=== PATIENT | male | born 1945 | race Caucasian/White ===

== ENCOUNTER → 2016-09-02 | Outpatient (CLI) | payer OTHER ==
[~2016-09-02] MED LIST: ASPEC81 PO; BIOT1TAB7 PO; CHOL100040 PO; CLC100 PO; DVN80 PO; METO25TA3 PO; METO25TA56 PO; MOME100A INH; MULTTAB PO; OXYC-57 PO; PRAV20TA PO; SENN-65 PO; SIMV10TA5 PO; VALS40TA2 PO; ZNTT/150 PO; gummy fiber PO
[2016-09-02 17:20] LABS: BASO % 0.6 %; BASO ABS # 0.04 K/uL (0-0.2); COMPLETE YES; EOS % 3.4 %; HEMATOCRIT 44.1 % (42-52); IG% 0.1 %; LYMPH % 24.9 %; LYMPH ABS # 1.66 K/uL (1.2-3.4); MEAN CELL VOLUME 94.4 fL (80-100); MEAN CORPUSCULAR HEMOGLOBIN 32.8 pg (25-34); MEAN CORPUSCULAR HGB CONC 34.7 g/dl (32-36); MEAN PLATELET VOLUME 10.8 fL (7.4-10.4); MONO % 9.4 %; NEUT % 61.6 %; PLATELET COUNT 198 K/uL (130-400); RED BLOOD COUNT 4.67 M/uL (4.7-6.1); WHITE BLOOD COUNT 6.67 K/uL (4.8-10.8)
[2016-09-02 17:38] LABS: PARTIAL THROMBOPLASTIN RATIO 1.1; PROTHROMBIN TIME (PATIENT) 10.7 SECONDS (9.0-12.0)
[2016-09-02 17:48] LABS: BLOOD UREA NITROGEN 11 mg/dl (7-18); BUN/CREATININE RATIO 11.7 (10-20); CALCIUM 9.3 mg/dl (8.5-10.1); CARBON DIOXIDE 28 mmol/L (21-32); CHLORIDE 105 mmol/L (98-107); CREATININE 0.96 mg/dl (0.60-1.40); GLUCOSE 104 mg/dl (70-99); POTASSIUM 3.8 mmol/L (3.5-5.1); SODIUM 141 mmol/L (136-145)
== END | disposition home or self-care (01) ==
LOC: C.LABPBG 12:41
PROVIDERS: ATTEND Internal Medicine
DX: R04.0 Epistaxis (principal); I10 Essential (primary) hypertension

== ENCOUNTER → 2017-01-28 | Outpatient (CLI) | payer OTHER ==
--- NOTE | 2017-01-28 09:05 | DIAGNOSTIC IMAGING REPORT ---
CHEST CT WITHOUT CONTRAST CT DOSE: 719.17 mGy.cm HISTORY: R91.8 Multiple pulmonary nodules TECHNIQUE: Multiaxial CT images of the chest were performed without contrast. COMPARISON: Chest CT 08/20/2015. FINDINGS: The central airways are patent. No pleural effusions. No pneumothorax. Moderate emphysema is again noted. No change in 1.7 cm irregular solid and groundglass nodule within the right lower lobe on image 234. Slight increase in size in the 2.0 x 1.5 cm groundglass nodule within the right lower lobe on image 195. This previous measured 1.7 x 1.3 cm. Additional subcentimeter nodules within the right lower lobe remain unchanged with the largest measuring 6 mm on image 173. No new pulmonary nodules identified. No mediastinal or hilar lymphadenopathy. Mild hepatic steatosis. The visualized spleen is unremarkable. Stable 1.4 cm nodule within the right adrenal gland. Normal left adrenal gland. There is evidence for prior Zaida fundoplication. Normal caliber thoracic aorta. The heart is normal in size. Mild thickening of the distal esophagus, unchanged. No suspicious lytic or blastic osseous lesions. IMPRESSION: 1. Slight increase in size in the 2.0 x 1.5 cm groundglass nodule in the right lower lobe. This is consistent with a primary bronchogenic neoplasm until proven otherwise. 2. No giving an change in the additional 1.7 cm solid and groundglass nodule within the right lower lobe. This is also consistent with a primary bronchogenic neoplasm until proven otherwise. 3. Additional subcentimeter nodules within the right lower lobe remain stable. 4. Emphysema. Electronically signed by: Migue Bill M.D. 01/28/2017 9:03 AM Dictated Date/Time: 01/28/2017 8:55 AM
== END | disposition home or self-care (01) ==
LOC: C.CTS 08:39
PROVIDERS: ATTEND Internal Medicine Pulmonary Disease
DX: R91.8 Other nonspecific abnormal finding of lung field (principal); J43.9 Emphysema, unspecified

== ENCOUNTER 2017-04-05 07:06 | Inpatient (IN) | payer OTHER ==
[2017-03-15 09:38] VITALS: BMI 31.0
[2017-03-15 09:54] VITALS: BMI 31.0
--- NOTE | 2017-03-15 10:08 | PAT Medication Instructions ---
Service Date Mar 15, 2017. Current Home Medication List Aspirin Enteric Coated (Ecotrin Or Generic *), 81 MG PO QAM Biotin (Biotin Maximum Strength), 100,000 MCG PO QAM Cholecalciferol (Vitamin D-1000), 1 TAB PO QAM Metoprolol Succ (Toprol Xl) (Toprol-Xl), 37.5 MG PO BID Mometasone Furoate-Formoterol (Dulera 100/5 Mcg), 2 PUFFS INH BID Multivitamins/Minerals (Mvi With Minerals), 1 TAB PO QAM Pravastatin (Pravachol ), 20 MG PO QPM Senna/Docusate Sod (Senokot S), 2 TABLETS PO QPM PRN for PRN Valsartan (Diovan), 40 MG PO QAM Medication Instructions For Your Scheduled Surgery - Hold the following medications 2 weeks prior to surgery: Biotin (Biotin Maximum Strength), 100,000 MCG PO QAM - Instructions to be given by surgeon: Aspirin Enteric Coated (Ecotrin Or Generic *), 81 MG PO QAM - Hold the following medications the morning of surgery: Valsartan (Diovan), 40 MG PO QAM Multivitamins/Minerals (Mvi With Minerals), 1 TAB PO QAM Cholecalciferol (Vitamin D-1000), 1 TAB PO QAM Senna/Docusate Sod (Senokot S), 2 TABLETS PO QPM PRN for PRN - Take the following medications the morning of surgery with a sip of water OTHERWISE NOTHING TO EAT OR DRINK AFTER MIDNIGHT: Metoprolol Succ (Toprol Xl) (Toprol-Xl), 37.5 MG PO BID Multivitamins/Minerals (Mvi With Minerals), 1 TAB PO QAM Cholecalciferol (Vitamin D-1000), 1 TAB PO QAM Mometasone Furoate-Formoterol (Dulera 100/5 Mcg), 2 PUFFS INH BID - Take the following medications as scheduled the night before surgery: Metoprolol Succ (Toprol Xl) (Toprol-Xl), 37.5 MG PO BID Pravastatin (Pravachol ), 20 MG PO QPM Mometasone Furoate-Formoterol (Dulera 100/5 Mcg), 2 PUFFS INH BID If you have any questions please call us at [phone] or [phone] or [phone]
[2017-03-15 10:39] LABS: BASO % 0.3 %; BASO ABS # 0.02 K/uL (0-0.2); COMPLETE YES; EOS % 2.8 %; HEMATOCRIT 45.6 % (42-52); IG% 0.1 %; LYMPH % 16.5 %; LYMPH ABS # 1.31 K/uL (1.2-3.4); MEAN CELL VOLUME 94.6 fL (80-100); MEAN CORPUSCULAR HEMOGLOBIN 31.7 pg (25-34); MEAN CORPUSCULAR HGB CONC 33.6 g/dl (32-36); MEAN PLATELET VOLUME 10.3 fL (7.4-10.4); MONO % 7.5 %; NEUT % 72.8 %; PLATELET COUNT 177 K/uL (130-400); RED BLOOD COUNT 4.82 M/uL (4.7-6.1); WHITE BLOOD COUNT 7.95 K/uL (4.8-10.8)
[2017-03-15 12:13] LABS: BUN/CREATININE RATIO 14.1 (10-20); CALCIUM 9.4 mg/dl (8.5-10.1); CREATININE 0.97 mg/dl (0.60-1.40)
[~2017-04-05] VITALS: Ht 182.9 cm; Wt 105.8 kg
[2017-04-05] VITALS (7 sets, daily range): BP systolic 103–135; BP diastolic 60–74; PULSE 58–81; TEMP 36.3–36.7; O2SAT 93–97; Ht 182.9 cm; Wt 105.8 kg
[~2017-04-05 07:06] MED LIST changes: -CLC100 PO; -DVN80 PO; -METO25TA56 PO; -OXYC-57 PO; -SIMV10TA5 PO; -ZNTT/150 PO; -gummy fiber PO
--- NOTE | 2017-04-05 08:28 | History & Physical Bridge Note ---
H&P Re-Evaluation Bridge Note: I have examined the patient, reviewed the History & Physical and in the interval since the performance of the History & Physical I have noted the following changes of clinical significance: No changes noted
[2017-04-05] MEDS ORDERED: FENTANYL CITRATE INJ 50 MCG/1 ML 2 ML VIAL ONE ×2 (08:35→08:58)
[2017-04-05] MEDS ORDERED: MIDAZOLAM HCL 1 MG/ML 2ML VIAL ONE (08:35)
[2017-04-05] MEDS ORDERED: MoRPHine SULFATE 10 MG/ML CARP/VIAL IV PRN (08:45)
[2017-04-05] MEDS ORDERED: ATROPINE SULFATE 0.1 MG/ML 5ML SYR IV PRN (08:45)
[2017-04-05] MEDS ORDERED: PHENYLEPHRINE 100MCG/ML 5ML SYR IV PRN (08:45)
[2017-04-05] MEDS ORDERED: FLUMAZENIL 0.1 MG/1 ML 10 ML VIAL IV PRN (08:45)
[2017-04-05] MEDS ORDERED: ONDANSETRON INJ 2 MG/ML 2 ML VIAL IV PRN ×2 (08:45→14:00)
[2017-04-05] MEDS ORDERED: HYDROmorphone INJ 1 MG/ML SYR IV PRN (08:45)
[2017-04-05] MEDS ORDERED: MEPERIDINE HCL 25 MG/ML CARP IV PRN (08:45)
[2017-04-05] MEDS ORDERED: EpHEDrine SULFATE INJ 50 MG/ML AMP IV PRN (08:45)
[2017-04-05] MEDS ORDERED: LABETALOL HCL IV 5 MG/ML 20ML IV PRN (08:45)
[2017-04-05] MEDS ORDERED: NALOXONE HCL 0.4 MG/1 ML VIAL/CARP IV PRN (08:45)
[2017-04-05] MEDS ORDERED: SODIUM CHLORIDE 0.9% PF 50 ML VIAL ONE ×2 (08:55→13:02)
[2017-04-05] MEDS ORDERED: BUPIVACAINE LIPOSOME 1/3% 266 MG/20 ML VIAL INFIL ONE ×2 (08:55→13:02)
[2017-04-05] MEDS ORDERED: CEFAZOLIN SOD 1 GM VIAL ONE (10:02)
[2017-04-05] MEDS ORDERED: ROCURONIUM BROMIDE 10 MG/ML 5 ML VIAL IV ONE ×3 (10:58→12:00)
[2017-04-05] MEDS ORDERED: DEXAMETHASONE SOD INJ 4 MG/ML VIAL ONE (10:58)
[2017-04-05] MEDS ORDERED: PROPOFOL IV EMULSION 10 MG/ML 20 ML VIAL IV ONE (10:58)
[2017-04-05] MEDS ORDERED: ONDANSETRON INJ 2 MG/ML 2 ML VIAL ONE (10:58)
[2017-04-05] MEDS ORDERED: LIDOCAINE HCL 2% 2 ML VIAL (20MG/ML) ONE (10:58)
[2017-04-05] MEDS ORDERED: PHENYLEPHRINE 100MCG/ML 5ML SYR ONE (11:02)
[2017-04-05] MEDS ORDERED: PHENYLEPHRINE HCL INJ 10 MG/ML VIAL ONE (11:02)
[2017-04-05] MEDS ORDERED: DOCUSATE SODIUM/SENNA 50/8.6MG TAB PO PRN (14:00)
[2017-04-05] MEDS ORDERED: MoRPHine SULFATE 2 MG/ML CARP IV PRN ×2 (14:00→15:15)
[2017-04-05] MEDS ORDERED: OXYCODONE HCL IR 5 MG TAB (IMMEDIATE RELEASE) PO PRN (14:00)
--- NOTE | 2017-04-05 14:39 | DIAGNOSTIC IMAGING REPORT ---
CHEST ONE VIEW PORTABLE HISTORY: 71 years-old Male nodule of the right lower lobe. Follow-up study. COMPARISON: Chest CT 01/28/2017 TECHNIQUE: Portable upright AP view of the chest FINDINGS: Subcutaneous emphysema seen along the right lateral chest wall. Right-sided chest tube is noted with distal tip projected superiorly near the right lung apex. No definite right-sided pneumothorax is identified. There are hazy bibasilar opacities and a subsegmental distribution bilaterally with blunting of the costophrenic angles. No lobar space consolidations. Cardiac silhouette is upper limits of normal. The bones are grossly intact. IMPRESSION: 1. Right-sided chest tube in place without definite pneumothorax identified. Subcutaneous emphysema is seen along the right lateral chest wall. 2. Subsegmental hazy bibasilar opacities suggest atelectasis. 3. Blunting of the bilateral costophrenic angles may reflect trace pleural effusions. The above report was generated using voice recognition software. It may contain grammatical, syntax or spelling errors. Electronically signed by: Luis Fernando Hathaway M.D. 04/05/2017 2:38 PM Dictated Date/Time: 04/05/2017 2:35 PM
--- NOTE | 2017-04-05 14:50 | OPERATIVE REPORT ---
DATE OF OPERATION: 04/05/2017 PREOPERATIVE DIAGNOSIS: Right lower lobe masses x2. POSTOPERATIVE DIAGNOSES: 1. Apparent adenocarcinoma right lower lobe. 2. Questionable lymphoma. PROCEDURES: 1. Robot-assisted thoracoscopic right lower lobectomy. 2. Mediastinal lymphadenectomy. SURGEON: Dr. Brown. THERMITE BOMB LOADER: LILY Edmond. ANESTHESIA: General anesthesia endotracheal intubation using double lumen tube. SPECIFICS OF PROCEDURE: Mr. Grant is a very nice 71-year-old male who was noted to have a mass in his right lower lobe. He actually had 2 masses. A PET scan done back in November showed that these pulmonary lesion really were not very avid; however, it was quite concerning. Repeat CT scan was done on January 28 which showed that the larger mass grown to 2 cm. Given this, we elected to proceed with a resection. It really was not in a good area to do a wedge resection. I had a long talk with the patient and his . We elected to proceed with a robot-assisted thoracoscopic right lower lobectomy. On 04/05/2017, the patient underwent an uncomplicated robot-assisted thoracoscopic right lower lobectomy and mediastinal lymphadenectomy. He did not have much in the way of lymph nodes. Frozen section showed this to be a probable adenocarcinoma in one nodule and the other nodule had lymphocytic infiltrate which may be consistent lymphoma. He tolerated it quite well with negligible blood loss, was extubated in the room. DESCRIPTION OF PROCEDURE: The patient brought to the operating room, laid in supine position. General anesthesia induced and endotracheal intubation was performed with a double lumen tube. After appropriate monitoring lines and catheter had been placed. The patient was placed in a left lateral decubitus position, and the right chest prepped, draped in usual sterile fashion. Following administration of prophylactic antibiotics and appropriate timeout, an incision was made in about the ninth interspace in the mid axillary line and 12 mm port was placed and the camera was placed and held by hand. This was the robotic camera. With this, we then placed a 5 mm port more posteriorly in the same interspace, 8 mm port, between these 2 ports another 8 mm port anteriorly in the same interspace and then assistance port two interspaces below this between the third and the fourth port. There were no adhesions noted. I went and looked and really did not see an obvious mass. I did not think it would make a difference because I felt this needed to be removed. Attention was first turned towards the inferior pulmonary ligament which was taken down without difficulty with cautery. There was a level 9 node which was biopsied and there were multiple level 8 nodes which were biopsied going up to the inferior pulmonary vein. I cleaned out the inferior pulmonary vein inferiorly, posteriorly and anteriorly. I then continued the pleural dissection all the way up to the subcarinal area where the level 7 nodes and level 10 nodes were biopsied. Attention was then turned towards the interlobar fissure which was fairly complete. This brought me down to the intralobar artery. I then dissected this out and fired Endo-AMANDA stapler across this. Upon further dissection it could be seen that there was another branch more posteriorly and I then divided this. We then completed the fissure anteriorly with an Endo-AMANDA stapler. The bronchus was noted. After taking the posterior arterial branch, I then retracted the lung again anteriorly and then dissected off the remainder of the pulmonary vein. I then dissected out the bronchus. After dissecting all this away quite nicely, I then placed an Endo-AMANDA stapler across the bronchus and fired a stapler. We did inflate the lung to make sure that we did not compromise the middle lobe bronchus. Attention was then turned towards the vein and again an Endo-AMANDA stapler was fired. We then placed the mass in an Endobag and removed it, although we had to open the assistance port to about 3 cm to do this. The frozen section showed this to be an adenocarcinoma in 1 nodule and a lymphoma in the other. This is still pending final histologic analysis. Exparel was then used to perform an intrathoracic intercostal block from the 2nd to the 11th rib. A 24-Micronesian chest tube was placed through the anterior thoracoscopy port and directed towards the apex. I then placed a heavy silk suture. The 2 larger ports were closed with 0 Vicryl in a running continuous fashion to close the muscle layers. A 4-0 Monocryl was used in running subcuticular fashion to approximate the wound edges. The patient tolerated very well. I attest to the content of the Intraoperative Record and any orders documented therein. Any exception s are noted below.
--- NOTE | 2017-04-05 15:04 | Anesthesiology Progress Note ---
Anesthesia Post Op Note Date & Time Apr 05, 2017 at 15:03 Vital Signs Pain Intensity: 0 Vital Signs Past 12 Hours Date Time Temp Pulse Resp B/P (MAP) Pulse Ox O2 Delivery O2 Flow Rate FiO2 04/05/17 14:07 36.1 80 18 139/69 98 Mask 15 04/05/17 08:50 58 16 96 Mask 4.0 04/05/17 07:49 36.5 59 20 135/74 97 Room Air Notes Mental Status: alert / awake / arousable, participated in evaluation Pt Amnestic to Procedure: Yes Nausea / Vomiting: adequately controlled Pain: adequately controlled Airway Patency, RR, SpO2: stable & adequate BP & HR: stable & adequate Hydration State: stable & adequate Anesthetic Complications: no major complications apparent The patient did well. He is awake and his vital signs are stable.
[2017-04-05] MEDS ORDERED: KETOROLAC TROMETHAMINE 15 MG/ML VIAL IV. SCH (16:00)
[2017-04-05] MEDS ORDERED: ACETAMINOPHEN IV 1,000 MG in EMPTY BAG 0 ML IV SCH (16:00)
[2017-04-05] MEDS: D5W AND 1/2NSS 1,000 ML IV SCH (17:53)
[2017-04-05] MEDS: CEFAZOLIN IV 2,000 MG in DEXTROSE 5% 50ML 50 ML IV SCH (18:29)
[2017-04-05] MEDS ORDERED: METO25TA56 PO (19:10)
[2017-04-05] MEDS: DOCUSATE SODIUM 100 MG CAP PO SCH (21:21)
[2017-04-05] MEDS: PRAVASTATIN SOD 20 MG TAB PO SCH (21:21)
[2017-04-05] MEDS: METOPROLOL TARTRATE 25 MG TAB PO SCH (21:21)
[2017-04-05] MEDS: METOCLOPRAMIDE HCL INJ 5 MG/ML 2 ML VIAL IV. SCH (22:21)
[2017-04-06] VITALS (7 sets, daily range): BP systolic 90–110; BP diastolic 53–72; PULSE 60–72; TEMP 36.6–37.2; O2SAT 85–94
[2017-04-06] MEDS ORDERED: ACETAMINOPHEN IV 1,000 MG in EMPTY BAG 0 ML IV SCH (02:00)
[2017-04-06] MEDS: D5W AND 1/2NSS 1,000 ML IV SCH (02:06)
[2017-04-06] MEDS: CEFAZOLIN IV 2,000 MG in DEXTROSE 5% 50ML 50 ML IV SCH (02:07)
[2017-04-06] MEDS: KETOROLAC TROMETHAMINE 15 MG/ML VIAL IV. SCH ×3 (02:09→17:52)
[2017-04-06 06:16] LABS: BASO % 0.1 %; BASO ABS # 0.01 K/uL (0-0.2); COMPLETE YES; HEMATOCRIT 38.5 % (42-52); IG% 0.2 %; LYMPH % 7.5 %; LYMPH ABS # 0.94 K/uL (1.2-3.4); MEAN CELL VOLUME 95.3 fL (80-100); MEAN CORPUSCULAR HEMOGLOBIN 31.7 pg (25-34); MEAN CORPUSCULAR HGB CONC 33.2 g/dl (32-36); MEAN PLATELET VOLUME 9.6 fL (7.4-10.4); NEUT % 83.2 %; PLATELET COUNT 156 K/uL (130-400); RED BLOOD COUNT 4.04 M/uL (4.7-6.1)
[2017-04-06] MEDS: METOCLOPRAMIDE HCL INJ 5 MG/ML 2 ML VIAL IV. SCH ×2 (06:27→13:54)
[2017-04-06 06:34] LABS: INR 1.1 (0.9-1.1); PROTHROMBIN TIME (PATIENT) 11.4 SECONDS (9.0-12.0)
[2017-04-06 06:55] LABS: BUN/CREATININE RATIO 16.4 (10-20); CREATININE 0.97 mg/dl (0.60-1.40); POTASSIUM 3.9 mmol/L (3.5-5.1)
--- NOTE | 2017-04-06 07:45 | DIAGNOSTIC IMAGING REPORT ---
CHEST ONE VIEW PORTABLE CLINICAL HISTORY: 71 years-old Male presenting with RLL. TECHNIQUE: Portable upright AP view of the chest was obtained. COMPARISON: 04/05/2017. FINDINGS: Interval removal of the large bore right pleural drain. Persistent soft tissue emphysema overlying the right chest wall extending to the right base of the neck. Cardiomediastinal silhouette normal. Minimal bandlike opacities at the lung bases likely atelectasis. Interval recurrence of a small right pneumothorax. Left pleural space clear. Osseous structures normal. Upper abdomen normal. IMPRESSION: 1. Interval recurrence of a small right apical pneumothorax status post left pleural drain removal. 2. Minimal bibasilar atelectasis. Electronically signed by: Fernnado Kowalski M.D. 04/06/2017 7:43 AM Dictated Date/Time: 04/06/2017 7:41 AM
[2017-04-06] MEDS: ASPIRIN 81 MG ECTAB PO SCH (08:32)
[2017-04-06] MEDS: DOCUSATE SODIUM 100 MG CAP PO SCH ×2 (08:32→20:10)
[2017-04-06] MEDS: CHOLECALCIFEROL 1000 INTER.UNIT TAB PO SCH (08:33)
[2017-04-06] MEDS: CEROVITE ADV FORMULA TAB PO SCH (08:33)
[2017-04-06] MEDS: METOPROLOL TARTRATE 25 MG TAB PO SCH ×2 (08:33→20:11)
[2017-04-06] MEDS: VALSARTAN 80 MG TAB PO SCH (08:34)
[2017-04-06] MEDS: DULERA - ORDER AWAITING ACTION SCH ×3 (08:35→16:33)
[2017-04-06] MEDS: ENOXAPARIN 40 MG/0.4 ML SYR SQ SCH (08:55)
[2017-04-06] MEDS ORDERED: BIOTIN PO SCH (09:00)
[2017-04-06] MEDS ORDERED: ACETAMINOPHEN 325 MG TAB PO SCH (09:15)
--- NOTE | 2017-04-06 14:46 | SURGERY PROGRESS NOTE ---
DATE: 04/06/2017 Mr. Grant was seen today. He is on room air, sitting up, eating breakfast. His robotic right lower lobectomy and mediastinal lymph node dissection was done yesterday and denies any pain today. He is on room air. He has no air leak. His chest x-ray looks very good except for a very small right apical pneumothorax. He has no pleural effusion. All in all, I am quite happy with him. I would see him in the morning and probably remove his chest tube and let him go home. His labs all look quite good today. We are going to push him to ambulate today and discharge him in the morning.
[2017-04-06] MEDS: ACETAMINOPHEN 325 MG TAB PO SCH ×2 (16:34→21:51)
[2017-04-06] MEDS: PRAVASTATIN SOD 20 MG TAB PO SCH (21:50)
[2017-04-07] MEDS: KETOROLAC TROMETHAMINE 15 MG/ML VIAL IV. SCH ×2 (02:44→09:36)
[2017-04-07] MEDS: ACETAMINOPHEN 325 MG TAB PO SCH ×2 (04:36→09:38)
[2017-04-07] MEDS ORDERED: LACTATED RINGER'S 1000ML 1,000 ML IV SCH (06:00)
[2017-04-07 07:08] VITALS: BP 115/63; PULSE 65; TEMP 36.9; O2SAT 90
[2017-04-07] MEDS ORDERED: CLC100 PO (07:09)
--- NOTE | 2017-04-07 07:13 | Discharge Instructions ---
Discharge Instructions Date of Service Apr 07, 2017. Admission Reason for Admission: Right Lung Nodule Discharge Discharge Diagnosis / Problem: Right Lung Nodule Discharge Goals Goal(s): Learn about illness Activity Recommendations Activity Limitations: as noted below Lifting Limitations: none 1. Do not fly or SCUBA dive until cleared to do so by Dr. Brown. . Instructions / Follow-Up Instructions / Follow-Up 1. You may remove dressing in 3 days and shower thereafter. No tub baths. 2. Office appointment with Dr. Brown in 1 week. Office will call you with date and time of appointment. You need to go to hospital 1 hour before anointment to have a chest x-ray taken. Current Hospital Diet Patient's current hospital diet: Regular Diet Discharge Diet Recommended Diet: Regular Diet Procedures Procedures Performed: Right Video-Assisted Thoracoscopy with Right Lower Lobectomy and Lymphadenectomy DaVinci Pending Studies Studies pending at discharge: no Medical Emergencies . Who to Call and When: Medical Emergencies: If at any time you feel your situation is an emergency, please call 911 immediately. . Non-Emergent Contact Non-Emergency issues call your: Surgeon Call Non-Emergent contact if: you have a fever, your pain is not controlled, wound has increased drainage . "Provider Documentation" section prepared by Nelson Valdez. . VTE Core Measure Inpt VTE Proph given/why not?: Enoxaparin (Lovenox)SQ
[2017-04-07] MEDS ORDERED: OXYC-57 PO (07:24)
[2017-04-07] MEDS: DULERA - ORDER AWAITING ACTION SCH ×2 (07:45)
--- NOTE | 2017-04-07 07:46 | DIAGNOSTIC IMAGING REPORT ---
CHEST ONE VIEW PORTABLE HISTORY: chest tube removal COMPARISON: Chest 04/06/2017. FINDINGS: Small right apical pneumothorax persists and is not significantly changed. This demonstrates a maximal pleural gap of 1.8 cm. Right chest wall subcutaneous emphysema persists. The cardiac silhouette remains mildly enlarged. There are low lung volumes. Bibasilar linear densities favor subsegmental atelectasis. No evidence for pulmonary edema. IMPRESSION: No significant change compared to the prior study. Small right pneumothorax persists. Electronically signed by: Migue Bill M.D. 04/07/2017 7:45 AM Dictated Date/Time: 04/07/2017 7:38 AM
[2017-04-07] MEDS: DOCUSATE SODIUM 100 MG CAP PO SCH (09:00)
[2017-04-07] MEDS: CHOLECALCIFEROL 1000 INTER.UNIT TAB PO SCH (09:25)
[2017-04-07 09:27] VITALS: BP 107/63; PULSE 84
[2017-04-07] MEDS: ASPIRIN 81 MG ECTAB PO SCH (09:28)
[2017-04-07] MEDS: VALSARTAN 80 MG TAB PO SCH (09:28)
[2017-04-07] MEDS: CEROVITE ADV FORMULA TAB PO SCH (09:29)
[2017-04-07] MEDS: METOPROLOL TARTRATE 25 MG TAB PO SCH (09:30)
[2017-04-07] MEDS: ENOXAPARIN 40 MG/0.4 ML SYR SQ SCH (09:31)
[2017-04-07 09:49] VITALS: BP 107/63; PULSE 84; TEMP 36.9; O2SAT 90
--- NOTE | 2017-04-07 18:30 | DISCHARGE SUMMARY ---
DISCHARGE DIAGNOSES: Non-small cell lung carcinoma, right lower lobe. HOSPITAL COURSE: This is a very nice 71-year-old male who was found to have a mass that was slowly growing in his right lower lobe. In fact, he had 2 masses. They were deeper than the lobe medially. I did not think a segmentectomy or wedge resection would be feasible. For this reason, I offered him a robot-assisted lobectomy. On 04/05/2017, the patient underwent uncomplicated robot-assisted thoracoscopic right lower lobectomy and mediastinal lymphadenectomy. Frozen section showed that 1 nodule that had been growing was indeed an early stage carcinoma. This nonsmall cell lung carcinoma had good margins. All of the lymph nodes were negative. He had no air leak. He tolerated the procedure quite well. He was discharged home on postoperative day 2. His x-ray after chest tube was removed looked quite good. I will see him back in the office next week to go over his final pathology results. I am quite happy with his response to this surgery.
--- NOTE | 2017-04-08 08:08 | EDITING REQUIRED CODING QUERY ---
CODING QUERY To promote full compliance with coding requirements relating to patient care, provider participation is requested in all cases of mirror polisher uncertainty. Please assist us with the question(s) below: Coding Question(s): The Op Report and the Discharge Summary are not consistent in documenting of the possible Lymphoma. Please clarify below, in your clinical opinion. ( ) Possible Lympoma ( ) No Lymphoma Unknown at this point. Physician's Response(s): Primary bronchogenic carcinoma is the "_condition..to be chiefly responsible for occasioning the patient to the hospital for care". Thank you Sylvie Tejada Principal Diagnosis: "_that condition established after study, to be chiefly responsible for occasioning the admission of the patient to the hospital for care." Co-Existing Principal Diagnosis: "_when two or more diagnoses equally meet the criteria for principal diagnosis as determined by the circumstances of admission, diagnostic work up, and/or therapy provided, and the Alphabetic Index, Tabular List, or another coding guideline does not provide sequencing direction, any one of the diagnoses may be sequenced first." "When the physician has documented what appears to be a current diagnosis in the body of the record, but has not included the diagnosis in the final diagnostic statement, the physician should be asked whether the diagnosis should be added." (Source Coding [facility] 2 QTR90. p3-4)
== END 2017-04-07 10:15 | disposition home or self-care (01) | DRG 165 ==
LOC: C.ACU 07:06 → C.MSW 07:40 → EDBEDREQ 14:35 → ENRESERV 15:12
PROVIDERS: ADMIT Surgery; ATTEND Surgery
PROC: 0W9930Z Drainage of Right Pleural Cavity with Drainage Device, Percutaneous Approach (ICD-10-PCS; principal; 2017-04-05 09:00)
PROC: 0BTF4ZZ Resection of Right Lower Lung Lobe, Percutaneous Endoscopic Approach (ICD-10-PCS; principal; 2017-04-05 09:00)
PROC: 07B74ZX Excision of Thorax Lymphatic, Percutaneous Endoscopic Approach, Diagnostic (ICD-10-PCS; principal; 2017-04-05 09:00)
PROC: 8E0W4CZ Robotic Assisted Procedure of Trunk Region, Percutaneous Endoscopic Approach (ICD-10-PCS; principal; 2017-04-05 09:00)
DX: C34.31 Malignant neoplasm of lower lobe, right bronchus or lung (principal); J44.9 Chronic obstructive pulmonary disease, unspecified; I10 Essential (primary) hypertension; Z79.899 Other long term (current) drug therapy; Z79.82 Long term (current) use of aspirin; Z83.3 Family history of diabetes mellitus; Z83.6 Family history of other diseases of the respiratory system

== ENCOUNTER → 2017-04-15 | Outpatient (CLI) | payer OTHER ==
[~2017-04-15] MED LIST changes: +CLC100 PO; -METO25TA3 PO; +METO25TA56 PO; +OXYC-57 PO
--- NOTE | 2017-04-15 09:23 | DIAGNOSTIC IMAGING REPORT ---
CHEST 2 VIEWS ROUTINE HISTORY: Postop. R91.1 Nodule of right [id number] COMPARISON: Chest 04/07/2017. FINDINGS: Small right pneumothorax is decreased in size and now demonstrates a pleural gap of 9 mm. Right chest wall subcutaneous emphysema persists. The heart is normal in size. The left lung remains clear. No pleural effusions. Progressive right lower lobe airspace opacity. IMPRESSION: Decrease in size in the small right pneumothorax. Progressive right lower lobe opacity. This may represent postoperative change, atelectasis, or developing pneumonia. Electronically signed by: Migue Bill M.D. 04/15/2017 9:21 AM Dictated Date/Time: 04/15/2017 9:19 AM
== END | disposition home or self-care (01) ==
LOC: C.RAD 08:50
PROVIDERS: ATTEND Surgery
DX: J93.9 Pneumothorax, unspecified (principal)

== ENCOUNTER → 2017-04-29 | Outpatient (CLI) | payer OTHER ==
[2017-04-29 12:31] LABS: ALT/SGPT 32 U/L (12-78); BLOOD UREA NITROGEN 16 mg/dl (7-18); BUN/CREATININE RATIO 20.6 (10-20); CALCIUM 9.3 mg/dl (8.5-10.1); CARBON DIOXIDE 25 mmol/L (21-32); CHLORIDE 108 mmol/L (98-107); CHOLESTEROL 125 mg/dl (0-200); CREATININE 0.77 mg/dl (0.60-1.40); GLUCOSE,FASTING 102 mg/dl (70-99); POTASSIUM 4.2 mmol/L (3.5-5.1); SODIUM 139 mmol/L (136-145); TRIGLYCERIDES 102 mg/dl (0-150); VERY LOW DENSITY LIPOPROT CALC 20 mg/dl
[2017-04-29 12:34] LABS: ALB/GLOB RATIO 1.2 (0.9-2); ALKALINE PHOSPHATASE 57 U/L (45-117); AST/SGOT 23 U/L (15-37); CHOLESTEROL/HDL RATIO 2.9; HDL CHOLESTEROL 43 mg/dl; LDL CHOLESTEROL CALCULATED 62 mg/dl
== END | disposition home or self-care (01) ==
LOC: C.LABPBG 07:28
PROVIDERS: ATTEND Internal Medicine
DX: E78.00 Pure hypercholesterolemia, unspecified (principal); I10 Essential (primary) hypertension; E55.9 Vitamin D deficiency, unspecified

== ENCOUNTER → 2017-05-13 | Outpatient (CLI) | payer OTHER ==
[2017-05-13 17:17] LABS: URINE APPEARANCE CLEAR (CLEAR); URINE BILIRUBIN NEG (NEG); URINE COLOR YELLOW; URINE NITRITE NEG (NEG); URINE SPECIFIC GRAVITY 1.022 (1.000-1.030); UROBILINOGEN NEG (NEG)
[2017-05-13 17:20] LABS: MANUAL MICROSCOPIC REQUIRED? NO; REVIEW REQ? NO
[2017-05-13 17:23] LABS: BASO % 0.5 %; BASO ABS # 0.05 K/uL (0-0.2); COMPLETE YES; EOS % 7.1 %; HEMATOCRIT 46.5 % (42-52); IG% 0.3 %; LYMPH % 20.9 %; MEAN CELL VOLUME 94.7 fL (80-100); MEAN CORPUSCULAR HEMOGLOBIN 32.2 pg (25-34); MEAN PLATELET VOLUME 10.6 fL (7.4-10.4); MONO % 6.4 %; NEUT % 64.8 %; PLATELET COUNT 183 K/uL (130-400); RED BLOOD COUNT 4.91 M/uL (4.7-6.1)
[2017-05-13 18:06] LABS: ALT/SGPT 39 U/L (12-78); AST/SGOT 23 U/L (15-37); BLOOD UREA NITROGEN 13 mg/dl (7-18); BUN/CREATININE RATIO 13.4 (10-20); CALCIUM 9.4 mg/dl (8.5-10.1); CARBON DIOXIDE 27 mmol/L (21-32); CHLORIDE 106 mmol/L (98-107); CREATININE 0.95 mg/dl (0.60-1.40); GLUCOSE 92 mg/dl (70-99); POTASSIUM 4.2 mmol/L (3.5-5.1); SODIUM 140 mmol/L (136-145)
[2017-05-13 18:08] LABS: ALB/GLOB RATIO 1.3 (0.9-2); ALKALINE PHOSPHATASE 67 U/L (45-117)
== END | disposition home or self-care (01) ==
LOC: C.LABPBG 11:46
PROVIDERS: ATTEND Internal Medicine
DX: R10.12 Left upper quadrant pain (principal); R10.32 Left lower quadrant pain

== ENCOUNTER → 2017-10-15 | Outpatient (CLI) | payer OTHER ==
[~2017-10-15] MED LIST changes: -OXYC-57 PO
--- NOTE | 2017-10-15 12:02 | DIAGNOSTIC IMAGING REPORT ---
(CHEST) THORAX WITHOUT CT DOSE: 608.85 mGycm HISTORY: Lung carcinoma CANCER OF RIGHT LUNG TECHNIQUE: Multiaxial CT images of the chest were performed without contrast. A dose lowering technique was utilized adhering to the principles of ALARA. COMPARISON: 01/28/2017 FINDINGS: Interval right lower lobectomy. The nodular densities previous described have been removed. Lungs currently are clear. There is no significant nodular pathology. Chronic atelectatic change and or scarring of the lingula is unaltered. No significant mediastinal or hilar adenopathy. Several very small axillary nodes bilaterally unchanged from the prior study. Fixed hiatal hernia somewhat increased from the prior exam. Stable hyperplastic change of the adrenal glands. IMPRESSION: 1. Interval right lower lobectomy and removal of the 2 nodular densities previous described. 2. No evidence for parenchymal nodularity currently. 3. Chronic basilar atelectatic and/or fibrotic change. 4. Small hiatal hernia. 5. No evidence for residual or recurrent disease The above report was generated using voice recognition software. It may contain grammatical, syntax or spelling errors. Electronically signed by: Armaan Syed M.D. 10/15/2017 12:01 PM Dictated Date/Time: 10/15/2017 11:53 AM
== END | disposition home or self-care (01) ==
LOC: C.CTS 11:39
PROVIDERS: ATTEND Surgery
DX: C34.91 Malignant neoplasm of unspecified part of right bronchus or lung (principal); K44.9 Diaphragmatic hernia without obstruction or gangrene

== ENCOUNTER → 2017-10-25 | Outpatient (CLI) | payer OTHER ==
--- NOTE | 2017-10-25 12:30 | DIAGNOSTIC IMAGING REPORT ---
VIDEO SWALLOW STUDY CLINICAL HISTORY: Dysphagia. COMPARISON STUDY: No priors. Fluoroscopy time: 2.5 minutes. FINDINGS: Fluoroscopic guidance was provided to the department of speech pathology in performing a video swallow study. The patient consumed barium-impregnated cracker with paste, pudding, nectar thick liquid, and thin barium while the swallowing mechanism was observed in real-time. No penetration or aspiration was seen with any of the sampled textures. Mild esophageal dysmotility was observed. IMPRESSION: 1. No penetration or aspiration was identified. 2. Esophageal dysmotility. 3. See dedicated speech pathology report for detailed findings and recommendations. Dictated: 10/25/2017 11:58 AM Transcribed: 10/25/2017 12:30 PM [facility] Electronically signed by: Dayne Loaiza M.D. 10/25/2017 1:29 PM Dictated Date/Time: 10/25/2017 11:58 AM
--- NOTE | 2017-10-25 13:38 | SWALLOWING EVALUATION ---
HISTORY: This 72 year old man was referred for a video swallow study at [facility] in order to rule out aspiration and identify the safest consistencies for optimal oral intake. Patient reports food becoming stuck in his throat and also pointed to his mid sternum as an area where he feels pressure while eating. PMH is significant for: right lung nodule, right lower lobectomy, small hiatal hernia, dehydration, HTN, and A-fib. Current diet is regular. PROCEDURE: The patient was seen in the Radiology Department of [facility] for the VFSS. Cursory examination of the oral cavity revealed the patient to have upper and lower dentition in good condition, many were capped. Movement of the articulators was wnl. The patient was seated upright on a stool and was viewed in both the Anterior-Posterior (A-P) and Lateral planes. Volitional phonation exercises completed in the A-P plane revealed bilateral vocal fold movement. Vocal intensity was wnl. In the lateral plane, the patient was given the following boluses: 1 tsp. thin liquid barium x 2, single swallow thin liquid barium self-presented from a cup, sequential swallows of thin liquid barium self-presented from a straw, 1 tsp. nectar-thick liquid barium, single swallow nectar-thick liquid barium self-presented from a cup, 1 tsp. barium pudding, and 1 club cracker coated in barium pudding. The patient was then repositioned into the A-P plane and given the following boluses: 1 tsp. nectar thick barium and 1 tsp. barium pudding. RESULTS: Oral Stage: Lip closure was adequate. The patient was able to maintain a cohesive liquid bolus in the oral cavity during the liquid bolus hold task. Mastication was mildly slow. Lingual motion for bolus transport was also noted to be slow. There was retention lining the tongue and palate after the initial swallow. The initiation of the pharyngeal swallow occurred when the bolus head reached the valleculae. Pharyngeal Stage: Soft palate elevation was complete. Laryngeal elevation revealed complete superior movement of the thyroid cartilage with complete approximation of the arytenoids to the epiglottic base. Anterior hyoid excursion and epiglottic deflection was complete. Laryngeal vestibular closure was complete. The pharyngeal stripping wave was present and complete. Pharyngeal contraction was complete. There was complete distention and duration of the opening to the pharyngoesophageal segment (PES). Tongue base retraction was partially reduced with a trace column of contrast located between the tongue base and pharyngeal wall during the swallow. There was trace retention located in the valleculae and pyriforms after the swallow. The pharyngeal stage of the swallow was wnl. There was no evidence of laryngeal penetration or aspiration for this study. Esophageal stage: There was distal esophageal retention with mild retrograde flow below the PES. A liquid wash assisted to clear the majority of the retention. This is suggestive of esophageal dysmotility and reflux. SUMMARY/RECOMMENDATIONS: This patient presents with normal marquita-pharyngeal swallowing mechanics. He presents with s/s of esophageal dysfunction. The following is recommended: 1. Regular diet, "Slippery", thin liquids. 2. GERD precautions. Straws OK. Fully upright for meals and for 30 minutes after meals. Do not lay flat, elevate head of the bed to at least 30 degrees at all time, to include while sleeping. 3. Safe swallow strategies: Alternate solids and liquids. Rest breaks as needed. 4. Follow up with a enrolled agent due to esophageal dysfunction as indicated for medication and or further testing as needed. A summary of the results and recommendations was discussed with the patient, to include information regarding a slippery diet, with verbal understanding. Thank you for referral of this patient. Please contact me at if any additional information is needed.
== END | disposition home or self-care (01) ==
LOC: C.RAD 10:25
PROVIDERS: ATTEND Internal Medicine
DX: K22.4 Dyskinesia of esophagus (principal); R13.10 Dysphagia, unspecified

== ENCOUNTER 2024-01-27 17:32 | Inpatient (IN) ==
--- NOTE | 2024-01-27 17:40 | ED Triage Note ---
Date of Service January 27, 2024 Provider in Triage Author: Anisha Gilmore History of Present Illness This patient was briefly evaluated while in triage. An abbreviated physical exam was performed. This patient is a 78-year-old Male who presents to the ED for evaluation of shortness of breath. Has throat and lung cancer, already finished radiation, but had to stop chemo treatments recently because of side effects. No chest pain. Has been having fevers off and on, and also having a cough. Physical Exam CONSTITUTIONAL: No acute distress. Well appearing. HEENT: Airway patent. RESPIRATORY: Diminished lung sounds, fine crackles in bases. Nonlabored. Equal expansion bilaterally. CARDIOVASCULAR: Regular rate and rhythm. GASTROINTESTINAL: Soft NEUROLOGIC: Alert and oriented X 4 with normal affect. Patient found to be profoundly hypoxic in triage, 74% on room air. Placed on oxygen with improvement to 89%. Initial orders for labs and / or imaging were placed and patient was taken directly to room B3. Please see further documentation for the full ED course. MDM / Impression Impression Impression: Sepsis, Acute hypoxemic respiratory failure, Pneumonia, Leukocytosis, Non-ST elevation MA (NSTEMI), Elevated brain natriuretic peptide (BNP) level
--- NOTE | 2024-01-27 17:58 | Emergency Department Note ---
Impression & Plan Sepsis, Acute hypoxemic respiratory failure, Pneumonia, Leukocytosis, Non-ST elevation ME (NSTEMI), Elevated brain natriuretic peptide (BNP) level ED Provider Note HISTORY OF PRESENT ILLNESS: Patient is a 78-year-old male presenting with hypoxia and confusion. provides most of history. Reports that the patient is currently undergoing chemotherapy for what is presumed to be neck cancer that is gone to his lung. He had radiation therapy to his lung weeks ago. He has not had chemotherapy in 3 weeks secondary to getting palpitations during the chemo treatments. He has been having daily fevers up to 101. He was told that this is "just a side effect of the chemo." He states he has been progressively weaker in the last few weeks. He has had progressively worsening shortness of breath in the last 2 weeks. Denies any significant changes in weight. Denies any chest pain. Today, his noticed that he was very ashen and blue in color and was very confused. She decided to bring him to the emergency department. He does not wear any supplemental oxygen at baseline. He does not have any history of cardiac stents. Denies any DVT or PE history. ROS: as above PHYSICAL EXAM: Constitutional: Patient appears in no acute distress. HENT: Head: Normocephalic and atraumatic. Eyes: EOMI, PERRL Mouth/Throat: Mucous membranes moist. Neck: Trachea midline. Neck supple. Cardiovascular: Tachycardic with regular rhythm. No murmurs, rubs or gallops. Intact distal pulses. Pulmonary/Chest: Patient is tachypneic. He is on 10 L oxime mask with saturation is 95%. Slight expiratory wheezes bilaterally. Crackles in right lung base. Abdominal: Abdomen soft, no tenderness, rebound or guarding. Musculoskeletal: No tenderness or deformity noted. +1 edema of bilateral lower extremities extending to the lower fischer. Skin: Warm and dry. No rash, erythema, pallor or cyanosis Psychiatric: Appropriate mood and affect for situation. Neurological: Alert and keenly responsive. CN II-XII grossly intact, moving all extremities equally and fully. MDM: - Vitals signs showed hypertension, fever, tachypnea, tachycardia and hypoxia. Patient was immediately brought back to the resuscitation bay and placed on 10 L oxime mask. Saturations improved to 95%. Patient's mental status also improved. - History obtained via patient and patient's , given patient's tachypnea and confusion. History as above. - Chronic conditions affecting care: hypothyroidism; HTN; COPD; CAROLYN; squamous cell carcinoma of lung; atrial flutter; supraglottis cancer - Differential diagnoses include, but are not limited to: Congestive heart failure; acute coronary syndrome; COPD/asthma exacerbation; pulmonary edema; pulmonary embolism; pneumonia; pneumothorax; viral syndrome - Order placed for continuous cardiac monitoring. At this time, monitor showed rate of 105 bpm with normal sinus rhythm, per my interpretation. - External medical records reviewed. Oncology/hematology report dated 01/16/2024 was reviewed. 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 His cancer staging is T3 N2c - EKG interpreted by myself showed normal sinus rhythm. Rate tachycardic at 112 bpm. QT 366. No acute ischemic changes. Noted to have frequent PVCs. - Laboratory workup interpreted by myself showed leukocytosis (WBC 19.33) with left shift; stable electrolytes; normal lactate; normal creatinine; slight transaminitis (AST 49; ALT 102); normal total bilirubin; elevated troponin (24.9); elevated BNP (574); normal procalcitonin - Blood cultures obtained - VBG grossly unremarkable - Viral respiratory panel negative - CXR shows pulmonary vascular congestion and right pleural effusion, per my interpretation. - CT PE negative for PE. Noted to have consolidated/collapse right lower lobe with a right hilar soft tissue density. Findings suggestive of bronchogenic malignancy arising from the right hilum with postobstructive right lower lobe atelectasis/pneumonia. Noted to have a small partially loculated right pleural effusion. - Patient empirically started on IV rocephin. Given 1g IV tylenol for fever. Given 1L NS in ER. Patient sepsis fluid resuscitation based on ideal body weight is 1854.3 mL. However, no further fluids were given after the initial 1L, given patient's elevated BNP and notable pleural effusion and oxygen need. No echocardiogram noted in the patient's chart for previous EF. However, on clinical evaluation he is fluid overloaded and no further fluids were given. - Patient transitioned to [facility] for respiratory support - Discussion was had with rn field case manager about patient's case and need for admission - Hospitalist consulted for admission - Patient admitted to [facility] Hospitalist service for further evaluation and management. I have personally spent 48 minutes of critical care time in the direct management of this patient. This includes bedside care, interpretation of diagnostic studies, and testing, discussion with consultants, patient, and family members, and other required patient management activities. This 48 minutes is in excess of all separately billable procedures. ASSESSMENT AND PLAN: Diagnosis: sepsis; fever; leukocytosis; NSTEMI; elevated BNP; pneumonia; acute hypoxic respiratory failure Plan: admit Past Med/Surg History Problem List (Updated 01/27/24 @ 19:53 by Amisha Rodriguez MD) Elevated brain natriuretic peptide (BNP) level (Acute) Non-ST elevation ME (NSTEMI) (Acute) Leukocytosis (Acute) Pneumonia (Acute) Acute hypoxemic respiratory failure (Acute) Sepsis (Acute) Squamous cell carcinoma of left lung (Acute) Hypothyroidism History of lung cancer Primary cancer of supraglottis (Chronic) Bilateral carotid artery disease History of atrial flutter s/p RFA in 2012 GERD (gastroesophageal reflux disease) Hiatal hernia Vitamin D deficiency Hyperlipidemia Gout Hypertension Obstructive sleep apnea Chronic obstructive pulmonary disease Adenocarcinoma of right lung, stage 1 (2016) Medical History Tracheostomy in place COVID-19 (06/2020) Surgical History History of lung biopsy L lung - October 2023 -Wilber Gonzalez. Status post tracheostomy (10/09/22) 10/09/[address] Chowdary [facility] History of radiofrequency ablation (RFA) procedure for cardiac arrhythmia (2012) caval tricuspid isthmus radiofrequency catheter ablation Status post laparoscopic Zaida fundoplication (11/13/09) w/ paraesophageal hernia repair S/P eye surgery S/P colectomy secondary to diveritculitis S/P lobectomy of lung (03/2017) RLL, secondary to non small cell lung carcinoma History of cataract surgery Family History Father Diabetes Mother , age 85 Bacterial pneumonia Smoker COPD (chronic obstructive pulmonary disease) Sister No problems noted. Sister Breast cancer, Onset Age: 66 Denies family history of Ovarian cancer Prostate cancer Myocardial infarction Colorectal cancer Social History Smoking Status: Former smoker Tobacco Type: Cigarettes Age Started Using Tobacco: 17; Age Quit Using Tobacco: 47; packs per day: 2; Second Hand Exposure: No; Do You Dip or Chew Tobacco: No; Hx Alcohol Use: No (no drinking since 1985) Hx Substance Use: No Preferred Language: Tongan Communication Ability: Effective Visual Impairment: No Limitations Hearing Ability: Normal Senior Technical Business Analyst Required: No Beliefs That Will Affect Care: None marital status: Current Living Situation: Spouse current occupational status: retired 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 [employer] How many Children do You have: 2 Feels Safe at Home: Yes Childhood Exposure to Second-Hand Smoke: Yes Diet: regular Diet Comment: regular caffeine: Yes (coffee) during the past year weight has: remained stable Dental Care, Regularly: Yes Physical Activity Frequency: Daily Physical Activity Frequency Comment: goes to [facility] Wed-Wednesday Seatbelt Use: always Sunscreen Use: Yes Allergies Allergies Allergy/AdvReac Type Severity Reaction Status Date / Time lisinopril AdvReac Intermediate COUGH Verified 12/21/23 08:20 simvastatin AdvReac Unknown MUSCLE Verified 12/21/23 08:20 ACHES Home Meds Home Medications Medication Instructions Recorded Confirmed multivit with min-folic 1 tab PO QAM 04/20/19 11/23/23 acid-lutein 400 mcg-250 mcg chewable tablet (Centrum Silver) aspirin 81 mg tablet,delayed 81 mg PO QAM 07/13/20 11/23/23 release cholecalciferol (vitamin D3) 25 1,000 unit PO QAM 07/13/20 11/23/23 mcg (1,000 unit) capsule metronidazole 0.75 % topical cream 1 applic topical BID PRN 03/02/23 11/23/23 Previous Rx's Medication Instructions Recorded omeprazole 20 mg capsule,delayed 20 mg PO BID #180 caps 06/15/23 release fluticasone fur. 100 mcg-umeclid 1 inh inhalation DAILY 90 days #90 08/31/23 62.5 mcg-vilant 25 mcg puffs inhalat.powder (Trelegy Ellipta) ipratropium 0.5 mg-albuterol 3 mg 3 ml inhalation Q6H PRN shortness 08/31/23 (2.5 mg base)/3 mL nebulization of breath or wheezing #180 mL soln allopurinol 100 mg tablet 100 mg PO QAM #90 tabs 09/10/23 metoprolol succinate 50 mg 50 mg PO BID #180 tabs 09/10/23 tablet,extended release 24 hr pravastatin 20 mg tablet 20 mg PO HS #90 tabs 01/12/24 levothyroxine 75 mcg tablet 75 mcg PO DAILY #90 tabs 01/26/24 Results & Data (ED) Vital Signs Vital Signs - 24 hr 01/27/24 17:37 01/27/24 17:40 01/27/24 17:53 Temperature 36.8 C Temperature Source Temporal Artery Scan Pulse Rate 94 H 108 H Pulse Rate [Apical] Pulse Rhythm Regular Pulse Rhythm [Apical] Pulse Strength [Apical] Respiratory Rate 22 Respiratory Effort / Characteristics Non-Labored Spontaneous Respiratory Depth Normal Respiratory Pattern Blood Pressure 155/65 H Blood Pressure [Right Arm] Blood Pressure Mean 95 Blood Pressure Mean [Right Arm] Pulse Oximetry 77 L Oxygen Delivery Method Room Air Oxymask Oxygen Flow Rate Sepsis Recent Fever Within 48 Hours No Sepsis New/Unexplained Change in Mental Status No Sepsis Action Taken by Nursing No Action Required Oxygen Flow Rate - Titration 10 Pulse Oximetry Post Tiitration 89 L 01/27/24 18:02 01/27/24 18:35 01/27/24 18:36 Temperature 38.2 C H Temperature Source Oral Pulse Rate 106 H Pulse Rate [Apical] 102 H Pulse Rhythm Pulse Rhythm [Apical] Pulse Strength [Apical] Respiratory Rate 32 H 31 H Respiratory Effort / Characteristics Spontaneous Short of Breath Respiratory Depth Respiratory Pattern Blood Pressure Blood Pressure [Right Arm] 122/63 Blood Pressure Mean Blood Pressure Mean [Right Arm] 82 Pulse Oximetry 94 94 Oxygen Delivery Method Oxymask Oxymask Oxygen Flow Rate 8 8 Sepsis Recent Fever Within 48 Hours Sepsis New/Unexplained Change in Mental Status Sepsis Action Taken by Nursing Oxygen Flow Rate - Titration Pulse Oximetry Post Tiitration 01/27/24 19:27 Temperature Temperature Source Pulse Rate Pulse Rate [Apical] 96 H Pulse Rhythm Pulse Rhythm [Apical] Irregular Pulse Strength [Apical] Normal Respiratory Rate 20 Respiratory Effort / Characteristics Non-Labored Spontaneous Respiratory Depth Normal Respiratory Pattern Regular Blood Pressure Blood Pressure [Right Arm] 122/63 Blood Pressure Mean Blood Pressure Mean [Right Arm] 82 Pulse Oximetry 94 Oxygen Delivery Method Oxymask Oxygen Flow Rate 5 Sepsis Recent Fever Within 48 Hours Sepsis New/Unexplained Change in Mental Status Sepsis Action Taken by Nursing Oxygen Flow Rate - Titration Pulse Oximetry Post Tiitration Laboratory Data 01/27/24 17:40 01/27/24 17:40 Lab Results 01/27/24 01/27/24 01/27/24 Range/Units 17:40 17:52 18:03 WBC 19.33 H (4.8-10.8) K/ul RBC 3.47 L (4.70-6.10) M/uL Hgb 11.5 L (14.0-18.0) g/dl POC Hgb (14.0-18.0) g/dl Hct 34.5 L (42.0-52.0) % POC Hct (42-52) % MCV 99.4 (80.0-100.0) fL MCH 33.1 (25.0-34.0) pg MCHC 33.3 (32.0-36.0) g/dL RDW Std Deviation 56.1 H (36.4-46.3) fL RDW Coeff of Stephanie 15.6 H (11.5-14.5) % Plt Count 384 (130-400) K/uL MPV 9.8 (9.4-12.4) fL Immature Gran % (Auto) 1.4 % Neut % (Auto) 91.1 % Lymph % (Auto) 2.4 % [place] % (Auto) 4.7 % Eos % (Auto) 0.1 % Baso % (Auto) 0.3 % Neut # (Auto) 17.64 H (1.40-6.50) K/uL Lymph # (Auto) 0.46 L (1.20-3.40) K/uL [place] # (Auto) 0.90 H (0.11-0.59) K/uL Eos # (Auto) 0.01 (0.00-0.50) K/uL Baso # (Auto) 0.05 (0.00-0.20) K/uL Immature Gran # (Auto) 0.27 H (0.01-0.20) K/uL Absolute Nucleated RBC 0.03 (0.00-0.12) K/uL Nucleated RBC % (auto) 0.2 % PT 12.4 H (9.0-12.0) Seconds INR 1.2 H (0.9-1.1) APTT 27 (21-31) Seconds PTT Ratio 1.0 VBG pH (7.36-7.41) VBG pCO2 (38-50) mmHg VBG pO2 mmHg VBG HCO3 mmol/L VBG O2 Saturation % VBG Base Excess mEq/L POC Sodium (135-144) mmol/L Sodium 133 L (136-145) mmol/L POC Potassium (3.3-5.0) mmol/L Potassium 3.7 (3.5-5.1) mmol/L POC Chloride (101-112) mmol/L Chloride 95 L (98-107) mmol/L Carbon Dioxide 29 (21-32) mmol/L POC Total CO2 (24-31) mmol/L Anion Gap 9 (3-11) POC Anion Gap (16-25) mmol/L POC BUN (7-18) mg/dl BUN 21 (6-23) mg/dl Creatinine 0.73 (0.6-1.4) mg/dl POC Creatinine (0.6-1.3) mg/dl Est Cr Clr Drug Dosing 85.3 ml/min Est GFR ( Amer) 103.7 ml/min Est GFR (Non-Af Amer) 89.5 ml/min BUN/Creatinine Ratio 28.8 H (10-20) Glucose 128 H (70-99(Fasting)) mg/dl POC Glucose (other) (70-99) mg/dl Lactate 1.5 (0.4-2.0) mmol/L Calcium 9.0 (8.6-10.3) mg/dl POC Ioniz Calcium Payal (1.12-1.32) mmol/l Magnesium 1.7 (1.7-2.4) mg/dl Total Bilirubin 1.0 (0.2-1.0) mg/dl AST 49 H (13-39) U/L ALT 102 H (7-52) U/L Alkaline Phosphatase 165 H (34-104) U/L Troponin I High Sens 24.9 H (0-20) pg/ml B-Natriuretic Peptide 574 H (0-100) pg/ml Total Protein 6.5 (6.0-8.3) gm/dl Albumin 3.0 L (3.4-5.0) gm/dl Globulin 3.5 (2.5-4.0) gm/dl Albumin/Globulin Ratio 0.9 (0.9-2) Procalcitonin 0.45 (0-0.5) ng/ml Adenovirus (PCR) Not Detected (NotDetected) B. pertussis DNA (PCR) Not Detected (NotDetected) B.parapertussis DNA PCR Not Detected (NotDetected) C. pneumoniae DNA (PCR) Not Detected (NotDetected) Coronavirus OC43 (PCR) Not Detected (NotDetected) Coronavirus HKU1 (PCR) Not Detected (NotDetected) Coronavirus 229E (PCR) Not Detected (NotDetected) SARS-CoV-2 (PCR) Not Detected (NotDetected) Coronavirus NL63 (PCR) Not Detected (NotDetected) Human Metapneumovir PCR Not Detected (NotDetected) Influenza Type A (PCR) Not Detected (NotDetected) Influenza Type B (PCR) Not Detected (NotDetected) M. pneumoniae (PCR) Not Detected (NotDetected) Parainfluenza 1 (PCR) Not Detected (NotDetected) Parainfluenza 2 (PCR) Not Detected (NotDetected) Parainfluenza 3 (PCR) Not Detected (NotDetected) Parainfluenza 4 (PCR) Not Detected (NotDetected) RSV (PCR) Not Detected (NotDetected) Entero/Rhino (PCR) Not Detected (NotDetected) 01/27/24 01/27/24 Range/Units 18:21 Unknown WBC (4.8-10.8) K/ul RBC (4.70-6.10) M/uL Hgb (14.0-18.0) g/dl POC Hgb 9.9 L (14.0-18.0) g/dl Hct (42.0-52.0) % POC Hct 29 L (42-52) % MCV (80.0-100.0) fL MCH (25.0-34.0) pg MCHC (32.0-36.0) g/dL RDW Std Deviation (36.4-46.3) fL RDW Coeff of Stephanie (11.5-14.5) % Plt Count (130-400) K/uL MPV (9.4-12.4) fL Immature Gran % (Auto) % Neut % (Auto) % Lymph % (Auto) % [place] % (Auto) % Eos % (Auto) % Baso % (Auto) % Neut # (Auto) (1.40-6.50) K/uL Lymph # (Auto) (1.20-3.40) K/uL [place] # (Auto) (0.11-0.59) K/uL Eos # (Auto) (0.00-0.50) K/uL Baso # (Auto) (0.00-0.20) K/uL Immature Gran # (Auto) (0.01-0.20) K/uL Absolute Nucleated RBC (0.00-0.12) K/uL Nucleated RBC % (auto) % PT (9.0-12.0) Seconds INR (0.9-1.1) APTT (21-31) Seconds PTT Ratio VBG pH 7.48 H (7.36-7.41) VBG pCO2 40 (38-50) mmHg VBG pO2 49 mmHg VBG HCO3 30 mmol/L VBG O2 Saturation 81.3 % VBG Base Excess 5.8 mEq/L POC Sodium 132 L (135-144) mmol/L Sodium (136-145) mmol/L POC Potassium 3.6 (3.3-5.0) mmol/L Potassium (3.5-5.1) mmol/L POC Chloride 95 L (101-112) mmol/L Chloride (98-107) mmol/L Carbon Dioxide (21-32) mmol/L POC Total CO2 29 (24-31) mmol/L Anion Gap (3-11) POC Anion Gap 12.0 L (16-25) mmol/L POC BUN 17 (7-18) mg/dl BUN (6-23) mg/dl Creatinine (0.6-1.4) mg/dl POC Creatinine 0.6 (0.6-1.3) mg/dl Est Cr Clr Drug Dosing ml/min Est GFR ( Amer) ml/min Est GFR (Non-Af Amer) ml/min BUN/Creatinine Ratio (10-20) Glucose (70-99(Fasting)) mg/dl POC Glucose (other) 125 H (70-99) mg/dl Lactate (0.4-2.0) mmol/L Calcium (8.6-10.3) mg/dl POC Ioniz Calcium Apyal 1.11 L (1.12-1.32) mmol/l Magnesium (1.7-2.4) mg/dl Total Bilirubin (0.2-1.0) mg/dl AST (13-39) U/L ALT (7-52) U/L Alkaline Phosphatase (34-104) U/L Troponin I High Sens (0-20) pg/ml B-Natriuretic Peptide (0-100) pg/ml Total Protein (6.0-8.3) gm/dl Albumin (3.4-5.0) gm/dl Globulin (2.5-4.0) gm/dl Albumin/Globulin Ratio (0.9-2) Procalcitonin (0-0.5) ng/ml Adenovirus (PCR) (NotDetected) B. pertussis DNA (PCR) (NotDetected) B.parapertussis DNA PCR (NotDetected) C. pneumoniae DNA (PCR) (NotDetected) Coronavirus OC43 (PCR) (NotDetected) Coronavirus HKU1 (PCR) (NotDetected) Coronavirus 229E (PCR) (NotDetected) SARS-CoV-2 (PCR) (NotDetected) Coronavirus NL63 (PCR) (NotDetected) Human Metapneumovir PCR (NotDetected) Influenza Type A (PCR) (NotDetected) Influenza Type B (PCR) (NotDetected) M. pneumoniae (PCR) (NotDetected) Parainfluenza 1 (PCR) (NotDetected) Parainfluenza 2 (PCR) (NotDetected) Parainfluenza 3 (PCR) (NotDetected) Parainfluenza 4 (PCR) (NotDetected) RSV (PCR) (NotDetected) Entero/Rhino (PCR) (NotDetected) Administered Medications Sodium Chloride (Nss) 1,000 mls @ 999 mls/hr IV .Q1H1M JUANI Stop: 01/27/24 20:00 Last Admin: 01/27/24 19:22 Dose: 999 mls/hr Documented By: Infusion: 01/27/24 19:21 Dose: Infused Documented By: Admin: 01/27/24 18:07 Dose: 999 mls/hr Documented By: BRANDON Discontinued Medications Albuterol (Albut/Ipratrop 3mg/0.5mg Neb 3 Ml Vial) 3 ml NEB NOW STA; Protocol Stop: 01/27/24 17:54 Last Admin: 01/27/24 18:07 Dose: 3 ml Documented By: BRANDON Acetaminophen (Ofirmev) 1,000 mg in 100 mls @ 400 mls/hr IV NOW STA Stop: 01/27/24 18:25 Last Infusion: 01/27/24 19:06 Dose: Infused Documented By: Admin: 01/27/24 18:31 Dose: 400 mls/hr Documented By: LANNY Ceftriaxone Sodium (Rocephin) 2,000 mg in 50 mls @ 100 mls/hr IV NOW STA Stop: 01/27/24 19:05 Last Infusion: 01/27/24 19:36 Dose: Infused Documented By: Admin: 01/27/24 19:05 Dose: 100 mls/hr Documented By: LANNY Ioversol (Optiray 320 125ml) 115 ml IV ONCE ONE Stop: 01/27/24 18:54 Last Admin: 01/27/24 18:54 Dose: 115 ml Documented By: JANNET Imaging Data Radiologist's Impression: Chest CTA 01/27/24 17:53 Exam(s): CTA CHEST IV Amt: 115 ml optiray 320 EXAM: CT Angiography Chest With Intravenous Contrast CLINICAL HISTORY: Reason for exam: PE; SOB; hypoxia; hx of CA. TECHNIQUE: Axial computed tomographic angiography images of the chest with intravenous contrast. CTDI is 26.94 mGy and DLP is 869.86 mGy-cm. Automated exposure control was utilized for the study. A dose lowering technique was utilized adhering to the principles of ALARA. MIP reconstructed images were created and reviewed. COMPARISON: No relevant prior studies available. FINDINGS: There is a left chest wall port catheter extends to the SVC. There is a moderate hiatal hernia. Enlarged mediastinal lymph nodes may reflect floyd metastatic disease. A right paratracheal lymph node measures 16 mm short axis. There is right hilar/infrahilar soft tissue density contiguous with a consolidated/collapsed right lower lobe. Right lower lobe bronchus is occluded. There is a small right pleural effusion which appears partially loculated laterally. There is no pneumothorax. A spiculated left upper lobe mass measures 2.1 cm (series 2, image 74). Left lung appears otherwise clear aside from subsegmental atelectasis at the base. There is a background of emphysema. Aorta is calcified but normal in caliber. There is no dissection. There is adequate pulmonary artery opacification without evidence of pulmonary embolism. Heart size is normal. Coronary arteries are calcified. Elevated RV/LV ratio may represent right ventricular dysfunction. There is no significant pleural effusion. There is no acute fracture or dislocation. IMPRESSION: 1. No evidence of pulmonary embolism. 2. Right hilar soft tissue density contiguous with a consolidated/collapsed right lower lobe. Occlusion of the right lower lobe bronchus. Findings suggest bronchogenic malignancy arising from the right hilum with postobstructive right lower lobe atelectasis/pneumonia. 3. Spiculated left upper lobe nodule measuring 2.1 cm concerning for metastasis. 4. Mild mediastinal adenopathy may represent floyd metastatic disease. 5. Small partially loculated right pleural effusion. 6. Moderate hiatal hernia. Electronically signed by: Aleena Gale M.D. 01/27/24 19:46 PM Discharge Plan Visit Data Chief Complaint: Shortness of Breath/Dyspnea Stated Complaint: SOB, OX LOW ED Provider: Amisha Rodriguez Discharge Problem: Sepsis, Acute hypoxemic respiratory failure, Pneumonia, Leukocytosis, Non-ST elevation ME (NSTEMI), Elevated brain natriuretic peptide (BNP) level Forms Stand Alone Forms: [facility] [employer] Prescriptions Prescriptions: No Action omeprazole 20 mg capsule,delayed release(DR/EC) 20 mg PO BID Qty: 180 3RF allopurinol 100 mg tablet 100 mg PO QAM Qty: 90 1RF metoprolol succinate 50 mg tablet extended release 24 hr 50 mg PO BID Qty: 180 3RF pravastatin 20 mg tablet 20 mg PO HS Qty: 90 1RF levothyroxine 75 mcg tablet 75 mcg PO DAILY Qty: 90 2RF metronidazole 0.75 % cream 1 applic topical BID PRN Trelegy Ellipta 100-62.5-25 mcg blister with device 1 inh inhalation DAILY 90 Days Qty: 90 3RF ipratropium-albuterol 0.5 mg-3 mg(2.5 mg base)/3 mL solution for nebulization 3 ml inhalation Q6H PRN (Reason: shortness of breath or wheezing) Qty: 180 3RF Centrum Silver 400-250 mcg tablet,chewable 1 tab PO QAM aspirin [Aspir-81] 81 mg Tablet,Delayed Release (Dr/Ec) 81 mg PO QAM cholecalciferol (vitamin D3) 25 mcg (1,000 unit) capsule 1,000 unit PO QAM Referrals Referrals: Genoveva Alcocer DO [Primary Care Provider] -
[2024-01-27] MEDS: ALBUT/IPRATROP 3MG/0.5MG NEB 3 ML VIAL NEB STA (18:07)
[2024-01-27] MEDS: SODIUM CHLORIDE 0.9% 1,000 ML IV SCH (18:07)
[2024-01-27 18:15] LABS: Base Excess VBG 5.8 mEq/L; HCO3 VBG 30 mmol/L; Oxygen Saturation VBG 81.3 %; PCO2 VBG 40 mmHg (38-50); PO2 VBG 49 mmHg; pH VBG 7.48 (7.36-7.41)
[2024-01-27 18:31] LABS: Hematocrit (blood only) 34.5 % (42.0-52.0); Hemoglobin 11.5 g/dl (14.0-18.0); Mean Corpuscular Hemoglobin 33.1 pg (25.0-34.0); Mean Corpuscular Hgb Conc 33.3 g/dL (32.0-36.0); Mean Corpuscular Volume 99.4 fL (80.0-100.0); Mean Platelet Volume 9.8 fL (9.4-12.4); Nucleated RBC # (auto) 0.03 K/uL (0.00-0.12); Nucleated RBC % (auto) 0.2 %; Platelet Count 384 K/uL (130-400); RDW Coefficient of Variation 15.6 % (11.5-14.5); RDW Standard Deviation 56.1 fL (36.4-46.3); Red Blood Count 3.47 M/uL (4.70-6.10); White Blood Count 19.33 K/ul (4.8-10.8)
[2024-01-27] MEDS: ACETAMINOPHEN 1,000 MG/100 ML VIAL IV STA (18:31)
[2024-01-27 18:34] LABS: iSTAT Creatinine 0.6 mg/dl (0.6-1.3); iSTAT Hemoglobin 9.9 g/dl (14.0-18.0); iSTAT Ionized Calcium 1.11 mmol/l (1.12-1.32); iSTAT Potassium 3.6 mmol/L (3.3-5.0)
[2024-01-27 18:46] LABS: Albumin Globulin Ratio 0.9 (0.9-2); BUN Creatinine Ratio 28.8 (10-20); Creatinine Clr Calc Pharmacy 85.3 ml/min; Est GFR (African American) 103.7 ml/min; Est GFR (Non-African American) 89.5 ml/min; Globulin 3.5 gm/dl (2.5-4.0); Magnesium 1.7 mg/dl (1.7-2.4); Potassium 3.7 mmol/L (3.5-5.1); Total Protein 6.5 gm/dl (6.0-8.3)
[2024-01-27 18:48] LABS: Basophils # (auto) 0.05 K/uL (0.00-0.20); Basophils % (auto) 0.3 %; Eosinophils # (auto) 0.01 K/uL (0.00-0.50); Eosinophils % (auto) 0.1 %; Immature Granulocytes # (auto) 0.27 K/uL (0.01-0.20); Immature Granulocytes % (auto) 1.4 %; Lymphocytes # (auto) 0.46 K/uL (1.20-3.40); Lymphocytes % (auto) 2.4 %; Monocytes % (auto) 4.7 %; Neutrophils # (auto) 17.64 K/uL (1.40-6.50); Neutrophils % (auto) 91.1 %
[2024-01-27 18:52] LABS: Troponin I High Sensitivity 24.9 pg/ml (0-20)
[2024-01-27] MEDS: OPTIRAY 320 125ml IV ONE (18:54)
[2024-01-27 19:00] LABS: INR 1.2 (0.9-1.1); Partial Thromboplastin Time 27 Seconds (21-31); Prothrombin Time 12.4 Seconds (9.0-12.0)
[2024-01-27 19:00] LABS: Adenovirus PCR Not Detected (NotDetected); Bordetella parapertussis PCR Not Detected (NotDetected); Bordetella pertussis PCR Not Detected (NotDetected); Chlamydia pneumoniae PCR Not Detected (NotDetected); Coronavirus 229E PCR Not Detected (NotDetected); Coronavirus CoV-2 (COVID19)PCR Not Detected (NotDetected); Coronavirus HKU1 PCR Not Detected (NotDetected); Coronavirus NL63 PCR Not Detected (NotDetected); Coronavirus OC43PCR Not Detected (NotDetected); Human Metapneumovirus PCR Not Detected (NotDetected); Influenza A PCR Not Detected (NotDetected); Influenza B PCR Not Detected (NotDetected); Mycoplasma pneumoniae PCR Not Detected (NotDetected); Parainfluenza Virus 1 PCR Not Detected (NotDetected); Parainfluenza Virus 2 PCR Not Detected (NotDetected); Parainfluenza Virus 3 PCR Not Detected (NotDetected); Parainfluenza Virus 4 PCR Not Detected (NotDetected); Respiratory Syncytial VirusPCR Not Detected (NotDetected); Rhinovirus/Enterovirus PCR Not Detected (NotDetected)
[2024-01-27] MEDS: cefTRIAXone SODIUM 2,000 MG/50 ML BAG IV STA (19:05)
--- NOTE | 2024-01-27 19:47 | CT Scan Report ---
Exam(s): CTA CHEST IV Amt: 115 ml optiray 320 EXAM: CT Angiography Chest With Intravenous Contrast CLINICAL HISTORY: Reason for exam: PE; SOB; hypoxia; hx of CA. TECHNIQUE: Axial computed tomographic angiography images of the chest with intravenous contrast. CTDI is 26.94 mGy and DLP is 869.86 mGy-cm. Automated exposure control was utilized for the study. A dose lowering technique was utilized adhering to the principles of ALARA. MIP reconstructed images were created and reviewed. COMPARISON: No relevant prior studies available. FINDINGS: There is a left chest wall port catheter extends to the SVC. There is a moderate hiatal hernia. Enlarged mediastinal lymph nodes may reflect floyd metastatic disease. A right paratracheal lymph node measures 16 mm short axis. There is right hilar/infrahilar soft tissue density contiguous with a consolidated/collapsed right lower lobe. Right lower lobe bronchus is occluded. There is a small right pleural effusion which appears partially loculated laterally. There is no pneumothorax. A spiculated left upper lobe mass measures 2.1 cm (series 2, image 74). Left lung appears otherwise clear aside from subsegmental atelectasis at the base. There is a background of emphysema. Aorta is calcified but normal in caliber. There is no dissection. There is adequate pulmonary artery opacification without evidence of pulmonary embolism. Heart size is normal. Coronary arteries are calcified. Elevated RV/LV ratio may represent right ventricular dysfunction. There is no significant pleural effusion. There is no acute fracture or dislocation. IMPRESSION: 1. No evidence of pulmonary embolism. 2. Right hilar soft tissue density contiguous with a consolidated/collapsed right lower lobe. Occlusion of the right lower lobe bronchus. Findings suggest bronchogenic malignancy arising from the right hilum with postobstructive right lower lobe atelectasis/pneumonia. 3. Spiculated left upper lobe nodule measuring 2.1 cm concerning for metastasis. 4. Mild mediastinal adenopathy may represent floyd metastatic disease. 5. Small partially loculated right pleural effusion. 6. Moderate hiatal hernia. Electronically signed by: Aleena Gale M.D. 01/27/24 19:46 PM
--- NOTE | 2024-01-27 20:40 | CT Scan Report ---
Exam(s): CT HEAD Without Contrast EXAM: CT Head Without Intravenous Contrast CLINICAL HISTORY: Reason for exam: confusion. TECHNIQUE: Axial computed tomography images of the head/brain without intravenous contrast. CTDI is 36.79 mGy and DLP is 625.8 mGy-cm. Automated exposure control was utilized for the study. A dose lowering technique was utilized adhering to the principles of ALARA. COMPARISON: No relevant prior studies available. FINDINGS: Brain: Generalized parenchymal volume loss. Periventricular and deep cerebral white matter hypoattenuation suggesting chronic small vessel ischemic change. Caldwell-white matter differentiation maintained. No hemorrhage, mass effect, parenchymal edema, or midline shift. Ventricles: Unremarkable. No hydrocephalus. Bones/joints: Unremarkable. No acute fracture. Soft tissues: Unremarkable. Vasculature: Intracranial atherosclerosis. Sinuses: Unremarkable as visualized. Mastoid air cells: Unremarkable as visualized. No mastoid effusion. Orbits: Bilateral lens replacements. IMPRESSION: No acute intracranial process. Electronically signed by: Aleena Gale M.D. 01/27/24 20:40 PM
--- NOTE | 2024-01-27 20:56 | History & Physical Report ---
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 There is a spiculated left upper lobe nodule presumed to be metastatic Chemotherapy is with [facility] hematology/oncology Radiation therapy is with Dr. Eduardo Ovalle, who will be consulted Patient has been seen by [facility] pulmonology [facility] pulmonology Dr. Marshall Continue Zosyn 4.5 g IV every 8 hours, begun in the ED MRSA swab is negative Respiratory BioFire test negative Duonebs every 4 hours while awake and every 2 hours when necessary. Status post 1 L normal saline bolus from the ED NSS + KCl 20 mill equivalents at 80 mL/h Sputum Gram stain and culture N.p.o. after midnight for possible procedure Elevated troponin/CAD/hypertension- Holding oral medications metoprolol succinate Lopressor 5 mg IV every 4 hours as needed for systolic blood pressure greater than 160 History of Present Illness Chief Complaint: The patient is brought to the emergency department, with his and daughter accompanying, due to worsening confusion, cough, dyspnea on exertion and hypoxia while undergoing chemotherapy and radiation therapy for head and neck cancer m etastatic to lungs Primary Care Provider: Genoveva Alcocer DO The patient is a 78-year-old male with a past medical history including supraglottic laryngeal SCC, 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 He has undergone tracheostomy 10/09/2022, which later fell out 11/23/2022, weekly cisplatin with radiation treatment times -12/23/2022, right radical neck dissection 11/09/2023, and completed radiation therapy to the left lung nodule on 12/22/2023. He currently undergoing chemotherapy with GIN Heaton at [facility], and Eduardo Ovalle MD from [facility] radiation oncology. He presents to the emergency department with symptoms as noted above. Most of history is obtained from family present, and chart review Allergies Allergy/AdvReac Type Severity Reaction Status Date / Time lisinopril AdvReac Intermediate COUGH Verified 12/21/23 08:20 simvastatin AdvReac Unknown MUSCLE Verified 12/21/23 08:20 ACHES Home Medications Medication Instructions Recorded Confirmed Type multivit with min-folic 1 tab PO QAM 04/20/19 11/23/23 History acid-lutein 400 mcg-250 mcg chewable tablet (Centrum Silver) aspirin 81 mg tablet,delayed 81 mg PO QAM 07/13/20 11/23/23 History release cholecalciferol (vitamin D3) 25 1,000 unit PO QAM 07/13/20 11/23/23 History mcg (1,000 unit) capsule metronidazole 0.75 % topical cream 1 applic topical BID PRN 03/02/23 11/23/23 History omeprazole 20 mg capsule,delayed 20 mg PO BID #180 caps 06/15/23 11/23/23 Rx release fluticasone fur. 100 mcg-umeclid 1 inh inhalation DAILY 90 days #90 08/31/23 11/23/23 Rx 62.5 mcg-vilant 25 mcg puffs inhalat.powder (Trelegy Ellipta) ipratropium 0.5 mg-albuterol 3 mg 3 ml inhalation Q6H PRN shortness 08/31/23 11/23/23 Rx (2.5 mg base)/3 mL nebulization of breath or wheezing #180 mL soln allopurinol 100 mg tablet 100 mg PO QAM #90 tabs 09/10/23 12/21/23 Rx metoprolol succinate 50 mg 50 mg PO BID #180 tabs 09/10/23 11/23/23 Rx tablet,extended release 24 hr pravastatin 20 mg tablet 20 mg PO HS #90 tabs 01/12/24 Rx levothyroxine 75 mcg tablet 75 mcg PO DAILY #90 tabs 01/26/24 Rx Past Med/Surg History Problem List (Updated 01/28/24 @ 03:38 by Omari Montoya MD) History of lung biopsy L lung - October 2023 -[facility]. Postobstructive pneumonia Elevated brain natriuretic peptide (BNP) level (Acute) Non-ST elevation MN (NSTEMI) (Acute) Leukocytosis (Acute) Pneumonia (Acute) Acute hypoxemic respiratory failure (Acute) Sepsis (Acute) Squamous cell carcinoma of left lung (Acute) Hypothyroidism History of lung cancer Primary cancer of supraglottis (Chronic) Bilateral carotid artery disease History of atrial flutter s/p RFA in 2012 GERD (gastroesophageal reflux disease) Hiatal hernia Vitamin D deficiency Hyperlipidemia Gout Hypertension Obstructive sleep apnea Chronic obstructive pulmonary disease Adenocarcinoma of right lung, stage 1 (2016) Medical History Tracheostomy in place COVID-19 (06/2020) Surgical History History of lung biopsy L lung - October 2023 -[facility]. Status post tracheostomy (10/09/22) 10/09/[address] 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 Sister Breast cancer, Onset Age: 66 Denies family history of Ovarian cancer Prostate cancer Myocardial infarction Colorectal cancer Social History Smoking Status: Former smoker Tobacco Type: Cigarettes Age Started Using Tobacco: 17; Age Quit Using Tobacco: 47; packs per day: 2; Second Hand Exposure: No; Do You Dip or Chew Tobacco: No; Tobacco Cessation Education Requested by Patient: No Hx Alcohol Use: Yes Alcohol type: other Hx Substance Use: No Preferred Language: Singaporean Communication Ability: Effective Visual Impairment: No Limitations Hearing Ability: Normal Case Assembler Required: No Beliefs That Will Affect Care: None marital status: Current Living Situation: Spouse Current Living Situation Comment: lives at home with current occupational status: 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 [employer] How many Children do You have: 2 Other Information That Helps Us Care for You: No Feels Safe at Home: Yes Safety Concerns: Feels Safe At This Time Childhood Exposure to Second-Hand Smoke: Yes Diet: regular Diet Comment: regular caffeine: Yes (coffee) during the past year weight has: remained stable Dental Care, Regularly: Yes Physical Activity Frequency: Daily Physical Activity Frequency Comment: goes to [facility] Wed-Wednesday Seatbelt Use: always Sunscreen Use: Yes Assistive Devices: Glasses Assistive Devices Comment: does not use home O2 Review of Systems Review of Systems: The patient denies chest pain, palpitations, fevers, chills, sweats, nausea, vomiting, diarrhea , constipation, abdominal pain, pelvic pain, blood in urine or stool, dysuria, urinary frequency or urgency, loss of consciousness, rash, abnormal bruising or bleeding, imbalance, focal weakness, numbness or tingling in arms or legs, generalized arthralgias or myalgias, back or neck pain, or night sweats. The review of systems is otherwise negative other than for that already noted above, and at least 10 systems have been reviewed. Physical Exam Physical Exam: The patient is awake, confused, lying in bed and in no acute distress. HEENT--PERRL, EOMI, mucous membranes and oropharynx dry. Neck--supple. No JVD. No bruits. Thyroid normal, trachea midline, no adenopathy. Heart--normal S1 and S2. No murmurs, rubs or gallops. Lungs--coarse breath sounds at right base. No respiratory distress, no accessory muscle use. Abdomen--normal bowel sounds and soft. Nontender. Nondistended, no hernias or masses, no organomegaly. Extremities--no edema Dermatologic--skin is mildly dry Neurologic--cranial nerves II through XII grossly intact. Rheumatologic--normal range of motion. Psychiatric--confused Results & Data Results & Data Vital Signs (Past 12 Hours) Vital Signs Temp Pulse Pulse Resp BP BP Pulse Ox 01/27/24 20:00 83 20 122/63 93 01/27/24 19:27 96 H 20 122/63 94 01/27/24 18:36 102 H 31 H 122/63 94 01/27/24 18:35 106 H 32 H 94 01/27/24 18:02 38.2 C H 01/27/24 17:53 108 H 01/27/24 17:40 01/27/24 17:37 36.8 C 94 H 22 155/65 H 77 L O2 Del Method O2 Flow Rate 01/27/24 20:00 Oxymask 5 01/27/24 19:27 Oxymask 5 01/27/24 18:36 Oxymask 8 01/27/24 18:35 Oxymask 8 01/27/24 18:02 01/27/24 17:53 01/27/24 17:40 Oxymask 01/27/24 17:37 Room Air Laboratory Results Laboratory Results WBC 19.33 K/ul (4.8-10.8) H 01/27/24 17:40 RBC 3.47 M/uL (4.70-6.10) L 01/27/24 17:40 Hgb 11.5 g/dl (14.0-18.0) L 01/27/24 17:40 POC Hgb 9.9 g/dl (14.0-18.0) L 01/27/24 18:21 Hct 34.5 % (42.0-52.0) L 01/27/24 17:40 POC Hct 29 % (42-52) L 01/27/24 18:21 MCV 99.4 fL (80.0-100.0) 01/27/24 17:40 MCH 33.1 pg (25.0-34.0) 01/27/24 17:40 MCHC 33.3 g/dL (32.0-36.0) 01/27/24 17:40 RDW Std Deviation 56.1 fL (36.4-46.3) H 01/27/24 17:40 RDW Coeff of Stephanie 15.6 % (11.5-14.5) H 01/27/24 17:40 Plt Count 384 K/uL (130-400) 01/27/24 17:40 MPV 9.8 fL (9.4-12.4) 01/27/24 17:40 Immature Gran % (Auto) 1.4 % 01/27/24 17:40 Neut % (Auto) 91.1 % 01/27/24 17:40 Lymph % (Auto) 2.4 % 01/27/24 17:40 Bartholomew % (Auto) 4.7 % 01/27/24 17:40 Eos % (Auto) 0.1 % 01/27/24 17:40 Baso % (Auto) 0.3 % 01/27/24 17:40 Neut # (Auto) 17.64 K/uL (1.40-6.50) H 01/27/24 17:40 Lymph # (Auto) 0.46 K/uL (1.20-3.40) L 01/27/24 17:40 Bartholomew # (Auto) 0.90 K/uL (0.11-0.59) H 01/27/24 17:40 Eos # (Auto) 0.01 K/uL (0.00-0.50) 01/27/24 17:40 Baso # (Auto) 0.05 K/uL (0.00-0.20) 01/27/24 17:40 Immature Gran # (Auto) 0.27 K/uL (0.01-0.20) H 01/27/24 17:40 Absolute Nucleated RBC 0.03 K/uL (0.00-0.12) 01/27/24 17:40 Nucleated RBC % (auto) 0.2 % 01/27/24 17:40 PT 12.4 Seconds (9.0-12.0) H 01/27/24 17:40 INR 1.2 (0.9-1.1) H 01/27/24 17:40 APTT 27 Seconds (21-31) 01/27/24 17:40 PTT Ratio 1.0 01/27/24 17:40 VBG pH 7.48 (7.36-7.41) H 01/27/24 Unknown VBG pCO2 40 mmHg (38-50) 01/27/24 Unknown VBG pO2 49 mmHg 01/27/24 Unknown VBG HCO3 30 mmol/L 01/27/24 Unknown VBG O2 Saturation 81.3 % 01/27/24 Unknown VBG Base Excess 5.8 mEq/L 01/27/24 Unknown POC Sodium 132 mmol/L (135-144) L 01/27/24 18:21 Sodium 133 mmol/L (136-145) L 01/27/24 17:40 POC Potassium 3.6 mmol/L (3.3-5.0) 01/27/24 18:21 Potassium 3.7 mmol/L (3.5-5.1) 01/27/24 17:40 POC Chloride 95 mmol/L (101-112) L 01/27/24 18:21 Chloride 95 mmol/L (98-107) L 01/27/24 17:40 Carbon Dioxide 29 mmol/L (21-32) 01/27/24 17:40 POC Total CO2 29 mmol/L (24-31) 01/27/24 18:21 Anion Gap 9 (3-11) 01/27/24 17:40 POC Anion Gap 12.0 mmol/L (16-25) L 01/27/24 18:21 POC BUN 17 mg/dl (7-18) 01/27/24 18:21 BUN 21 mg/dl (6-23) 01/27/24 17:40 Creatinine 0.73 mg/dl (0.6-1.4) 01/27/24 17:40 POC Creatinine 0.6 mg/dl (0.6-1.3) 01/27/24 18:21 Est Cr Clr Drug Dosing 85.3 ml/min 01/27/24 17:40 Est GFR ( Amer) 103.7 ml/min 01/27/24 17:40 Est GFR (Non-Af Amer) 89.5 ml/min 01/27/24 17:40 BUN/Creatinine Ratio 28.8 (10-20) H 01/27/24 17:40 Glucose 128 mg/dl (70-99(Fasting)) H 01/27/24 17:40 POC Glucose (other) 125 mg/dl (70-99) H 01/27/24 18:21 Lactate 1.5 mmol/L (0.4-2.0) 01/27/24 17:52 Calcium 9.0 mg/dl (8.6-10.3) 01/27/24 17:40 POC Ioniz Calcium Payal 1.11 mmol/l (1.12-1.32) L 01/27/24 18:21 Magnesium 1.7 mg/dl (1.7-2.4) 01/27/24 17:40 Total Bilirubin 1.0 mg/dl (0.2-1.0) 01/27/24 17:40 AST 49 U/L (13-39) H 01/27/24 17:40 ALT 102 U/L (7-52) H 01/27/24 17:40 Alkaline Phosphatase 165 U/L (34-104) H 01/27/24 17:40 Troponin I High Sens 18.8 pg/ml (0-20) D 01/27/24 19:49 B-Natriuretic Peptide 574 pg/ml (0-100) H 01/27/24 17:40 Total Protein 6.5 gm/dl (6.0-8.3) 01/27/24 17:40 Albumin 3.0 gm/dl (3.4-5.0) L 01/27/24 17:40 Globulin 3.5 gm/dl (2.5-4.0) 01/27/24 17:40 Albumin/Globulin Ratio 0.9 (0.9-2) 01/27/24 17:40 Procalcitonin 0.45 ng/ml (0-0.5) 01/27/24 17:40 Urine Color Yellow 01/27/24 21:17 Urine Appearance Clear (Clear) 01/27/24 21:17 Urine pH 6.0 (4.5-7.5) 01/27/24 21:17 Ur Specific [place] 1.039 (1.000-1.030) H 01/27/24 21:17 Urine Protein Negative (Negative) 01/27/24 21:17 Urine Glucose (UA) Negative (Negative) 01/27/24 21:17 Urine Ketones Negative (Negative) 01/27/24 21:17 Urine Blood Negative (Negative) 01/27/24 21:17 Urine Nitrite Negative (Negative) 01/27/24 21:17 Urine Bilirubin Negative (Negative) 01/27/24 21:17 Urine Urobilinogen Positive (Negative) H 01/27/24 21:17 Ur Leukocyte Esterase Negative (Negative) 01/27/24 21:17 Nasal Screen MRSA (PCR) Negative (Negative) 01/27/24 18:38 Adenovirus (PCR) Not Detected (NotDetected) 01/27/24 18:03 Anaplasma Smear See Comment 01/27/24 17:40 B. pertussis DNA (PCR) Not Detected (NotDetected) 01/27/24 18:03 B.parapertussis DNA PCR Not Detected (NotDetected) 01/27/24 18:03 Lyme Disease Screen Negative (Negative) 01/27/24 17:40 C. pneumoniae DNA (PCR) Not Detected (NotDetected) 01/27/24 18:03 Coronavirus OC43 (PCR) Not Detected (NotDetected) 01/27/24 18:03 Coronavirus HKU1 (PCR) Not Detected (NotDetected) 01/27/24 18:03 Coronavirus 229E (PCR) Not Detected (NotDetected) 01/27/24 18:03 SARS-CoV-2 (PCR) Not Detected (NotDetected) 01/27/24 18:03 Coronavirus NL63 (PCR) Not Detected (NotDetected) 01/27/24 18:03 Human Metapneumovir PCR Not Detected (NotDetected) 01/27/24 18:03 Influenza Type A (PCR) Not Detected (NotDetected) 01/27/24 18:03 Influenza Type B (PCR) Not Detected (NotDetected) 01/27/24 18:03 M. pneumoniae (PCR) Not Detected (NotDetected) 01/27/24 18:03 Parainfluenza 1 (PCR) Not Detected (NotDetected) 01/27/24 18:03 Parainfluenza 2 (PCR) Not Detected (NotDetected) 01/27/24 18:03 Parainfluenza 3 (PCR) Not Detected (NotDetected) 01/27/24 18:03 Parainfluenza 4 (PCR) Not Detected (NotDetected) 01/27/24 18:03 RSV (PCR) Not Detected (NotDetected) 01/27/24 18:03 Entero/Rhino (PCR) Not Detected (NotDetected) 01/27/24 18:03 Impressions Chest CTA 01/27/24 17:53 Exam(s): CTA CHEST IV Amt: 115 ml optiray 320 EXAM: CT Angiography Chest With Intravenous Contrast CLINICAL HISTORY: Reason for exam: PE; SOB; hypoxia; hx of CA. TECHNIQUE: Axial computed tomographic angiography images of the chest with intravenous contrast. CTDI is 26.94 mGy and DLP is 869.86 mGy-cm. Automated exposure control was utilized for the study. A dose lowering technique was utilized adhering to the principles of ALARA. MIP reconstructed images were created and reviewed. COMPARISON: No relevant prior studies available. FINDINGS: There is a left chest wall port catheter extends to the SVC. There is a moderate hiatal hernia. Enlarged mediastinal lymph nodes may reflect floyd metastatic disease. A right paratracheal lymph node measures 16 mm short axis. There is right hilar/infrahilar soft tissue density contiguous with a consolidated/collapsed right lower lobe. Right lower lobe bronchus is occluded. There is a small right pleural effusion which appears partially loculated laterally. There is no pneumothorax. A spiculated left upper lobe mass measures 2.1 cm (series 2, image 74). Left lung appears otherwise clear aside from subsegmental atelectasis at the base. There is a background of emphysema. Aorta is calcified but normal in caliber. There is no dissection. There is adequate pulmonary artery opacification without evidence of pulmonary embolism. Heart size is normal. Coronary arteries are calcified. Elevated RV/LV ratio may represent right ventricular dysfunction. There is no significant pleural effusion. There is no acute fracture or dislocation. IMPRESSION: 1. No evidence of pulmonary embolism. 2. Right hilar soft tissue density contiguous with a consolidated/collapsed right lower lobe. Occlusion of the right lower lobe bronchus. Findings suggest bronchogenic malignancy arising from the right hilum with postobstructive right lower lobe atelectasis/pneumonia. 3. Spiculated left upper lobe nodule measuring 2.1 cm concerning for metastasis. 4. Mild mediastinal adenopathy may represent floyd metastatic disease. 5. Small partially loculated right pleural effusion. 6. Moderate hiatal hernia. Electronically signed by: Aleena Gale M.D. 01/27/24 19:[address] 01/27/24 17:53 Exam(s): CT HEAD Without Contrast EXAM: CT Head Without Intravenous Contrast CLINICAL HISTORY: Reason for exam: confusion. TECHNIQUE: Axial computed tomography images of the head/brain without intravenous contrast. CTDI is 36.79 mGy and DLP is 625.8 mGy-cm. Automated exposure control was utilized for the study. A dose lowering technique was utilized adhering to the principles of ALARA. COMPARISON: No relevant prior studies available. FINDINGS: Brain: Generalized parenchymal volume loss. Periventricular and deep cerebral white matter hypoattenuation suggesting chronic small vessel ischemic change. Caldwell-white matter differentiation maintained. No hemorrhage, mass effect, parenchymal edema, or midline shift. Ventricles: Unremarkable. No hydrocephalus. Bones/joints: Unremarkable. No acute fracture. Soft tissues: Unremarkable. Vasculature: Intracranial atherosclerosis. Sinuses: Unremarkable as visualized. Mastoid air cells: Unremarkable as visualized. No mastoid effusion. Orbits: Bilateral lens replacements. IMPRESSION: No acute intracranial process. Electronically signed by: Aleena Gale M.D. 01/27/24 20:40 PM Venous Doppler Study 01/27/24 20:42 Exam(s): US VENOUS BILATERAL LOWER EXTREMITIES EXAM: US Duplex Bilateral Lower Extremities Veins CLINICAL HISTORY: Reason for exam: LE edema, L > R. TECHNIQUE: Real-time duplex ultrasound scan of the bilateral lower extremity veins integrating B-mode two-dimensional vascular structure, Doppler spectral analysis, color flow Doppler imaging and compression. COMPARISON: No relevant prior studies available. FINDINGS: Right deep veins: Unremarkable. No DVT in the right common femoral, femoral, proximal deep femoral or popliteal veins. The veins demonstrate normal color flow, are normally compressible, with normal phasic flow and/or augmentation response. Right superficial veins: Unremarkable. No thrombus in the visualized right great saphenous vein. Left deep veins: Unremarkable. No DVT in the left common femoral, femoral, proximal deep femoral or popliteal veins. The veins demonstrate normal color flow, are normally compressible, with normal phasic flow and/or augmentation response. Left superficial veins: Unremarkable. No thrombus in the visualized left great saphenous vein. Soft tissues: Edema. IMPRESSION: No evidence of acute DVT. Electronically signed by: Aleena Gale M.D. 01/27/24 23:25 PM Code Status & VTE Plan Code Status Full code VTE Prophylaxis Plan VTE Prophylaxis will be ordered: Yes PG Care Time/CCT Total # of Minutes Spent Total Time Spent with Patient: Total time spent is greater than 50% in coordination of care (as documented) at patient's floor/unit and/or counseling patient: Coding Level of Care Code 74871 INT INP/OBS CARE 3/75MIN Diagnoses Primary cancer of supraglottis C32.1 Acute hypoxemic respiratory failure J96.01 Squamous cell carcinoma of left lung C34.92 History of atrial flutter Z86.79 Postobstructive pneumonia J18.9 History of lung biopsy Z98.890
[2024-01-27] MEDS: PIPERACILLIN/TAZOBACTAM 4.5 GM/100 ML BAG IV ONE (21:17)
[2024-01-27 21:39] LABS: Appearance Urine Clear (Clear); Bilirubin Urine Negative (Negative); Blood Urine Negative (Negative); Color Urine Yellow; Glucose Urine UA Negative (Negative); Ketones Urine Negative (Negative); Leukocyte Esterase Urine Negative (Negative); Nitrite Urine Negative (Negative); Protein Urine Negative (Negative); Specific Gravity Urine 1.039 (1.000-1.030); Urobilinogen Urine Positive (Negative)
[2024-01-27] MEDS ORDERED: ACETAMINOPHEN 1000 MG/100 ML IV IV PRN (23:12)
[2024-01-27] MEDS ORDERED: ONDANSETRON INJ 2 MG/ML 2 ML VIAL IV PRN (23:12)
--- NOTE | 2024-01-27 23:27 | Ultrasound Report ---
Exam(s): US VENOUS BILATERAL LOWER EXTREMITIES EXAM: US Duplex Bilateral Lower Extremities Veins CLINICAL HISTORY: Reason for exam: LE edema, L > R. TECHNIQUE: Real-time duplex ultrasound scan of the bilateral lower extremity veins integrating B-mode two-dimensional vascular structure, Doppler spectral analysis, color flow Doppler imaging and compression. COMPARISON: No relevant prior studies available. FINDINGS: Right deep veins: Unremarkable. No DVT in the right common femoral, femoral, proximal deep femoral or popliteal veins. The veins demonstrate normal color flow, are normally compressible, with normal phasic flow and/or augmentation response. Right superficial veins: Unremarkable. No thrombus in the visualized right great saphenous vein. Left deep veins: Unremarkable. No DVT in the left common femoral, femoral, proximal deep femoral or popliteal veins. The veins demonstrate normal color flow, are normally compressible, with normal phasic flow and/or augmentation response. Left superficial veins: Unremarkable. No thrombus in the visualized left great saphenous vein. Soft tissues: Edema. IMPRESSION: No evidence of acute DVT. Electronically signed by: Aleena Gale M.D. 01/27/24 23:25 PM
[2024-01-27] MEDS ORDERED: ALBUT/IPRATROP 3MG/0.5MG NEB 3 ML VIAL NEB PRN (23:28)
[2024-01-27] MEDS: NSS + 20MEQ KCL 20 MEQ/1,000 ML BAG IV SCH (23:46)
[2024-01-28] MEDS: POTASSIUM CHLORIDE / WTR 10 MEQ/100 ML PLCT IV ONE (00:56)
[2024-01-28] MEDS: MAGNESIUM SULFATE / D5W 1 GM/100 ML BAG IV SCH (00:57)
[2024-01-28] MEDS ORDERED: METOPROLOL TARTRATE 1 MG/ML VIAL IV PRN (03:49)
[2024-01-28] MEDS: PIPERACILLIN/TAZOBACTAM 4.5 GM in DEXTROSE 5% MINI-B 100 ML IV SCH (05:24)
[2024-01-28] MEDS: ACETAMINOPHEN 1,000 MG/100 ML VIAL IV PRN (06:13)
[2024-01-28 06:47] LABS: Hematocrit (blood only) 29.8 % (42.0-52.0); Hemoglobin 9.9 g/dl (14.0-18.0); Mean Corpuscular Hemoglobin 32.9 pg (25.0-34.0); Mean Corpuscular Hgb Conc 33.2 g/dL (32.0-36.0); Mean Platelet Volume 9.6 fL (9.4-12.4); Platelet Count 336 K/uL (130-400); RDW Coefficient of Variation 15.1 % (11.5-14.5); Red Blood Count 3.01 M/uL (4.70-6.10); White Blood Count 17.33 K/ul (4.8-10.8)
[2024-01-28 06:51] LABS: Albumin Globulin Ratio 0.8 (0.9-2); Albumin Level 2.4 gm/dl (3.4-5.0); BUN Creatinine Ratio 24.1 (10-20); Bilirubin,Total 0.7 mg/dl (0.2-1.0); Calcium 8.2 mg/dl (8.6-10.3); Creatinine Clr Calc Pharmacy 130.9 ml/min; Est GFR (African American) 117.4 ml/min; Est GFR (Non-African American) 101.3 ml/min; Globulin 2.9 gm/dl (2.5-4.0); Magnesium 2.1 mg/dl (1.7-2.4); Potassium 3.6 mmol/L (3.5-5.1); Total Protein 5.3 gm/dl (6.0-8.3)
[2024-01-28 07:14] LABS: INR 1.1 (0.9-1.1); Partial Thromboplastin Ratio 1.2; Partial Thromboplastin Time 32 Seconds (21-31); Prothrombin Time 12.3 Seconds (9.0-12.0)
[2024-01-28] MEDS: ALBUT/IPRATROP 3MG/0.5MG NEB 3 ML VIAL NEB SCH (07:16)
[2024-01-28 07:28] LABS: Basophils # (auto) 0.03 K/uL (0.00-0.20); Basophils % (auto) 0.2 %; Eosinophils # (auto) 0.02 K/uL (0.00-0.50); Eosinophils % (auto) 0.1 %; Immature Granulocytes % (auto) 1.2 %; Lymphocytes # (auto) 0.34 K/uL (1.20-3.40); Monocytes # (auto) 0.98 K/uL (0.11-0.59); Monocytes % (auto) 5.7 %; Neutrophils # (auto) 15.76 K/uL (1.40-6.50); Neutrophils % (auto) 90.8 %; Polychromasia 1+
--- NOTE | 2024-01-28 07:37 | XRay Report ---
XR chest 1V portable HISTORY: 78 years-old Male Dyspnea acute shortness of breath COMPARISON: CTA chest 01/27/2024 TECHNIQUE: AP view of the chest FINDINGS: Cardiac silhouette is enlarged. Left IJ [id number] catheter distal tip noted within the expected l ocation of the mid SVC. Surgical clips project over the right lung apex. Severe emphysema with inters titial coarsening. Spiculated irregular 2 cm nodule left upper lobe is again seen. Moderate pleural e ffusion with right basilar consolidation/right infrahilar mass again noted. IMPRESSION: 1. Right hilar mass better seen on the comparison CTA of the chest. 2. Moderate right pleural effusion with persistent right basilar consolidation. 3. Left upper lobe 2 cm pulmonary nodule is again seen. 4. Severe emphysema. ACT 112: Negative or not required by law. The above report was generated using voice recognition software. It may contain grammatical, syntax o r spelling errors. Electronically signed by: Con Hathaway M.D. 01/28/2024 7:35 AM
--- NOTE | 2024-01-28 08:16 | Pulmonary Consultation ---
Date of Consultation January 28, 2024 Assessment & Plan (1) Pneumonia: (2) Acute hypoxemic respiratory failure: (3) Squamous cell carcinoma of left lung: (4) Chronic obstructive pulmonary disease: (5) Adenocarcinoma of right lung, stage 1: (6) Loculated pleural effusion: (7) Pleuritic chest pain: Plan CTA chest 01/27/2024 personally reviewed: Loculated moderate right-sided pleural effusion Left upper lobe 2.2 cm pulmonary nodule Hiatal hernia Minimal mediastinal lymphadenopathy -- Loculated right-sided pleural effusion with dense consolidative process in the right lower lobe Procalcitonin 0.45, respiratory bio fire negative for everything Neutrophilic leukocytosis Nasal MRSA negative S/p thoracentesis 01/28/2024, 550 mL of cloudy serous fluid removed. pH 7.48, exudative as per lights criteria Pleural: LDH 760, protein 3, glucose 95, neutrophilic Serum: LDH 212, protein 5.4 -- Acute hypoxic respiratory failure Secondary to above Continue with O2 supplementation to keep oxygen saturation between 90-92% -- COPD with emphysema On Trelegy inhaler at home Follows up with Dr. 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 On the previous CAT scan which are only 2 months old, there was no significant abnormality of the right hilar region except for large hiatal hernia. For patient to develop a 7-8 cm hilar mass during the short duration of time is unlikely. Case was discussed with Dr. Hathaway as well as Dr. Ovalle I would like to treat the patient as if he has pneumonia with broad-spectrum antibiotics. Pleural fluid will be sent for cytology as well to make sure it is not malignant, if it is malignant then we already have the diagnosis and no need for invasive procedure like bronchoscopy. If the fluid is negative and patient still has persistent right lower lobe opacity then pursuing biopsy through bronchoscopy or CT-guided could be thought of in a month's time. Continue with Zosyn, I will add atypical coverage with doxycycline for 7 days Follow-up sputum culture Case was discussed with family at bedside Please note the above document was generated using voice recognition software. It may contain grammatical, syntax or spelling errors.Any formal questions or concerns about the content, text or information contained within the body of this dictation should be directly addressed to the provider for clarification. History of Present Illness Attending Physician: Jie Vidales MD History of Present Illness 78-year-old male presented to the hospital for cough and pleuritic chest pain Past medical history: COPD, CAROLYN on CPAP, supraglottic squamous cell carcinoma with recent relapse, stage Ia adenocarcinoma of the right lung s/p resection 2016 Pulmonary consulted for right-sided pleural effusion and right lower lobe pneumonia Follows up with Dr. Clay as an outpatient Patient's grandchildren were in the room at the time of examination. Patient says that he has been having issues with his breathing since approximately 4-5 days progressively getting worse He started with cough, he is drinking copious amount of brownish phlegm. Denies any hemoptysis He has been complaining of chest pain when he takes deep breath on the right side. Subjective fever and chills Denies any dysuria, no diarrhea No nausea vomiting, appetite is poor Social history: Greater than [id number] smoking history. Quit approximately 30 years ago Allergies Allergy/AdvReac Type Severity Reaction Status Date / Time lisinopril AdvReac Intermediate COUGH Verified 01/28/24 09:23 simvastatin AdvReac Unknown MUSCLE Verified 01/28/24 09:23 ACHES Home Medications Medication Instructions Recorded Confirmed Type multivit with min-folic 1 tab PO QAM 04/20/19 01/28/24 History acid-lutein 400 mcg-250 mcg chewable tablet (Centrum Silver) aspirin 81 mg tablet,delayed 81 mg PO QAM 07/13/20 01/28/24 History release cholecalciferol (vitamin D3) 25 1,000 unit PO QAM 07/13/20 01/28/24 History mcg (1,000 unit) capsule metronidazole 0.75 % topical cream 1 applic topical BID PRN Skin 03/02/23 01/28/24 History Irritation omeprazole 20 mg capsule,delayed 20 mg PO BID #180 caps 06/15/23 01/28/24 Rx release fluticasone fur. 100 mcg-umeclid 1 inh inhalation DAILY 90 days #90 08/31/23 01/28/24 Rx 62.5 mcg-vilant 25 mcg puffs inhalat.powder (Trelegy Ellipta) ipratropium 0.5 mg-albuterol 3 mg 3 ml inhalation Q6H PRN shortness 08/31/23 01/28/24 Rx (2.5 mg base)/3 mL nebulization of breath or wheezing #180 mL soln allopurinol 100 mg tablet 100 mg PO QAM #90 tabs 09/10/23 01/28/24 Rx pravastatin 20 mg tablet 20 mg PO HS #90 tabs 01/12/24 01/28/24 Rx levothyroxine 75 mcg tablet 75 mcg PO DAILY #90 tabs 01/26/24 01/28/24 Rx metoprolol succinate 50 mg See Rx Instructions .Route .COMPLEX 01/28/24 01/28/24 History tablet,extended release 24 hr Patient History Medical History Tracheostomy in place COVID-19 (06/2020) Surgical History [facility] [place] Status post tracheostomy (10/09/22) 10/09/[address] 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 Sister Breast cancer, Onset Age: 66 Denies family history of Ovarian cancer Prostate cancer Myocardial infarction Colorectal cancer Social History Smoking Status: Former smoker Tobacco Type: Cigarettes Age Started Using Tobacco: 17; Age Quit Using Tobacco: 47; packs per day: 2; Second Hand Exposure: No; Do You Dip or Chew Tobacco: No; Tobacco Cessation Education Requested by Patient: No Hx Alcohol Use: Yes Alcohol type: other Hx Substance Use: No Preferred Language: Slovak Communication Ability: Effective Visual Impairment: No Limitations Hearing Ability: Normal Nuisance Animal Damage Control Agent Required: No Beliefs That Will Affect Care: None marital status: Current Living Situation: Spouse Current Living Situation Comment: lives at home with current occupational status: retired 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 [employer] How many Children do You have: 2 Other Information That Helps Us Care for You: No Feels Safe at Home: Yes Safety Concerns: Feels Safe At This Time Childhood Exposure to Second-Hand Smoke: Yes Diet: regular Diet Comment: regular caffeine: Yes (coffee) during the past year weight has: remained stable Dental Care, Regularly: Yes Physical Activity Frequency: Daily Physical Activity Frequency Comment: [facility]-Wednesday Seatbelt Use: always Sunscreen Use: Yes Assistive Devices: CPAP and Walker Assistive Devices Comment: does not use home O2 Review of Systems 2 Review of Systems: All systems reviewed & are unremarkable except as noted in HPI & below Physical Exam 2 Physical Exam: Constitutional: No acute distress HEENT: EOMI, PERRLA Respiratory system: Decreased air entry bilaterally, more decreased on the right side, positive crackles bilateral lower lobes, no wheeze, no rhonchi CVS: S1-S2 positive, no murmurs or gallops Abdomen: Soft, nontender, nondistended, positive bowel sounds x4 Extremities: +2 pulses bilaterally radialis/ dorsalis pedis, no cyanosis, minimal pitting edema bilateral lower extremity Neuro: Awake alert oriented x3 Psych: Normal mood and affect G/U: No Hdz Skin: no rashes, warm and dry Lymphatic: no cervical or axillary lymphadenopathy Results & Data Results & Data Vital Signs (Past 12 Hours) Vital Signs Temp Pulse Pulse Resp BP Pulse Ox O2 Del Method 01/28/24 07:17 97 H 01/28/24 07:16 95 H 18 94 Oxymask 01/28/24 02:53 36.7 C 90 22 133/74 93 Nasal Cannula 01/28/24 00:21 91 Oxymask 01/28/24 00:00 86 01/27/24 23:00 Nasal Cannula 01/27/24 22:45 36.5 C 91 H 24 129/77 97 High Flow Nasal Cannula 01/27/24 22:13 87 18 90 Nasal Cannula 01/27/24 21:00 82 18 110/64 93 Nasal Cannula O2 Flow Rate 01/28/24 07:17 01/28/24 07:16 6 01/28/24 02:53 01/28/24 00:21 6 01/28/24 00:00 01/27/24 23:00 6 01/27/24 22:45 10 01/27/24 22:13 5 01/27/24 21:00 5 Laboratory Results 01/28/24 05:36 01/28/24 05:36 PG Care Time/CCT Total # of Minutes Spent Total Time Spent with Patient: Total time spent is greater than 50% in coordination of care (as documented) at patient's floor/unit and/or counseling patient: Coding Level of Care Code 07430 INT INP/OBS CARE 3/75MIN Diagnoses Pneumonia J18.9 Acute hypoxemic respiratory failure J96.01 Squamous cell carcinoma of left lung C34.92 Chronic obstructive pulmonary disease J44.9 Adenocarcinoma of right lung, stage 1 C34.91 Loculated pleural effusion J90 Pleuritic chest pain R07.81
--- NOTE | 2024-01-28 10:19 | Radiation OncologyConsultation ---
Date of Consultation January 28, 2024 Assessment & Plan (1) Postobstructive pneumonia: 78-year-old gentleman with a prior history of right lower lobe lung adenocarcinoma. Underwent right lower lobe resection in 2017. He is well-known to our office from prior treatment. Completed 12/24/2022. He received combined treatment with radiation and weekly cisplatin. He did have a recurrence and underwent a right radical neck dissection on 11/09/2023. He has been followed by medical oncology and currently is undergoing treatment with carboplatin/5-FU and pembrolizumab. Received cycle 1 day 1 on 12/27/2023. He presented for his infusion on 01/17/2024. This was not given. He was having an irregular heartbeat and the plans were for him to have a cardiology evaluation. He has been feeling poorly over the past few weeks. He has a cough with increased sputum production. This had been clear and then turned dark brown in color. He developed increasing shortness of breath and chest discomfort on the right. He presented to the emergency room. His workup has revealed a postobstructive pneumonia. Pulmonary has been consulted to see the patient. Will likely be undergoing bronchoscopy and biopsies. Plan ATTENDING ADDENDUM Assessment: Mr. Grant is a 78-year-old gentleman who is well-known to our service. The patient initially had a diagnosis of right lung cancer 2016 that was treated with surgical resection by Dr. Brown. 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 Unfortunately, the patient did have recurrent disease in 2023 that was treated with surgery and adjuvant chemotherapy. The patient did also have a left upper lobe squamous cell carcinoma that was either felt to be oligometastatic disease or a separate lung primary that was treated with SBRT which completed in December 2023. The patient is now admitted to the hospital due to respiratory symptoms and CT imaging does reveal right lung atelectasis with mediastinal adenopathy and pleural effusion.. We have been asked to evaluate the patient regarding radiation therapy. Recommendations: 1. Current pulmonary findings are unrelated to his previous radiation therapy. 2. Pulmonary consultation. Case was discussed with Dr. Marshall and he plans to determine etiology. 3. Medical oncology follow-up in the outpatient setting. Plan: 1. No role for radiation therapy at this point. We will continue to monitor the patient's findings and document as needed. 2. Continue medical management as per other following providers. History of Present Illness Reason for Consultation: Post obstructive pneumonia Requesting Physician: Dr. Vidales Attending Physician: Jie Vidales MD History of Present Illness 03/2017. Status post right lower lobectomy due to non-small lung cancer (Dr. Brown). Development of dysphagia 09/21/2022. CT of the soft tissues of the neck. 3.1 x 2.9 x 2.9 cm soft tissue mass centered at the left side of the vallecula/cricoid cartilage. Results in 75% effacement of the airway. A few enlarged left cervical lymph nodes consistent with metastatic involvement. 09/21/2022. Barium swallow. Examination terminated due to aspiration of additional swallows of barium. 09/23/2022. Left cervical lymph node aspiration. Malignant. Metastatic squamous cell carcinoma. 10/06/2022. PET/CT. Hypermetabolic mass in the left Larynx, consistent with primary site of disease. Hypermetabolic left level 2 and bilateral level 3 lymphadenopathy, consistent with biopsy-proven mickey metastasis. 10/07/2022. Multidisciplinary head and neck tumor board. [id number] (stage IV). 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 10/09/2022. Emergency room evaluation for hemoptysis. 10/09/2022. Await tracheostomy, direct laryngoscopy with biopsy (Dr. Chowdary). Path report of biopsies from the left supraglottic mass showed invasive squamous cell carcinoma, moderately differentiated. 10/12/2022. Video swallow study. Aspiration of all fluid consistencies. 10/20/2022. Discharged from [facility]. 10/30/2022. Medical oncology consultation (Dr. Jamie Ovalle). 11/10/2022. Cycle 1 day 1 of weekly cisplatin. 11/30/2022. ENT follow-up appointment with Dr. Chowdary. 12/23/2022. Completion of weekly cisplatin. 12/24/2022. Status post completion of concurrent radiation therapy with chemotherapy. 33 fractions. 180/212 cGy per fraction. 5940/6996 cGy. Chemotherapy comprised of weekly cisplatin. 03/04/2023. ENT follow-up. NPL examination no evidence of disease. 03/31/2023. Head and neck tumor board. Continue with clinical observation. 03/30/2023. PET/CT. Favorable response to therapy as evidenced by resolution of the hypermetabolic disease in the [place] and neck. No evidence of metastatic disease. 04/29/2023. ENT follow-up. NPL examination with no evidence of disease. 07/05/2023. ENT follow-up. No evidence of disease. 09/06/2023. ENT follow-up. No evidence of disease on NPL examination. There is palpable months firmness the level 2/3 cervical lymph nodes. Recommendation for ultrasound of the neck. 09/14/2023. Ultrasound of head and neck. Multiple prominent right-sided level II/III cervical lymph nodes, including an enlarged level IIA node measuring 1.3 cm in short axis. 09/21/2023. CT of the neck. Multiple right-sided pathologic appearing enlarged, necrotic cervical lymph nodes which are new/increased in size compared to PET/CT from 03/30/2023 and highly concerning for recurrent/progressive disease. New mildly spiculated left upper lung nodule, favored to represent a pulmonary metastasis. Post treatment changes with nonspecific soft tissue fullness along the anterior supraglottic and glottic mucosa. No discrete mass or focal enhancement to suggest localized primary site recurrence. 09/30/2023. CT of the chest 1. New irregularly marginated 2 cm left upper lobe pulmonary nodule, which is highly suspicious for a neoplastic process. This may represent a primary or secondary neoplasm. Consider tissue sampling or PET-CT for further evaluation. Fleischner Society follow-up recommendations for incidental nodules are not indicated in the setting of a history of neoplasia. Follow up per the patient's medical condition. 2. Moderate hiatal hernia. 3. Severe centrilobular emphysema. 10/04/2023. FNA of right cervical lymph node. A. Lymph Node, Right Cervical, US guided Fine Needle Aspiration: Adequacy:Satisfactory for evaluation. Category:Malignant. Interpretation:Squamous cell carcinoma. Other:Cellblock: The histological sections of the cellblock preparation are hypocellular. 10/06/2023. Results of CT scan and FNA reviewed with the patient. Plan for a PET/CT as well as biopsy of the lung nodule. 07/05/2023. ENT follow-up. No evidence of disease. 09/06/2023. ENT follow-up. No evidence of disease on NPL examination. There is palpable months firmness the level 2/3 cervical lymph nodes. 09/14/2023. Ultrasound of head and neck. Multiple prominent right-sided level II/III cervical lymph nodes, including an enlarged level IIA node measuring 1.3 cm in short axis. 09/21/2023. CT of the neck. Multiple right-sided pathologic appearing enlarged, necrotic cervical lymph nodes which are new/increased in size compared to PET/CT from 03/30/2023 and highly concerning for recurrent/progressive disease. New mildly spiculated left upper lung nodule, favored to represent a pulmonary metastasis. Post treatment changes with nonspecific soft tissue fullness along the anterior supraglottic and glottic mucosa. No discrete mass or focal enhancement to suggest localized primary site recurrence. 09/30/2023. CT of the chest 1. New irregularly marginated 2 cm left upper lobe pulmonary nodule, which is highly suspicious for a neoplastic process. This may represent a primary or secondary neoplasm. Consider tissue sampling or PET-CT for further evaluation. Fleischner Society follow-up recommendations for incidental nodules are not indicated in the setting of a history of neoplasia. Follow up per the patient's medical condition. 2. Moderate hiatal hernia. 3. Severe centrilobular emphysema. 10/04/2023. FNA of right cervical lymph node. A. Lymph Node, Right Cervical, US guided Fine Needle Aspiration: Adequacy:Satisfactory for evaluation. Category:Malignant. Interpretation:Squamous cell carcinoma. Other:Cellblock: The histological sections of the cellblock preparation are hypocellular. 10/06/2023. Results of CT scan and FNA reviewed with the patient. Plan for a PET/CT as well as biopsy of the lung nodule. 10/12/2023. PET/CT. 1. No suspicious focal activity along the airway. 2. Hypermetabolic right level 2 mickey metastasis. 3. Hypermetabolic 2.6 cm left upper lobe nodule, concerning for pulmonary metastasis. 10/25/2023. Percutaneous biopsy of left upper lobe mass. Path report reveals: A. Lung, Left upper lobe, US guided core needle biopsy: Adequacy: Satisfactory for evaluation. Category: Malignant. Interpretation: Squamous cell carcinoma. See comment. Comment: The H&E sections of core biopsy demonstrate invasive nests of cohesive tumor cells with densely eosinophilic cytoplasm and enlarged nuclei with irregular nuclear contours. The tumor cells are positive for p40 and CK5/6. The tumor cells are negative for TTF1 and p16. The TTF1 stain highlights background respiratory epithelium. The morphologic and immunohistochemical findings support the above diagnosis. Other: Biopsy: The histological sections of the biopsy specimen contain fragments of tissue. Immunohistochemical stains are performed on block A1 and controls stain appropriately. 11/02/2023. Follow-up with medical oncology. Patient will be undergoing right neck dissection by Dr. Chowdary. Recommendation for radiation therapy for evaluation of the left upper lobe mass. 11/03/2023. Radiation oncology telehealth visit. Patient was called and reviewed his findings of the percutaneous biopsy of the left upper lobe mass. This is revealed squamous cell carcinoma. He did require 2-day hospitalization for pneumothorax. He stated that he did markedly reapproved after the chest tube was placed. He had no issues following the hospitalization. PET/CT images have been reviewed by Dr. Ovalle. It is felt that he will be a candidate for stereotactic treatment. This was briefly reviewed with him. We discussed that we will have him return to our office in 1 month for an update. Will then plan to move forward with treatment to the left upper lobe mass. 11/09/2023. Right modified radical neck dissection (Dr. Chowdary). Path report reveals: Final Diagnosis A. Lymph nodes, right neck levels II-IV, modified radical dissection: Eight out of sixteen total lymph nodes, positive for metastatic basaloid squamouscell carcinoma Level II: Four out of five lymph nodes, positive for metastatic squamous cellcarcinoma, largest measuring 3.5 cm in greatest dimension, extranodalextension present (4/5) Level III: Four out of five lymph nodes, positive for metastatic squamouscell carcinoma, largest measuring 2.2 cm in greatest dimension, extranodalextension present (4/5) Level IV: Six lymph nodes, no carcinoma seen (0/6) Jugular vein and proximal and distal margins are uninvolved Pathologic stage (AJCC 8th edition): pN3b (see synoptic data) Synoptic report: LARYNX (SUPRAGLOTTIS, GLOTTIS, SUBGLOTTIS) 8th Edition - Protocol posted: 02/03/2023 LARYNX (SUPRAGLOTTIS, GLOTTIS, SUBGLOTTIS) -all specimens. SPECIMEN Procedure Neck (lymph node) dissection: Modified radicalright neck dissection level II-IV TUMOR Tumor Focality Cannot be determined Tumor Site Not specified Transglottic Extension Not identified Tumor Laterality Not specified Tumor Size Cannot be determined: See lymph node section Histologic Type Basaloid squamous cell carcinoma Lymphatic and / or Vascular Invasion Not identified Perineural Invasion Not identified Margin Status for Invasive Tumor Not applicable REGIONAL LYMPH NODES Regional Lymph Node Status Tumor present in regional lymph node(s) Number of Lymph Nodes with Tumor 8 Laterality of Lymph Node(s) with Tumor Ipsilateral (including midline) Mickey Site(s) with Tumor Level II Level III Size of Largest Mickey Metastatic Deposit 3.5 cm Extranodal Extension (ANTWAN) Present Distance of ANTWAN from Lymph Node Capsule Greater than 2 mm (macroscopic ANTWAN) Number of Lymph Nodes Examined 16 pT Category Primary tumor cannot be assessed pN Category pN3b 11/15/2023. ENT follow-up (Dr. Chowdary). Wound drain was removed. Review of pathology. Patient will be discussed at the upcoming tumor board. 11/17/2023. Head and neck tumor board at [facility]. Patient is diagnosed with recurrent [id number] supraglottic laryngeal cell carcinoma. After multidi sciplinary discussion, the official tumor board recommendation was for stereotactic body radiation therapy to the lung lesion, CPS score on pathology, and likely adjuvant chemotherapy. 12/03/2023. Radiation oncology follow-up. Patient is referred back to our office to discuss stereotactic radiation therapy to the left upper lobe lung lesion. He is steadily recuperating from the head and neck surgery. He is doing well. He did develop submental edema postoperatively. He is using a Flexitouch machine daily. Initially he had discomfort with swallowing. This has resolved. He uses a nutrition supplement daily. 12/22/2023. Status post completion of radiation therapy to the left upper lung nodule. He received 5000 cGy utilizing SBRT. Treatment given in 5 fractions. 12/27/2023. Initiation of pembrolizumab/carboplatin and 5-FU. Plan for 6 cycles. Treatment will be given every 21 days. 01/16/2023. Open cycle 2-day 1 of carboplatin/5-FU/Keytruda. Treatment held due to irregular heartbeat. Patient will need cardiac evaluation. 01/27/2024. Patient presented to emergency room with a 1 week history of cough and dark-colored sputum. He typically has a cough with white-colored sputum. He had increasing shortness of breath. There was pain in the right anterior and posterior chest. He denied fever. He did have chills at home. He has had generalized weakness. Upon arrival to the emergency room his pulse oximetry was 77 on room air. He was noted to have elevated white count at 19,330. 01/27/2024. Chest x-ray. 1. Right hilar mass better seen on the comparison CTA of the chest. 2. Moderate right pleural effusion with persistent right basilar consolidation. 3. Left upper lobe 2 cm pulmonary nodule is again seen. 4. Severe emphysema. 01/27/2024. Chest CTA. IMPRESSION: 1. No evidence of pulmonary embolism. 2. Right hilar soft tissue density contiguous with a consolidated/collapsed right lower lobe. Occlusion of the right lower lobe bronchus. Findings suggest bronchogenic malignancy arising from the right hilum with postobstructive right lower lobe atelectasis/pneumonia. 3. Spiculated left upper lobe nodule measuring 2.1 cm concerning for metastasis. 4. Mild mediastinal adenopathy may represent mickey metastatic disease. 5. Small partially loculated right pleural effusion. 6. Moderate hiatal hernia. 01/27/2024. CT of the head. No acute intracranial process. 01/27/2024. Venous Doppler. No evidence of acute DVT. 01/28/2024. Radiation oncology consultation. Patient has been hospitalized for obstructive pneumonia changes noted in the right lower lobe. He has had a cough with dark sputum. Possible hemoptysis. He has had increasing shortness of breath. He has had pain in the right anterior and posterior chest wall region. He stated he feels weak in general. He has had chills and denies fever. After his admission he did develop a fever at 38.2. He has been kept n.p.o. There are plans for pulmonary consultation. Probable bronchoscopy with biopsies. Allergies Allergy/AdvReac Type Severity Reaction Status Date / Time lisinopril AdvReac Intermediate COUGH Verified 01/28/24 09:23 simvastatin AdvReac Unknown MUSCLE Verified 01/28/24 09:23 ACHES Home Medications Medication Instructions Recorded Confirmed Type multivit with min-folic 1 tab PO QAM 04/20/19 01/28/24 History acid-lutein 400 mcg-250 mcg chewable tablet (Centrum Silver) aspirin 81 mg tablet,delayed 81 mg PO QAM 07/13/20 01/28/24 History release cholecalciferol (vitamin D3) 25 1,000 unit PO QAM 07/13/20 01/28/24 History mcg (1,000 unit) capsule metronidazole 0.75 % topical cream 1 applic topical BID PRN Skin 03/02/23 01/28/24 History Irritation omeprazole 20 mg capsule,delayed 20 mg PO BID #180 caps 06/15/23 01/28/24 Rx release fluticasone fur. 100 mcg-umeclid 1 inh inhalation DAILY 90 days #90 08/31/23 01/28/24 Rx 62.5 mcg-vilant 25 mcg puffs inhalat.powder (Trelegy Ellipta) ipratropium 0.5 mg-albuterol 3 mg 3 ml inhalation Q6H PRN shortness 08/31/23 01/28/24 Rx (2.5 mg base)/3 mL nebulization of breath or wheezing #180 mL soln allopurinol 100 mg tablet 100 mg PO QAM #90 tabs 09/10/23 01/28/24 Rx pravastatin 20 mg tablet 20 mg PO HS #90 tabs 01/12/24 01/28/24 Rx levothyroxine 75 mcg tablet 75 mcg PO DAILY #90 tabs 01/26/24 01/28/24 Rx metoprolol succinate 50 mg See Rx Instructions .Route .COMPLEX 01/28/24 01/28/24 History tablet,extended release 24 hr Patient History Medical History Tracheostomy in place COVID-19 (06/2020) Surgical History History of lung biopsy L lung - October 2023 -Wilber Gonzalez. Status post tracheostomy (10/09/22) 10/09/[address] Chowdary 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 Sister Breast cancer, Onset Age: 66 Denies family history of Ovarian cancer Prostate cancer Myocardial infarction Colorectal cancer Social History Smoking Status: Former smoker Tobacco Type: Cigarettes Age Started Using Tobacco: 17; Age Quit Using Tobacco: 47; packs per day: 2; Second Hand Exposure: No; Do You Dip or Chew Tobacco: No; Tobacco Cessation Education Requested by Patient: No Hx Alcohol Use: Yes Alcohol type: other Hx Substance Use: No Preferred Language: Irish Communication Ability: Effective Visual Impairment: No Limitations Hearing Ability: Normal Acid Supervisor Required: No Beliefs That Will Affect Care: None marital status: Current Living Situation: Spouse Current Living Situation Comment: lives at home with current occupational status: 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 [employer] How many Children do You have: 2 Other Information That Helps Us Care for You: No Feels Safe at Home: Yes Safety Concerns: Feels Safe At This Time Childhood Exposure to Second-Hand Smoke: Yes Diet: regular Diet Comment: regular caffeine: Yes (coffee) during the past year weight has: remained stable Dental Care, Regularly: Yes Physical Activity Frequency: Daily Physical Activity Frequency Comment: goes to [facility] Wed-Wednesday Seatbelt Use: always Sunscreen Use: Yes Assistive Devices: CPAP and Walker Assistive Devices Comment: does not use home O2 Radiation History Diagnosis: 2017. Right Lung cancer. 09/2022. Supraglottic larynx, SCC, [id number], stage WHITNEY. 11/09/2023. 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 Stage [id number] 10/25/2023. Squamous cell carcinoma of the left upper lobe of the lung. Stage [id number]. Stage IA3 Treatment: 2017. Right lung cancer resection. Dr. Brown 12/24/2022. Status post completion of concurrent radiation therapy with chemotherapy. 33 fractions. 180/212 cGy per fraction. 5940/6996 cGy. Chemotherapy comprised of weekly cisplatin. 11/09/2023. Right radical neck dissection. 12/22/2023. Status post completion of radiation therapy to the left lung nodule. He received 5000 cGy utilizing SBRT. Treatment given in 5 fractions. Review of Systems Review of Systems: 13 point review of systems completed. P ertinent findings are found in the history of present illness. Physical Exam Constitutional: WD/WN, vitals as above + ill appearing Oxygen in place with nonrebreather. Coughing and bringing up frothy dark brown to pink-colored sputum. Eyes: PERRL, conjunctivae normal, anicteric sclerae ENMT: Ears: no hearing impairment Neck: trachea midline, no thyromegaly Postoperative changes. Respiratory: + cough; no respiratory distress and no retractions Auscultation: + diminished lung sounds (Markedly decreased breath sounds right lower lobe region.) Transtracheal congestion with coughing. Cardiovascular: RRR, no murmur, no edema Gastrointestinal (Abdomen): normal bowel sounds, soft, nontender, no hepatosplenomegaly Skin: no rashes, warm and dry Psychiatric: A+Ox3, euthymic affect Results (Rad Onc) Imaging Studies: were reviewed and pertinent findings noted in HPI Time Spent Midlevel I spent [15] minutes in preparation for this follow up evaluation including reviewing all the clinical records, reviewing laboratory studies, pathology reports and imaging results. I spent [25] minutes with direct face to face interaction with the patient and/or family including performing a physical exam and answering all questions. I spent [20] minutes documenting this patient's visit. Attending I spent 10 minutes in preparation for this consultation including reviewing all the clinical records, reviewing laboratory studies, pathology reports and imaging results. I spent 10 minutes with direct face to face interaction with the patient and/or family including performing a physical exam and answering all questions. I spent 10 minutes documenting this patient's visit. PG Care Time/CCT Total # of Minutes Spent Total Time Spent with Patient: Total time spent is greater than 50% in coordination of care (as documented) at patient's floor/unit and/or counseling patient: Coding [place] [id number] IN/OBS CONSULT LVL 5,80M Patient Type Established Medical Decision Making Low Complexity Diagnoses Postobstructive pneumonia J18.9
[2024-01-28] MEDS: PANTOprazole 40 MG in SYRINGE 0 ML IV SCH (12:32)
--- NOTE | 2024-01-28 13:10 | Electrocardiogram Report ---
Test Reason : Blood Pressure : / mmHG Vent. Rate : 112 BPM Atrial Rate : 112 BPM P-R Int : 140 ms QRS Dur : 104 ms QT Int : 366 ms P-R-T Axes : 010 -41 014 degrees QTc Int : 499 ms Sinus tachycardia with frequent Premature ventricular complexes Left axis deviation Low voltage QRS Incomplete right bundle branch block Abnormal ECG When compared with ECG of 13-JUL-2020 12:18, Premature ventricular complexes are now Present Incomplete right bundle branch block is now Present Confirmed by Mani Garza ([id number]) on 01/28/2024 1:10:26 PM Referred By: REFERRED SELF Confirmed By:Home Garza
--- NOTE | 2024-01-28 13:45 | Hospitalist Progress Note ---
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 There is a spiculated left upper lobe nodule presumed to be metastatic [facility] Radiation therapy is with Dr. Eduardo Ovalle, who will be consulted Patient has been seen by [facility] pulmonology Consulting [facility] pulmonology Dr. Marshall Continue Zosyn 4.5 g IV every 8 hours, begun in the ED MRSA swab is negative Respiratory BioFire test negative Duonebs every 4 hours while awake and every 2 hours when necessary. Status post 1 L normal saline bolus from the ED NSS + KCl 20 mill equivalents at 80 mL/h Sputum Gram stain and culture N.p.o. after midnight for possible procedure Elevated troponin/CAD/hypertension- Holding oral medications metoprolol succinate Lopressor 5 mg IV every 4 hours as needed for systolic blood pressure greater than 160 Admission and Anticipated Discharge Date Admission Date: January 27, 2024 Subjective reports productive cough , no fever Review of Systems Review of Systems: The patient denies chest pain, palpitations, fevers, chills, sweats, nausea, vomiting, diarrhea , constipation, abdominal pain, pelvic pain, blood in urine or stool, dysuria, urinary frequency or urgency, loss of consciousness, rash, abnormal bruising or bleeding, imbalance, focal weakness, numbness or tingling in arms or legs, generalized arthralgias or myalgias, back or neck pain, or night sweats. The review of systems is otherwise negative other than for that already noted above, and at least 10 systems have been reviewed. Results & Data Results & Data Vital Signs (Past 12 Hours) Vital Signs Temp Pulse Pulse Pulse Resp BP Pulse Ox 01/28/24 12:24 36.6 C 87 22 119/75 95 01/28/24 10:46 92 H 20 92 01/28/24 08:00 36.8 C 89 16 108/64 92 01/28/24 07:17 97 H 01/28/24 07:16 95 H 18 94 01/28/24 02:53 36.7 C 90 22 133/74 93 O2 Del Method O2 Flow Rate 01/28/24 12:24 Oxymask 5 01/28/24 10:46 Oxymask 5 01/28/24 08:00 Oxymask 5 01/28/24 07:17 01/28/24 07:16 Oxymask 6 01/28/24 02:53 Nasal Cannula Laboratory Results Abnormal lab results 01/27/24 01/27/24 01/27/24 Range/Units 17:40 18:21 21:17 WBC 19.33 H (4.8-10.8) K/ul RBC 3.47 L (4.70-6.10) M/uL Hgb 11.5 L (14.0-18.0) g/dl POC Hgb 9.9 L (14.0-18.0) g/dl Hct 34.5 L (42.0-52.0) % POC Hct 29 L (42-52) % RDW Std Deviation 56.1 H (36.4-46.3) fL RDW Coeff of Stephanie 15.6 H (11.5-14.5) % Neut # (Auto) 17.64 H (1.40-6.50) K/uL Lymph # (Auto) 0.46 L (1.20-3.40) K/uL Morris # (Auto) 0.90 H (0.11-0.59) K/uL Immature Gran # (Auto) 0.27 H (0.01-0.20) K/uL PT 12.4 H (9.0-12.0) Seconds INR 1.2 H (0.9-1.1) APTT (21-31) Seconds VBG pH (7.36-7.41) POC Sodium 132 L (135-144) mmol/L Sodium 133 L (136-145) mmol/L POC Chloride 95 L (101-112) mmol/L Chloride 95 L (98-107) mmol/L POC Anion Gap 12.0 L (16-25) mmol/L Creatinine (0.6-1.4) mg/dl BUN/Creatinine Ratio 28.8 H (10-20) Glucose 128 H (70-99(Fasting)) mg/dl POC Glucose (other) 125 H (70-99) mg/dl Calcium (8.6-10.3) mg/dl POC Ioniz Calcium Payal 1.11 L (1.12-1.32) mmol/l AST 49 H (13-39) U/L ALT 102 H (7-52) U/L Alkaline Phosphatase 165 H (34-104) U/L Troponin I High Sens 24.9 H (0-20) pg/ml B-Natriuretic Peptide 574 H (0-100) pg/ml Total Protein (6.0-8.3) gm/dl Albumin 3.0 L (3.4-5.0) gm/dl Albumin/Globulin Ratio (0.9-2) Ur Specific [place] 1.039 H (1.000-1.030) Urine Urobilinogen Positive H (Negative) 01/27/24 01/28/24 Range/Units Unknown 05:36 WBC 17.33 H (4.8-10.8) K/ul RBC 3.01 L (4.70-6.10) M/uL Hgb 9.9 L (14.0-18.0) g/dl POC Hgb (14.0-18.0) g/dl Hct 29.8 L (42.0-52.0) % POC Hct (42-52) % RDW Std Deviation 55.0 H (36.4-46.3) fL RDW Coeff of Stephanie 15.1 H (11.5-14.5) % Neut # (Auto) 15.76 H (1.40-6.50) K/uL Lymph # (Auto) 0.34 L (1.20-3.40) K/uL Morris # (Auto) 0.98 H (0.11-0.59) K/uL Immature Gran # (Auto) (0.01-0.20) K/uL PT 12.3 H (9.0-12.0) Seconds INR (0.9-1.1) APTT 32 H (21-31) Seconds VBG pH 7.48 H (7.36-7.41) POC Sodium (135-144) mmol/L Sodium (136-145) mmol/L POC Chloride (101-112) mmol/L Chloride (98-107) mmol/L POC Anion Gap (16-25) mmol/L Creatinine 0.54 L (0.6-1.4) mg/dl BUN/Creatinine Ratio 24.1 H (10-20) Glucose 123 H (70-99(Fasting)) mg/dl POC Glucose (other) (70-99) mg/dl Calcium 8.2 L (8.6-10.3) mg/dl POC Ioniz Calcium Payal (1.12-1.32) mmol/l AST (13-39) U/L ALT 70 H (7-52) U/L Alkaline Phosphatase 126 H (34-104) U/L Troponin I High Sens (0-20) pg/ml B-Natriuretic Peptide (0-100) pg/ml Total Protein 5.3 L (6.0-8.3) gm/dl Albumin 2.4 L (3.4-5.0) gm/dl Albumin/Globulin Ratio 0.8 L (0.9-2) Ur Specific [place] (1.000-1.030) Urine Urobilinogen (Negative) PG Care Time/CCT Total # of Minutes Spent Total Time Spent with Patient: Total time spent is greater than 50% in coordination of care (as documented) at patient's floor/unit and/or counseling patient: Coding Level of Care Code 12762 SUB INP/OBS CARE 2/35MIN Diagnoses Primary cancer of supraglottis C32.1 Acute hypoxemic respiratory failure J96.01 Squamous cell carcinoma of left lung C34.92 History of atrial flutter Z86.79 Postobstructive pneumonia J18.9 History of lung biopsy Z98.890
--- NOTE | 2024-01-28 14:18 | Procedure Note ---
Procedure Note Date of Service January 28, 2024 Note Procedure: Diagnostic therapeutic ultrasound-guided catheter thoracentesis Professor Of Anthropology: Dr. Nestor Marshall Indication: Right pleural effusion Consent: Signed by patient and verified with timeout prior to procedure Anesthesia: 1% lidocaine without epinephrine local. Procedure: Consent was verified and timeout performed. Appropriate imaging studies were reviewed prior to the procedure. Patient was placed in a seated position and limited thoracic ultrasound was performed of the right chest. See separate imaging. Appropriate site above the diaphragm for thoracentesis was selected. The skin was prepped and draped in normal sterile fashion. Lidocaine was used for local analgesia. Fluid was aspirated via the finder needle. A small skin waylon was made with the scalpel and the catheter over the needle apparatus was advanced over the rib into the pleural space. Using the syringe one-way valve system, a total of 550 mL's of cloudy serous fluid was removed. The catheter was removed and observed to be intact. A sterile dressing was applied. Post procedure chest x-ray was ordered. Fluid was sent for labs, culture and cytology. Complications: None Blood loss: None Recommendations: There were minimal loculation appreciated at the base of the right lung and the pleura. Follow-up chest x-ray. Please note the above document was generated using voice recognition software. It may contain grammatical, syntax or spelling errors.Any formal questions or concerns about the content, text or information contained within the body of this dictation should be directly addressed to the provider for clarification. Coding CPT Codes Pulmonary/Thoracic - Pulmonary and Thoracic: 43390 Thoracentesis w imaging ([id number]) [facility] [place] Procedure Codes (Charges) Pulmonary/Thoracic Procedure 1: Pulmonary and Thoracic: 24205 Thoracentesis w imaging
--- NOTE | 2024-01-28 14:40 | XRay Report ---
XR chest 1V portable HISTORY: 78 years-old Male s/p right thoracentesis right pleural effusion. COMPARISON: 01/27/2024 chest, CTA chest 01/27/2024 TECHNIQUE: AP view of the chest FINDINGS: Cardiac silhouette is enlarged. Left IJ Asjgjh-p-Vfno catheter distal tip noted within the expected l ocation of the mid SVC. Surgical clips project over the right lung apex. Severe emphysema with inters titial coarsening. Spiculated irregular 2 cm nodule left upper lobe is again seen. Mildly decreased s ize of right pleural effusion with persistent right basilar consolidation. IMPRESSION: 1. Mildly decreased size of the right pleural effusion status post thoracentesis. 2. No pneumothorax identified. ACT 112: Negative or not required by law. The above report was generated using voice recognition software. It may contain grammatical, syntax o r spelling errors. Electronically signed by: Con Hathaway M.D. 01/28/2024 2:39 PM
[2024-01-28 14:44] LABS: Amylase Pleural Fluid < 10 U/L
[2024-01-28 14:50] LABS: Glucose Pleural Fluid 95 mg/dl; LDH Pleural Fluid 760 U/L
[2024-01-28 15:06] LABS: Appearance Pleural Fluid Hazy; Color Pleural Fluid Yellow; RBC Pleural Fluid Auto < 2000 /uL; Source Pleural Fluid Right Lung; WBC Pleural Fluid Auto 2066 /uL
[2024-01-28 15:29] LABS: Mono,Macrophage,Mesothelial 14 %; Neutrophils, Fluid 86 %
[2024-01-28 15:34] LABS: Albumin Level 2.5 gm/dl (3.4-5.0); Bilirubin,Total 0.6 mg/dl (0.2-1.0)
[2024-01-28 15:40] LABS: Total Protein 5.4 gm/dl (6.0-8.3)
--- NOTE | 2024-01-28 17:13 | Electrocardiogram Report ---
Test Reason : Blood Pressure : / mmHG Vent. Rate : 099 BPM Atrial Rate : 099 BPM P-R Int : 100 ms QRS Dur : 114 ms QT Int : 386 ms P-R-T Axes : -03 -44 040 degrees QTc Int : 495 ms Poor data quality, interpretation may be adversely affected Sinus rhythm with Premature atrial complexes in a pattern of bigeminy Left axis deviation Low voltage QRS Incomplete right bundle branch block Abnormal ECG When compared with ECG of 28-JAN-2024 05:25, (unconfirmed) Fusion complexes are no longer Present Premature ventricular complexes are no longer Present Confirmed by Mani Garza ([id number]) on 01/28/2024 5:13:00 PM Referred By: REFERRED SELF Confirmed By:Home Garza
[2024-01-28] MEDS: DOXYCYCLINE HYCLATE 100 MG CAP PO SCH (17:22)
--- NOTE | 2024-01-28 19:09 | XCELERA ---
[id number]
--- OUTSIDE RECORDS SUMMARY | 2024-01-28 22:43 | External Medical Summary | Summary of Care ---
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) Procedures VA CARBOPLATIN INJECTION VA FLUOROURACIL INJECTION VA FOSAPREPITANT INJECTION VA INJ PEMBROLIZUMAB Eduardo Ovalle MD [address] [place] [address] Anc Hem/Onc [address] [address] Referral ID Status Reason Start Date Expiration Date V isits Requested Visits Authorized [id number] Authorized 12/06/2023 12/05/[phone] Encounter Details Date Type Department Care Team (Latest Contact Info) Description 12/31/2023 11:15 AM EDT Immunization/ Injection Hematology/Oncology Treatment, [address] [phone] Nurse, Med [address] [facility] [place] [address] Encounter for antineoplastic chemotherapy*; Laryngeal cancer (HCC); 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 Active CENTRUM SILVER PO TABS Take 1 Tablet by mouth daily. Active allopurinol (ZYLOPRIM) 100 MG Tablet Take 1 Tablet by mouth in the morning. Active Vitamin D3 25 MCG (1000 UT) Oral Tablet Take 1 Tablet by mouth in the morning. Active Omeprazole 20 MG Oral Capsule Delayed Release Take 1 Capsule by mouth 2 times a day. Active Ipratropium-Albu terol 0.5-2.5 (3) MG/3ML Inhalation Solution (Duoneb) Inhale 3 mL via nebulizer 4 times a day. 360 mL 10/20/2022 Active Additional Information Patient taking differently:3 mL NebulizerPRN, Reported on 04/29/2023 Trelegy Ellipta 100-62.5-25 MCG/ACT Aerosol Powder Breath Activated INHALE 1 PUFF DAILY 01/26/2023 Active metroNIDAZOLE 0.75 % External Cream (Metrocream) as needed. 03/02/2023 Active Levothyroxine Sodium 100 MCG Oral Tablet (Levoxyl) Take 0.75 Tablets by mouth daily first thing in the morning. (at least 30 min prior to breakfast or other meds) Pt taking 75 mcg Active Ondansetron HCl 8 MG Oral Tablet (Zofran)Indicati ons:Laryngeal cancer (HCC) Take 1 Tablet by mouth every 8 hours as needed for Nausea. 30 Tablet 2 12/04/2023 Active Additional Information Patient not taking.Reported on 12/24/2023 Prochlorperazine Maleate 10 MG Oral Tablet (Compazine)Indic ations:Laryngeal cancer (HCC) Take 1 Tablet by mouth every 6 hours as needed for Nausea. 30 Tablet 3 12/04/2023 Active Additional Information Patient not taking.Reported on 12/24/2023 Metoprolol Succinate ER 50 MG Oral Tablet Extended Release 24 Hour (toPROL XL) Take 1 Tablet by mouth in the morning and 1 Tablet before bedtime. 60 Tablet 1 10/20/2022 4 Discontinued Hospital, Clinic, or Other Facility Administered Medication Ordered Dose Route Frequency Start Date End Date Status NSS 200 mL with Fluorouracil 8,450 mg INFUSION CENTRAL IV CONTINUOUS 12/27/2023 4 Discontinued documented as of this encounter (statuses as of 01/25/2024) Active Problems Problem Noted Date Diagnosed Date Pneumothorax, post biopsy, left 10/25/2023 Encounter for antineoplastic chemotherapy 2022 Laryngeal cancer 10/30/2022 Metastasis to head and neck lymph node 3 Atrial fibrillation with RVR 10/14/2022 Supraglottic mass 10/12/2022 Primary squamous cell carcinoma of throat 2022 TIA (transient ischemic attack) 03/25/2018 HTN, goal below 140/90 03/25/2018 Paroxysmal atrial flutter 09/06/2017 S/P ablation of atrial flutter 09/06/2017 Diaphragmatic hernia 11/21/2009 Dyslipidemia 08/01/2009 Overview: Per Lipid Taxonomy. ADVANCE DIRECTIVE INFORMATION 01/13/2007 Overview: No, Advance Directive brochure offered , patient declined. Diverticulitis of colon 01/13/2007 Rosacea 07/19/2002 Other seborrheic keratosis 07/19/2002 UNSPECIFIED GASTRITIS AND GA STRODUODENITIS WITHOUT MENTION OF HEMORRHAGE 07/19/2002 documented as of this encounter (statuses as of 01/25/2024) Resolved Problems Problem Noted Date Diagnosed Date Resolved Date Hemoptysis 10/12/2022 10/20/2022 PAF (paroxysmal atrial fibrillation) 09/06/2017 09/06/2017 Mixed dyslipidemia 07/19/2002 9 Overview: Per Lipid Taxonomy. documented as of this encounter (statuses as of 01/25/2024) Immunizations Name Administration Dates Next Due Seasonal Influenza, Quadriva lent Hd (Fluzone Hd) 07/05/2023,10/20/2022(Deferred: Contraindication - Patient already received in April. Dr. Zohaib Durán aware) documented as of this encounter Social History Tobacco Use Types Packs/Day Years Used Date Smoking Tobacco: Former Cigarettes Q uit: 1994 Smokeless Tobacco: Never Alcohol Use Standard Drinks/Week Comments Yes 1 (1 standard drink = 0.6 oz pur e alcohol) occasionally Sex and Gender Information Value Date Recorded Sex Assigned at Not on file Gender Identity Not on file Sexual Orientation Not on file Job Start Date Occupation Industry Not on file Not on file Not on file documented as of this encounter Functional Status Functional Status Response Date of Assess ment Are you deaf or do you have serious difficulty h earing? No 11/09/2023 Are you blind or do you have serious difficulty seeing, even when wearing glasses? No 11/09/2023 Do you have serious difficul ty walking or climbing stairs? (5 years old or older) No 11/09/2023 Do you have difficulty dress ing or bathing? (5 years old or older) No 11/09/2023 Because of a physical, menta l, or emotional condition, do you have difficulty doing errands alone such as visiting a doctor s office or shopping? (15 years old or older) No 11/09/19 Cognitive Status Response Date of Assessm ent Because of a physical, menta l, or emotional condition, do you have serious difficulty concentrating, remembering, or making decisions? (5 years old or older) No 11/09/2023 documented as of this encounter Nursing Notes * Xenia Krueger, RN - 12/31/2023 2:53 PM EDT Chair 6, pump disconnect. Pt reports fatigue today, but otherwise has no acute symptoms since treatment on Wednesday. CADD pump indicates 3 hours remaining in infusion time (volume 6ml). Confirmed in[place]acon that 96 hours of infusion should have completed by 1145. Contacted Karen [facility] who confirmed dose, volume and rate of pump was correct. Pt did report an occlusion at approximately 0245 on09/29/23; pt contacted [facility] and was instructed on how to restart the pump. It is possible the pump occluded long before the pt heard the alarm, which may explain the 3 hours remaining of infusion time. A minimal amount (less than approximately 5ml) of medication 5FU remains in IV pump bag; advised by Karen [facility] to discontinue infusion. CADD pump tagged for data review as requested by pharmacy. CADD clamped/disconnected from pt. VAD flushed with 10 ml NSS and Heparin 5 ml (100 units/ml). Carl needle removed intact. Pt discharged in stable condition. documented in this encounter Plan of Treatment Upcoming Encounters Date Type Department Care Team (Late st Contact Info) Description 01/27/2024 3:00 PM EDT Cardiac Studies Cardiac Studies, [facility] [address] [facility] [place] [address] 01/31/2024 1:00 PM EDT Office Visit Otolaryngology/Head & Neck/Facial Plastic Surgery [address] [place] [address] Guy Chowdary DO [address] [place] [address] 02/09/2024 10:45 AM EDT Office Visit Hematology/Oncology [facility] [address] [place] [phone] Eduardo Ovalle MD [address] [facility] [place] [address] 02/22/2024 10:30 AM EDT Office Visit Cardiology, [facility] [address] [facility] [place] [address] Kaela Castrejon [facility]C [address] [facility] [address] 03/20/2024 7:40 AM EDT Laboratory Laboratory [address] [place] [phone] [address] [place] [address] Scheduled Procedures Name Priority Associated Diagnoses Date/Ti me COLONOSCOPY FLEXIBLE PROXIMAL DIAGNOSTIC Recall History of colon polyps Health Maintenance Due Date Last Done Comments Depression Screening 1957 Albumin/Creatinine Ratio 1964 Hepatitis C Screening 1963 DTaP,Tdap,and Td Vaccines (1 - Tdap) 1965 Zoster Vaccines (1 of 2) 1965 COVID-19 Vaccine (4 - season) 2023 07/02/2021, 11/04/2020, 10/14/2020 TSH 01/13/2025 01/14/2024, 12/14, 08/13/2023, Additional history exists GFR 01/24/2025 01/25/2024, 12/16, 01/01/2024, Additional history exists Colonoscopy 03/03/2025 03/03/2022, 02/13, 01/05/2019, Additional history exists Pneumococcal Vaccine: 65+ Years Completed 05/04/2022, 06/03/2018 Influenza Vaccine (FLU shot) Completed , 05/02/2020, 05/02/2019 GARDASIL-HPV IMMUNIZATION SERIES Aged Out No longer eligible based on patient's age to complete this topic Hepatitis B Aged Out No longer eligi ble based on patient's age to complete this topic MENINGOCOCCAL (MENACTRA/MENVEO) Aged Out No longer eligible based on patient's age to complete this topic documented as of this encounter Medical Devices Implanted Type Area Manager Entry Device Identifier Shelf Expiration Date Model / Serial / Lot Port Implant [id number] Poly Cath - [id number] Implanted:Qty: 1 on 12/24/2023 by Prieto Chavez MD at OR [facility] BARD : PERIPHERAL VASCULAR [id number] 01/13/2025 [id number] / / [id number] documented as of this encounter Visit Diagnoses Diagnosis Encounter for antineoplastic chemotherapy- Primary Laryngeal cancer (HCC) Malignant neoplasm of larynx, unspecified site 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) Secondary and unspecified malignant neoplasm of lymph nodes of head, face, and neck Primary squamous cell carcinoma of throat (HCC) Malignant neoplasm of pharynx, unspecified documented in this encounter Administered Medications Inactive Administered Medications - up to 3 most recent administrations Medication Order MAR Action Action Date Dose Rate Site hEParin 100 UNIT/ML Lock Flush inj 500 Units 500 Units (5 mL), IV Lock, PRN Other, IV Flush, Starting on Wed12/31/23 at 1117, Until Wed12/31/23 at 1905, For 24 hours, Do not flush if lock, PICC, or central line not in place; IV infusing or unable to flush. Given 12/31/2023 11:48 AM EDT 500 Units sodium chloride 0.9 % flush central line 10 mL 10 mL, IV Push, PRN Other, IV Flush, Starting on Wed12/31/23 at 1117, Until Wed12/31/23 at 1905, For 24 hours, Do not flush if lock, PICC, or central line not in place; IV infusing or unable to flush. Given 12/31/2023 11:47 AM EDT 20 mL documented in this encounter Advance Directives * Full Code (Latest Code Status on File) Date Activated Date Inactivated Comments 11/09/2023 6:02 PM 11/11/2023 3:46 PM This order r eflects the patients wishes and were consensually agreed upon. Question Answer Comments Discussion of Advance Direct navid occurred with: Not Discussed due to patient's condition * Full Code Date Activated Date Inactivated Comments 10/25/2023 5:04 PM 10/26/2023 7:52 PM This order r eflects the patients wishes and were consensually agreed upon. Question Answer Comments Discussion of Advance Directives occurred with: Patient * Full Code Date Activated Date Inactivated Comments 10/09/2022 6:58 PM 10/20/2022 10:47 PM This order r eflects the patients wishes and were consensually agreed upon. Question Answer Comments Discussion of Advance Directives occurred with: Patient Care Teams [employer] Relationship Specialty Start Date End Date Genoveva Alcocer DO [address] [facility] [address] [place] [address] PCP - General Family Medicine 12/29/19 documented as of this encounter
--- OUTSIDE RECORDS SUMMARY | 2024-01-28 22:43 | External Medical Summary | Summary of Care ---
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) Procedures SC CARBOPLATIN INJECTION SC FLUOROURACIL INJECTION SC FOSAPREPITANT INJECTION SC INJ PEMBROLIZUMAB Eduardo Ovalle MD [address] [facility] [place] [address] Anc Hem/Onc [address] [address] Referral ID Status Reason Start Date Expiration Date V isits Requested Visits Authorized [id number] Authorized 12/06/2023 12/05/[phone] Encounter Details Date Type Department Care Team (Latest Contact Info) Description 12/27/2023 8:30 AM EDT Hem/Onc Treatment Hematology/Oncolog y Treatment, [address] [address] Tash, Chair 11 Hem Onc [address] [place] [address] Encounter for antineoplastic chemotherapy*; Laryngeal cancer (HCC); 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 Active Ipratropium-Albuter ol 0.5-2.5 (3) MG/3ML Inhalation Solution (Duoneb) Inhale 3 mL via nebulizer 4 times a day. 360 mL 10/20/2022 Active Additional Information Patient taking differently:3 mL NebulizerPRN, Reported on 04/29/2023 Metoprolol Succinate ER 50 MG Oral Tablet Extended Release 24 Hour (toPROL XL) Take 1 Tablet by mouth in the morning and 1 Tablet before bedtime. 60 Tablet 1 10/20/2022 Active Trelegy Ellipta 100-62.5-25 MCG/ACT Aerosol Powder Breath Activated INHALE 1 PUFF DAILY 01/26/2023 Active metroNIDAZOLE 0.75 % External Cream (Metrocream) as needed. 03/02/2023 Active Levothyroxine Sodium 100 MCG Oral Tablet (Levoxyl) Take 0.75 Tablets by mouth daily first thing in the morning. (at least 30 min prior to breakfast or other meds) Pt taking 75 mcg Active Ondansetron HCl 8 MG Oral Tablet (Zofran)Indications :Laryngeal cancer (HCC) Take 1 Tablet by mouth every 8 hours as needed for Nausea. 30 Tablet 2 12/04/2023 Active Additional Information Patient not taking.Reported on 12/24/2023 Prochlorperazine Maleate 10 MG Oral Tablet (Compazine)Indicati ons:Laryngeal cancer (HCC) Take 1 Tablet by mouth every 6 hours as needed for Nausea. 30 Tablet 3 12/04/2023 Active Additional Information Patient not taking.Reported on 12/24/2023 documented as of this encounter (statuses as of 01/22/2024) Active Problems Problem Noted Date Diagnosed Date Pneumothorax, post biopsy, left 10/25/2023 Encounter for antineoplastic chemotherapy 2022 Laryngeal cancer 10/30/2022 Metastasis to head and neck lymph node Atrial fibrillation with RVR 10/14/2022 Supraglottic mass [...] as of this encounter (statuses as of 01/22/2024) Resolved Problems Problem Noted Date Diagnosed Date Resolved Date Hemoptysis 10/12/2022 10/20/2022 PAF (paroxysmal atrial fibrillation) 09/06/2017 09/06/2017 Mixed dyslipidemia 07/19/2002 9 Overview: Per Lipid Taxonomy. documented as of this encounter (statuses as of 01/22/2024) Immunizations Name Administration Dates Next Due Seasonal [...] on file documented as of this encounter Last Filed Vital Signs Vital Sign Reading Time Taken Comments Blood Pressure 145/80 12/27/2023 8:35 AM EDT Pulse 77 12/27/2023 8:35 AM EDT Temperature 36.8 C (98.2 F) 12/27/2023 8:35 AM ED T Respiratory Rate 16 12/27/2023 8:35 AM EDT Oxygen Saturation 96% 12/27/2023 8:35 AM EDT Inhaled Oxygen Concentration - - Weight 88.5 kg (195 lb) 12/27/2023 8:35 AM EDT Height - - Body Mass Index 27.2 12/24/2023 9:11 AM EDT documented in this encounter Functional Status Functional Status Response [...] as of this encounter Nursing Notes * Migue Jerome, MICAELA - 12/27/2023 11:34 AM EDT Pt denies any issues regarding his infusion. Pt home infusion pump reviewed with him as well as reportable signs and symptoms. Reviewed spill kit with him as well as forms that need to be returned to[facility]. Reviewed # for clinic and [facility]. Pt verbalized understanding of instructions with daughter at chair side. Pt denied any further questions at this time. Pump connected to port access and started,all clamps removed from being locked. Pt ambulated from treatment room in stable condition. Goals: Pt will remain free from injury. Possible barriers to meeting goals: IV line, home infusion pump, 1st cycle of treatment. Stability of the patient: Moderately stable - low risk of patient condition declining or worsening Summary regarding today's goals: Met: Pt remained free from injury. * Migue Jerome RN - 12/27/2023 8:35 AM EDT Chair 8. Pt states he is feeling well today. Labs reviewed and denies any issues. PT states he normally has high blood pressure, takes his medicines in the morning. Denies fevers. Discussed treatment today, all questions answered. Safety and Risk for Injury Patient will remain free from injury. Ensure appropriate safety devices are available. Provide and maintain safe environment. Chemotherapy/Immunotherapy agents: CARBOPLATIN, 5FU, and KEYTRUDA Consent for chemotherapy drug treatment complete, dated, and signed? yes, date - 12/03/23 Treatment lab parameters met? Yes Has treatment weight changed > than 10%? No Treatment preauthorized? Yes VITALS Filed Vitals: 12/27/23 0835 BP: 145/80 Pulse: 77 Resp: 16 Temp: 36.8 C (98.2 F) SpO2: 96% Weight: 88.5 kg (195 lb) Urine protein: N/A Patient education completed for treatment? Yes Blood transfusion consent signed and complete? NA Return appointment scheduled? Yes Patient had provider visit today? No - If no provider visit must complete Pretreatment Assessment Functional Status: Functional status at today's visit: Fully active, able to carry on all pre-disease performance without restriction The drug name, dose, infusion volume, rate and route of administration, expiration date and time, appearance and physical integrity of the drug and rate set on the pump and sequencing of drug administration (as applicable) were verified by me and second sign-in RN. Patient was assessed for symptoms or adverse side effects during treatment. PRE-TREATMENT ASSESSMENT: NEURO: denies symptoms CV/RESP: denies symptoms GI/: denies symptoms OTHER: denies any additional symptoms PAIN: 0 documented in this encounter Plan of Treatment Upcoming Encounters Date Type Department Care Team (Late st Contact Info) Description 01/25/2024 10:30 AM EDT Office Visit Cardiology, [facility] [address] [facility] [place] [address] Kaela Castrejon PA-C [address] [place] [address] 01/31/2024 1:00 PM EDT Office Visit Otolaryngology/Head & Neck/Facial Plastic Surgery [address], [place] [id number] Guy Chowdary DO [address] [place], [place] [id number] 02/09/2024 10:45 AM EDT Office Visit Hematology/Oncology [facility] [address] [facility] [place] [phone] Eduardo Ovalle MD [address] [facility] [place] [address] 03/20/2024 7:40 AM EDT Laboratory Laboratory [address] [place] [phone] [place] [address] Scheduled Procedures Name Priority Associated Diagnoses Date/Ti me COLONOSCOPY FLEXIBLE PROXIMAL DIAGNOSTIC Recall History of colon polyps Health Maintenance Due Date Last Done Comments Depression Screening 1957 Albumin/Creatinine Ratio 1963 Hepatitis C Screening 1963 DTaP,Tdap,and Td Vaccines (1 - Tdap) 1965 Zoster Vaccines (1 of 2) 1965 COVID-19 Vaccine (4 - 2022- season) 2023 07/02/2021, 11/04/2020, 10/14/2020 GFR 01/13/2025 01/14/2024, 12/14, 12/24/2023, Additional history exists TSH 01/13/2025 01/14/2024, 12/14, 08/13/2023, Additional history exists Colonoscopy 03/03/2025 03/03/2022, 02/13, [...] this encounter Medical Devices Implanted Type Area Humanities Professor Device Identifier Shelf Expiration Date Model / Serial / Lot Port Implant W8f Poly Cath - [id number] Implanted:Qty: 1 on 12/24/2023 by Prieto Chavez MD at OR [facility] : PERIPHERAL VASCULAR [id number] 01/13/2025 [id number] / / [id number] documented as of this encounter Visit Diagnoses [...] MAR Action Action Date Dose Rate Site CARBOplatin (Paraplatin) 517 mg in D5W 250 mL infusion 517 mg (Target AUC = 5), IV Piggyback, at 550 mL/hr Administer over 30 Minutes, PROTECT FROM LIGHT (Max Creatinine Clearance at 125 ml/min for calculating AUC dose), ONCE, 1 dose, On 12/27/23 at 0930 Start Infusion 12/27/2023 10:33 AM EDT 517 mg 550 mL/hr Fluorouracil (5-Fu) 8,450 mg for Home Infusion 8,450 mg (rounded from 8,440 mg = 4,000 mg/m2 2.11 m2 Treatment Plan BSA from Recorded weight), Intravenous, Administer over 96 Hours, Home Infusion Pharmacy to specify base solution and volume. 1000 mg/m2/day for 4 days Total Awvg=1657 mg/m2, ONCE, 1 dose, On Wed12/27/23 at 0900 Start Infusion 12/27/2023 11:42 AM EDT 8,450 mg Fosaprepitant Dimeglumine (Emend) 150 mg, ondansetron (Zofran) 16 mg, dexamethasone sodium phosphate 12 mg in NSS 250 mL Infusion 150 mg, IV Piggyback, ONCE, 1 dose, On Wed12/27/23 at 0915, Administer over 30 Minutes, Give 30 minutes prior to chemotherapy. Infuse over 30 minutes. Start Infusion 12/27/2023 9:26 AM EDT 150 mg 578.4 mL/hr NSS 200 mL with Fluorouracil 8,450 mg INFUSION Central IV, at 2 mL/hr, CONTINUOUS, Starting on Wed12/27/23 at 0915, Until Wed12/31/23 at 0914 Start Infusion 12/27/2023 11:24 AM EDT 2 mL/hr NSS infusion Intravenous, at 50 mL/hr, PRN, Starting on Wed12/27/23 at 0830, Until Wed12/27/23 at 1542, Maintenance line Start Infusion 12/27/2023 9:27 AM EDT 50 mL/hr Pembrolizumab (Keytruda) 200 mg in NSS 100 mL infusion 200 mg, IV Piggyback, ONCE, 1 dose, On Wed12/27/23 at 0915, Administer over 30 Minutes, Infuse through 0.2 micron filter. Start Infusion 12/27/2023 10:00 AM EDT 200 mg 236 mL/hr documented in this encounter Advance Directives * [...] Advance Directives occurred with: Patient Care Teams Pickling Solution Maker Relationship Specialty Start Date End Date Genoveva Alcocer DO [address] [address] PCP - General Family Medicine 12/29/19 documented as of this encounter
--- OUTSIDE RECORDS SUMMARY | 2024-01-28 22:43 | External Medical Summary ---
Author Name Unknown Address Unknown Organization [id number] [address] [place] [address] Laboratory Report Ordering Provider Test Date Status HANDY LEE 01/25/2024 11:10:35 Final Observation Date Value Abnormality Reference (Units ) Status BUN 01/25/2024 11:10:35 16 6-20 (mg/dL) Final Creatinine 01/25/2024 11:10:35 0.8 0.6-1.2 (mg/dL) Final Glomerular filtration rate/1.73 sq M.predicted [Volume Rate/Area] in Serum, Plasma or Blood by Creatinine-based formula (CKD-EPI) 01/25/2024 11:10:35 >90 >=60 (mL/min) Final eGFR is calculated based on the CKD-EPI 2020 equation Sodium 01/25/2024 11:10:35 134 Below low normal 135 -146 (mmol/L) Final Potassium 01/25/2024 11:10:35 3.5 3.5-5.1 (m mol/L) Final Cl 01/25/2024 11:10:35 93 Below low normal 98- 107 (mmol/L) Final CO2 01/25/2024 11:10:35 27 22-32 (mmo l/L) Final Anion gap 01/25/2024 11:10:35 14 7-15 (mmol /L) Final Glucose 01/25/2024 11:10:35 134 Above high normal 70 -120 (mg/dL) Final Albumin 01/25/2024 11:10:35 3.0 Below low normal 3.8 -5.0 (g/dL) Final AST (Aspartate aminotransferase) 01/25/2024 11:10:35 162 Above high normal 10-50 (U/L) Final Alk Phos 01/25/2024 11:10:35 156 Above high normal 35 -130 (U/L) Final Bilirubin, Total 01/25/2024 11:10:35 0.7 <=1 .2 (mg/dL) Final Calcium 01/25/2024 11:10:35 8.7 8.4-10.2 ( mg/dL) Final Protein 01/25/2024 11:10:35 5.6 Below low normal 6.0 -8.3 (g/dL) Final ALT (Alanine aminotransferase) 01/25/2024 11:10:35 184 Above high normal 10-50 (U/L) Final Performing Location [facility] [address] [place], [place] [address]
--- OUTSIDE RECORDS SUMMARY | 2024-01-28 22:43 | External Medical Summary | Summary of Care ---
Author Name Unknown Organization [facility] Address [address] [facility] [place] [address] Phone [phone] Care Team Providers Care Boiler Coverer Helper Name Role Phone Leodan Genovevamckinley Brizuela Primary Care Provider [phone]- [phone] Reason for Referral * Precert (Within 10 days (routine)) - Authorized Specialty Diagnoses / Procedures Referred By Contac t Referred To Contact Cardiac Studies Diagnoses Palpitations Procedures ECHO, COMPLETE (2D), TRANS-THORACIC Kaela Castrejon PA-C [address] [place] [address] Referral ID Status Reason Start Date Expiration Date V isits Requested Visits Authorized [id number] Authorized Precert 01/26/2024 999 999 Reason for Visit * Reason Comments Follow Up Encounter Details Date Type Department Care Team (Late st Contact Info) Description 01/25/2024 10:30 AM EDT Office Visit Cardiology, [facility] [address] [facility] [place] [address] Kaela Castrejon PA-C [address] [place] [address] Palpitations*; Sinus tachycardia; Abnormal EKG Allergies Active Allergy Reactions Criticality Noted Date [...] for Nausea. 30 Tablet 2 12/04/2023 Active Prochlorperazine Maleate 10 MG Oral Tablet (Compazine)Indic ations:Laryngeal cancer (HCC) Take 1 Tablet by mouth every 6 hours as needed for Nausea. 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 300 mL 1 01/03/2024 Active Pravastatin Sodium 20 MG Oral Tablet (Pravachol) TAKE 1 TABLET BY MOUTH EVERYDAY AT BEDTIME 01/12/2024 Active Metoprolol Succinate ER 50 MG Oral Tablet Extended Release 24 Hour (toPROL XL) Take 50 mg in morning and 100 mg in evening. 270 Tablet 3 01/25/2024 Active Metoprolol Succinate ER 50 MG Oral Tablet Extended Release 24 Hour (toPROL XL) Take 1 Tablet by mouth in the morning and 1 Tablet before bedtime. 60 Tablet 1 10/20/2022 4 Discontinued documented as of this encounter [...] Sign Reading Time Taken Comments Blood Pressure 114/64 01/25/2024 10:20 AM EDT Pulse 108 01/25/2024 10:20 AM EDT Temperature - - Respiratory Rate 20 01/25/2024 10:20 AM EDT Oxygen Saturation - - Inhaled Oxygen Concentration - - Weight 87.7 kg (193 lb 4 oz) 01/25/2024 10:20 AM EDT Height - - Body Mass Index 26.95 12/24/2023 9:11 AM EDT documented in this [...] No 11/09/2023 documented as of this encounter Patient Instructions * Patient Instructions* Kaela Castrejon PA-C - 01/25/2024 10:56 AM EDT Increase metoprolol to 50 mg in AM and 100 mg in PM documented in this encounter Progress Notes * Kaela Castrejon PA-C - 01/25/2024 10:34 AM EDT 01/25/2024 Cardiology Follow Up Primary Diesel Mechanic Helper: Dr. Salcedo Past Medical History: History of atrial flutter status post caval tricuspid isthmus radiofrequency catheter ablation performed at [facility] in 2012 History of non-small cell lung carcinoma for which he underwent thorascopic in right lower lung lobectomy March, ([place] [facility] metastatic disease Possible TIA in February 2018, transient left arm numbness/weakness Mild bilateral internal carotid artery disease, February 2018 Hypertension Dyslipidemia History of past alcohol and tobacco abuse, reformed. Episode of atrial fibrillation with RVR, in setting of acute non cardiac illness 09/2022 HPI: Sanya Grant is a 78 year old male who presents for acute visit. Presents today accompanied by . He started chemotherapy last month. States he has had many sideeffects from chemo. On 01/16 was noted to have irregular heart beat at heme/onc appt. Chemotherapy onhold. EKG with sinus rhythm with PACs. Since then he has felt like his heart is skipping a beat. Has shortness of breath at times, mainly when coughing a lot. Has constant hiccups for about 5 days. Denies chest pain, lightheadedness, syncope. Has had a fever for a few days, had CXR, blood cultures,UA, which were unremarkable. Compliant with all medications. REVIEW OF SYSTEMS: See HPI for pertinent positives. All others negative other than those noted in the HPI. CONSTITUTIONAL: No change in weight, No weakness, No fatigue and + fevers, No sweats or chills. PULMONARY: No cough, sputum, or hemoptysis, No wheezing, No shortness of breath and No recent change in breathing. CARDIOVASCULAR: No chest pain, No dyspnea on exertion, No edema, + palpitations and No syncope. GASTROINTESTINAL: No abdominal pain, No change in bowel habits, No significant heartburn, No nausea, No vomiting, No diarrhea, No constipation, No blood in stools or black tarry stools. No dysphagia. HEMATOLOGIC: No abnormal bleeding and No bruising. NEUROLOGICAL: Normal balance, No headaches and No weakness. Review of patient's allergies indicates: Allergen Reactions Lisinopril Cough Simvastatin Muscle pain Current Outpatient Medications Medication Sig Dispense Refill ASPIRIN 81 MG PO CHEW Take 1 Tablet by mouth daily. CENTRUM SILVER PO TABS Take 1 Tablet by mouth daily. allopurinol (ZYLOPRIM) 100 MG Tablet Take 1 Tablet by mouth in the morning. Vitamin D3 25 MCG (1000 UT) Oral Tablet Take 1 Tablet by mouth in the morning. Omeprazole 20 MG Oral Capsule Delayed Release Take 1 Capsule by mouth 2 times a day. Ipratropium-Albuterol 0.5-2.5 (3) MG/3ML Inhalation Solution (Duoneb) Inhale 3 mL via nebulizer 4 times a day. (Patient taking differently: Inhale 3 mL via nebulizer as needed.) 360 mL 0 Trelegy Ellipta 100-62.5-25 MCG/ACT Aerosol Powder Breath Activated INHALE 1 PUFF DAILY metroNIDAZOLE 0.75 % External Cream (Metrocream) as needed. Levothyroxine Sodium 100 MCG Oral Tablet (Levoxyl) Take 0.75 Tablets by mouth daily first thing in the morning. (at least 30 min prior to breakfast or other meds) Pt taking 75 mcg Ondansetron HCl 8 MG Oral Tablet (Zofran) Take 1 Tablet by mouth every 8 hours as needed for Nausea. 30 Tablet 2 Prochlorperazine Maleate 10 MG Oral Tablet (Compazine) Take 1 Tablet by mouth every 6 hours as needed for Nausea. 30 Tablet 3 Magic Swizzle (Ojnvahnnh-Gsorbrto-Phoriy) oral solution Swish and swallow 15 mL 4 times a day before meals and at bedtime. 300 mL 1 Pravastatin Sodium 20 MG Oral Tablet (Pravachol) TAKE 1 TABLET BY MOUTH EVERYDAY AT BEDTIME Metoprolol Succinate ER 50 MG Oral Tablet Extended Release 24 Hour (toPROL XL) Take 50 mg in morning and 100 mg in evening. 270 Tablet 3 No current facility-administered medications for this visit. Past Medical History: Diagnosis Date Benign neoplasm of colon 06/12/09 adenomatous polyps--repeat 1 year Benign neoplasm of colon 06/13/2010 3 polyps path shows adenomatous tissue, fair prep, repeat in 2 ye Benign neoplasm of colon 11/25/2011 polyps, path shows tubulovillous adenoma repeat in 1 year Benign neoplasm of colon 12/07/2012 path shows adenomatous polyps repeat in 3 years Gastritis and gastroduodenitis HTN, goal to be determined Mixed dyslipidemia Other seborrheic keratosis Rosacea Family History Problem Relation Name Age of Onset Diabetes Father Social History Socioeconomic History Marital status: Tobacco Use Smoking status: Former Current packs/day: 0.00 Types: Cigarettes Quit date: 1994 Years since quittin.3 Smokeless tobacco: Never Substance and Sexual Activity Alcohol use: Yes Alcohol/week: 1.0 standard drink of alcohol Types: 1 12 oz of beer per week Comment: occasionally Drug use: No OBJECTIVE/PHYSICAL EXAMINATION: BP 114/64 (BP Site: Left Arm, BP Position: Sitting) | Pulse 108 | Resp 20 | Wt 87.7 kg (193 lb 4 oz) | BMI 26.95 kg/m | BSA 2.1 m General: No acute distress. A+Ox3. HEENT: Normocephalic. Atraumatic. PERRL. EOMI. Conjunctiva and sclera clear. NECK: No carotid bruits. No JVD. Carotid upstrokes are brisk. Heart: RRR. S1 and S2 noted. No murmur. No rubs or gallops. PMI non displaced. Lungs: Clear to auscultation. No wheezes. No rhonchi. No rales. Abdomen: Normal bowel sounds. Soft. Nontender. No masses or organomegaly. No abdominal bruits. Extremities: LLE 1+ edema. No clubbing or cyanosis. Pulses: radial=2/4, posterior tibial=2/4, dorsalis pedis = 2/4. NEURO: No focal deficits. PSYCH: Appropriate affect and insight. DATA Labs & Imaging Reviewed Below: EKG 01/25/24 Sinus tachycardia with PVCs or fusion complexes, 119 bpm, incomplete RBBB, nonspecific ST abnormality, prolonged Qtc 526 ms EKG 01/17/24 Sinus rhythm with PACs with aberrant conduction, left anterior fascicular block, 78 bpm ASSESSMENT/PLAN: 78 year old male 1. Palpitations 2. Sinus tachycardia 3. Abnormal EKG - presents overall not feeling well, notes palpitations that come and go, EKG today with sinus tachycardia and ectopy - discussed chemotherapy may be contributing to symptoms - repeat labs today - echo to evaluate for structural abnormality - increase metoprolol to 50 mg in morning and 100 mg in evening - continue aspirin 81 mg daily - stay well hydrated, eat small meals throughout day DISPOSITION: Follow up after echo or sooner if symptoms worsen/fail to improve. All questions were answered to the patients satisfaction. Patient advised to report to ED with any and all emergencies. The patient agrees to the above plan and will call with additional questions or concerns. Kaela Castrejon PA-C Cardiology, [address] [place] [address] I spent a total of 40 minutes on the date of service in preparation, delivery, and documentation ofthe care provided to Sanya Grant excluding any time spent in the performance of separately billed services. This chart was completed in part utilizing [employer] Speech Voice Recognition Software. Grammatical errors, random word insertions, pronoun errors, and incomplete sentences are an occasional consequence of this system due to software limitations, ambient noise, and hardware issues. Any formal questions or concerns about the content, text, or information contained within the body of this dictation should be directly addressed to the provider for clarification. documented in this encounter Procedure Notes * Elias Sanchez MD - 01/25/2024 10:28 AM EDTAssociated Order(s): EKG REASON FOR STUDY: SOB; h/o abnormal EKG;SOB; h/o abnormal EKG CONCLUSIONS: Sinus tachycardia with Premature ventricular complexes or Fusion complexes Left axis deviation Incomplete right bundle branch block Nonspecific ST abnormality Prolonged QT interval or tu fusion, consider myocardial disease, electrolyte imbalance, or drug effects Abnormal ECG When compared with ECG of 25-Jan-2024 10:27, Fusion complexes are now Present Premature ventricular complexes are now Present Aberrant conduction is no longer Present Ventricular Rate: 119 Atrial Rate: 119 [place] Interval: 184 QRS Duration: 112 QT/QTc: 374/526 ms P-R-T [place]: 18 : -57 : 50 degrees documented in this encounter Nursing Notes * Soledad Piedra CMA - 01/25/2024 10:18 AM EDT Examination Room: 7 Name: Sanya Grant Date of : (1945). Reason for Visit: follow up / abnormal EKG Interim Hospitalization(s): [facility] ER 2 weeks ago -- "Mouthful of blisters" related to chemotherapy Problems/Concerns: feels like heartbeat is irregular; constant hiccups x 1 week Chest Pain/SOB: SOB [facility] Discussed: Not applicable [facility] is a way you can talk to your provider online through e-mail. Would you like to sign up? I can activate it for you? ALREADY ACTIVE Patient was instructed to not get up on the exam table until directed and assisted by their provider; patient is to remain seated in the chair/ wheelchair/ exam table for fall prevention and safety reasons. Patient is aware to have assistance to step down off exam table with personnel. Patient voiced full comprehension of instructions. documented in this encounter Plan of Treatment Upcoming Encounters Date Type Department Care Team (Late st Contact Info) Description 01/27/2024 3:00 PM EDT Cardiac Studies Cardiac Studies, [facility] [place] [address] [place] [address] 01/31/2024 1:00 PM EDT Office Visit Otolaryngology/Head & Neck/Facial Plastic Surgery [address] [place] [address] Guy Chowdary DO [address] [place] [address] 02/09/2024 10:45 AM EDT Office Visit Hematology/Oncology [facility] [place] [address] [place] [id number] Eduardo Ovalle MD [address] [place] [address] 02/22/2024 10:30 AM EDT Office Visit Cardiology, [facility] [place] [address] [place] [address] Kaela Castrejon PA-C [address] [place] [address] 03/20/2024 7:40 AM EDT Laboratory Laboratory [address] [place] [phone] [place], Lab [address] [place] [address] Pending Results Name Type Priority Associated Diagnoses Date /Time MAGNESIUM Lab Routine Palpitations 01/25/2024 11:10 AM EDT TSH WITH FREE T4 IF INDICATED Lab Routine Palpitations 01/25/2024 11:10 AM EDT Scheduled Orders Name Type Priority Associated Diagnoses Orde r Schedule ECHO, COMPLETE (2D), TRANS-THORACIC Echocardiology Routine Palpitations Expected: 01/26/2024, Expires: 02/22/2026 MAGNESIUM Lab Routine Palpitations Expected: 01/25/2024, Expires: 01/24/2025 TSH WITH FREE T4 IF INDICATED Lab Routine Palpitations Expected: 01/25/2024, Expires: 01/24/2025 Scheduled Procedures Name Priority Associated Diagnoses Date/Ti me COLONOSCOPY FLEXIBLE PROXIMAL DIAGNOSTIC Recall History of colon polyps Health Maintenance Due Date Last Done Comments Depression Screening 1957 Albumin/Creatinine Ratio 1964 Hepatitis C Screening 1964 DTaP,Tdap,and Td Vaccines (1 - Tdap) 1965 Zoster Vaccines (1 of 2) 1965 COVID-19 Vaccine (4 - 2022- season) 2023 07/02/2021, 11/04/2020, 10/14/2020 TSH 01/13/2025 [...] encounter Medical Devices Implanted Type Area Manager Of Administration Device Identifier Shelf Expiration Date Model / Serial / Lot Port Implant W8f Poly Cath - [id number] Implanted:Qty: 1 on 12/24/2023 by Prieto Chavez MD at OR [facility] : PERIPHERAL VASCULAR [id number] 01/13/2025 [id number] / / [id number] documented as of this encounter Procedures Procedure Name Priority Date/Time Associated Diagnosis Comments NJ ECG ROUTINE ECG W/LEAST 12 LDS W/I&R Routine 01/25/2024 10:28 AM EDT Abnormal EKG documented in this encounter Results * (ABNORMAL) COMPREHENSIVE METABOLIC PANEL (01/25/2024 11:10 AM EDT) BUN 16 6 - 20 mg/dL 01/25/2024 1:01 PM EDT LAB[facility]ATORY [facility] 57-10 Creatinine 0.8 0.6 - 1.2 mg/dL 01/25/2024 1:01 PM EDT [facility] 57-10 Estimated Glomerular Filtration Rate >90 >=60 mL/min 01/25/2024 1:01 PM EDT [facility] [place] 57-10 Comment:eGFR is calculated b ased on the CKD-EPI 2020 equation Sodium 134(L) 135 - 146 mmol/L 01/25/2024 1:01 PM EDT [facility] [place] [facility]10 Potassium 3.5 3.5 - 5.1 mmol/L 01/25/2024 1:01 PM EDT [facility] [place] [facility]10 Chloride 93(L) 98 - 107 mmol/L 01/25/2024 1:01 PM EDT [facility] [place] 57-10 CO2 27 22 - 32 mmol/L 01/25/2024 1:01 PM EDT [facility] [place] 57-10 Anion Gap 14 7 - 15 mmol/L 01/25/2024 1:01 PM EDT [facility] [place] 57-10 Glucose 134(H) 70 - 120 mg/dL 01/25/2024 1:01 PM EDT [facility] [place] 57-10 Albumin 3.0(L) 3.8 - 5.0 g/dL 01/25/2024 1:01 PM EDT [facility] [place] 57-10 AST 162(H) 10 - 50 U/L 01/25/2024 1:01 PM EDT [facility] [place] 57-10 Alkaline Phosphatase 156(H) 35 - 130 U/L 01/25/2024 1:01 PM EDT [facility] [place] 57-10 Bilirubin, Total 0.7 <=1.2 mg/dL 01/25/2024 1:01 PM EDT [facility] [place] 57-10 Calcium 8.7 8.4 - 10.2 mg/dL 01/25/2024 1:01 PM EDT [facility] [place] 57-10 Protein 5.6(L) 6.0 - 8.3 g/dL 01/25/2024 1:01 PM EDT [facility] [place] 57-10 ALT 184(H) 10 - 50 U/L 01/25/2024 1:01 PM EDT [facility] 57-10 Blood Venous blood specimen / Unknown Venipuncture / Unknown 01/25/2024 11:10 AM EDT 01/25/2024 11:10 AM EDT Kaela Castrejon PA-C LAB BLOOD ORDER [facility] [place] 57-10 [address] [place] [address] * (ABNORMAL) CBC (01/25/2024 11:10 AM EDT) WBC 15.85(H) 4.00 - 10.80 K/uL 01/25/2024 11:38 AM EDT LAB[facility] 57-10 RBC 3.33 4.50 - 5.25 M/uL 01/25/2024 11:38 AM EDT [facility] [place] 57[facility]10 HGB 11.2(L) 14.0 - 16.8 g/dL 01/25/2024 11:38 AM EDT [facility] [place] 57[facility]10 HCT 33.5(L) 40.0 - 48.4 % 01/25/2024 11:38 AM EDT LAB[facility]ORY [facility] [place] 57-10 MCV 100.6 82.0 - 99.5 fL 01/25/2024 11:38 AM EDT [facility] [place] 57-10 MCH 33.6 27.0 - 34.0 pg 01/25/2024 11:38 AM EDT [facility] [place] 57-10 MCHC 33.4 32.0 - 36.0 g/dL 01/25/2024 11:38 AM EDT LAB[facility] [place] 57-10 RDW 15.0 11.5 - 15.5 % 01/25/2024 11:38 AM EDT LAB[facility]ORY [facility] [place] 57-10 PLT 376 140 - 400 K/uL 01/25/2024 11:38 AM EDT LAB[facility]ORY [facility] [place] 57-10 MPV 9.6 6.6 - 11.1 fL 01/25/2024 11:38 AM EDT LAB[facility]ORY [facility] [place] 57-10 Blood Venous blood specimen / Unknown Venipuncture / Unknown 01/25/2024 11:10 AM EDT 01/25/2024 11:10 AM EDT Kaela Castrejon PA-C LAB BLOOD ORDER [facility] [place] 57-10 [address] [place] [address] * EKG (01/25/2024 10:28 AM EDT) 01/25/2024 10:2 8 AM EDT Narrative Procedure Note Elias Sanchez MD - 01/25/2024 10:28 AM EDT REASON FOR STUDY: SOB; h/o abnormal EKG;SOB; h/o abnormal EKG CONCLUSIONS: Sinus tachycardia with Premature ventricular complexes or Fusioncomplexes Left axis deviation Incomplete right bundle branch block Nonspecific ST abnormality Prolonged QT interval or tu fusion, consider myocardial disease,electrolyte imbalance, or drug effects Abnormal ECG When compared with ECG of 25-Jan-2024 10:27, Fusion complexes are now Present Premature ventricular complexes are now Present Aberrant conduction is no longer Present Ventricular Rate: 119 Atrial Rate: 119 NJ Interval: 184 QRS Duration: 112 QT/QTc: 374/526 ms P-R-T [place]: 18 : -57 : 50 degrees Kaela Castrejon PA-C EKG [employer] CARDIOLOGY documented in this encounter Visit Diagnoses Diagnosis Palpitations- Primary Sinus tachycardia Other specified cardiac dysrhythmias Abnormal EKG Nonspecific abnormal electrocardiogram (ECG) (EKG) documented in this encounter Advance Directives * [...] Advance Directives occurred with: Patient Care Teams Boiler Coverer Helper Relationship Specialty Start Date End Date Genoveva Alcocer DO [address] [facility] [address] [place] [address] PCP - General Family Medicine 12/29/19 documented as of this encounter
--- OUTSIDE RECORDS SUMMARY | 2024-01-28 22:43 | External Medical Summary ---
Author Name Unknown Address Unknown Organization K01:[facility] - [address] [place] [id number] Laboratory Report Ordering Provider Test Date Status HANDY LEE 01/25/2024 11:10:35 Final Observation Date Value Abnormality Reference (Units ) Status Magnesium 01/25/2024 11:10:35 2.0 1.5-2.6 (m g/dL) Final Performing Location [facility] - [address] [place] [address]
--- OUTSIDE RECORDS SUMMARY | 2024-01-28 22:43 | External Medical Summary | Summary of Care ---
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) Procedures AR CARBOPLATIN INJECTION AR FLUOROURACIL INJECTION AR FOSAPREPITANT INJECTION AR INJ PEMBROLIZUMAB Eduardo Ovalle MD [address] [facility] [place] [address] Anc Hem/Onc [address] [address] Referral ID Status Reason Start Date Expiration Date V isits Requested Visits Authorized [id number] Authorized 12/06/2023 12/05/2024 999 999 Encounter Details Date Type Department Care Team (Latest Contact Info) Description 12/27/2023 8:30 AM EDT Hem/Onc Treatment Hematology/Oncolog y Treatment, [address] [phone] Tash, Chair [address] Hem Onc [address] [place] [address] Encounter for antineoplastic chemotherapy*; Laryngeal cancer (HCC); [...] 01/25/2024 10:30 AM EDT Office Visit Cardiology, [facility] [address] [facility] [place] [address] Kaela Castrejon PA-C [address] [place] [address] 01/31/2024 1:00 PM EDT Office Visit Otolaryngology/Head & Neck/Facial Plastic Surgery [address] [place], [place] [phone] Guy Chowdary DO [address] [place], [place] [phone] 02/09/2024 10:45 AM EDT Office Visit Hematology/Oncology [facility] [address] [facility] [place] [phone] Eduardo Ovalle MD 200 [facility] [place] [address] 03/20/2024 7:40 AM EDT Laboratory Laboratory [address] [place] [phone] [address] [place] [address] Scheduled Procedures Name Priority Associated Diagnoses Date/Ti [...] this encounter Medical Devices Implanted Type Area Health Informatics Specialist Device Identifier Shelf Expiration Date Model / Serial / Lot Port Implant W8f Poly Cath - [id number] Implanted:Qty: 1 on 12/24/2023 by Prieto Chavez MD at OR [facility] : PERIPHERAL VASCULAR [id number] 01/13/2025 [id number] / / [id number] documented as of this encounter Visit Diagnoses [...] volume. 1000 mg/m2/day for 4 days Total Nawz=0838 mg/m2, ONCE, 1 dose, On Wed12/27/23 at [...] Advance Directives occurred with: Patient Care Teams Plant Tour Guide Relationship Specialty Start Date End Date Genoveva Alcocer DO [address] [address] PCP - General Family Medicine 12/29/19 documented as of this encounter
--- OUTSIDE RECORDS SUMMARY | 2024-01-28 22:43 | External Medical Summary | Summary of Care ---
Author Name Unknown Organization [facility] Address [address] [place] [address] Phone [phone] Care Team Providers Care Wheat Inspector Name Role Phone Leodan Genovevamckinley Brizuela Primary Care Provider +1- [phone] Reason for Visit * Reason Onset Date Comments Test Results 01/26/2024 Encounter Details Date Type Department Care Team (Late st Contact Info) Description 01/26/2024 Telephone Cardiology, [facility] 132 [facility] [place] [address] Kaela Castrejon PA-C [address] [place] [address] [place] [address] Test Results Allergies Active Allergy Reactions Criticality Noted Date Comments Lisinopril Cough 11/30/2012 Simvastatin Muscle pain 07/05/2023 documented as of this encounter (statuses as of 01/26/2024) Medications Medication Sig Dispensed Refills Start Date [...] by mouth 2 times a day. Active Ipratropium-Albute rol 0.5-2.5 (3) MG/3ML Inhalation Solution (Duoneb) Inhale 3 mL via nebulizer 4 times a day. 360 mL 10/20/2022 Active Additional Information Patient taking differently:3 mL NebulizerPRN, Reported on 04/29/2023 Trelegy Ellipta 100-62.5-25 MCG/ACT Aerosol Powder Breath Activated INHALE 1 PUFF DAILY 01/26/2023 Activ e metroNIDAZOLE 0.75 % External Cream (Metrocream) as needed. 03/02/2023 Active Levothyroxine Sodium 100 MCG Oral Tablet (Levoxyl) Take 0.75 Tablets by mouth daily first thing in the morning. (at least 30 min prior to breakfast or other meds) Pt taking 75 mcg Active Ondansetron HCl 8 MG Oral Tablet (Zofran)Indication s:Laryngeal cancer (HCC) Take 1 Tablet by mouth every 8 hours as needed for Nausea. 30 Tablet 2 12/04/2023 Active Prochlorperazine Maleate 10 MG Oral Tablet (Compazine)Indicat ions:Laryngeal cancer (HCC) Take 1 Tablet by mouth every 6 hours as needed for Nausea. 30 Tablet 3 12/04/2023 Active Magic Swizzle (Lidocaine-Benadry l-Maalox) oral solutionIndication s:Laryngeal cancer (HCC),Metastasis to head and neck lymph [...] in evening. 270 Tablet 3 01/25/2024 Active documented as of this encounter (statuses as of 01/26/2024) Active Problems Problem Noted Date Diagnosed Date [...] as of this encounter (statuses as of 01/26/2024) Resolved Problems Problem Noted Date Diagnosed Date Resolved Date Hemoptysis 10/12/2022 10/20/2022 PAF (paroxysmal atrial fibrillation) 09/06/2017 09/06/2017 Mixed dyslipidemia 07/19/2002 9 Overview: Per Lipid Taxonomy. documented as of this encounter (statuses as of 01/26/2024) Immunizations Name Administration Dates Next Due Seasonal [...] (15 years old or older) No 11/09/19 24 Cognitive Status Response Date of Assessm ent Because of a physical, menta l, or emotional condition, do you have serious difficulty concentrating, remembering, or making decisions? (5 years old or older) No 11/09/2023 documented as of this encounter Miscellaneous Notes * Telephone Encounter - Erin Gibson OSA - 01/26/2024 1:36 PM EDT Pt called back about the missed call * Telephone Encounter - Karina Keane LPN - 01/26/2024 10:02 AM EDT Mychart sent ----- Message from Kaela Castrejon sent at 01/26/2024 7:31 AM EDT ----- Normal magnesium and thyroid labs. documented in this encounter Plan of Treatment Upcoming Encounters Date Type Department Care Team (Late st Contact Info) Description 01/27/2024 3:00 PM EDT Cardiac Studies [facility] [address] 01/31/2024 1:00 PM EDT Office Visit Otolaryngology/Head & Neck/Facial Plastic Surgery [address] [place] [address] Guy Chowdary DO [address] [place] [address] 02/09/2024 10:45 AM EDT Office Visit Hematology/Oncology [facility] [place] [address] [place] [address] Eduardo Ovalle MD [address] [place] [address] 02/22/2024 10:30 AM EDT Office Visit Cardiology, [facility] [address] [place] [address] Kaela Castrejon PA-C 400 [facility] [place] [address] 03/20/2024 7:40 AM EDT Laboratory Laboratory [address] [place] [phone] [place] [address] Scheduled Procedures Name Priority Associated Diagnoses Date/Ti me COLONOSCOPY FLEXIBLE PROXIMAL DIAGNOSTIC Recall History of colon polyps Health Maintenance Due Date Last Done Comments Depression Screening 1957 Albumin/Creatinine Ratio 1963 Hepatitis C Screening 1963 DTaP,Tdap,and Td Vaccines (1 - Tdap) 1965 Zoster Vaccines (1 of 2) 1965 COVID-19 Vaccine (4 - season) 2023 07/02/2021, 11/04/2020, 10/14/2020 GFR 01/24/2025 01/25/2024, 12/16, 01/01/2024, Additional history exists TSH 01/24/2025 01/25/2024, 12/16, 12/24/2023, Additional history exists Colonoscopy 03/03/2025 03/03/2022, 02/13, [...] this encounter Medical Devices Implanted Type Area Taper/Finisher Device Identifier Shelf Expiration Date Model / Serial / Lot Port Implant W8f Poly Cath - [id number] Implanted:Qty: 1 on 12/24/2023 by Prieto Chavez MD at OR [facility] : PERIPHERAL VASCULAR [id number] 01/13/2025 [id number] / / [id number] documented as of this encounter Advance Directives * Full Code [...] Advance Directives occurred with: Patient Care Teams Wheat Inspector Relationship Specialty Start Date End Date Genoveva Alcocer DO [address] [facility] 2 [place] [address] PCP - General Family Medicine 12/29/19 documented as of this encounter
--- OUTSIDE RECORDS SUMMARY | 2024-01-28 22:43 | External Medical Summary ---
Author Name Unknown Address Unknown Organization [id number]:[facility] [address] - [address] [place] [address] Laboratory Report Ordering Provider Test Date Status HANDY LEE 01/25/2024 11:10:35 Final Observation Date Value Abnormality Reference (Units ) Status WBC, Total 01/25/2024 11:10:35 15.85 Above high normal 4 .00-10.80 (K/uL) Final RBC 01/25/2024 11:10:35 3.33 4.50-5.25 (M/uL) Final Hemoglobin 01/25/2024 11:10:35 11.2 Below low normal 14 .0-16.8 (g/dL) Final HCT 01/25/2024 11:10:35 33.5 Below low normal 40. 0-48.4 (%) Final MCV 01/25/2024 11:10:35 100.6 82.0-99.5 (fL) Final MCH 01/25/2024 11:10:35 33.6 27.0-34.0 (pg) Final MCHC 01/25/2024 11:10:35 33.4 32.0-36.0 (g/dL) Final RDW 01/25/2024 11:10:35 15.0 11.5-15.5 (%) Final Platelets 01/25/2024 11:10:35 376 140-400 (K /uL) Final MPV 01/25/2024 11:10:35 9.6 6.6-11.1 ( fL) Final Performing Location [facility] [address] [place] [address]
--- OUTSIDE RECORDS SUMMARY | 2024-01-28 22:43 | External Medical Summary ---
Author Name Unknown Address Unknown Organization [id number]:[facility] [place] [address] [place] [address] Laboratory Report Ordering Provider Test Date Status HANDY LEE 01/25/2024 11:10:35 Final Observation Date Value Abnormality Reference (Units ) Status TSH 01/25/2024 11:10:35 1.17 0.27-4.20 (uIU/mL) Final Performing Location [facility] [place] [address] [place] [address]
--- OUTSIDE RECORDS SUMMARY | 2024-01-28 22:43 | External Medical Summary | Summary of Care ---
Author Name Unknown Organization [facility] Address [address] [place] [address] Phone [phone] Care Team Providers Care Cosmetic Dentist Name Role Phone Genoveva Alcocer DO Primary Care Provider +1- [phone] Reason for Visit * Reason Comments Outpatient Testing Encounter Details Date Type Department Care Team (Late st Contact Info) Description 01/25/2024 11:20 AM EDT Laboratory Laboratory, [facility] 132 [place] [phone] [facility] 132 [place] [address] Palpitations Allergies Active Allergy Reactions Criticality Noted Date [...] taking differently:3 mL NebulizerPRN, Reported on 04/29/2023 Tredigna Ellipta 100-62.5-25 MCG/ACT Aerosol Powder Breath Activated [...] No 11/09/2023 documented as of this encounter Plan of Treatment Upcoming Encounters Date Type Department Care Team (Late st Contact Info) Description 01/27/2024 3:00 PM EDT Cardiac Studies Cardiac Studies, [facility] [address] [place] [address] 01/31/2024 1:00 PM EDT Office Visit Otolaryngology/Head & Neck/Facial Plastic Surgery [address] [place] [address] Guy Chowdary, [address] [place] [address] 02/09/2024 10:45 AM EDT Office Visit Hematology/Oncology [facility] [place] [phone] Eduardo Ovalle MD [facility] [place] [address] 02/22/2024 10:30 AM EDT Office Visit Cardiology, [facility] 132 [place] [address] Kaela Castrejon PA-C [address] [place] [address] 03/20/2024 7:40 AM EDT Laboratory Laboratory [address] [place] [phone] [address] [place] [address] Pending Results Name Type Priority Associated Diagnoses Date /Time CBC Lab Routine Palpitations 01/25/2024 11:10 AM EDT COMPREHENSIVE METABOLIC PANEL Lab Routine Palpitations 01/25/2024 11:10 AM EDT MAGNESIUM Lab Routine Palpitations 01/25/2024 11:10 AM EDT TSH WITH FREE T4 IF INDICATED Lab Routine Palpitations 01/25/2024 11:10 AM EDT Scheduled Procedures Name Priority Associated Diagnoses Date/Ti ky COLONOSCOPY FLEXIBLE PROXIMAL DIAGNOSTIC Recall History of colon polyps Health Maintenance Due Date Last Done Comments Depression Screening 1957 Albumin/Creatinine Ratio 1964 Hepatitis C Screening 1964 DTaP,Tdap,and Td Vaccines (1 - Tdap) 1965 Zoster Vaccines (1 of 2) 1965 COVID-19 Vaccine (4 - season) 2023 07/02/2021, 11/04/2020, 10/14/2020 GFR 01/13/2025 [...] this encounter Medical Devices Implanted Type Area Automation And Controls Instructor Device Identifier Shelf Expiration Date Model / Serial / Lot Port Implant W8f Poly Cath - [id number] Implanted:Qty: 1 on 12/24/2023 by Prieto Chavez MD at OR [facility] : PERIPHERAL VASCULAR [id number] 01/13/2025 [id number] / / [id number] documented as of this encounter Visit Diagnoses Diagnosis Palpitations documented in this encounter Advance Directives * [...] Advance Directives occurred with: Patient Care Teams Cosmetic Dentist Relationship Specialty Start Date End Date Genoveva Alcocer DO [address] [facility] 2 [place] [address] PCP - General Family Medicine 12/29/19 documented as of this encounter
--- OUTSIDE RECORDS SUMMARY | 2024-01-28 22:43 | External Medical Summary | Summary of Care ---
Author Name Unknown Organization [facility] Address [address] [place] [address] Phone [phone] Care Team Providers Care Health Policy Analyst Name Role Phone Leodan Genovevamckinley Brizuela Primary Care Provider +1- [phone] Reason for Visit * Reason Onset Date Comments Test Results 01/26/2024 Encounter Details Date Type Department Care Team (Late st Contact Info) Description 01/26/2024 Telephone Cardiology, [facility] 132 [facility] [place] [address] Kaela Castrejon PA-C [address] [place] [address] [place] [address] Test Results Allergies Active [...] encounter Miscellaneous Notes * Telephone Encounter - Karina Keane LPN - 01/26/2024 10:02 AM EDT [employer] sent ----- Message from Kaela Castrejon sent at 01/26/2024 7:31 AM EDT ----- Normal magnesium and thyroid labs. documented in this encounter Plan of Treatment Upcoming Encounters Date Type Department Care Team (Late st Contact Info) Description 01/27/2024 3:00 PM EDT Cardiac Studies Cardiac Studies, [facility] 132 [facility] [place] [address] 01/31/2024 1:00 PM EDT Office Visit Otolaryngology/Head & Neck/Facial Plastic Surgery [address] [place] [address] Guy Chowdary, [address] [place] [address] 02/09/2024 10:45 AM EDT Office Visit Hematology/Oncology [facility] [place] [address] [place] [phone] Eduardo Ovalle MD [address] [place] [address] 02/22/2024 10:30 AM EDT Office Visit Cardiology, [facility] [address] [place] [address] Kaela Castrejon PA-C [address] [place] [address] 03/20/2024 7:40 AM EDT Laboratory Laboratory [address] [place] [phone] [place], [address] [place] [address] Scheduled Procedures Name Priority Associated Diagnoses Date/Ti [...] this encounter Medical Devices Implanted Type Area Site Specialist Device Identifier Shelf Expiration Date Model / Serial / Lot Port Implant W8f Poly Cath - [id number] Implanted:Qty: 1 on 12/24/2023 by Prieto Chavez MD at OR [facility]ARD : PERIPHERAL VASCULAR [id number] 01/13/2025 [id number] / / [id number] documented as of this encounter Advance Directives [...] Advance Directives occurred with: Patient Care Teams Health Policy Analyst Relationship Specialty Start Date End Date Genoveva Alcocer DO [address] [facility] 2 [place] [address] PCP - General Family Medicine 12/29/19 documented as of this encounter
--- OUTSIDE RECORDS SUMMARY | 2024-01-28 22:43 | External Medical Summary | Summary of Care ---
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) Procedures [place] CARBOPLATIN INJECTION [place] FLUOROURACIL INJECTION [place] FOSAPREPITANT INJECTION [place] INJ PEMBROLIZUMAB Eduardo Ovalle MD 200 [facility] [place] [address] Anc Hem/Onc [address] [address] Referral ID Status Reason Start Date Expiration Date V isits Requested Visits Authorized [id number] Authorized 12/06/2023 12/05/2024 [id number] Encounter Details Date Type Department Care Team (Latest Contact Info) Description 12/27/2023 8:30 AM EDT Hem/Onc Treatment Hematology/Oncolog y Treatment, [address] [phone] Tash, Chair 11 Hem Onc [address] [place] [address] Encounter for antineoplastic chemotherapy*; Laryngeal cancer (HCC); [...] as of this encounter Nursing Notes * Migeu Jerome, MICAELA - 12/27/2023 11:34 AM EDT [...] 01/25/2024 10:30 AM EDT Office Visit Cardiology, [facility] [address] [facility] [place] [address] Kaela Castrejon PA-C 400 [facility] [place] [address] 01/31/2024 1:00 PM EDT Office Visit Otolaryngology/Head & Neck/Facial Plastic Surgery [address] [place], [place] [phone] Guy Chowdary DO [address] [place], [place] [address] 02/09/2024 10:45 AM EDT Office Visit Hematology/Oncology [facility] 200 [facility] [place] [phone] Eduardo Ovalle MD 200 [facility] [place] [address] 03/20/2024 7:40 AM EDT Laboratory Laboratory [address] [place] [phone] [address] [place] [address] Scheduled Procedures Name Priority Associated Diagnoses Date/Ti [...] this encounter Medical Devices Implanted Type Area Manufacturing Baker Device Identifier Shelf Expiration Date Model / Serial / Lot Port Implant W8f Poly Cath - [id number] Implanted:Qty: 1 on 12/24/2023 by Prieto Chavez MD at OR [facility] BARD : PERIPHERAL VASCULAR [id number] 01/13/2025 [id number] / / [id number] documented as of this encounter Visit Diagnoses [...] volume. 1000 mg/m2/day for 4 days Total Bucm=7356 mg/m2, ONCE, 1 dose, On Wed12/27/23 at [...] Advance Directives occurred with: Patient Care Teams Sand Conditioner Relationship Specialty Start Date End Date Genoveva Alcocer DO [address] [address] PCP - General Family Medicine 12/29/19 documented as of this encounter
--- OUTSIDE RECORDS SUMMARY | 2024-01-28 22:43 | External Medical Summary | Summary of Care ---
Author Name Unknown Organization [facility] Address [address] [place] [address] Phone [phone] Care Team Providers Care Assistant Film Editor Name Role Phone Leodan Genoveva Chata Primary Care Provider +1- [phone] Reason for Visit * Reason Onset Date Comments Information 01/19/2024 Encounter Details Date Type Department Care Team (Late st Contact Info) Description 01/19/2024 Telephone Hematology/Oncology Treatment, [place] [address] [place] [address] Eduardo Ovalle MD [address] [place] [address] Information Allergies Active Allergy Reactions Criticality Noted Date [...] taking differently:3 mL NebulizerPRN, Reported on 04/29/2023 Lamont Hallta 100-62.5-25 MCG/ACT Aerosol Powder Breath Activated INHALE [...] at bedtime. 300 mL 1 01/03/2024 Active Metoprolol Succinate ER 50 MG Oral Tablet Extended Release 24 Hour (toPROL XL) Take 1 Tablet by mouth in the morning and 1 Tablet before bedtime. 60 Tablet 1 10/20/2022 4 Discontinued Hospital, Clinic, or Other Facility Administered Medication Ordered Dose Route Frequency Start Date End Date Status NSS 200 mL with Fluorouracil 6,750 mg INFUSION CENTRAL IV CONTINUOUS 01/15/2024 01/19/2024 Ended documented as of this encounter (statuses as [...] encounter Miscellaneous Notes * Telephone Encounter - Pretty Bishop RN - 01/26/2024 7:39 AM EDT Patient saw cardiology yesterday, plan for echo 01/26. * Telephone Encounter - Pretty Bishop RN - 01/20/2024 11:07 AM EDT Reviewed with Dr Ovalle, will hold treatment until after cardiac clearance. * Telephone Encounter - Pretty Bishop RN - 01/19/2024 3:12 PM EDT Called patients . She reviewed that cardiology was not able to get him in until 01/24, he is on a cancellation list. Advised her to let us know if appt is moved, we will need to wait to reschedulechemo until after he is seen by cardiology. She verbalized understanding. * Telephone Encounter - Edyta Deras OSA - 01/19/2024 3:02 PM EDT Pat is calling back asking to speak with Pretty again. Please call her back on his cell phone [phone] She said he is to see cardiology and they can't see him until WednesdayJanuary 24 and needs to Pretty about it all. * Telephone Encounter - Gwen Joy OSA - 01/19/2024 2:36 PM EDT Apts added * Addendum Note - Pretty Bishop RN - 01/19/2024 2:21 PM EDTAddended by: PRETTY BISHOP on: 01/19/2024 02:21 PM Modules accepted: Orders * Telephone Encounter - Pretty Bishop RN - 01/19/2024 1:59 PM EDT Reviewed with Dr Rogers- patient should have UA/ culture, CXR, blood cultures x2. Called and spoke to patients . She is agreeable, will bring patient for these tomorrow. She notes that after we spoke this morning, patient had a bad coughing fit and did cough up a bloodclot in his sputum. Cough has been ok since, no further blood noted. Advised her to monitor. Scheduling: please add patient tomorrow for appts - 9:30am- port flush appt "blood culture from port- send patient to lab/ xray after" - 10am lab appt "peripheral blood culture, UA" - 10:15am chest xray Thanks! * Telephone Encounter - Pretty Bishop RN - 01/19/2024 9:42 AM EDT Received call from patients . Patient has not heard about cardiology appt yet and is getting worried as his chemotherapy is delayed for this. Advised her that we will follow up with cardiology tosee if they can schedule appt. Patient notes that he had a fever today of 100.6. He took 2 tylenol and this improved. He has had alow grade fever throughout treatment, does not seem to ever go away. No SOB, does have a chronic cough with no change. He doesn't feel well when he has the fever, but once tylenol works he feels fineagain. She states that a year ago when he had a trach in [place], he had an infection that he could smelland taste. He feels he may be able to smell/ taste something similar to the infection again so is concerned that this could be the cause of his low grade fevers. Advised her that we would review with covering providers and call back. She verbalized understanding. documented in this encounter Plan of Treatment Upcoming Encounters Date Type Department Care Team (Late st Contact Info) Description 01/27/2024 3:00 PM EDT Cardiac Studies [facility] [address] 01/31/2024 1:00 PM EDT Office Visit Otolaryngology/Head & Neck/Facial Plastic Surgery [address] [place] [address] Guy Chowdary, [address] [place] [address] 02/09/2024 10:45 AM EDT Office Visit [facility] 200 [facility] [place] [id number] Eduardo Ovalle MD 200 [facility] [place] [address] 02/22/2024 10:30 AM EDT Office Visit Cardiology, [facility] 132 [facility] [place] [address] Kaela Castrejon PA-C 400 [facility] [place] [address] 03/20/2024 7:40 AM EDT Laboratory Laboratory [address] [place] [phone] [place] [address] Scheduled Procedures Name Priority Associated Diagnoses Date/Ti [...] this encounter Medical Devices Implanted Type Area Mortgage Loan Assistant Device Identifier Shelf Expiration Date Model / Serial / Lot Port Implant W8f Poly Cath - [id number] Implanted:Qty: 1 on 12/24/2023 by Prieto Chavez MD at OR [facility] BARD : PERIPHERAL VASCULAR [id number] 01/13/2025 [id number] / / [id number] documented as of this encounter Procedures Procedure Name Priority Date/Time Associated Diagnosis Comments XR CHEST 2 VIEWS STAT 01/20/2024 10:0 6 AM EDT 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 Decreased size and density of a left upper lobe nodule, currently measuring approximately 2.5 x 2.2 cm, previously 3.4 x 3.1 cm when remeasured similarly. There are a couple of adjacent foci of linear atelectasis. Otherwise no focal consolidation. 2. Possible trace right pleural effusion. 3. Redemonstration of a small to moderate-sized hiatal hernia. Narrative 01/20/2024 10:12 AM EDT EXAM: EXAM: XR CHEST 2 VIEWS DATE TIME: 01/20/2024 - 01/20/2024 10:06 am HISTORY: 78 y/o M fever of unknown origin, on chemotherapy COMPARISON: Chest radiograph 10/26/2023. FINDINGS: Left chest wall port terminates in the right atrium. Decreased size and density of a left upper lobe nodule, currently measuring approximately 2.5 x 2.2 cm, previously 3.4 x 3.1 cm when remeasured similarly. There are a couple of adjacent foci of linear atelectasis. Otherwise no focal consolidation. Possible trace right pleural effusion. No pneumothorax. Cardiac silhouette is normal in size. Redemonstration of a small to moderate-sized hiatal hernia. Degenerative changes of the spine. Procedure Note Richard Leonard MD - 01/20/2024 EXAM: EXAM: XR CHEST 2 VIEWS DATE TIME: 01/20/2024 - 01/20/2024 10:06 am HISTORY: 78 y/o M fever of unknown origin, on chemotherapy COMPARISON: Chest radiograph 10/26/2023. FINDINGS: Left chest wall port terminates in the right atrium. Decreased size and density of a left upper lobe nodule, currentlymeasuring approximately 2.5 x 2.2 cm, previously 3.4 x 3.1 cm whenremeasured similarly. There are a couple of adjacent foci of linearatelectasis. Otherwise no focal consolidation. Possible trace rightpleural effusion. No pneumothorax. Cardiac silhouette is normal in size. Redemonstration of a small to moderate-sized hiatal hernia. Degenerative changes of the spine. IMPRESSION IMPRESSION: 1. Decreased size and density of a left upper lobe nodule, currentlymeasuring approximately 2.5 x 2.2 cm, previously 3.4 x 3.1 cm whenremeasured similarly. There are a couple of adjacent foci of linearatelectasis. Otherwise no focal consolidation. 2. Possible trace right pleural effusion. 3. Redemonstration of a small to moderate-sized hiatal hernia. Eduardo Ovalle MD RADIOLOGY ([facility]) * CULTURE, URINE, QUANTITATIVE (01/20/2024 9:58 AM EDT) Culture Growth No significant growth 01/21/2024 11:28 AM EDT LABORATORY [facility] Urine Urine specimen obtained by clean catch procedure / Unknown Non-blood Collection / Unknown 01/20/2024 9:58 AM EDT 01/20/2024 9:58 AM EDT Eduardo Ovalle MD LAB MICRO - GENERAL ORDERABLES LABORATORY [facility] [address] [place] [address] * (ABNORMAL) URINALYSIS, REFLEX TO MICROSCOPIC (01/20/2024 9:58 AM EDT) Color, Urine Yellow Light Yellow, Yellow, Dark Yellow 01/20/2024 10:24 AM EDT LABORATORY [place] 56-02 Clarity, Urine Clear Clear 01/20/2024 10:24 AM EDT LABORATORY [place] 56-02 Glucose, Urine Negative Negative mg/dL 01/20/2024 10:24 AM EDT LABORATORY [place] 56-02 Bilirubin, Urine Moderate(A) Negative 01/20/2024 10:24 AM EDT LABORATORY [place] 56-02 Ketone, Urine 15(A) Negative mg/dL 01/20/2024 10:24 AM EDT LABORATORY [place] [address] Specific Hasty, Urine 1.020 1.003 - 1.030 01/20/2024 10:24 AM EDT LABORATORY [address] Blood, Urine Negative Negative 01/20/2024 10:[address]T [address] pH, Urine 5.5 5.0 - 7.5 Units 01/20/2024 10:24 AM EDT [address] Protein, Urine 100(A) Negative mg/dL 01/20/2024 10:24 [address] EDT [address] Urobilinogen, Urine 1.0 0.2, 1.0 mg/dL 01/20/2024 10:24 AM EDT [address] Nitrite, Urine Negative Negative 01/20/2024 10:24 AM EDT [address] Esterase, Urine Negative Negative 01/20/2024 10:24 AM EDT [place] [address] Urine Urine specimen obtained by clean catch procedure / Unknown Non-blood Collection / Unknown 01/20/2024 9:58 AM EDT 01/20/2024 9:58 AM EDT Eduardo Ovalle MD LAB URINE ORDERABLES [address] [place] [address] * CULTURE, BLOOD (01/20/2024 9:52 AM EDT) [facility] Blood Culture Growth No growth 01/25/2024 5:01 PM EDT LABORATORY [facility] Blood Venous blood specimen / Unknown Venipuncture / Unknown 01/20/2024 9:52 AM EDT 01/20/2024 9:52 AM EDT Eduardo Ovalle MD LAB MICRO - GENERAL ORDERABLES LABORATORY [facility] [address] [place] [address] * CULTURE, BLOOD (01/20/2024 9:36 AM EDT) Blood Culture Growth No growth 01/25/2024 5:01 PM EDT LABORATORY [facility] Blood Blood sample taken from central line / Unknown Central Line / Unknown 01/20/2024 9:36 AM EDT 01/20/2024 10:30 AM EDT Eduardo Ovalle MD LAB MICRO - GENERAL ORDERABLES LAB[facility]ATORY [facility] [address] [place] [address] documented in this encounter Visit Diagnoses Diagnosis Laryngeal cancer (HCC)- Primary Malignant neoplasm of larynx, unspecified site 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
--- OUTSIDE RECORDS SUMMARY | 2024-01-28 22:44 | External Medical Summary ---
Author Name Unknown Address Unknown Organization K01:LABORATORY [facility] - [address] [place] [address] Laboratory Report Ordering Provider Test Date Status CHANDAN MORA 01/20/2024 09:36:39 Final From port Observation Date Value Abnormality Reference (Units ) Status Bacteria identified in Specimen by Culture 01/20/2024 09:36:39 No growth Final Test: Culture, Blood
Jose banegasen Source: Blood, Central Line
Specimen Type: Blood
Specimen Date: 01/20/2024 0936
Result Date: 01/25/2024 1701
Result Status: Final result
Resulting Lab: LABORATORY [facility]
[address]
[place] [id number]

CULTURE

No growth

null Performing Location LABORATORY [facility] - [address] [place] [address]
--- OUTSIDE RECORDS SUMMARY | 2024-01-28 22:44 | External Medical Summary | Summary of Care ---
Author Name Unknown Organization [facility] Address [address] [place] [address] Phone [phone] Care Team Providers Care Glass Maker Name Role Phone Leodan Genovevamckinley Brizuela Primary Care Provider +1- [phone] Reason for Visit * Reason Onset Date Comments Follow Up 01/17/2024 Encounter Details Date Type Department Care Team (Late st Contact Info) Description 01/17/2024 Telephone Hematology/Oncology [facility] [place] [address] [facility] [place] [address] Sloedad Munoz CRNP [address] 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 300 mL 1 01/03/2024 Active Hospital, Clinic, or Other Facility Administered Medication Ordered Dose Route Frequency Start Date End Date Status NSS 200 mL with Fluorouracil 6,750 mg INFUSION CENTRAL IV CONTINUOUS 01/15/2024 01/19/2024 Active documented as of this encounter (statuses as of 01/19/2024) Active Problems Problem Noted Date Diagnosed Date Pneumothorax, post biopsy, left 10/25/2023 Encounter for antineoplastic chemotherapy 2022 Laryngeal cancer 10/30/2022 Metastasis to head and neck lymph node 03/17/202 3 Atrial fibrillation with RVR 10/14/2022 Supraglottic [...] as of this encounter (statuses as of 01/19/2024) Resolved Problems Problem Noted Date Diagnosed Date Resolved Date Hemoptysis 10/12/2022 10/20/2022 PAF (paroxysmal atrial fibrillation) 09/06/2017 09/06/2017 Mixed dyslipidemia 07/19/2002 9 Overview: Per Lipid Taxonomy. documented as of this encounter (statuses as of 01/19/2024) Immunizations Name Administration Dates Next Due Seasonal [...] encounter Miscellaneous Notes * Telephone Encounter - Soledad Guzman RN - 01/19/2024 3:01 PM EDT Called, spoke with spouse. Assisted in scheduling with Kaela Castrejon PA-C as Dr. Salcedo will be out of office x 2 weeks. Spouse agreeable to date/time. Added to wait list for sooner appointment if becomes available. * Telephone Encounter - Gena Bishop RN - 01/19/2024 9:27 AM EDT Patients called office, states that they have not heard about cardiology appt. Patient is anxious about this as his treatment is delayed until he can be seen. Cardiology: please follow up with patient/ to schedule. Thanks! * Telephone Encounter - Gena Bishop RN - 01/17/2024 10:12 AM EDT Patient currently sees Dr Salcedo. Cardiology: please follow up with patient to schedule appt- chemotherapy on hold until after cardiology assessment/ clearance. Thanks! * Telephone Encounter - Migue Jerome RN - 01/17/2024 10:01 AM EDT Pt treatment cancelled for 6/3 per Ronnell. GIN Munoz d/t EKG changes. Patient to have eval by Cardiology prior to restarting. documented in this encounter Plan of Treatment Upcoming Encounters Date Type Department Care Team (Late st Contact Info) Description 01/20/2024 9:30 AM EDT Nurse Only Hematology/Oncology Treatment, [place] [address] [place] [phone] Nurse, Med 200 [facility] [place] [address] 01/20/2024 10:10 AM EDT Laboratory Laboratory [facility] 200 [facility] [place] [phone] [place], Lab [address] [facility] [place] [address] 01/20/2024 10:30 AM EDT Imaging Radiology [address] [place] [address] 01/25/2024 10:30 AM EDT Office Visit Cardiology, [facility] 132 [facility] [place] [address] Kaela Castrejon PA-C 400 [facility] [place] [address] 01/31/2024 1:00 PM EDT Office Visit Otolaryngology/Head & Neck/Facial Plastic Surgery [address] [place] [address] Guy Chowdary DO [address] [place] [facility] [place] [address] 02/09/2024 10:45 AM EDT Office Visit Hematology/Oncology [facility] 200 [facility] [place] [phone] Eduardo Ovalle MD [address] [place] [address] 03/20/2024 7:40 AM EDT Laboratory Laboratory [address] [place] [phone] [place] [address] Scheduled Procedures Name Priority Associated Diagnoses Date/Ti [...] this encounter Medical Devices Implanted Type Area Eligibility Supervisor Device Identifier Shelf Expiration Date Model / Serial / Lot Port Implant W8f Poly Cath - [id number] Implanted:Qty: 1 on 12/24/2023 by Prieto Chavez MD at OR [facility] BARD : PERIPHERAL VASCULAR [id number] 01/13/2025 [id number] / / [id number] documented as of this encounter Advance Directives [...] Advance Directives occurred with: Patient Care Teams Glass Maker Relationship Specialty Start Date End Date Genoveva Alcocer DO [address] [facility] 2 [place] [address] PCP - General Family Medicine 12/29/19 documented as of this encounter
--- OUTSIDE RECORDS SUMMARY | 2024-01-28 22:44 | External Medical Summary | Summary of Care ---
Author Name Unknown Organization [facility] Address [address] [place] [address] Phone [phone] Care Team Providers Care Customer Acquisition Specialist Name Role Phone Leodan Genoveva Chata Primary Care Provider +1- [phone] Reason for Visit * Reason Onset Date Comments Information 01/19/2024 Encounter Details Date Type Department Care Team (Late st Contact Info) Description 01/19/2024 Telephone Hematology/Oncology Treatment, [place] [address] [place] [address] Eduardo Ovalle MD [address] [place] [address] Information Allergies Active Allergy Reactions Criticality Noted [...] encounter Miscellaneous Notes * Telephone Encounter - Gena Bishop RN - 01/19/2024 9:42 AM EDT [...] ago when he had a trach in [place], he had an infection that he could [...] Care Team (Late st Contact Info) Description 01/31/2024 1:00 PM EDT Office Visit Otolaryngology/Head & Neck/Facial Plastic Surgery [address] [facility] [place] [address] Guy Chowdary, [facility] [address] 02/09/2024 10:45 AM EDT Office Visit Hematology/Oncology [facility] [place] 200 [facility] [place] [phone] Eduardo Ovalle MD [address] [place] [address] 03/20/2024 7:40 AM EDT Laboratory Laboratory [address] [place] [phone] [place] [address] Scheduled Procedures Name Priority Associated Diagnoses Date/Ti me COLONOSCOPY FLEXIBLE PROXIMAL DIAGNOSTIC Recall History of colon polyps Health Maintenance Due Date Last Done Comments Depression Screening 1957 Albumin/Creatinine Ratio 1964 Hepatitis C Screening 1963 DTaP,Tdap,and Td Vaccines (1 - Tdap) 1965 Zoster Vaccines (1 of 2) 1965 COVID-19 Vaccine ( - season) 2023 07/02/2021, 11/04/2020, 10/14/2020 GFR [...] this encounter Medical Devices Implanted Type Area Ophthalmic Tech Device Identifier Shelf Expiration Date Model / Serial / Lot Port Implant W8f Poly Cath - [id number] Implanted:Qty: 1 on 12/24/2023 by Prieto Chavez MD at OR [facility] BARD : PERIPHERAL VASCULAR [id number] 01/13/2025 [id number] / / [id number] documented as of this encounter Advance Directives [...] Advance Directives occurred with: Patient Care Teams Customer Acquisition Specialist Relationship Specialty Start Date End Date Genoveva Alcocer DO [address] [place] [address] [place] [address] PCP - General Family Medicine 12/29/19 documented as of this encounter
--- OUTSIDE RECORDS SUMMARY | 2024-01-28 22:44 | External Medical Summary | Summary of Care ---
Author Name Unknown Organization [facility] Address [address] [place] [address] Phone [phone] Care Team Providers Care Recyclable Materials Sorter Name Role Phone Leodan Genoveva Chata Primary Care Provider +1- [phone] Reason for Visit * Reason Onset Date Comments Information 01/19/2024 Encounter Details Date Type Department Care Team (Late st Contact Info) Description 01/19/2024 Telephone Hematology/Oncology Treatment, [place] 200 [place] [address] Eduardo Ovalle MD 200 [place] [address] Information Allergies Active Allergy Reactions Criticality Noted Date Comments Lisinopril Cough 11/30/2012 Simvastatin Muscle pain 07/05/2023 documented as of this encounter (statuses as of 01/20/2024) Medications Medication Sig Dispensed Refills Start Date [...] as of this encounter (statuses as of 01/20/2024) Active Problems Problem Noted Date Diagnosed Date [...] as of this encounter (statuses as of 01/20/2024) Resolved Problems Problem Noted Date Diagnosed Date Resolved Date Hemoptysis 10/12/2022 10/20/2022 PAF (paroxysmal atrial fibrillation) 09/06/2017 09/06/2017 Mixed dyslipidemia 07/19/2002 9 Overview: Per Lipid Taxonomy. documented as of this encounter (statuses as of 01/20/2024) Immunizations Name Administration Dates Next Due Seasonal [...] call her back on his cell phone [phone] She said he is to see cardiology [...] ago when he had a trach in [place], he had an infection that he could [...] 9:30 AM EDT Nurse Only Hematology/Oncology Treatment, [place] [address] [place] [phone] Nurse, [facility] 200 [place] [address] 01/20/2024 10:10 AM EDT Laboratory Laboratory [facility] [place] [address] [place] [phone] Park Lab [facility] [address] [facility] [place] [address] 01/20/2024 10:30 AM EDT Imaging Radiology [facility] 200 [place] [address] 01/25/2024 10:30 AM EDT Office Visit Cardiology, [facility] 132 [facility] [place] [address] Kaela Castrejon PA-C 400 [place] [address] 01/31/2024 1:00 PM EDT Office Visit Otolaryngology/Head & Neck/Facial Plastic Surgery [address] [place] [address] Guy Chowdary, [address] [place] [address] 02/09/2024 10:45 AM EDT Office Visit Hematology/Oncology [facility] [place] [address] [place] [address] Eduardo Ovalle MD 200 [place] [address] 03/20/2024 7:40 AM EDT Laboratory Laboratory [address] [place] [phone] [place] [address] Scheduled Orders Name Type Priority Associated Diagnoses Orde r Schedule URINALYSIS, REFLEX TO MICROSCOPIC Lab STAT 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) Malignant 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 (HCC) Fever of unknown origin Expected: 01/19/2024, Expires: 01/18/2025 CULTURE, URINE, QUANTITATIVE Lab Routine 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) Malignant 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 (HCC) Fever of unknown origin Expected: 01/19/2024, Expires: 01/18/2025 XR CHEST 2 VIEWS Medical Imaging STAT 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) Malignant 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 (HCC) Fever of unknown origin Ordered: 01/19/2024 CULTURE, BLOOD Lab Routine 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) Malignant 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 (HCC) Fever of unknown origin Expected: 01/19/2024, Expires: 01/18/2025 CULTURE, BLOOD Lab Routine 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) Malignant 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 (HCC) Fever of unknown origin Expected: 01/19/2024, Expires: 01/18/2025 Scheduled Procedures Name Priority Associated Diagnoses Date/Ti [...] this encounter Medical Devices Implanted Type Area Store Director Device Identifier Shelf Expiration Date Model / Serial / Lot Port Implant W8f Poly Cath - [id number] Implanted:Qty: 1 on 12/24/2023 by Prieto Chavez MD at OR [facility] BARD : PERIPHERAL VASCULAR [id number] 01/13/2025 [id number] / / [id number] documented as of this encounter Visit Diagnoses Diagnosis Laryngeal cancer [...] Advance Directives occurred with: Patient Care Teams Recyclable Materials Sorter Relationship Specialty Start Date End Date Genoveva Alcocer DO [address] [facility] 2 [place] [address] PCP - General Family Medicine 12/29/19 documented as of this encounter
--- OUTSIDE RECORDS SUMMARY | 2024-01-28 22:44 | External Medical Summary | Summary of Care ---
Author Name Unknown Organization [facility] Address [address] [place] [address] Phone [phone] Care Team Providers Care Sleever Name Role Phone Leodan Genoveva Chata Primary Care Provider +1- [phone] Reason for Visit * Reason Onset Date Comments Information 01/19/2024 Encounter Details Date Type Department Care Team (Late st Contact Info) Description 01/19/2024 Telephone Hematology/Oncology Treatment, [place] 200 [place] [address] Eduardo Ovalle MD 200 [place] [address] Information Allergies Active Allergy Reactions Criticality Noted [...] encounter Miscellaneous Notes * Telephone Encounter - Edyta Deras OSA - 01/19/2024 3:02 PM EDT Sharon is calling back asking to speak with Pretty again. Please call her back on his cell phone [phone] She said he is to see cardiology [...] ago when he had a trach in [place], he had an infection that he could [...] 9:30 AM EDT Nurse Only Hematology/Oncology Treatment, [place] [address] [place] [phone] Nurse, [facility] [address] [facility] [place] [address] 01/20/2024 10:10 AM EDT Laboratory Laboratory [facility] [address] [place] [phone] Park, [facility] [address] [place] [address] 01/20/2024 10:30 AM EDT Imaging Radiology [facility] [address] [place] [address] 01/25/2024 10:30 AM EDT Office Visit Card[facility], [facility] [address] [facility] [place] [address] Kaela Castrejon PA-C 400 [facility] [place] [address] 01/31/2024 1:00 PM EDT Office Visit Otolaryngology/Head & Neck/Facial Plastic Surgery [address] [place] [address] Guy Chowdary, [address] [place] [address] 02/09/2024 10:45 AM EDT Office Visit Hematology/Oncology [facility] [address] [place] [phone] Eduardo Ovalle MD [address] [place] [address] 03/20/2024 7:40 AM EDT Laboratory Laboratory [address] [place] [phone] [address] [place] [address] Scheduled Orders Name Type Priority Associated Diagnoses [...] encounter Medical Devices Implanted Type Area Manager Telecom Device Identifier Shelf Expiration Date Model / Serial / Lot Port Implant W8f Poly Cath - [id number] Implanted:Qty: 1 on 12/24/2023 by Prieto Chavez MD at OR [facility] BARD : PERIPHERAL VASCULAR [id number] 01/13/2025 [id number] / / [id number] documented as of this encounter Visit Diagnoses [...] Advance Directives occurred with: Patient Care Teams Sleever Relationship Specialty Start Date End Date Genoveva Alcocer DO [address] [facility] 2 [place] [address] PCP - General Family Medicine 12/29/19 documented as of this encounter
--- OUTSIDE RECORDS SUMMARY | 2024-01-28 22:44 | External Medical Summary | Summary of Care ---
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) Procedures DE CARBOPLATIN INJECTION DE FLUOROURACIL INJECTION DE FOSAPREPITANT INJECTION DE INJ PEMBROLIZUMAB Eduardo Ovalle MD 200 [place] [address] Anc Hem/Onc [address] [address] Referral ID Status Reason Start Date Expiration Date V isits Requested Visits Authorized [id number] Authorized 12/06/2023 12/05/2024 999 999 Encounter Details Date Type Department Care Team (Latest Contact Info) Description 12/27/2023 8:30 AM EDT Hem/Onc Treatment Hematology/Oncolog y Treatment, [address] [address] Tash, Chair 11 Hem Onc [address] [place] [address] Encounter for antineoplastic chemotherapy*; Laryngeal cancer (HCC); [...] 10:30 AM EDT Office Visit Cardiology, [facility] 132 [facility] [place] [address] Kaela Castrejon PA-C 400 [facility] [place] [address] 01/31/2024 1:00 PM EDT Office Visit Otolaryngology/Head & Neck/Facial Plastic Surgery [address] [place], [place] [phone] Guy Chowdary DO [address] [place], [place] [address] 02/09/2024 10:45 AM EDT Office Visit Hematology/Oncology [facility] 200 [place] [address] Eduardo Ovalle MD 200 [facility] [place] [address] 03/20/2024 7:40 AM EDT Laboratory Laboratory [address] [place] [phone] [address] [place] [address] Scheduled Procedures Name Priority Associated Diagnoses Date/Ti [...] this encounter Medical Devices Implanted Type Area Washery Boss Device Identifier Shelf Expiration Date Model / Serial / Lot Port Implant W8f Poly Cath - [id number] Implanted:Qty: 1 on 12/24/2023 by Prieto Chavez MD at OR [facility] BARD : PERIPHERAL VASCULAR [id number] 01/13/2025 [id number] / / [id number] documented as of this encounter Visit Diagnoses [...] volume. 1000 mg/m2/day for 4 days Total Tqfi=3057 mg/m2, ONCE, 1 dose, On Wed12/27/23 at [...] Advance Directives occurred with: Patient Care Teams Nibbler Operator Relationship Specialty Start Date End Date Genoveva Alcocer DO [address] [address] PCP - General Family Medicine 12/29/19 documented as of this encounter
--- OUTSIDE RECORDS SUMMARY | 2024-01-28 22:44 | External Medical Summary | Summary of Care ---
Author Name Unknown Organization [facility] Address [address] [place] [address] Phone [phone] Care Team Providers Care School Athletic Director Name Role Phone Leodan Genoveva Chata Primary Care Provider +1- [phone] Reason for Visit * Reason Onset Date Comments Information 01/19/2024 Encounter Details Date Type Department Care Team (Late st Contact Info) Description 01/19/2024 Telephone Hematology/Oncology Treatment, [place] 200 [place] [address] Eduardo Ovalle MD 200 [place] [address] Information Allergies Active Allergy Reactions Criticality Noted [...] encounter Miscellaneous Notes * Telephone Encounter - Gwen Joy OSA - 01/19/2024 2:36 PM EDT Apts added * Addendum Note - Gena Bishop RN - 01/19/2024 2:21 PM EDTAddended by: GENA BISHOP on: 01/19/2024 02:21 PM Modules accepted: Orders * Telephone Encounter - Gena Bishop RN - 01/19/2024 1:59 PM EDT [...] chest xray Thanks! * Telephone Encounter - Gena Bishop [...] ago when he had a trach in [place], he had an infection that he could [...] 9:30 AM EDT Nurse Only Hematology/Oncology Treatment, [place] [address] [facility] [place] [phone] Nurse, Med [address] [place] [address] 01/20/2024 10:10 AM EDT Laboratory Laboratory [facility] [place] [address] [place] [address] [phone] Tash Lab [place] [address] [address] 01/20/2024 10:30 AM EDT Imaging Radiology [facility] [place] [address] [place] [address] 01/31/2024 1:00 PM EDT Office Visit Otolaryngology/Head & Neck/Facial Plastic Surgery [address] [place] [address] Guy Chowdary DO [address] [place] [address] 02/09/2024 10:45 AM EDT Office Visit Hematology/Oncology [facility] [address] [place] [address] Eduardo Ovalle MD [address] [place] [address] 03/20/2024 7:40 AM EDT Laboratory Laboratory [address] [place] [phone] [address] [place] [address] Scheduled Orders Name Type Priority Associated Diagnoses [...] this encounter Medical Devices Implanted Type Area Direct Chill Casting Operator Device Identifier Shelf Expiration Date Model / Serial / Lot Port Implant W8f Poly Cath - [id number] Implanted:Qty: 1 on 12/24/2023 by Prieto Chavez MD at OR [facility] BARD : PERIPHERAL VASCULAR [id number] 01/13/2025 [id number] / / [id number] documented as of this encounter Visit Diagnoses [...] Advance Directives occurred with: Patient Care Teams School Athletic Director Relationship Specialty Start Date End Date Genoveva Alcocer DO [address] [facility] 2 [place] [address] PCP - General Family Medicine 12/29/19 documented as of this encounter
--- OUTSIDE RECORDS SUMMARY | 2024-01-28 22:44 | External Medical Summary ---
Author Name Unknown Address Unknown Organization K09[facility] [place] [address] Laboratory Report Ordering Provider Test Date Status CHANDAN MORA 01/20/2024 09:58:18 Final Observation Date Value Abnormality Reference (Units ) Status RBC, Urine 01/20/2024 09:58:18 0-2 0-2 (/HPF) Final WBC, Urine 01/20/2024 09:58:18 0-2 0-2 (/HPF) Final Bacteria [#/area] in Urine sediment by Microscopy high power field 01/20/2024 09:58:18 26-50 Abnormal 0-25 (/HPF) Final Mucus, Urine 01/20/2024 09:58:18 Many Abnormal None (/HPF) Final Performing Location [facility] [place] [address]
--- OUTSIDE RECORDS SUMMARY | 2024-01-28 22:44 | External Medical Summary | Summary of Care ---
Author Name Unknown Organization [facility] Address [address] [place] [address] Phone [phone] Care Team Providers Care Longwall Foreman Name Role Phone Leodan Genoveva Chata Primary Care Provider +1- [phone] Reason for Visit * Reason Onset Date Comments Information 01/19/2024 Encounter Details Date Type Department Care Team (Late st Contact Info) Description 01/19/2024 Telephone Hematology/Oncology Treatment, [place] 200 [place] [address] Eduardo Ovalle MD 200 [place] [address] Information Allergies Active Allergy Reactions Criticality Noted [...] as of this encounter Miscellaneous Notes * Addendum Note - Gena Bishop RN [...] ago when he had a trach in [place], he had an infection that he could [...] Otolaryngology/Head & Neck/Facial Plastic Surgery [address] [place] [address] Guy Chowdary, [address] [place] [address] 02/09/2024 10:45 AM EDT Office Visit Hematology/Oncology [facility] [address] [facility] [place] [address] Eduardo Ovalle MD [address] [facility] [place] [address] 03/20/2024 7:40 AM EDT Laboratory Laboratory [address] [place] [phone] [address] [place] [address] Scheduled Orders Name Type Priority Associated Diagnoses [...] this encounter Medical Devices Implanted Type Area Web Operations Administrator Device Identifier Shelf Expiration Date Model / Serial / Lot Port Implant W8f Poly Cath - [id number] Implanted:Qty: 1 on 12/24/2023 by Prieto Chavez MD at OR [facility] BARD : PERIPHERAL VASCULAR [id number] 01/13/2025 [id number] / / [id number] documented as of this encounter Visit Diagnoses [...] Advance Directives occurred with: Patient Care Teams Longwall Foreman Relationship Specialty Start Date End Date Genoveva Alcocer DO [address] [facility] 2 [place] [address] PCP - General Family Medicine 12/29/19 documented as of this encounter
--- OUTSIDE RECORDS SUMMARY | 2024-01-28 22:44 | External Medical Summary | Summary of Care ---
Author Name Unknown Organization [facility] Address [address] [place] [address] Phone [phone] Care Team Providers Care Scrubber Operator Name Role Phone Kwesivioleta Genoveva Chata Primary Care Provider +1- [phone] Encounter Details Date Type Department Care Team (Late st Contact Info) Description 01/20/2024 Orders Only Hematology/Oncology Treatment, [place] [address] [facility] [place] [address] Eduardo Ovalle MD 200 [place] [address] Allergies Active Allergy Reactions Criticality Noted Date [...] at bedtime. 300 mL 1 01/03/2024 Active documented as of this encounter (statuses [...] 01/25/2024 10:30 AM EDT Office Visit Cardiology, [facility] 132 [facility] [place] [address] Kaela Castrejon PA-C [facility] [address] 01/31/2024 1:00 PM EDT Office Visit Otolaryngology/Head & Neck/Facial Plastic Surgery [address] [place] [address] Guy Chowdary, [address] [place] [address] 02/09/2024 10:45 AM EDT Office Visit Hematology/Oncology [facility] 200 [facility] [place] [address] Eduardo Ovalle MD 200 [facility] [place] [address] 03/20/2024 7:40 AM EDT Laboratory Laboratory [address] [place] [phone] [address] [place] [address] Scheduled Procedures Name Priority Associated Diagnoses Date/Ti [...] this encounter Medical Devices Implanted Type Area Rotogravure Press Operator Device Identifier Shelf Expiration Date Model / Serial / Lot Port Implant W8f Poly Cath - [id number] Implanted:Qty: 1 on 12/24/2023 by Prieto Chavez MD at [facility] BARD : PERIPHERAL VASCULAR [id number] 01/13/2025 [id number] / / [id number] documented as of this encounter Advance Directives [...] Advance Directives occurred with: Patient Care Teams Scrubber Operator Relationship Specialty Start Date End Date Genoveva Alcocer DO [address] [facility] 2 [place], [place] [phone] PCP - General Family Medicine 12/29/19 documented as of this encounter
--- OUTSIDE RECORDS SUMMARY | 2024-01-28 22:44 | External Medical Summary | Summary of Care ---
Author Name Unknown Organization [facility] Address [address] [place] [address] Phone [phone] Care Team Providers Care Commutator Undercutter Name Role Phone Leodan Genoveva Chata Primary Care Provider +1- [phone] Reason for Visit * Reason Onset Date Comments Information 01/19/2024 Encounter Details Date Type Department Care Team (Late st Contact Info) Description 01/19/2024 Telephone Hematology/Oncology Treatment, [place] 200 [place] [address] Eduardo Ovalle MD 200 [place] [address] Information Allergies Active Allergy Reactions Criticality Noted [...] ago when he had a trach in [place], he had an infection that he could [...] Otolaryngology/Head & Neck/Facial Plastic Surgery [address] [place] [address] Guy Chowdary, [address] [place] [address] 02/09/2024 10:45 AM EDT Office Visit Hematology/Oncology [facility] 200 [facility] [place] [address] Eduardo Ovalle MD 200 [facility] [place] [address] 03/20/2024 7:40 AM EDT Laboratory Laboratory [address] [place] [phone] [address] [place] [address] Scheduled Orders Name Type Priority Associated Diagnoses [...] this encounter Medical Devices Implanted Type Area Knifer Up Device Identifier Shelf Expiration Date Model / Serial / Lot Port Implant W8f Poly Cath - [id number] Implanted:Qty: 1 on 12/24/2023 by Prieto Chavez MD at OR [facility] BARD : PERIPHERAL VASCULAR [id number] 01/13/2025 [id number] / / [id number] documented as of this encounter Visit Diagnoses [...] Advance Directives occurred with: Patient Care Teams Commutator Undercutter Relationship Specialty Start Date End Date Genoveva Alcocer DO [address] [facility] 2 [place] [address] PCP - General Family Medicine 12/29/19 documented as of this encounter
--- OUTSIDE RECORDS SUMMARY | 2024-01-28 22:44 | External Medical Summary ---
Author Name Unknown Address Unknown Organization K09[facility] [place] [address] Laboratory Report Ordering Provider Test Date Status CHANDAN MORA 01/20/2024 09:58:18 Final Observation Date Value Abnormality Reference (Units ) Status Color of Urine by Auto 01/20/2024 09:58:18 Yellow Light Yellow, Yellow, Dark Yellow Final Clarity, Urine 01/20/2024 09:58:18 Clear Clear Final Glucose [Mass/volume] in Urine by Automated test strip 01/20/2024 09:58:18 Negative Negative (mg/dL) Final Bilirubin.total [Presence] in Urine by Automated test strip 01/20/2024 09:58:18 Moderate Abnormal Negative Final Ketones [Mass/volume] in Urine by Automated test strip 01/20/2024 09:58:18 15 Abnormal Negative (mg/dL) Final Specific gravity, Urine 01/20/2024 09:58:18 1.020 1.003-1.030 Final Hemoglobin [Presence] in Urine by Automated test strip 01/20/2024 09:58:18 Negative Negative Final pH, Urine 01/20/2024 09:58:18 5.5 5.0-7.5 (Units) Final Protein [Mass/volume] in Urine by Automated test strip 01/20/2024 09:58:18 100 Abnormal Negative (mg/dL) Final Urobilinogen [Mass/volume] in Urine by Automated test strip 01/20/2024 09:58:18 1.0 0.2, 1.0 (mg/dL) Final Nitrite [Presence] in Urine by Automated test strip 01/20/2024 09:58:18 Negative Negative Final Leukocyte esterase [Presence] in Urine by Automated test strip 01/20/2024 09:58:18 Negative Negative Final Performing Location [facility] [place] [address]
--- OUTSIDE RECORDS SUMMARY | 2024-01-28 22:44 | External Medical Summary ---
Author Name Unknown Address Unknown Organization K[facility] [place] [address] [place] [address] Laboratory Report Ordering Provider Test Date Status CHANDAN MORA 01/20/2024 09:52:57 Final Peripheral Observation Date Value Abnormality Reference (Units ) Status Bacteria identified in Specimen by Culture 01/20/2024 09:52:57 No growth Final Test: Culture, Blood
Jose banegas Source: Blood, Venous
Specimen Type: Blood
Specimen Date: 01/20/202452
Result Date: 01/25/2024 1701
Result Status: Final result
Resulting Lab: [facility]
[address]
[place] [address]

CULTURE

No growth

null Performing Location [facility] - [address] [address]
--- OUTSIDE RECORDS SUMMARY | 2024-01-28 22:44 | External Medical Summary | Summary of Care ---
Author Name Unknown Organization [facility] Address [address] [place] [address] Phone [phone] Care Team Providers Care Numerical Control Lathe Operator Name Role Phone Leodan Genovevamckinley Brizuela Primary Care Provider +1- [phone] Reason for Visit * Reason Onset Date Comments Follow Up 01/17/2024 Encounter Details Date Type Department Care Team (Late st Contact Info) Description 01/17/2024 Telephone Hematology/Oncology [facility] [place] 200 [facility] [address] Soledad Munoz CRNP 400 [facility] [place]UAN [place]TONI[place] [address] Follow Up Allergies [...] 9:30 AM EDT Nurse Only Hematology/Oncology Treatment, [place] [address] [place] [phone] Nurse, Med 200 [facility] [place] [address] 01/20/2024 10:10 AM EDT Laboratory Laboratory [facility] 200 [facility] [place] [phone] Park, Lab [address] [facility] [place] [address] 01/20/2024 10:30 AM EDT Imaging Radiology [address] [place] [address] 01/25/2024 10:30 AM EDT Office Visit Cardiology, [facility] 132 [facility] [place] [address] Kaela Castrejon PA-C 400 [facility] [place] [address] 01/31/2024 1:00 PM EDT Office Visit Otolaryngology/Head & Neck/Facial Plastic Surgery [address] [place] [address] Guy Chowdary DO 100 [address] [facility] [place] [address] 02/09/2024 10:45 AM EDT Office Visit Hematology/Oncology [facility] 200 [facility] [place] [phone] Eduardo Ovalle MD [address] [place] [address] 03/20/2024 7:40 AM EDT Laboratory Laboratory [address] [place] [phone] [place] [address] Scheduled Procedures Name Priority Associated Diagnoses Date/Ti [...] this encounter Medical Devices Implanted Type Area Savings Counselor Device Identifier Shelf Expiration Date Model / Serial / Lot Port Implant W8f Poly Cath - [id number] Implanted:Qty: 1 on 12/24/2023 by Prieto Chavez MD at OR [facility] BARD : PERIPHERAL VASCULAR [id number] 01/13/2025 [id number] / / [id number] documented as of this encounter Advance Directives [...] Advance Directives occurred with: Patient Care Teams Numerical Control Lathe Operator Relationship Specialty Start Date End Date Genoveva Alcocer DO [address] [facility] 2 [place] [address] PCP - General Family Medicine 12/29/19 documented as of this encounter
--- OUTSIDE RECORDS SUMMARY | 2024-01-28 22:44 | External Medical Summary | Summary of Care ---
Author Name Unknown Organization [facility] Address [address] [place] [address] Phone [phone] Care Team Providers Care Sales Agent Protective Service Name Role Phone Leodan Genoveva Chata Primary Care Provider +1- [phone] Reason for Visit * Reason Onset Date Comments Information 01/19/2024 Encounter Details Date Type Department Care Team (Late st Contact Info) Description 01/19/2024 Telephone Hematology/Oncology Treatment, [place] 200 [place] [address] Eduardo Ovalle MD 200 [place] [address] Information Allergies Active Allergy Reactions Criticality Noted [...] call her back on his cell phone [phone] She said he is to see cardiology [...] ago when he had a trach in [place], he had an infection that he could [...] 9:30 AM EDT Nurse Only Hematology/Oncology Treatment, [place] [address] [place] [phone] Nurse, [facility] 200 [facility] [place] [address] 01/20/2024 10:10 AM EDT Laboratory Laboratory [facility] [place] 200 [facility] [place] [phone] Park Lab [facility] 200 [facility] [place] [address] 01/20/2024 10:30 AM EDT Imaging Radiology [facility] 200 [facility] [place] [address] 01/25/2024 10:30 AM EDT Office Visit Cardiology, [facility] 132 [facility] [place] [address] Kaela Castrejon PA-C 400 [facility] [place] [address] 01/31/2024 1:00 PM EDT Office Visit Otolaryngology/Head & Neck/Facial Plastic Surgery [address] [place] [address] Guy Chowdary, [address] [place] [address] 02/09/2024 10:45 AM EDT Office Visit Hematology/Oncology [facility] [place] [address] [place] [phone] Eduardo Ovalle MD 200 [facility] [place] [address] 03/20/2024 7:40 AM EDT Laboratory Laboratory [address] [place] [phone] [address] [place] [address] Scheduled Orders Name Type Priority Associated Diagnoses [...] this encounter Medical Devices Implanted Type Area Commercial Journeyman Electrician Device Identifier Shelf Expiration Date Model / Serial / Lot Port Implant W8f Poly Cath - [id number] Implanted:Qty: 1 on 12/24/2023 by Prieto Chavez MD at OR [facility] BARD : PERIPHERAL VASCULAR [id number] 01/13/2025 [id number] / / [id number] documented as of this encounter Visit Diagnoses [...] Advance Directives occurred with: Patient Care Teams Sales Agent Protective Service Relationship Specialty Start Date End Date Genoveva Alcocer DO [address] [facility] 2 [place] [address] PCP - General Family Medicine 12/29/19 documented as of this encounter
--- OUTSIDE RECORDS SUMMARY | 2024-01-28 22:44 | External Medical Summary | Summary of Care ---
Author Name Unknown Organization [facility] Address [address] [place] [address] Phone [phone] Care Team Providers Care Still Operator Whiskey Name Role Phone Genoveva Alcocer DO Primary Care Provider +1- [phone] Reason for Visit * Reason Onset Date Comments Referral 10/20/2023 Encounter Details Date Type Department Care Team (Late st Contact Info) Description 10/20/2023 Telephone Radiation Oncology, [facility] [address] [place], [place] [phone] Services, Scheduling [address] [place] [address] Referral Allergies Active Allergy Reactions Criticality Noted Date [...] other meds) Pt taking 75 mcg Active documented as of this encounter (statuses [...] Tobacco: Never Alcohol Use Standard Drinks/Week Comments No 0 (1 standard drink = 0.6 oz pur e alcohol) Sex and Gender Information Value Date Recorded Sex Assigned at Not on file Gender Identity Not on file Sexual Orientation Not on file Job Start Date Occupation Industry Not on file Not on file Not on file documented as of this encounter Functional Status Functional Status Response Date of Assess ment Are you deaf or do you have serious difficulty h earing? No 10/09/2022 Are you blind or do you have serious difficulty seeing, even when wearing glasses? No 10/09/2022 Do you have serious difficul ty walking or climbing stairs? (5 years old or older) No 10/09/2022 Do you have difficulty dress ing or bathing? (5 years old or older) No 10/09/2022 Because of a physical, menta l, or emotional condition, do you have difficulty doing errands alone such as visiting a doctor s office or shopping? (15 years old or older) No 10/09/19 Cognitive Status Response Date of Assessm ent Because of a physical, menta l, or emotional condition, do you have serious difficulty concentrating, remembering, or making decisions? (5 years old or older) No 10/09/2022 documented as of this encounter Miscellaneous Notes * Telephone Encounter - Amisha Moses OSA - 10/20/2023 5:24 PM EST We received a referral from you for Sanya to be evaluated with Radiation Oncology. I called the patient to schedule and he stated that he is already an established patient with Dr. Ovalle at [facility] for radiation oncology (I did verify that he did not mean Med Onc Dr. Ovalle he sees alondra Merino. He stated they are both named Dr. Ovalle) Please send the Rad Onc referral over to [facility] at your earliest convenience. Thank you! documented in this encounter Plan of Treatment Upcoming Encounters Date Type Department Care Team (Late st Contact Info) Description 01/20/2024 9:30 AM EDT Nurse Only Hematology/Oncology Treatment, [place] [address] [phone] Nurse, Med 200 [facility] [place] [address] 01/20/2024 10:10 AM EDT Laboratory Laboratory [facility] [address] [place] [phone] Park, Lab [facility] 200 [facility] [place] [address] 01/20/2024 10:30 AM EDT Imaging Radiology [facility] 200 [facility] [place] [address] 01/25/2024 10:30 AM EDT Office Visit Cardiology, [facility] 132 [facility] [place] [address] Kaela Castrejon PA-C 400 [place], [place] [address] 01/31/2024 1:00 PM EDT Office Visit Otolaryngology/Head & Neck/Facial Plastic Surgery [address] [place] [address] Guy Chowdary DO [address] [place] [address] 02/09/2024 10:45 AM EDT Office Visit Hematology/Oncology [facility] [address] [place] [address] Eduardo Ovalle MD [address] [place] [address] 03/20/2024 7:40 AM EDT Laboratory Laboratory [address] [place] [phone] [place], [address] [place] [address] Scheduled Procedures Name Priority Associated Diagnoses Date/Ti [...] this encounter Medical Devices Implanted Type Area Color Strainer Device Identifier Shelf Expiration Date Model / Serial / Lot Port Implant W8f Poly Cath - [id number] Implanted:Qty: 1 on 12/24/2023 by Prieto Chavez MD at OR [facility] BARD : PERIPHERAL VASCULAR [id number] 01/13/2025 [id number] / / [id number] documented as of this encounter Advance Directives [...] Advance Directives occurred with: Patient Care Teams Still Operator Whiskey Relationship Specialty Start Date End Date Genoveva Alcocer DO 10[address] [facility] 2 [place] [address] PCP - General Family Medicine 12/29/19 documented as of this encounter
--- OUTSIDE RECORDS SUMMARY | 2024-01-28 22:44 | External Medical Summary | Summary of Care ---
Author Name Unknown Organization [facility] Address [address] [place] [address] Phone [phone] Care Team Providers Care Information Assurance Officer Name Role Phone Genoveva Alcocer DO Primary Care Provider +1- [phone] Reason for Visit * Reason Comments Procedure Blood cultures from port Encounter Details Date Type Department Care Team (Late st Contact Info) Description 01/20/2024 9:30 AM EDT Nurse Only Hematology/Oncology Treatment, [place] [address] [place] [address] Nurse, Med 200 [place] [address] Procedure (Blood cultures from port) Allergies Active Allergy Reactions Criticality Noted Date [...] as of this encounter Nursing Notes * Dipti Barr RN - 01/20/2024 11:14 AM EDT Chair 4. Patient here for blood cultures from port. Patient had peripheral cultures at lab <1 hour ago. Patient had urine culture and CXR done as well. Port accessed. Blood cultures drawn via port in accordance with policy. No issues getting blood from port. Patient left facility with after blood cultures were obtained, denies any further questions orconcerns at this time. documented in this encounter Plan of Treatment Upcoming Encounters Date Type Department Care Team (Late st Contact Info) Description 01/25/2024 10:30 AM EDT Office Visit Cardiology, [facility] 132 [facility] [place] [address] Kaela Castrejon PA-C 400 [facility] [place] [address] 01/31/2024 1:00 PM EDT Office Visit Otolaryngology/Head & Neck/Facial Plastic Surgery [address] [place] [address] Guy Chowdary DO [address] [place] [address] 02/09/2024 10:45 AM EDT Office Visit Hematology/Oncology [facility] [place] [address] [place] [phone] Eduardo Ovalle MD [address] [place] [address] 03/20/2024 7:40 AM EDT Laboratory Laboratory [address] [place] [phone] [place] [address] Pending Results Name Type Priority Associated Diagnoses Date /Time CULTURE, BLOOD Lab Routine 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) Malignant 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 (HCC) Fever of unknown origin 01/20/2024 9:36 AM EDT Scheduled Procedures Name Priority Associated Diagnoses Date/Ti oh COLONOSCOPY FLEXIBLE PROXIMAL DIAGNOSTIC Recall History of [...] this encounter Medical Devices Implanted Type Area Finish Off Operator Device Identifier Shelf Expiration Date Model / Serial / Lot Port Implant W8f Poly Cath - [id number] Implanted:Qty: 1 on 12/24/2023 by Prieto Chavez MD at OR [facility] BARD : PERIPHERAL VASCULAR [id number] 01/13/2025 [id number] / / [id number] documented as of this encounter Visit Diagnoses Diagnosis 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, unspecified Laryngeal cancer (HCC) Malignant neoplasm of larynx, unspecified site 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 Given 01/20/2024 10:12 AM EDT 500 Units sodium chloride 0.9 % flush central line 10 mL 10 mL, IV Push, PRN Other, IV Flush, Starting on Luh 01/20/24 at 1210, Until Wed01/21/24 at 1209, For 24 hours, Do not flush if lock, PICC, or central line not in place; IV infusing or unable to flush. Given 01/20/2024 10:12 AM EDT 10 mL documented in this encounter Advance Directives [...] Advance Directives occurred with: Patient Care Teams Information Assurance Officer Relationship Specialty Start Date End Date Genoveva Alcocer DO [address] [facility] 2 [place] [address] PCP - General Family Medicine 12/29/19 documented as of this encounter
--- OUTSIDE RECORDS SUMMARY | 2024-01-28 22:44 | External Medical Summary | Summary of Care ---
Author Name Unknown Organization [facility] Address 100 [place] [address] Phone [phone] Care Team Providers Care Ornament Setter Name Role Phone Leodan Genoveva Chata Primary Care Provider +1- [phone] Reason for Visit * Reason Onset Date Comments Information 01/19/2024 Encounter Details Date Type Department Care Team (Late st Contact Info) Description 01/19/2024 Telephone Hematology/Oncology Treatment, [place] 200 [place] [address] Eduardo Ovalle MD 200 [place] [address] Information Allergies Active Allergy Reactions Criticality Noted [...] call her back on his cell phone [phone] She said he is to see cardiology [...] that we will follow up with [place]ology [place] if they can schedule appt. Patient notes [...] when he had a trach in [place], he had an infection that he could [...] 01/25/2024 10:30 AM EDT Office Visit Cardiology, [facility] 132 [facility] [place] [address] Kaela Castrejon PA-C 400 [facility] [place] [address] 01/31/2024 1:00 PM EDT Office Visit Otolaryngology/Head & Neck/Facial Plastic Surgery [address] [place] [address] Guy Chowdary, [address] [place] [address] 02/09/2024 10:45 AM EDT Office Visit Hematology/Oncology [facility] 200 [facility] [place] [phone] Eduardo Ovalle MD 200 [facility] [place] [address] 03/20/2024 7:40 AM EDT Laboratory Laboratory [address] [place] [phone] [address] [place] [address] Pending Results Name Type Priority Associated Diagnoses Date /Time CULTURE, URINE, QUANTITATIVE Lab Routine 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) Malignant 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 (HCC) Fever of unknown origin 01/20/2024 9:58 AM EDT CULTURE, BLOOD Lab Routine 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) Malignant 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 (HCC) Fever of unknown origin 01/20/2024 9:52 AM EDT CULTURE, BLOOD Lab Routine 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) Malignant 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 (HCC) Fever of unknown origin 01/20/2024 9:36 AM EDT Scheduled Orders Name Type Priority Associated Diagnoses Orde r Schedule CULTURE, URINE, QUANTITATIVE Lab Routine Laryngeal cancer [...] this encounter Medical Devices Implanted Type Area Diabetes Territory Manager Device Identifier Shelf Expiration Date Model / Serial / Lot Port Implant W8f Poly Cath - [id number] Implanted:Qty: 1 on 12/24/2023 by Prieto Chavez MD at OR [facility] BARD : PERIPHERAL VASCULAR [id number] 01/13/2025 [id number] / / [id number] documented as of this encounter Procedures Procedure [...] moderate-sized hiatal hernia. Eduardo Ovalle MD RADIOLOGY (RAD GENER AL) * (ABNORMAL) URINALYSIS, REFLEX TO MICROSCOPIC (01/20/2024 9:58 AM EDT) Color, Urine Yellow Light Yellow, Yellow, Dark Yellow 01/20/2024 10:24 AM EDT [facility] [place] [facility]02 Clarity, Urine Clear Clear 01/20/2024 10:24 AM EDT [facility] [place] [facility]02 Glucose, Urine Negative Negative mg/dL 01/20/2024 10:24 AM EDT [address] Bilirubin, Urine Moderate(A) Negative 01/20/2024 10:24 AM EDT [address] Ketone, Urine 15(A) Negative mg/dL 01/20/2024 10:24 [address] EDT [address] Specific [place], Urine 1.020 1.003 - 1.030 01/20/2024 10:24 AM EDT [address] Blood, Urine Negative Negative 01/20/2024 10:24 AM EDT [address] pH, Urine 5.5 5.0 - 7.5 Units 01/20/2024 10:24 AM EDT [address] Protein, Urine 100(A) Negative mg/dL 01/20/2024 10:24 AM EDT [address] Urobilinogen, Urine 1.0 0.2, 1.0 mg/dL 01/20/2024 10:24 AM EDT [address] Nitrite, Urine Negative Negative 01/20/2024 10:24 AM EDT [address] Esterase, Urine Negative Negative 01/20/2024 10:24 AM EDT [place] [address] Urine Urine specimen obtained by clean catch procedure / Unknown Non-blood Collection / Unknown 01/20/2024 9:58 AM EDT 01/20/2024 9:58 AM EDT Eduardo Ovalle MD LAB URINE ORDERABLES Performing Organization Address City/State/[facility] Co de Phone Number [place] [address] [place] [address] documented in this encounter Visit Diagnoses Diagnosis [...] Advance Directives occurred with: Patient Care Teams Ornament Setter Relationship Specialty Start Date End Date Genoveva Alcocer DO [address] [address] PCP - General Family Medicine 12/29/19 documented as of this encounter
--- OUTSIDE RECORDS SUMMARY | 2024-01-28 22:44 | External Medical Summary | Summary of Care ---
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); Malignant 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 (HCC); Fever of unknown origin Allergies Active Allergy Reactions Criticality Noted Date [...] Team (Late st Contact Info) Description 01/20/2024 10:30 AM EDT Imaging Radiology [facility] 200 [facility] [place] [address] Arrived 01/25/2024 10:30 AM EDT Office Visit Cardiology, [facility] 132 [facility] [place] [address] Kaela Castrejon PA-C 400 [facility] [place] [address] 01/31/2024 1:00 PM EDT Office Visit Otolaryngology/Head & Neck/Facial Plastic Surgery [address] [place] [address] Guy Chowdary DO [address] [place] [address] 02/09/2024 10:45 AM EDT Office Visit Hematology/Oncology [facility] [place] [address] [phone] Eduardo Ovalle MD 200 [facility] [place] [address] 03/20/2024 7:40 AM EDT Laboratory Laboratory [address] [place] [phone] [address] [place] [address] Pending Results Name Type Priority Associated Diagnoses Date /Time CULTURE, BLOOD Lab Routine 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) Malignant 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 (HCC) Fever of unknown origin 01/20/2024 9:52 AM EDT URINALYSIS, REFLEX TO MICROSCOPIC Lab STAT 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) Malignant 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 (HCC) Fever of unknown origin 01/20/2024 9:58 AM EDT CULTURE, URINE, QUANTITATIVE Lab Routine 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) Malignant 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 (HCC) Fever of unknown origin 01/20/2024 9:58 AM EDT MICROSCOPIC EXAM, URINE Lab STAT 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) Malignant 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 (HCC) Fever of unknown origin 01/20/2024 9:58 AM EDT Scheduled Procedures Name Priority Associated [...] this encounter Medical Devices Implanted Type Area Lumber Carrier Operator Device Identifier Shelf Expiration Date Model / Serial / Lot Port Implant W8f Poly Cath - [id number] Implanted:Qty: 1 on 12/24/2023 by Prieto Chavez MD at OR [facility] BARD : PERIPHERAL VASCULAR [id number] 01/13/2025 [id number] / / [id number] documented as of this encounter Visit Diagnoses Diagnosis Laryngeal cancer (HCC) Malignant neoplasm of larynx, [...] Advance Directives occurred with: Patient Care Teams Airport Operations Supervisor Relationship Specialty Start Date End Date Genoveva Alcocer DO [address] [facility] 2 [place] [address] PCP - General Family Medicine 12/29/19 documented as of this encounter
--- OUTSIDE RECORDS SUMMARY | 2024-01-28 22:45 | External Medical Summary | Summary of Care ---
Author Name Unknown Organization [facility] Address [address] [place] [address] Phone [phone] Care Team Providers Care Vehicle Refinisher Name Role Phone Kwesivioleta Genovevamckinley Brizuela Primary Care Provider [phone]- [phone] Reason for Visit * Reason Comments Nurse Documentation Chemo held today per Soledad Munoz NP Encounter Details Date Type Department Care Team (Latest Contact Info) Description 01/17/2024 9:30 AM EDT Hem/Onc Treatment Hematology/Oncolog y Treatment, [address] [address] Tash, Chair 4 Hem Onc Scenery [address] [place] [address] Encounter for antineoplastic chemotherapy*; Laryngeal cancer (HCC); 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); Primary squamous cell carcinoma of throat (HCC) Allergies Active Allergy Reactions Criticality Noted Date Comments Lisinopril Cough 11/30/2012 Simvastatin Muscle pain 07/05/2023 documented as of this encounter (statuses as of 01/17/2024) Medications Medication Sig Dispensed Refills Start Date [...] as of this encounter (statuses as of 01/17/2024) Active Problems Problem Noted Date Diagnosed Date [...] as of this encounter (statuses as of 01/17/2024) Resolved Problems Problem Noted Date Diagnosed Date Resolved Date Hemoptysis 10/12/2022 10/20/2022 PAF (paroxysmal atrial fibrillation) 09/06/2017 09/06/2017 Mixed dyslipidemia 07/19/2002 9 Overview: Per Lipid Taxonomy. documented as of this encounter (statuses as of 01/17/2024) Immunizations Name Administration Dates Next Due Seasonal [...] as of this encounter Nursing Notes * eGna Bishop RN - 01/14/2024 2:37 PM EDT ANC 1.47. Reviewed with pavel Rowe for treatment Wednesday. documented in this encounter Plan of Treatment Upcoming Encounters Date Type Department Care Team (Late st Contact Info) Description 01/31/2024 1:00 PM EDT Office Visit Otolaryngology/Head & Neck/Facial Plastic Surgery [address] [place] [address] Guy Chowdary, [address] [place] [address] 02/09/2024 10:45 AM EDT Office Visit Hematology/Oncology [facility] [address] [facility] [place] [phone] Eduardo Ovalle MD [address] [facility] [place] [address] 03/20/2024 7:40 AM EDT Laboratory Laboratory [address] [place] [phone] [address] [place] [address] Scheduled Procedures Name Priority Associated Diagnoses Date/Ti [...] this encounter Medical Devices Implanted Type Area Vertical Borer Device Identifier Shelf Expiration Date Model / Serial / Lot Port Implant W8f Poly Cath - [id number] Implanted:Qty: 1 on 12/24/2023 by Prieto Chavez MD at OR [facility] BARD : PERIPHERAL VASCULAR [id number] 01/13/2025 [id number] / / [id number] documented as of this encounter Visit Diagnoses Diagnosis Encounter for antineoplastic chemotherapy- Primary Laryngeal cancer (HCC) Malignant neoplasm of larynx, unspecified site 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
--- OUTSIDE RECORDS SUMMARY | 2024-01-28 22:45 | External Medical Summary | Summary of Care ---
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); Malignant 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 (HCC); Irregular cardiac rhythm; S/P ablation of atrial flutter Allergies Active Allergy Reactions Criticality Noted Date [...] Cigarettes Q uit: 1994 Smokeless Tobacco: Never Tobacco Cessation:Counseling Given: Not Answered Alcohol Use Standard Drinks/Week Comments Yes 1 [...] Sign Reading Time Taken Comments Blood Pressure 111/72 01/17/2024 8:53 AM EDT Pulse 78 01/17/2024 8:53 AM EDT Temperature 36.7 C (98 F) 01/17/2024 8:53 AM EDT Respiratory Rate - - Oxygen Saturation 92% 01/17/2024 8:53 AM EDT Inhaled Oxygen Concentration - - Weight 87.7 kg (193 lb 6.4 oz) 01/17/2024 8:53 A M EDT Height - - Body Mass Index 26.97 12/24/2023 9:11 AM EDT documented in this [...] No 11/09/2023 documented as of this encounter Progress Notes * Soledad Munoz CRNP - 01/17/2024 9:00 AM EDT Hematology/Oncology Outpatient Clinic note [place] [address] Name: Sanya Grant Date: 01/17/2024 CHIEF COMPLAINT: Sanya Grant is a 78 year old male here today for f/u visit today. Patient of Dr. Eduardo Ovalle. From Patient chart confirmed with patient. 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 (09/2023 ) He also has left upper lobe mass, biopsy showed squamous cell carcinoma, this could be new primary versus metastatic disease. Cancer Staging clinical stage --> T3 N2c DATE OF DIAGNOSIS: September 2022 TREATMENT HISTORY: underwent tracheostomy on 10/09/2022. -tracheostomy fell out on 11/23/2022 Weekly cisplatin along with radiation treatment X 7 ( 11/10/2022- 12/23/2022) Right radical neck dissection 11/09/23 Completed radiation therapy to the left lung nodule 12/22/23 CURRENT TREATMENT: Carboplatin IV D1 + Fluorouracil CIV D1-4 + Pembrolizumab IV D1 q21 Days (C1-6) Followed by Pembrolizumab IV D1 q21 Days (12/24/23 - ) 01/05/24: Per Dr. Eduardo Ovalle: dose reduce Fluorouracil by 20% for all future treatment cycles d/t grade 3 mucositis DIAGNOSTIC WORKUP: He complained of increasing difficulty swallowing since July 2022. He was seen by his primary-care provider, additional workup as follows: CT neck done on 2022 showed 3.1 x 2.9 x 2.9 cm soft tissue mass at the left side of the vallecula/cricoid cartilage. Resulting in 75% of effacement of the airway. Few enlarged left cervical lymphnodes noted. FNA from the left cervical lymph node --> metastatic squamous cell carcinoma (09/23/2022). PET-CT scan done on 10/06/2022 --> hypermetabolic mass involving the left side of the larynx, level 2 lymph node, bilateral level 3 lymph nodes. -he was evaluated at head and neck multidisciplinary clinic at [facility], clinical staging --> T3 c N2c M0, stage IV. He started having hemoptysis, had tracheostomy on 10/09/2022 (to protect the airway).. Left supraglottic mass biopsy --> invasive squamous cell carcinoma moderately differentiated (10/09/2022) OTHER IMPORTANT HISTORY: -Adenocarcinoma of the right lung, stage I in 2017 , resection by Dr. Brown, no adjuvant treatment indicated. -bilateral carotid artery disease -COPD He had COVID-19 infection in June 2020. -GERD -history of gout -hiatal hernia -atrial flutter, S/P RFA in 2012 -hyperlipidemia Hypertension, sleep apnea, he was on CPAP but now he is off the CPAP once the tracheostomies done.. -vitamin-D deficiency. Interval History: Now within 6 months, noticed some enlargement of the right cervical lymph node, biopsy from that confirmed squamous cell carcinoma, also noticed to have a new enlarging left upper lobe mass, biopsy from left upper lobe mass confirmed squamous cell carcinoma which could be new primary versus metastatic disease. He underwent right neck dissection on 11/10/2023, final pathology showed 8/16 lymph node positive for metastatic disease, largest lymph node measuring 3.5 cm, extranodal extension noted. He will have SBRT to the left lung mass at [facility] Discussed with him regarding the role of systemic chemotherapy that can be considered, reviewed theinformation outlined on [facility]CC[facility] website. I would consider 5-Fluorouracil, carboplatin and Keytruda combination and he is in agreement for that. Chemotherapy schedule as follows: -5-Fluorouracil infusion 1000 mg/m daily for 4 days -carboplatin at AUC of 5 on day 1 -Keytruda 200 mg on day 1 -repeating every 21 days. He will need port for upcoming chemotherapy. HISTORY OF PRESENT ILLNESS: Sanya Grant is a 78 year old male with a history as outlined above. Currently here for f/u visit today and consideration for C2D1 of treatment. Patient feeling improved today. Mouth sores have completely resolved. Denies nausea or vomiting. Denies neuropathy. Denies rashes or skin changes. Doesreport some mild constipation. Taking stool softener without much relief. Has not yet tried a laxative. Denies significant fevers or chills. Does have a chronic cough of thick white sputum. Trying topush oral fluids. Past Medical History: Diagnosis Date Benign neoplasm [...] determined Mixed dyslipidemia Other seborrheic keratosis Rosacea Past Surgical History: Procedure Laterality Date COLONOSCOPY W/ LESION REMOVAL, SNARE 06/12/2009 adenomatous polyps, diverticulosis--repeat 1 year COLONOSCOPY W/ LESION REMOVAL, SNARE 06/13/2010 3 polyps path shows adenomatous tissue, fair prep, repeat in 2 years COLONOSCOPY W/ LESION REMOVAL, SNARE 11/25/2011 polyps, path shows tubulovillous adenoma repeat in 1 year COLONOSCOPY, DIAGNOSTIC (RECTUM) 12/07/2012 path shows adenomatous polyps repeat in 3 years COLONOSCOPY, DIAGNOSTIC (RECTUM) 12/27/2015 adenomatous polyps, diverticulosis, repeat 3 yrs/COLONOSCOPY FLEXIBLE PROXIMAL DIAGNOSTIC performedby Dianne Hendrickson MD at ENDOSCOPY [facility] COLONOSCOPY, DIAGNOSTIC (RECTUM) 01/05/2019 adenomatous polyps, diverticulosis, repeat 3 yrs/COLONOSCOPY FLEXIBLE PROXIMAL DIAGNOSTIC performedby Dianne Hendrickson MD at [facility] COLONOSCOPY, DIAGNOSTIC (RECTUM) 03/03/2022 benign adenomatous polyps, diverticulosis, repeat 3 yrs / COLONOSCOPY FLEXIBLE PROXIMAL DIAGNOSTIC performed by Dianne Hendrickson MD at ENDOSCOPY [facility] EGD, FLEXIBLE, DIAGNOSTIC 09/05/2009 EGD, FLEXIBLE, DIAGNOSTIC 12/27/2015 normal bx, mild thrush, retained food/ESOPHAGOGASTRODUODENOSCOPY (EGD), FLEXIBLE, TRANSORAL, DIAGNOSTIC performed by Dianne Hendrickson MD at ENDOSCOPY [facility] EGD, FLEXIBLE, DIAGNOSTIC 03/03/2022 small paraesophageal hernia / ESOPHAGOGASTRODUODENOSCOPY (EGD), FLEXIBLE, TRANSORAL, DIAGNOSTIC performed by Dianne Hendrickson MD at ENDOSCOPY [facility] INCISION OF [place], PLANNED N/A 10/09/2022 TRACHEOSTOMY PLANNED, direct laryngoscopy performed by Guy Chowdary DO at OR [facility] INSER TUNN ACC DEV;5 YRS/OLDER Left 12/24/2023 INSERT TUNNELED CENTRAL VENOUS ACCESS WITH SUBQ PORT performed by Prieto Chavez MD at OR [facility] IR BIOPSY 10/04/2023 IR BIOPSY 10/25/2023 IR CHEST TUBE 10/25/2023 LAPAROSCOPY DIAGNOSTIC 01/03/2007 Exploratory Lap, Left descending and sigmoid colon resection with mobilization of the splenic flexure and primary lazara-to-end anastomosis 01/03/07 MISCELLANEOUS ORDER ([facility] ONLY) 11/13/2009 Laparoscopic Zaida, repair of esophageal hernia 11/13/09 Dr. Vazquez [facility] REMOVAL OF NECK LYMPH NODES N/A 11/09/2023 CERVICAL LYMPHADENECTOMY MODIFIED RADICAL NECK DISSECTION performed by Guy Chowdary DO atOR [facility] Social History Socioeconomic History Marital status: Spouse name: Not on file Number of children: Not on file Years of education: Not on file Highest education level: Not on file Occupational History Not on file Tobacco Use Smoking status: Former Current packs/day: 0.00 Types: Cigarettes Quit date: 1994 Years since quittin.3 Smokeless tobacco: Never Substance and Sexual Activity Alcohol use: Yes Alcohol/week: 1.0 standard drink of alcohol Types: 1 12 oz of beer per week Comment: occasionally Drug use: No Sexual activity: Not on file Other Topics Concern Not on file Social History Narrative Not on file Social Determinants of Health Financial Resource Strain: Not on file Food Insecurity: Not on file Transportation Needs: Not on file Physical Activity: Not on file Stress: Not on file Social Connections: Not on file Intimate Partner Violence: Not on file Housing Stability: Not on file Review of patient's allergies indicates: Allergen Reactions [...] via nebulizer as needed.) 360 mL 0 Metoprolol Succinate ER 50 MG Oral Tablet Extended Release 24 Hour (toPROL XL) Take 1 Tablet by mouth in the morning and 1 Tablet before bedtime. 60 Tablet 1 Trelegy Ellipta 100-62.5-25 MCG/ACT Aerosol Powder Breath [...] every 8 hours as needed for Nausea. (Patient not taking: Reported on 12/24/2023) 30 Tablet 2 Prochlorperazine Maleate 10 MG Oral Tablet (Compazine) Take 1 Tablet by mouth every 6 hours as needed for Nausea. (Patient not taking: Reported on 12/24/2023) 30 Tablet 3 Magic Swizzle (Pxneppvro-Djssmvut-Slzrqz) oral solution Swish and swallow 15 mL 4 times a day before meals and at bedtime. 300 mL 1 Current Facility-Administered Medications Medication Dose Route Frequency Provider Last Rate Last Admin NSS 200 mL with Fluorouracil 6,750 mg INFUSION Central IV Continuous Facility-Administered Medications Ordered in Other Visits Medication Dose Route Frequency Provider Last Rate Last Admin Fluorouracil (5-Fu) 6,750 mg for Home Infusion 3,200 mg/m2 (Treatment Plan Recorded) Intravenous Once Eduardo Ovalle MD REVIEW OF SYSTEMS: See HPI - otherwise negative OBJECTIVE: Filed Vitals: 01/17/24 0853 BP: 111/72 Pulse: 78 Temp: 36.7 C (98 F) TempSrc: Tympanic SpO2: 92% Weight: 87.7 kg (193 lb 6.4 oz) Wt Readings from Last 5 Encounters: 01/17/24 87.7 kg (193 lb 6.4 oz) 01/04/24 86.1 kg (189 lb 12.8 oz) 12/27/23 88.5 kg (195 lb) 12/24/23 88.6 kg (195 lb 6.4 oz) 12/03/23 88.6 kg (195 lb 6.4 oz) PHYSICAL EXAM: ECOG: Performance Status 1 = 80-90% Symptoms but nearly ambulatory General Appearance: No acute distress HEENT: Normal - No oral or pharyngeal masses, ulceration or thrush noted Lymph Nodes: Normal - No palpable lymph nodes in the neck or supraclavicular areas, postsurgical/radiation changes to right neck Lungs/Thorax: rhonchi and expiratory wheeze to bilateral upper lobes - clears with cough Heart: Normal - Regular rate, irregular rhythm, no appreciable murmurs Extremities: +1 LLE edema - chronic Neurologic: Normal - Grossly intact LABS: Results for orders placed or performed in visit on 01/14/24 COMPREHENSIVE METABOLIC PANEL Result Value Ref Range BUN 10 6 - 20 mg/dL Creatinine 0.9 0.6 - 1.2 mg/dL Estimated Glomerular Filtration Rate 89 >=60 mL/min Sodium 139 135 - 146 mmol/L Potassium 4.4 3.5 - 5.1 mmol/L Chloride 99 98 - 107 mmol/L CO2 32 22 - 32 mmol/L Anion Gap 8 7 - 15 mmol/L Glucose 112 70 - 120 mg/dL Albumin 3.8 3.8 - 5.0 g/dL AST 30 10 - 50 U/L Alkaline Phosphatase 87 35 - 130 U/L Bilirubin, Total 0.4 <=1.2 mg/dL Calcium 9.3 8.4 - 10.2 mg/dL Protein 6.2 6.0 - 8.3 g/dL ALT 18 10 - 50 U/L TSH WITH FREE T4 IF INDICATED Result Value Ref Range TSH 1.78 0.27 - 4.20 uIU/mL CBC Result Value Ref Range WBC 2.45 (L) 4.00 - 10.80 K/uL RBC 3.58 4.50 - 5.25 M/uL HGB 12.3 (L) 14.0 - 16.8 g/dL HCT 36.8 (L) 40.0 - 48.4 % MCV 102.8 82.0 - 99.5 fL MCH 34.4 27.0 - 34.0 pg MCHC 33.4 32.0 - 36.0 g/dL RDW 14.9 11.5 - 15.5 % PLT 279 140 - 400 K/uL MPV 8.4 6.6 - 11.1 fL DIFFERENTIAL, AUTOMATED Result Value Ref Range WBC 2.45 (L) 4.00 - 10.80 K/uL Neutrophils % 60.0 40.0 - 75.0 % Lymphocytes % 13.9 (L) 18.0 - 42.0 % Monocytes % 24.5 (H) 1.0 - 11.0 % Eosinophils % 1.2 0.0 - 6.0 % Basophils % 0.4 0.0 - 2.0 % Absolute Neutrophils 1.47 (L) 1.80 - 7.70 K/uL Absolute Lymphocytes 0.34 (L) 1.00 - 4.80 K/ul Absolute Monocytes 0.60 0.00 - 1.10 K/uL Absolute Eosinophils 0.03 0.00 - 0.70 K/uL Absolute Basophils 0.01 0.00 - 0.20 K/uL IMPRESSION/PLAN: 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 He underwent right neck dissection on 11/10/2023, final pathology showed 8/16 lymph node positive for metastatic disease, largest lymph node measuring 3.5 cm, extranodal extension noted. Now completing systemic therapy with Carboplatin/5-FU/Keytruda every 21 days. Presents today for C2D1. Experienced grade 3 mucositis s/p C1. 20% dose reduction in 5-FU has been implemented. Lab results reviewed: Hgb has declined to 12.3 Mild neutropenia noted with ANC 1.47 Irregular cardiac rhythm noted on exam today. EKG completed showing sinus rhythm with PACs and leftanterior fascicular block. Patient with history of atrial flutter s/p ablation and paroxysmal atrial fibrillation. Patient is overdue for cardiology follow up. No appointment currently scheduled. Reviewed with Dr. Rogers: will hold chemotherapy today pending cardiology evaluation. Will reach outto cardiology to have appointment scheduled MIKE prior to proceeding with any further chemotherapy.Patient aware and agreeable to plan. Planning for 6 cycles of chemotherapy and then will have Keytruda maintenance until disease progression. F/U with ENT as scheduled RTC pending GIN Arguello documented in this encounter Nursing Notes * Rowan Rocha MED ASSIST - 01/17/2024 8:54 AM EDT Patient identifed by name and birthdate Do you have any concerns about pain management for today's visit? No Living Will or Advance Directive for Health Care as noted on the problem list. [facility] is a way you can talk to your provider on line through e-mail. Would you like to sign up? I can activate it for you? ALREADY ACTIVE Filed Vitals: 01/17/24 0853 BP: 111/72 Pulse: 78 Temp: 36.7 C (98 F) TempSrc: Tympanic SpO2: 92% Weight: 87.7 kg (193 lb 6.4 oz) Patient was instructed to not get up on the exam table/exam chair until directed and assisted by their provider; patient is to remain seated in the chair/ wheelchair/ exam table/ exam chair for fall prevention and safety reasons. Patient is aware to have assistance to step down off exam table/exam chair with personnel. Patient voiced full comprehension of instructions. documented in this encounter Plan of Treatment Upcoming Encounters Date Type Department Care Team (Late st Contact Info) Description 01/31/2024 1:00 PM EDT Office Visit Otolaryngology/Head & Neck/Facial Plastic Surgery [address] [place] [address] Guy Chowdary DO [address] [place] [address] 02/09/2024 10:45 AM EDT Office Visit Hematology/Oncology [facility] [address] [place] [phone] Eduardo Ovalle MD [address] [facility] [place] [address] 03/20/2024 7:40 AM EDT Laboratory Laboratory [address] [place] [phone] [place] [address] Scheduled Orders Name Type Priority Associated Diagnoses Orde r Schedule EKG EKG Routine Irregular cardiac rhythm Ordered: 01/17/2024 Scheduled Procedures Name Priority Associated Diagnoses Date/Ti [...] this encounter Medical Devices Implanted Type Area Gear Cutter Device Identifier Shelf Expiration Date Model / Serial / Lot Port Implant W8f Poly Cath - [id number] Implanted:Qty: 1 on 12/24/2023 by Prieto Chavez MD at OR [facility] BARD : PERIPHERAL VASCULAR [id number] 01/13/2025 [id number] / / [id number] documented as of this encounter Visit Diagnoses Diagnosis Laryngeal cancer (HCC)- Primary Malignant neoplasm of larynx, unspecified site 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
--- OUTSIDE RECORDS SUMMARY | 2024-01-28 22:45 | External Medical Summary ---
Author Name Unknown Address Unknown Organization [id number]:LABORATORY [facility] [address] [place] [address] Laboratory Report Ordering Provider Test Date Status CHANDAN MORA 01/14/2024 09:28:29 Final Observation Date Value Abnormality Reference (Units ) Status SYNC LEUKOCYTES IN BLOOD BY AUTOMATED COUNT 01/14/2024 09:28:29 2.45 Below low normal 4.00-10.80 (K/uL) Final Segs 01/14/2024 09:28:29 60.0 40.0-75.0 (%) Final Lymphs % 01/14/2024 09:28:29 13.9 Below low normal 18.0-42.0 (%) Final Monos 01/14/2024 09:28:29 24.5 Above high normal 1.0-11.0 (%) Final Eosinophils 01/14/2024 09:28:29 1.2 0.0-6.0 (%) Final Basos 01/14/2024 09:28:29 0.4 0.0-2.0 (%) Final Absolute Segs 01/14/2024 09:28:29 1.47 Below low normal 1.80-7.70 (K/uL) Final Lymphs, absolute 01/14/2024 09:28:29 0.34 Below low normal 1.00-4.80 (K/ul) Final Monos, Abs 01/14/2024 09:28:29 0.60 0.00-1.10 (K/uL) Final Eos, Abs 01/14/2024 09:28:29 0.03 0.00-0.70 (K/uL) Final Basos, Abs 01/14/2024 09:28:29 0.01 0.00-0.20 (K/uL) Final Performing Location [facility] [address] [place] [address]
--- OUTSIDE RECORDS SUMMARY | 2024-01-28 22:45 | External Medical Summary ---
Author Name Unknown Address Unknown Organization [id number]:LABORATORY [facility] [address] [place] [address] Laboratory Report Ordering Provider Test Date Status CHANDAN MORA 01/14/2024 09:28:29 Final Observation Date Value Abnormality Reference (Units ) Status BUN 01/14/2024 09:28:29 10 6-20 (mg/dL) Final Creatinine 01/14/2024 09:28:29 0.9 0.6-1.2 (mg/dL) Final Glomerular filtration rate/1.73 sq M.predicted [Volume Rate/Area] in Serum, Plasma or Blood by Creatinine-based formula (CKD-EPI) 01/14/2024 09:28:29 89 >=60 (mL/min) Final eGFR is calculated based on the CKD-EPI 2020 equation Sodium 01/14/2024 09:28:29 139 135-146 (m mol/L) Final Potassium 01/14/2024 09:28:29 4.4 3.5-5.1 (m mol/L) Final Cl 01/14/2024 09:28:29 99 98-107 (mm ol/L) Final CO2 01/14/2024 09:28:29 32 22-32 (mmo l/L) Final Anion gap 01/14/2024 09:28:29 8 7-15 (mmol /L) Final Glucose 01/14/2024 09:28:29 112 70-120 (mg /dL) Final Albumin 01/14/2024 09:28:29 3.8 3.8-5.0 (g /dL) Final AST (Aspartate aminotransferase) 01/14/2024 09:28:29 30 10-50 (U/L) Final Result may be falsely elevat ed due to hemolysis. Alk Phos 01/14/2024 09:28:29 87 35-130 (U/ L) Final Bilirubin, Total 01/14/2024 09:28:29 0.4 <=1 .2 (mg/dL) Final Calcium 01/14/2024 09:28:29 9.3 8.4-10.2 ( mg/dL) Final Protein 01/14/2024 09:28:29 6.2 6.0-8.3 (g /dL) Final ALT (Alanine aminotransferase) 01/14/2024 09:28:29 18 10-50 (U/L) Final Performing Location [facility] [place] [address]
--- OUTSIDE RECORDS SUMMARY | 2024-01-28 22:45 | External Medical Summary | Summary of Care ---
Author Name Unknown Organization [facility] Address [address] [place] [address] Phone [phone] Care Team Providers Care Lead Enterprise Architect Name Role Phone KwesivioletaGenovevae Primary Care Provider +1- [phone] Encounter Details Date Type Department Care Team (Late st Contact Info) Description 01/02/2024 Orders Only Hematology/Oncology, [facility] [address] [place] [address] Audrey Rogers MD [address] [place] [address] Patient was seen IN [facility] with symptoms of mucositis. Counts were Allergies Active Allergy Reactions Criticality Noted Date Comments Lisinopril Cough 11/30/2012 Simvastatin Muscle pain 07/05/2023 documented as of this encounter (statuses as of 01/02/2024) Medications Medication Sig Dispensed Refills Start Date [...] as of this encounter (statuses as of 01/02/2024) Active Problems Problem Noted Date Diagnosed Date [...] as of this encounter (statuses as of 01/02/2024) Resolved Problems Problem Noted Date Diagnosed Date Resolved Date Hemoptysis 10/12/2022 10/20/2022 PAF (paroxysmal atrial fibrillation) 09/06/2017 09/06/2017 Mixed dyslipidemia 07/19/2002 9 Overview: Per Lipid Taxonomy. documented as of this encounter (statuses as of 01/02/2024) Immunizations Name Administration Dates Next Due Seasonal [...] as of this encounter Progress Notes * Audrey Rogers MD - 01/02/2024 6:10 PM EDT Patient was seen IN [facility] with symptoms of mucositis. Counts were acceptable. Patient was discharge on majic mouth wash. documented in this encounter Plan of Treatment Upcoming Encounters Date Type Department Care Team (Late st Contact Info) Description 01/14/2024 8:00 AM EDT Laboratory Laboratory, [facility] [address] [place] [phone] [facility] [address] [place] [address] 01/17/2024 9:00 AM EDT Office Visit Hematology/Oncology [address] [place] [address] Soledad Munoz CRNP [address] [facility] [address] 01/17/2024 9:30 AM EDT Hem/Onc Treatment Hematology/Oncology Treatment, [place] [address] [facility] [address] [place] [phone] Tash, Chair 4 Hem Onc [facility] [address] [facility] [place] [address] 01/31/2024 1:00 PM EDT Office Visit Otolaryngology/Head & Neck/Facial Plastic Surgery [address] [place] [address] Guy Chowdary DO [address], [place] [id number] 03/20/2024 7:40 AM EDT Laboratory Laboratory [address] [place] [phone] [place] [address] Scheduled Procedures Name Priority Associated Diagnoses Date/Ti me COLONOSCOPY FLEXIBLE PROXIMAL DIAGNOSTIC Recall History of colon polyps Health Maintenance Due Date Last Done Comments Depression Screening 1957 Albumin/Creatinine Ratio 1964 Hepatitis C Screening 1964 DTaP,Tdap,and Td Vaccines (1 - Tdap) 1965 Zoster Vaccines (1 of 2) 1965 COVID-19 Vaccine (4 - 2022- season) 2023 07/02/2021, 11/04/2020, 10/14/2020 GFR 12/23/2024 12/24/2023, 10/14, 10/25/2023, Additional history exists TSH 12/23/2024 12/24/2023, 07/17, 05/13/2023, Additional history exists Colonoscopy 03/03/2025 03/03/2022, 02/13, [...] encounter Medical Devices Implanted Type Area Web Applications Programmer Device Identifier Shelf Expiration Date Model / Serial / Lot Port Implant W8f Poly Cath - [id number] Implanted:Qty: 1 on 12/24/2023 by Prieto Chavez MD at OR [facility] BARD : PERIPHERAL VASCULAR [id number] 01/13/2025 [id number] / / [id number] documented as of this encounter Advance Directives [...] Advance Directives occurred with: Patient Care Teams Lead Enterprise Architect Relationship Specialty Start Date End Date Genoveva Alcocer DO [address] [facility] 2 [place] [address] PCP - General Family Medicine 12/29/19 documented as of this encounter
--- OUTSIDE RECORDS SUMMARY | 2024-01-28 22:45 | External Medical Summary | Summary of Care ---
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 300 mL 1 01/03/2024 Active Fluconazole 100 MG Oral Tablet (Diflucan)Indicatio ns:Mucositis due to chemotherapy Take 1 Tablet by mouth in the morning for 7 days. 7 Tablet 01/04/2024 01/11/2024 Active documented as of this encounter (statuses as of 01/05/2024) Active Problems Problem Noted Date Diagnosed Date [...] as of this encounter (statuses as of 01/05/2024) Resolved Problems Problem Noted Date Diagnosed Date Resolved Date Hemoptysis 10/12/2022 10/20/2022 PAF (paroxysmal atrial fibrillation) 09/06/2017 09/06/2017 Mixed dyslipidemia 07/19/2002 9 Overview: Per Lipid Taxonomy. documented as of this encounter (statuses as of 01/05/2024) Immunizations Name Administration Dates Next Due Seasonal [...] Sign Reading Time Taken Comments Blood Pressure 118/70 01/04/2024 11:57 AM EDT Pulse 71 01/04/2024 11:57 AM EDT Temperature 37 C (98.6 F) 01/04/2024 11: 57 AM EDT Respiratory Rate - - Oxygen Saturation 92% 01/04/2024 11: 57 AM EDT Inhaled Oxygen Concentration - - Weight 86.1 kg (189 lb 12.8 oz) 024 11:57 AM EDT Height - - Body Mass Index 26.47 12/24/2023 9:11 AM EDT documented in this [...] Progress Notes * Soledad Munoz CRNP - 01/04/2024 11:55 AM EDT Images from the original note were not included. Hematology/Oncology Outpatient Clinic note [facility] [place] [address] [place] [address] Name: Sanya Grant Date: 01/04/2024 CHIEF COMPLAINT: Sanya Grant is a 78 year old male here today for f/u visit today. Patient of Dr. Eduardo Ovalle. From Patient chart confirmed with patient. From Dr. Eduardo Ovalle note 12/03/23. HEMATOLOGY/ONCOLOGY DIAGNOSIS: Supraglottic squamous cell carcinoma Squamous [...] IV D1 q21 Days (12/24/23 - ) DIAGNOSTIC WORKUP: He complained of increasing difficulty [...] at head and neck multidisciplinary clinic at [facility], clinical staging --> T3 c N2c M0, stage IV. He started having hemoptysis, had tracheostomy on 10/09/2022 (to protect the airway).. Left supraglottic mass biopsy --> invasive squamous cell carcinoma moderately differentiated (10/09/2022) OTHER IMPORTANT HISTORY: -Adenocarcinoma of the right lung, stage I in 2016 , resection by Dr. Brown, no adjuvant [...] SBRT to the left lung mass at [facility] Discussed with him regarding the role of [...] history as outlined above. Currently here for acute visit today. Patient noticed Wednesday morning a couple bumps showed up in his mouth. By Wednesday nighthis mouth was full of ulcers. Went to the ED Wednesday night. Gave him magic swizzle. This worked well for him. Uses this and is able to eat and drink better. Past Medical History: Diagnosis Date Benign neoplasm [...] DIAGNOSTIC performedby Dianne Hendrickson MD at ENDOSCOPY [facility] COLONOSCOPY, DIAGNOSTIC (RECTUM) 01/05/2019 adenomatous polyps, diverticulosis, repeat 3 yrs/COLONOSCOPY FLEXIBLE PROXIMAL DIAGNOSTIC performedby Dianne Hendrickson MD at ENDOSCOPY [facility] COLONOSCOPY, DIAGNOSTIC (RECTUM) 03/03/2022 benign adenomatous polyps, diverticulosis, repeat 3 yrs / COLONOSCOPY FLEXIBLE PROXIMAL DIAGNOSTIC performed by Dianne Hendrickson MD at [facility]COPY [facility] EGD, FLEXIBLE, DIAGNOSTIC 09/05/2009 EGD, FLEXIBLE, DIAGNOSTIC 12/27/2015 normal bx, mild thrush, retained food/ESOPHAGOGASTRODUODENOSCOPY (EGD), FLEXIBLE, TRANSORAL, DIAGNOSTIC performed by Dianne Hendrickson MD at [facility]COPY [facility] EGD, FLEXIBLE, DIAGNOSTIC 03/03/2022 small paraesophageal hernia / ESOPHAGOGASTRODUODENOSCOPY (EGD), FLEXIBLE, TRANSORAL, DIAGNOSTIC performed by Dianne Hendrickson MD at END[facility]COPY [facility] INCISION OF [place], PLANNED N/A 10/09/2022 TRACHEOSTOMY PLANNED, direct laryngoscopy performed by Guy Chowdary DO at OR [facility] INSER TUNN ACC DEV;5 YRS/OLDER Left 12/24/2023 INSERT TUNNELED CENTRAL VENOUS ACCESS WITH SUBQ PORT performed by Prieto Chavez MD at OR [facility] IR BIOPSY 10/04/2023 IR BIOPSY 10/25/2023 IR CHEST TUBE 10/25/2023 LAPAROSCOPY DIAGNOSTIC 01/03/2007 Exploratory Lap, Left descending and sigmoid colon resection with mobilization of the splenic flexure and primary lazara-to-end anastomosis 01/03/07 MISCELLANEOUS ORDER ([facility] ONLY) 11/13/2009 Laparoscopic Zaida, repair of esophageal hernia 11/13/09 Dr. Vazquez [facility] REMOVAL OF NECK LYMPH NODES N/A 11/09/2023 CERVICAL LYMPHADENECTOMY MODIFIED RADICAL NECK DISSECTION performed by Guy Chowdary DO at[facility] Social History Socioeconomic History Marital [...] on 12/24/2023) 30 Tablet 3 Magic Swizzle (Ilfrrezzq-Yshmnrfi-Dfgwzk) oral solution Swish and swallow 15 mL 4 times a day before meals and at bedtime. 300 mL 1 No current facility-administered medications for this visit. REVIEW OF SYSTEMS: See HPI - otherwise negative OBJECTIVE: Filed Vitals: 01/04/24 1157 BP: 118/70 Pulse: 71 Temp: 37 C (98.6 F) TempSrc: Tympanic SpO2: 92% Weight: 86.1 kg (189 lb 12.8 oz) Wt Readings from Last 5 Encounters: 01/04/24 86.1 kg (189 lb 12.8 oz) 12/27/23 88.5 kg (195 lb) 12/24/23 88.6 kg (195 lb 6.4 oz) 12/03/23 88.6 kg (195 lb 6.4 oz) 11/09/23 89.4 kg (197 lb) PHYSICAL EXAM: ECOG: Performance Status 1 = 80-90% Symptoms but nearly ambulatory General Appearance: No acute distress HEENT: +diffuse oral mucositis Lymph Nodes: Normal - No palpable lymph nodes in the neck or supraclavicular areas Lungs/Thorax: Normal respiratory effort Extremities: No edema Neurologic: Normal - Grossly intact LABS: IMPRESSION/PLAN: 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 Given prescription for magic swizzle that he is using four times daily as prescribed with improvement. Now eating and drinking without significant difficulty. CBCd and CMP reviewed: unremarkable; no neutropenia, renal insufficiency or electrolyte abnormalities noted Continue magic swizzle four times daily - prescription renewed. Continue good oral care. Education provided Due to severity of mucositis prescription provided for Diflucan 100 mg daily for seven days. Reviewed case with Dr. Eduardo Ovalle: will dose reduce Fluorouracil by 20% for all future treatment cycles. RTC as scheduled GIN Arguello documented in this encounter Nursing Notes * Rowan Rocha MED ASSIST - 01/04/2024 11:58 AM EDT Patient identifed by name and birthdate Do you have any concerns about pain management for today's visit? Yes. Patient instructed to discuss pain concerns with provider during the visit today Living Will or Advance Directive for Health Care as noted on the problem list. [facility] is a way you can talk to your provider on line through e-mail. Would you like to sign up? I can activate it for you? ALREADY ACTIVE Filed Vitals: 01/04/24 1157 BP: 118/70 Pulse: 71 Temp: 37 C (98.6 F) TempSrc: Tympanic SpO2: 92% Weight: 86.1 kg (189 lb 12.8 oz) Patient was instructed to not get [...] Description 01/14/2024 8:00 AM EDT Laboratory Laboratory, [facility] [place] 132 [facility] [place] [phone] Gregory Duenas 132 [facility] [place] [address] 01/17/2024 9:00 AM EDT Office Visit Hematology/Oncology [facility] [place] [address] [place] [address] Soledad Munoz CRNP [address] [place] [address] 01/17/2024 9:30 AM EDT Hem/Onc Treatment Hematology/Oncology Treatment, [place] [address] [place] [address] Tash, Chair 4 Hem Onc [address] 200 [facility] [place] [address] 01/31/2024 1:00 PM EDT Office Visit Otolaryngology/Head & Neck/Facial Plastic Surgery [address] [place] [address] Guy Chowdary, [address] [place] [address] 03/20/2024 7:40 AM EDT Laboratory Laboratory [address] [place] [phone] [address] [place] [address] Scheduled Procedures Name Priority Associated Diagnoses Date/Ti me COLONOSCOPY FLEXIBLE PROXIMAL DIAGNOSTIC Recall History of colon polyps Health Maintenance Due Date Last Done Comments Depression Screening 1958 Albumin/Creatinine Ratio 1964 Hepatitis C Screening 1964 DTaP,Tdap,and Td Vaccines (1 - Tdap) 1965 Zoster Vaccines (1 of 2) 1965 COVID-19 Vaccine (4 - season) 2023 07/02/2021, 11/04/2020, 10/14/2020 TSH 12/23/2024 12/24/2023, 07/17, 05/13/2023, Additional history exists GFR 12/31/2024 01/01/2024, 12/14, 10/26/2023, Additional history exists Colonoscopy 03/03/2025 03/03/2022, 02/13, [...] this encounter Medical Devices Implanted Type Area Hair Specialist Device Identifier Shelf Expiration Date Model / Serial / Lot Port Implant W8f Poly Cath - [id number] Implanted:Qty: 1 on 12/24/2023 by Prieto Chavez MD at [facility] BARD : PERIPHERAL VASCULAR [id number] 01/13/2025 [id number] / / [id number] documented as of this encounter Visit Diagnoses Diagnosis Laryngeal cancer (HCC)- Primary Malignant neoplasm of larynx, unspecified site 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
--- OUTSIDE RECORDS SUMMARY | 2024-01-28 22:45 | External Medical Summary ---
Author Name Unknown Address Unknown Organization K0G:[facility] [address] [place] [address] Laboratory Report Ordering Provider Test Date Status CHANDAN MORA 01/14/2024 09:28:29 Final Observation Date Value Abnormality Reference (Units ) Status WBC, Total 01/14/2024 09:28:29 2.45 Below low normal 4. 00-10.80 (K/uL) Final RBC 01/14/2024 09:28:29 3.58 4.50-5.25 (M/uL) Final Hemoglobin 01/14/2024 09:28:29 12.3 Below low normal 14 .0-16.8 (g/dL) Final HCT 01/14/2024 09:28:29 36.8 Below low normal 40. 0-48.4 (%) Final MCV 01/14/2024 09:28:29 102.8 82.0-99.5 (fL) Final MCH 01/14/2024 09:28:29 34.4 27.0-34.0 (pg) Final MCHC 01/14/2024 09:28:29 33.4 32.0-36.0 (g/dL) Final RDW 01/14/2024 09:28:29 14.9 11.5-15.5 (%) Final Platelets 01/14/2024 09:28:29 279 140-400 (K /uL) Final MPV 01/14/2024 09:28:29 8.4 6.6-11.1 ( fL) Final Performing Location [facility] [address] [place] [address]
--- OUTSIDE RECORDS SUMMARY | 2024-01-28 22:45 | External Medical Summary | Summary of Care ---
Author Name Unknown Organization [facility] Address [address] [place] [address] Phone [phone] Care Team Providers Care Aluminum Boats Assembler Name Role Phone Leodan Genovevamckinley Brizuela Primary Care Provider +1- [phone] Reason for Visit * Reason Onset Date Comments Follow Up 01/17/2024 Encounter Details Date Type Department Care Team (Late st Contact Info) Description 01/17/2024 Telephone Hematology/Oncology [facility] [place] 200 [facility] [place] [address] Soledad Munoz CRNP [address] [facility] [...] 10:01 AM EDT Pt treatment cancelled for 01/16 per Ronnell. GIN Munoz d/t EKG changes. Patient to have eval by Cardiology prior to restarting. documented in this encounter Plan of Treatment Upcoming Encounters Date Type Department Care Team (Late st Contact Info) Description 01/31/2024 1:00 PM EDT Office Visit Otolaryngology/Head & Neck/[facility]acial Plastic [facility] [address] [facility] [address] Guy Chowdary DO [address] [facility] [place] [address] 02/09/2024 10:45 AM EDT Office Visit Hematology/Oncology [facility] [place] [address] [place] [address] Eduardo Ovalle MD [address] [place], [place] [address] 03/20/2024 7:40 AM EDT Laboratory Laboratory [address] [place] [phone] [place], Lab [address] [place] [address] Scheduled Procedures Name Priority Associated Diagnoses Date/Ti me COLONOSCOPY FLEXIBLE PROXIMAL DIAGNOSTIC Recall History of colon polyps Health Maintenance Due Date Last Done Comments Depression Screening 1958 Albumin/Creatinine Ratio 1964 Hepatitis C Screening 1964 DTaP,Tdap,and Td Vaccines (1 - Tdap) 1965 Zoster Vaccines (1 of 2) 1965 COVID-19 Vaccine ( season) 2023 07/02/2021, 11/04/2020, 10/14/2020 GFR 01/13/2025 [...] this encounter Medical Devices Implanted Type Area Poultry Offal Icer Device Identifier Shelf Expiration Date Model / Serial / Lot Port Implant W8f Poly Cath - [id number] Implanted:Qty: 1 on 12/24/2023 by Prieto Chavez MD at OR [facility] BARD : PERIPHERAL VASCULAR [id number] 01/13/2025 [id number] / / [id number] documented as of this encounter Advance Directives [...] Advance Directives occurred with: Patient Care Teams Aluminum Boats Assembler Relationship Specialty Start Date End Date Genoveva Alcocer DO [address] [facility] 2 [place] [address] PCP - General Family Medicine 12/29/19 documented as of this encounter
--- OUTSIDE RECORDS SUMMARY | 2024-01-28 22:45 | External Medical Summary | Summary of Care ---
Author Name Unknown Organization [facility] Address [address] [place] [address] Phone [phone] Care Team Providers Care Field Captain Name Role Phone Leodan Genovevamckinley Brizuela Primary Care Provider +1- [phone] Reason for Visit * Reason Onset Date Comments Follow Up 01/17/2024 Encounter Details Date Type Department Care Team (Late st Contact Info) Description 01/17/2024 Telephone Hematology/Oncology [facility] [place] 200 [facility] [place] [address] Soledad Munoz CRNP 400 [facility] [place] [address] Follow [...] Otolaryngology/Head & Neck/Facial Plastic Surgery [address] [facility] [place] [address] Guy Chowdary DO [address] [facility] [place] [address] 02/09/2024 10:45 AM EDT Office Visit Hematology/Oncology [facility] [place] [address] [place] [address] Eduardo Ovalle MD [address] [place], [place] [address] 03/20/2024 7:40 AM EDT Laboratory Laboratory [address] [place] [phone] [place], Lab [address] [place] [address] Scheduled Procedures Name Priority Associated Diagnoses Date/Ti [...] this encounter Medical Devices Implanted Type Area Sausage Cutter Device Identifier Shelf Expiration Date Model / Serial / Lot Port Implant W8f Poly Cath - [id number] Implanted:Qty: 1 on 12/24/2023 by Prieto Chavez MD at OR [facility] BARD : PERIPHERAL VASCULAR [id number] 01/13/2025 [id number] / / [id number] documented as of this encounter Advance Directives [...] Advance Directives occurred with: Patient Care Teams Field Captain Relationship Specialty Start Date End Date Genoveva Alcocer DO [address] [facility] 2 [place] [address] PCP - General Family Medicine 12/29/19 documented as of this encounter
--- OUTSIDE RECORDS SUMMARY | 2024-01-28 22:45 | External Medical Summary | Summary of Care ---
Author Name Unknown Organization [facility] Address [address] [place] [address] Phone [phone] Care Team Providers Care Wagon Drill Operator Name Role Phone Leodan Genovevamckinley Brizuela Primary Care Provider +1- [phone] Reason for Visit * Reason Onset Date Comments Follow Up 01/17/2024 Encounter Details Date Type Department Care Team (Late st Contact Info) Description 01/17/2024 Telephone Hematology/Oncology [facility] [place] [address] [facility] [place] [address] Soledad Munzo CRNP [address] [facility] [place] [address] Follow Up [...] Otolaryngology/Head & Neck/Facial Plastic Surgery [facility] [place] [address] Guy Chowdary DO [address] [facility] [place] [address] 02/09/2024 10:45 AM EDT Office Visit Hematology/Oncology [facility] [place] [address] [place] [address] Eduardo Ovalle MD [address] [place], [place] [address] 03/20/2024 7:40 AM EDT Laboratory Laboratory [address] [place] [phone] [place], Lab [address] [place] [address] Scheduled Procedures Name Priority Associated Diagnoses Date/Ti [...] this encounter Medical Devices Implanted Type Area Cpc Coder Device Identifier Shelf Expiration Date Model / Serial / Lot Port Implant W8f Poly Cath - [id number] Implanted:Qty: 1 on 12/24/2023 by Prieto Chavez MD at OR [facility] BARD : PERIPHERAL VASCULAR [id number] 01/13/2025 [id number] / / [id number] documented as of this encounter Advance Directives [...] Advance Directives occurred with: Patient Care Teams Wagon Drill Operator Relationship Specialty Start Date End Date Genoveva Alcocer DO [address] [facility] 2 [place] [address] PCP - General Family Medicine 12/29/19 documented as of this encounter
--- OUTSIDE RECORDS SUMMARY | 2024-01-28 22:45 | External Medical Summary | Summary of Care ---
Author Name Unknown Organization [facility] Address [address] [place] [address] Phone [phone] Care Team Providers Care Hand Potter Name Role Phone Genoveva Alcocer DO Primary Care Provider +1- [phone] Reason for Visit * Reason Comments Outpatient Testing Encounter Details Date Type Department Care Team (Late st Contact Info) Description 01/14/2024 9:10 AM EDT Laboratory Laboratory, [facility] [address] [place] [phone] [facility] [address] [place] [address] Laryngeal cancer (HCC) Allergies Active Allergy Reactions Criticality Noted Date Comments Lisinopril Cough 11/30/2012 Simvastatin Muscle pain 07/05/2023 documented as of this encounter (statuses as of 01/14/2024) Medications Medication Sig Dispensed Refills Start Date [...] as of this encounter (statuses as of 01/14/2024) Active Problems Problem Noted Date Diagnosed Date [...] as of this encounter (statuses as of 01/14/2024) Resolved Problems Problem Noted Date Diagnosed Date Resolved Date Hemoptysis 10/12/2022 10/20/2022 PAF (paroxysmal atrial fibrillation) 09/06/2017 09/06/2017 Mixed dyslipidemia 07/19/2002 9 Overview: Per Lipid Taxonomy. documented as of this encounter (statuses as of 01/14/2024) Immunizations Name Administration Dates Next Due Seasonal [...] 01/17/2024 9:00 AM EDT Office Visit Hematology/Oncology [facility] [address] [facility] [place] [phone] Soledad Munoz CRNP [address] [place] [address] 01/17/2024 9:30 AM EDT Hem/Onc Treatment Hematology/Oncology Treatment, [place] [address] [place] [phone] Tash, Chair 4 Hem Onc [facility] [address] [facility] [place] [address] 01/31/2024 1:00 PM EDT Office Visit Otolaryngology/Head & Neck/Facial Plastic Surgery [address] [place] [address] Guy Chowdary, [address] [place] [address] 03/20/2024 7:40 AM EDT Laboratory Laboratory [address] [place] [phone] [place] [address] Pending Results Name Type Priority Associated Diagnoses Date /Time COMPREHENSIVE METABOLIC PANEL Lab STAT Laryngeal cancer (HCC) 01/14/2024 9:28 AM EDT TSH WITH FREE T4 IF INDICATED Lab STAT Laryngeal cancer (HCC) 01/14/2024 9:28 AM EDT Scheduled Procedures Name Priority Associated [...] this encounter Medical Devices Implanted Type Area Mail Room Clerk Device Identifier Shelf Expiration Date Model / Serial / Lot Port Implant W8f Poly Cath - [id number] Implanted:Qty: 1 on 12/24/2023 by Prieto Chavez MD at OR [facility] BARD : PERIPHERAL VASCULAR [id number] 01/13/2025 [id number] / / [id number] documented as of this encounter Procedures Procedure Name Priority Date/Time Associated Diagnosis Comments DIFFERENTIAL, AUTOMATED STAT 01/14/2024 9:28 AM EDT Laryngeal cancer (HCC) CBC STAT 01/14/2024 9:28 AM EDT Laryngeal cancer (HCC) CBC STAT 01/14/2024 9:28 AM EDT Laryngeal cancer (HCC) documented in this encounter Results * (ABNORMAL) DIFFERENTIAL, AUTOMATED (01/14/2024 9:28 AM EDT) WBC 2.45(L) 4.00 - 10.80 K/uL 01/14/2024 9:41 AM EDT [facility] Neutrophils % 60.0 40.0 - 75.0 % 01/14/2024 9:41 AM EDT [facility] Lymphocytes % 13.9(L) 18.0 - 42.0 % 01/14/2024 9:41 AM EDT [facility] Monocytes % 24.5(H) 1.0 - 11.0 % 01/14/2024 9:41 AM EDT [facility] Eosinophils % 1.2 0.0 - 6.0 % 01/14/2024 9:41 AM EDT [facility] Basophils % 0.4 0.0 - 2.0 % 01/14/2024 9:41 AM EDT [facility] Absolute Neutrophils 1.47(L) 1.80 - 7.70 K/uL 01/14/2024 9:41 AM EDT [facility] Absolute Lymphocytes 0.34(L) 1.00 - 4.80 K/ul 01/14/2024 9:41 AM EDT [facility] Absolute Monocytes 0.60 0.00 - 1.10 K/uL 01/14/2024 9:41 AM EDT [facility] Absolute Eosinophils 0.03 0.00 - 0.70 K/uL 01/14/2024 9:41 AM EDT [facility] Absolute Basophils 0.01 0.00 - 0.20 K/uL 01/14/2024 9:41 AM EDT [facility] Blood Venous blood specimen / Unknown Venipuncture / Unknown 01/14/2024 9:28 AM EDT 01/14/2024 9:28 AM EDT Eduardo Ovlale MD LAB BLOOD ORDERABLES [facility] [address] [place] [address] * (ABNORMAL) CBC (01/14/2024 9:28 AM EDT) WBC 2.45(L) 4.00 - 10.80 K/uL 01/14/2024 9:41 AM EDT [facility] RBC 3.58 4.50 - 5.25 M/uL 01/14/2024 9:41 AM EDT [facility] HGB 12.3(L) 14.0 - 16.8 g/dL 01/14/2024 9:41 AM EDT [facility] HCT 36.8(L) 40.0 - 48.4 % 01/14/2024 9:41 AM EDT [facility] MCV 102.8 82.0 - 99.5 fL 01/14/2024 9:41 AM EDT [facility] MCH 34.4 27.0 - 34.0 pg 01/14/2024 9:41 AM EDT [facility] MCHC 33.4 32.0 - 36.0 g/dL 01/14/2024 9:41 AM EDT [facility] RDW 14.9 11.5 - 15.5 % 01/14/2024 9:41 AM EDT [facility] PLT 279 140 - 400 K/uL 01/14/2024 9:41 AM EDT [facility] MPV 8.4 6.6 - 11.1 fL 01/14/2024 9:41 AM EDT [facility] Blood Venous blood specimen / Unknown Venipuncture / Unknown 01/14/2024 9:28 AM EDT 01/14/2024 9:28 AM EDT Eduardo Ovalle MD LAB BLOOD ORDERABLES [facility] [place] [facility] [address] [place] [address] documented in this encounter Visit Diagnoses Diagnosis Laryngeal cancer (HCC) Malignant neoplasm of larynx, unspecified site documented in this encounter Advance Directives * [...] Advance Directives occurred with: Patient Care Teams Hand Potter Relationship Specialty Start Date End Date Genoveva Alcocer DO [address] [facility] 2 [place] [address] PCP - General Family Medicine 12/29/19 documented as of this encounter
--- OUTSIDE RECORDS SUMMARY | 2024-01-28 22:45 | External Medical Summary ---
Author Name Unknown Address Unknown Organization K01:[facility] [address] [place] [id number] Laboratory Report Ordering Provider Test Date Status CHANDAN MORA 01/14/2024 09:28:29 Final Observation Date Value Abnormality Reference (Units ) Status TSH 01/14/2024 09:28:29 1.78 0.27-4.20 (uIU/mL) Final Performing Location [facility] - [address] [place] [id number]
--- OUTSIDE RECORDS SUMMARY | 2024-01-28 22:45 | External Medical Summary | Summary of Care ---
Author Name Unknown Organization [facility] Address [address] [place] [address] Phone [phone] Care Team Providers Care Bow Maker Machine Tender Name Role Phone Leodan Genovevamckinley Brizuela Primary Care Provider +1- [phone] Reason for Visit * Reason Onset Date Comments Follow Up 01/17/2024 Encounter Details Date Type Department Care Team (Late st Contact Info) Description 01/17/2024 Telephone Hematology/Oncology [facility] [place] [address] [facility] [place] [address] Soledad Munoz CRNP [address] [facility] [place] [address] Follow Up [...] EDT Pt treatment cancelled for 6/3 per M. GIN Munoz d/t EKG changes. Patient to have eval by Cardiology prior to restarting. documented in this encounter Plan of Treatment Upcoming Encounters Date Type Department Care Team (Late st Contact Info) Description 01/31/2024 1:00 PM EDT Office Visit Otolaryngology/Head & Neck/Facial Plastic Surgery [address] [place] [address] Guy Chowdary DO [address] [place] [address] 02/09/2024 10:45 AM EDT Office Visit Hematology/Oncology [facility] [place] [facility] [phone] Eduardo Ovalle MD [address] [place] [address] 03/20/2024 7:40 AM EDT Laboratory Laboratory [address] [place] [phone] [place] [address] Scheduled Procedures Name Priority Associated Diagnoses Date/Ti [...] this encounter Medical Devices Implanted Type Area Cable Wirer Device Identifier Shelf Expiration Date Model / Serial / Lot Port Implant W8f Poly Cath - [id number] Implanted:Qty: 1 on 12/24/2023 by Prieto Chavez MD at [facility] BARD : PERIPHERAL VASCULAR [id number] 01/13/2025 [id number] / / [id number] documented as of this encounter Advance Directives [...] Advance Directives occurred with: Patient Care Teams Bow Maker Machine Tender Relationship Specialty Start Date End Date Genoveva Alcocer DO [address] [facility] 2 [place] [address] PCP - General Family Medicine 12/29/19 documented as of this encounter
--- OUTSIDE RECORDS SUMMARY | 2024-01-28 22:45 | External Medical Summary | Summary of Care ---
Author Name Unknown Organization [facility] Address [address] [place] [address] Phone [phone] Care Team Providers Care Tree Topper Name Role Phone Genoveva Alcocer Primary Care Provider +1- [phone] Encounter Details Date Type Department Care Team (Late st Contact Info) Description 01/05/2024 Orders Only Hematology/Oncology [facility] [place] [address] [facility] [place] [phone] Eduardo Ovalle MD [address] [facility] [place] [address] Allergies Active Allergy Reactions Criticality Noted Date [...] Description 01/14/2024 8:00 AM EDT [facility], [facility] [phone] [facility] [address] 01/17/2024 9:00 AM EDT Office Visit Hematology/Oncology [address] [place] [phone] [facility] [address] 01/17/2024 9:30 AM EDT Hem/Onc Treatment [facility] [place] [facility] [phone] Tash, Chair 4 Hem Onc [address] [place] [address] 01/31/2024 1:00 PM EDT Office Visit Otolaryngology/Head & Neck/Facial Plastic Surgery [address] [place] [address] Guy Chowdary DO [address] [place], [place] [phone] 03/20/2024 7:40 AM EDT Laboratory Laboratory [address] [place] [phone] [place] [address] Pending Results Name Type Priority Associated Diagnoses Date /Time CHEMISTRY-OUTSIDE Lab Routine 024 Scheduled Procedures Name Priority Associated Diagnoses Date/Ti [...] this encounter Medical Devices Implanted Type Area Temp Recruiter Device Identifier Shelf Expiration Date Model / Serial / Lot Port Implant W8f Poly Cath - [id number] Implanted:Qty: 1 on 12/24/2023 by Prieto Chavez MD at OR [facility] BARD : PERIPHERAL VASCULAR [id number] 01/13/2025 [id number] / / [id number] documented as of this encounter Advance Directives [...] Advance Directives occurred with: Patient Care Teams Tree Topper Relationship Specialty Start Date End Date Genoveva Alcocer DO [address] [facility] 2 [place] [address] PCP - General Family Medicine 12/29/19 documented as of this encounter
[2024-01-29] MEDS: BENZONATATE 100 MG CAPSULE PO PRN (02:37)
[2024-01-29 06:50] LABS: Basophils # (auto) 0.02 K/uL (0.00-0.20); Basophils % (auto) 0.2 %; Eosinophils # (auto) 0.06 K/uL (0.00-0.50); Eosinophils % (auto) 0.5 %; Hematocrit (blood only) 30.3 % (42.0-52.0); Immature Granulocytes # (auto) 0.35 K/uL (0.01-0.20); Immature Granulocytes % (auto) 3.1 %; Lymphocytes # (auto) 0.33 K/uL (1.20-3.40); Lymphocytes % (auto) 2.9 %; Mean Corpuscular Hemoglobin 32.8 pg (25.0-34.0); Mean Corpuscular Volume 99.3 fL (80.0-100.0); Mean Platelet Volume 9.4 fL (9.4-12.4); Monocytes # (auto) 0.72 K/uL (0.11-0.59); Monocytes % (auto) 6.3 %; Platelet Count 282 K/uL (130-400); RDW Coefficient of Variation 15.7 % (11.5-14.5); RDW Standard Deviation 57.6 fL (36.4-46.3); Red Blood Count 3.05 M/uL (4.70-6.10); White Blood Count 11.38 K/ul (4.8-10.8)
[2024-01-29 07:17] LABS: INR 1.1 (0.9-1.1); Partial Thromboplastin Ratio 1.1; Partial Thromboplastin Time 29 Seconds (21-31); Prothrombin Time 12.1 Seconds (9.0-12.0)
--- NOTE | 2024-01-29 07:28 | Electrocardiogram Report ---
Test Reason : Blood Pressure : / mmHG Vent. Rate : 087 BPM Atrial Rate : 088 BPM P-R Int : 148 ms QRS Dur : 116 ms QT Int : 410 ms P-R-T Axes : 027 -42 030 degrees QTc Int : 493 ms Sinus rhythm with Premature supraventricular complexes Left axis deviation Low voltage QRS Right bundle branch block Abnormal ECG When compared with ECG of 28-JAN-2024 05:28, No significant change was found Confirmed by Mani Garza ([id number]) on 01/29/2024 7:27:47 AM Referred By: REFERRED SELF Confirmed By:Home Garza
[2024-01-29 07:31] LABS: Albumin Globulin Ratio 0.8 (0.9-2); Albumin Level 2.3 gm/dl (3.4-5.0); BUN Creatinine Ratio 20.7 (10-20); Bilirubin,Total 0.6 mg/dl (0.2-1.0); Calcium 8.2 mg/dl (8.6-10.3); Creatinine Clr Calc Pharmacy 121.7 ml/min; Est GFR (Non-African American) 98.3 ml/min; Magnesium 1.9 mg/dl (1.7-2.4); Potassium 3.3 mmol/L (3.5-5.1); Total Protein 5.3 gm/dl (6.0-8.3)
--- NOTE | 2024-01-29 07:54 | Pulmonology Progress Note ---
Date of Service January 29, 2024 Assessment & Plan (1) Pneumonia: (2) Acute hypoxemic respiratory failure: (3) Squamous cell carcinoma of left lung: (4) Chronic obstructive pulmonary disease: (5) Adenocarcinoma of right lung, stage 1: (6) Loculated pleural effusion: (7) Pleuritic chest pain: Plan CTA chest 01/27/2024 personally reviewed: Loculated moderate right-sided pleural effusion Left upper lobe 2.2 cm pulmonary nodule Hiatal hernia Minimal mediastinal lymphadenopathy -- Loculated right-sided pleural effusion with dense consolidative process in the right lower lobe Procalcitonin 0.45, respiratory bio fire negative for everything Neutrophilic leukocytosis Nasal MRSA negative S/p thoracentesis 01/28/2024, 550 mL of cloudy serous fluid removed. pH 7.48, exudative as per lights criteria Pleural: LDH 760, protein 3, glucose 95, neutrophilic Serum: LDH 212, protein 5.4 I personally looked at the CAT scan which was done 01/27/2024 and compared to the CAT scan which was done September 2023 as well as November 2023. On the previous CAT scan which are only 2 months old, there was no significant abnormality of the right hilar region except for large hiatal hernia. For patient to develop a 7-8 cm hilar mass during the short duration of time is unlikely. Pleural fluid will be sent for cytology as well to make sure it is not malignant, if it is malignant then we already have the diagnosis and no need for invasive procedure like bronchoscopy. If the fluid is negative and patient still has persistent right lower lobe opacity then pursuing biopsy through bronchoscopy or CT-guided could be thought of in a month's time. -- Acute hypoxic respiratory failure Secondary to above Continue with O2 supplementation to keep oxygen saturation between 90-92% -- COPD with emphysema On Trelegy inhaler at home Follows up with Dr. 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 Follow-up sputum culture Potassium being replaced Out of the bed to chair. Keep O2 saturation between 90-92% Case was discussed with RN at bedside Please note the above document was generated using voice recognition software. It may contain grammatical, syntax or spelling errors.Any formal questions or concerns about the content, text or information contained within the body of this dictation should be directly addressed to the provider for clarification. Admission and Anticipated Discharge Date Admission Date: January 27, 2024 Subjective Patient seen and examined at bedside. No acute distress, notable symptoms overnight Still complains of pain when he is coughing on the right side but it is significantly decreased in intensity. He was saturating 96% on 5 L, I went down to 3 L. Coughing up still copious amount of phlegm. No difficulty bringing up the phlegm Denies any nausea or vomiting Has been afebrile Review of Systems 2 Review of Systems: All systems reviewed & are unremarkable except as noted in Subjective Physical Exam 2 Physical Exam: Constitutional: No acute distress HEENT: EOMI, PERRLA Respiratory system: Decreased air entry bilaterally, more decreased on the right side, positive crackles bilateral lower lobes, no wheeze, no rhonchi CVS: S1-S2 positive, no murmurs or gallops Abdomen: Soft, nontender, nondistended, positive bowel sounds x4 Extremities: +2 pulses bilaterally radialis/ dorsalis pedis, no cyanosis, minimal pitting edema bilateral lower extremity Neuro: Awake alert oriented x3 Psych: Normal mood and affect G/U: No Hdz Skin: no rashes, warm and dry Lymphatic: no cervical or axillary lymphadenopathy Results & Data Results & Data Vital Signs (Past 12 Hours) Vital Signs Temp Pulse Pulse Resp BP Pulse Ox O2 Del Method 01/29/24 06:58 90 20 96 Nasal Cannula 01/29/24 02:37 36.5 C 98 H 20 120/72 95 Nasal Cannula 01/28/24 23:44 Nasal Cannula 01/28/24 22:45 36.9 C 93 H 18 105/68 90 Nasal Cannula 01/28/24 22:15 112 H 01/28/24 20:42 118 H 29 H 94 Nasal Cannula O2 Flow Rate 01/29/24 06:58 6 01/29/24 02:37 01/28/24 23:44 5 01/28/24 22:45 01/28/24 22:15 01/28/24 20:42 5 Laboratory Results 01/29/24 06:27 01/29/24 06:27 PG Care Time/CCT Total # of Minutes Spent Total Time Spent with Patient: Total time spent is greater than 50% in coordination of care (as documented) at patient's floor/unit and/or counseling patient: Coding Level of Care Code 65091 SUB INP/OBS CARE 2/35MIN Diagnoses Pneumonia J18.9 Acute hypoxemic respiratory failure J96.01 Squamous cell carcinoma of left lung C34.92 Chronic obstructive pulmonary disease J44.9 Adenocarcinoma of right lung, stage 1 C34.91 Loculated pleural effusion J90 Pleuritic chest pain R07.81
[2024-01-29] MEDS: POTASSIUM CHLORIDE CRTAB 20 MEQ TABCR PO STA (08:30)
--- NOTE | 2024-01-29 08:32 | XRay Report ---
KUB HISTORY: Portable body ingestion foreign body COMPARISON: Chest radiograph 01/28/2024 FINDINGS: Nonobstructive bowel gas pattern. Mild to moderate colonic fecal retention. Vascular calcif ications. Telemetry leads coil over the abdomen. No definite ingested foreign body identified. No re nal calculi. No ureteral calculi. No pneumoperitoneum or pneumatosis. No fracture. IMPRESSION: Nonobstructive bowel gas pattern. No ingested foreign body identified. ACT 112: Negative or not required by law. The above report was generated using voice recognition software. It may contain grammatical, syntax o r spelling errors. Electronically signed by: Con Hathaway M.D. 01/29/2024 8:31 AM
--- NOTE | 2024-01-29 15:28 | Hospitalist Progress Note ---
Date of Service January 29, 2024 Assessment & Plan (1) Primary cancer of supraglottis: Plan: completed chemo/radiation (2) Acute hypoxemic respiratory failure: Plan: due to pneumonia continue antibiotics (3) Squamous cell carcinoma of left lung: Plan: started on chemo as outpatient pulm consulted (4) History of atrial flutter: Plan: stable HR controlled (5) Postobstructive pneumonia: Plan: iv antibiotics follow up sputum cultures WBC is trending down (6) History of lung biopsy: Plan 78-year-old gentleman with a prior history of right lower lobe lung adenocarcinoma. Underwent right lower lobe resection in 2017. Completed 12/24/2022. He received combined treatment with radiation and weekly cisplatin. He did have a recurrence and underwent a right radical neck dissection on 11/09/2023. He has been followed by medical oncology and currently is undergoing treatment with carboplatin/5-FU and pembrolizumab. Received cycle 1 day 1 on 12/27/2023. He presented for his infusion on 01/17/2024. This was not given. He was having an irregular heartbeat and the plans were for him to have a cardiology evaluation CT angiography PE protocol is negative for PE, but does show a occluded right lower lobe bronchus, with bronchogenic malignancy extending from right hilum, and postobstructive right lower lobe pneumonia. There is a spiculated left upper lobe nodule presumed to be metastatic Chemotherapy is with [facility] hematology/oncology no radiation he underwent thoracentesis fluid no bacterial growth Continue Zosyn 4.5 g IV every 8 hours, begun in the ED MRSA swab is negative Respiratory BioFire test negative Duonebs every 4 hours while awake and every 2 hours when necessary. Sputum Gram stain and culture normal stephan awaiting pleural fluid cytology , if positive, no bronchoscopy, if negative bronchoscopy with bx next week Elevated troponin/CAD/hypertension- ECHO normal EF Holding oral medications metoprolol succinate Lopressor 5 mg IV every 4 hours as needed for systolic blood pressure greater than 160 Admission and Anticipated Discharge Date Admission Date: January 27, 2024 Subjective Patient seen and examined at bedside. Still complains of pain when he is coughing on the right side but it is significantly decreased in intensity. He was saturating 96% on 5 L, I went down to 3 L. Coughing up still copious amount of phlegm. Review of Systems Review of Systems: The patient denies chest pain, palpitations, fevers, chills, sweats, nausea, vomiting, diarrhea , constipation, abdominal pain, pelvic pain, blood in urine or stool, dysuria, urinary frequency or urgency, loss of consciousness, rash, abnormal bruising or bleeding, imbalance, focal weakness, numbness or tingling in arms or legs, generalized arthralgias or myalgias, back or neck pain, or night sweats. The review of systems is otherwise negative other than for that already noted above, and at least 10 systems have been reviewed. Physical Exam Physical Exam: head atraumatic neck is supple chest decreased breath sounds at right base heart S1S2 regular abdomen soft, nt, nd, bs present extremities no edema Results & Data Results & Data Vital Signs (Past 12 Hours) Vital Signs Temp Pulse Pulse Resp BP Pulse Ox O2 Del Method 01/29/24 11:16 78 18 92 Nasal Cannula 01/29/24 10:55 37.0 C 90 18 144/65 H 93 Nasal Cannula 01/29/24 10:00 84 01/29/24 10:00 Nasal Cannula 01/29/24 08:00 36.9 C 87 20 136/62 92 Nasal Cannula 01/29/24 06:58 90 20 96 Nasal Cannula O2 Flow Rate 01/29/24 11:16 3 01/29/24 10:55 3.0 01/29/24 10:00 01/29/24 10:00 3 01/29/24 08:00 5.0 01/29/24 06:58 6 Laboratory Results Abnormal lab results 01/28/24 01/29/24 Range/Units 05:36 06:27 WBC 11.38 H (4.8-10.8) K/ul RBC 3.05 L (4.70-6.10) M/uL Hgb 10.0 L (14.0-18.0) g/dl Hct 30.3 L (42.0-52.0) % RDW Std Deviation 57.6 H (36.4-46.3) fL RDW Coeff of Stephanie 15.7 H (11.5-14.5) % Neut # (Auto) 9.90 H (1.40-6.50) K/uL Lymph # (Auto) 0.33 L (1.20-3.40) K/uL [place] # (Auto) 0.72 H (0.11-0.59) K/uL Immature Gran # (Auto) 0.35 H (0.01-0.20) K/uL PT 12.1 H (9.0-12.0) Seconds Potassium 3.3 L (3.5-5.1) mmol/L Creatinine 0.58 L (0.6-1.4) mg/dl BUN/Creatinine Ratio 20.7 H (10-20) Glucose 124 H (70-99(Fasting)) mg/dl Calcium 8.2 L (8.6-10.3) mg/dl ALT 53 H (7-52) U/L Alkaline Phosphatase 119 H (34-104) U/L Total Protein 5.4 L 5.3 L (6.0-8.3) gm/dl Albumin 2.5 L 2.3 L (3.4-5.0) gm/dl Albumin/Globulin Ratio 0.8 L (0.9-2) PG Care Time/CCT Total # of Minutes Spent Total Time Spent with Patient: Total time spent is greater than 50% in coordination of care (as documented) at patient's floor/unit and/or counseling patient: Coding Level of Care Code 01116 SUB INP/OBS CARE 2/35MIN Diagnoses Primary cancer of supraglottis C32.1 Acute hypoxemic respiratory failure J96.01 Squamous cell carcinoma of left lung C34.92 History of atrial flutter Z86.79 Postobstructive pneumonia J18.9 History of lung biopsy Z98.890
[2024-01-29] MEDS: METOPROLOL TARTRATE 25 MG TAB PO SCH (21:28)
[2024-01-30 07:23] LABS: Basophils # (auto) 0.02 K/uL (0.00-0.20); Basophils % (auto) 0.2 %; Eosinophils # (auto) 0.04 K/uL (0.00-0.50); Eosinophils % (auto) 0.3 %; Hemoglobin 10.1 g/dl (14.0-18.0); Immature Granulocytes # (auto) 0.41 K/uL (0.01-0.20); Immature Granulocytes % (auto) 3.6 %; Lymphocytes % (auto) 3.5 %; Mean Corpuscular Hemoglobin 32.4 pg (25.0-34.0); Mean Corpuscular Hgb Conc 32.6 g/dL (32.0-36.0); Mean Corpuscular Volume 99.4 fL (80.0-100.0); Mean Platelet Volume 9.3 fL (9.4-12.4); Monocytes # (auto) 0.71 K/uL (0.11-0.59); Monocytes % (auto) 6.2 %; Neutrophils % (auto) 86.2 %; Platelet Count 287 K/uL (130-400); RDW Coefficient of Variation 15.7 % (11.5-14.5); RDW Standard Deviation 57.3 fL (36.4-46.3); Red Blood Count 3.12 M/uL (4.70-6.10); White Blood Count 11.48 K/ul (4.8-10.8)
[2024-01-30 07:41] LABS: Albumin Globulin Ratio 0.8 (0.9-2); Albumin Level 2.4 gm/dl (3.4-5.0); BUN Creatinine Ratio 18.5 (10-20); Bilirubin,Total 0.6 mg/dl (0.2-1.0); Calcium 8.4 mg/dl (8.6-10.3); Creatinine Clr Calc Pharmacy 130.4 ml/min; Est GFR (African American) 117.4 ml/min; Est GFR (Non-African American) 101.3 ml/min; Globulin 3.1 gm/dl (2.5-4.0); Potassium 3.5 mmol/L (3.5-5.1); Total Protein 5.5 gm/dl (6.0-8.3)
[2024-01-30 07:50] LABS: INR 1.1 (0.9-1.1); Partial Thromboplastin Ratio 1.1; Partial Thromboplastin Time 30 Seconds (21-31); Prothrombin Time 12.2 Seconds (9.0-12.0)
--- NOTE | 2024-01-30 07:56 | XRay Report ---
XR chest 1V portable HISTORY: 78 years-old Male f/u acute shortness of breath COMPARISON: 01/28/2024 TECHNIQUE: AP view of the chest FINDINGS: Cardiac silhouette is enlarged. Left IJ Ysysnb-l-Gjfg catheter. Right neck surgical clips. No pneumot horax. The left lung is generally clear. Unchanged right pleural effusion with right basilar consolid ation. IMPRESSION: No significant change of the right pleural effusion with right basilar consolidation. ACT 112: Negative or not required by law. The above report was generated using voice recognition software. It may contain grammatical, syntax o r spelling errors. Electronically signed by: Con Hathaway M.D. 01/30/2024 7:54 AM
[2024-01-30 08:25] LABS: Magnesium 1.7 mg/dl (1.7-2.4)
--- NOTE | 2024-01-30 10:28 | Pulmonology Progress Note ---
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: (4) Chronic obstructive pulmonary disease: (5) Adenocarcinoma of right lung, stage 1: (6) Loculated pleural effusion: (7) Pleuritic chest pain: Plan CTA chest 01/27/2024 personally reviewed: Loculated moderate right-sided pleural effusion Left upper lobe 2.2 cm pulmonary nodule Hiatal hernia Minimal mediastinal lymphadenopathy -- Loculated right-sided pleural effusion with dense consolidative process in the right lower lobe along with possible adjacent hilar mass Procalcitonin 0.45, respiratory bio fire negative for everything Neutrophilic leukocytosis Nasal MRSA negative S/p thoracentesis 01/28/2024, 550 mL of cloudy serous fluid removed. pH 7.48, exudative as per lights criteria Pleural: LDH 760, protein 3, glucose 95, neutrophilic Serum: LDH 212, protein 5.4 Pleural fluid cytology pending. Patient will also likely require bronchoscopy to evaluate the right lower lobe. Pleural fluid is negative for malignancy for endobronchial tumor and mediastinal/hilar adenopathy. -- Acute hypoxic respiratory failure Secondary to above Continue with O2 supplementation to keep oxygen saturation between 90-92% -- COPD with emphysema On Trelegy inhaler at home Follows up with Dr. 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 Follow-up sputum culture. Preliminary Gram stain and cultures demonstrate moderate stephan. Please note the above document was generated using voice recognition software. It may contain grammatical, syntax or spelling errors.Any formal questions or concerns about the content, text or information contained within the body of this dictation should be directly addressed to the provider for clarification. Admission and Anticipated Discharge Date Admission Date: January 27, 2024 Subjective Patient resting comfortably today. No acute events overnight. Remains on low- flow oxygen. Review of Systems Review of Systems: All systems reviewed & are unremarkable except as noted in HPI & below Physical Exam Physical Exam: Constitutional: No acute distress HEENT: EOMI, PERRLA Respiratory system: Decreased air entry bilaterally, more decreased on the right side, positive crackles bilateral lower lobes, no wheeze, no rhonchi CVS: S1-S2 positive, no murmurs or gallops Abdomen: Soft, nontender, nondistended, positive bowel sounds x4 Extremities: +2 pulses bilaterally radialis/ dorsalis pedis, no cyanosis, minimal pitting edema bilateral lower extremity Neuro: Awake alert oriented x3 Psych: Normal mood and affect G/U: No Hdz Skin: no rashes, warm and dry Lymphatic: no cervical or axillary lymphadenopathy Results & Data Results & Data Vital Signs (Past 12 Hours) Vital Signs Temp Pulse Resp BP BP Pulse Ox O2 Del Method 01/30/24 07:52 36.6 C 96 H 19 122/67 94 Nasal Cannula 01/30/24 07:06 77 18 94 Nasal Cannula 01/30/24 02:32 36.5 C 85 18 114/69 94 Nasal Cannula 01/29/24 22:38 37.1 C 97 H 20 113/71 94 Nasal Cannula O2 Flow Rate 01/30/24 07:52 4.0 01/30/24 07:06 4 01/30/24 02:32 4 01/29/24 22:38 4 PG Care Time/CCT Total # of Minutes Spent Total Time Spent with Patient: Total time spent is greater than 50% in coordination of care (as documented) at patient's floor/unit and/or counseling patient: Coding Level of Care Code 05333 SUB INP/OBS CARE 2/35MIN Diagnoses Pneumonia J18.9 Acute hypoxemic respiratory failure J96.01 Squamous cell carcinoma of left lung C34.92 Chronic obstructive pulmonary disease J44.9 Adenocarcinoma of right lung, stage 1 C34.91 Loculated pleural effusion J90 Pleuritic chest pain R07.81
--- NOTE | 2024-01-30 11:26 | Hospitalist Progress Note ---
Date of Service January 30, 2024 Assessment & Plan (1) Primary cancer of supraglottis: Plan: completed chemo/radiation (2) Acute hypoxemic respiratory failure: Plan: due to pneumonia, lung cancer ? s/p thoracentesis , pleural fluid is pending for cytology continue antibiotics wean off oxygen bronchoscopy tomorrow ? (3) Squamous cell carcinoma of left lung: Plan: started on chemo as outpatient pulm consulted (4) History of atrial flutter: Plan: stable HR controlled in sinus rhythm (5) Postobstructive pneumonia: Plan: iv antibiotics follow up sputum cultures WBC is trending down (6) History of lung biopsy: Plan: recurrent lung cancer Plan 78-year-old gentleman with a prior history of right lower lobe lung adenocarcinoma. Underwent right lower lobe resection in 2017. Completed 12/24/2022. He received combined treatment with radiation and weekly cisplatin. He did have a recurrence and underwent a right radical neck dissection on 11/09/2023. He has been followed by medical oncology and currently is undergoing treatment with carboplatin/5-FU and pembrolizumab. Received cycle 1 day 1 on 12/27/2023. He presented for his infusion on 01/17/2024. This was not given. He was having an irregular heartbeat and the plans were for him to have a cardiology evaluation CT angiography PE protocol is negative for PE, but does show a occluded right lower lobe bronchus, with bronchogenic malignancy extending from right hilum, and postobstructive right lower lobe pneumonia. There is a spiculated left upper lobe nodule presumed to be metastatic Chemotherapy is with [facility] hematology/oncology no radiation he underwent thoracentesis fluid no bacterial growth Continue Zosyn 4.5 g IV every 8 hours, begun in the ED MRSA swab is negative Respiratory BioFire test negative Duonebs every 4 hours while awake and every 2 hours when necessary. Sputum Gram stain and culture normal stephan awaiting pleural fluid cytology , if positive, no bronchoscopy, if negative bronchoscopy with bx next week Elevated troponin/CAD/hypertension- ECHO normal EF Holding oral medications metoprolol succinate Lopressor 5 mg IV every 4 hours as needed for systolic blood pressure greater than 160 possible bronchoscopy tomorrow Admission and Anticipated Discharge Date Admission Date: January 27, 2024 Subjective Patient resting comfortably today. No acute events overnight. Remains on 3l O2 Review of Systems Review of Systems: All systems reviewed & are unremarkable except as noted in Subjective Physical Exam Physical Exam: head atraumatic neck is supple chest decreased breath sounds at right base heart S1S2 regular abdomen soft, nt, nd, bs present extremities no edema Results & Data Results & Data Vital Signs (Past 12 Hours) Vital Signs Temp Pulse Pulse Resp BP Pulse Ox O2 Del Method 01/30/24 10:45 73 18 93 Nasal Cannula 01/30/24 08:00 80 01/30/24 08:00 Nasal Cannula 01/30/24 07:52 36.6 C 96 H 19 122/67 94 Nasal Cannula 01/30/24 07:06 77 18 94 Nasal Cannula 01/30/24 02:32 36.5 C 85 18 114/69 94 Nasal Cannula O2 Flow Rate 01/30/24 10:45 3 01/30/24 08:00 01/30/24 08:00 3 01/30/24 07:52 4.0 01/30/24 07:06 4 01/30/24 02:32 4 Laboratory Results Abnormal lab results 01/30/24 Range/Units 06:49 WBC 11.48 H (4.8-10.8) K/ul RBC 3.12 L (4.70-6.10) M/uL Hgb 10.1 L (14.0-18.0) g/dl Hct 31.0 L (42.0-52.0) % RDW Std Deviation 57.3 H (36.4-46.3) fL RDW Coeff of Stephanie 15.7 H (11.5-14.5) % MPV 9.3 L (9.4-12.4) fL Neut # (Auto) 9.90 H (1.40-6.50) K/uL Lymph # (Auto) 0.40 L (1.20-3.40) K/uL [place] # (Auto) 0.71 H (0.11-0.59) K/uL Immature Gran # (Auto) 0.41 H (0.01-0.20) K/uL PT 12.2 H (9.0-12.0) Seconds Creatinine 0.54 L (0.6-1.4) mg/dl Glucose 106 H (70-99(Fasting)) mg/dl Calcium 8.4 L (8.6-10.3) mg/dl Alkaline Phosphatase 132 H (34-104) U/L Total Protein 5.5 L (6.0-8.3) gm/dl Albumin 2.4 L (3.4-5.0) gm/dl Albumin/Globulin Ratio 0.8 L (0.9-2) PG Care Time/CCT Total # of Minutes Spent Total Time Spent with Patient: Total time spent is greater than 50% in coordination of care (as documented) at patient's floor/unit and/or counseling patient: Coding Level of Care Code 59340 SUB INP/OBS CARE 2/35MIN Diagnoses Primary cancer of supraglottis C32.1 Acute hypoxemic respiratory failure J96.01 Squamous cell carcinoma of left lung C34.92 History of atrial flutter Z86.79 Postobstructive pneumonia J18.9 History of lung biopsy Z98.890
[2024-01-30] MEDS: ACETAMINOPHEN 500 MG TAB PO PRN (21:00)
--- NOTE | 2024-01-31 14:05 | Hospitalist Progress Note ---
Date of Service January 31, 2024 Assessment & Plan (1) Postobstructive pneumonia: Plan: IV Zosyn and PO doxycycline day 4 WBC is trending down and clinically improving (2) Bronchial compression: Plan: Pulmonology consulted - planning on bronchoscopy tomorrow (3) Acute hypoxemic respiratory failure: Plan: Presumably secondary to pneumonia, obstructed bronchus and subsequent lobe collapse as above PT/OT, incentive spirometer, flutter valve, guaifenesin Aim O2 sats > 90%, on room air at baseline Likely to need oxygen as outpatient - will perform 2 step once medically optimized (4) Loculated pleural effusion: Plan: Pathology pending Exudate - cultures with no growth to date (5) Ectopic atrial beats: Plan: Metoprolol recently (01/24) increased from 50mg BID -> 50 QAM + 100 QPM however suspect this was the start of his pneumonia (appropriate compensation) so plan to increase back to prior dose of 50mg PO BID as able Monitor on telemetry for recurrence of his historic atrial flutter Aim Mg > 2, K > 4 (replacement ordered today), repeat levels in AM (6) Obstructive sleep apnea: Plan: CPAP HS (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 Left cervical lymph node aspiration. Malignant. Metastatic squamous cell carcinoma. 10/06/2022. PET/CT. Hypermetabolic mass in the left Larynx, consistent with primary site of disease. Hypermetabolic left level 2 and bilateral level 3 lymphadenopathy, consistent with biopsy-proven floyd metastasis. 10/07/2022. Multidisciplinary head and neck tumor board. [id number] (stage IV) squamous cell carcinoma 10/09/2022. Await tracheostomy, direct laryngoscopy with biopsy (Dr. Chowdary). Path report of biopsies from the left supraglottic mass showed invasive squamous cell carcinoma, moderately differentiated. s/p chemoradiation 08/2023 palpable cervical lymph nodes concernin for recurrent/progressive disease - subseqnet FNA in Sep - Squamous cell carcinoma New mildly spiculated Left upper lung nodule favored to represent pulmonar mets 10/25/2023. Percutaneous biopsy of left upper lobe mass - squamous cell carcinoma 11/09/2023. Right modified radical neck dissection (Dr. Chowdary) - positive lymph nodes for metstatic squamous cell carcinoma 11/17/2023. Head and neck tumor board at [facility]. Patient is diagnosed with recurrent [id number] supraglottic laryngeal cell carcinoma 12/22/2023. Status post completion of radiation therapy to the left upper lung nodule. 12/27/2023. Initiation of pembrolizumab/carboplatin and 5-FU Missed cycle 2 due to tachycardia with irregular rhythm pending cardiology involvement - with hindsight suspect this was the start of his pneumonia rather than an inherent cardiac issue (8) Adenocarcinoma of right lung, stage 1: Plan: 03/2017. Status post right lower lobectomy due to non-small lung cancer (9) Chronic obstructive pulmonary disease: Plan: Continue routine meds (10) GERD (gastroesophageal reflux disease): Plan: Switch pantoprazole IV back to PO BID (11) Hypothyroidism: Plan: TSH 5.041 in Sep, will repeat with AM labs Restart levothyroxine (12) Gout: Plan: No acute flare Restart allopurinol to avoid flare Plan VTE Prophylaxis - Lovenox Diet - regular, NPO after midnight for bronchoscopy tomorrow Disposition - admit to PCU Admission and Anticipated Discharge Date Admission Date: January 27, 2024 Subjective Reports significant improvement in his right sided chest pain since admission. Not yet back to baseline. Questions about metoprolol he has been getting here as outpatient was recently increased. Appears he had ST with frequent PVCs and PACs but with hindsight this was likely the start of his pneumonia. No leg swelling Not been out of bed much since arrival Review of Systems Review of Systems: All systems reviewed & are unremarkable except as noted in HPI & below Physical Exam Constitutional: WD/WN, vitals as above Respiratory: normal respiratory effort Auscultation: + breath sounds absent (right base), + diminished lung sounds (right posterior) and + crackles (right posterior superoirly); no rales and no wheezes Cardiovascular: RRR, no murmur, no edema Gastrointestinal (Abdomen): normal bowel sounds, soft, nontender, no hepatosplenomegaly Neurologic: moves all extremities and awake; not confused Psychiatric: A+Ox3, euthymic affect Results & Data Results & Data Vital Signs (Past 12 Hours) Vital Signs Temp Pulse Resp BP Pulse Ox O2 Del Method O2 Flow Rate 01/31/24 11:15 36.8 C 87 113/67 94 Nasal Cannula 5 01/31/24 10:27 83 14 94 Nasal Cannula 5 01/31/24 10:21 121/62 90 Nasal Cannula 5 01/31/24 07:13 36.5 C 79 18 117/70 99 Nasal Cannula 5 01/31/24 07:08 81 18 96 Nasal Cannula 4 01/31/24 03:08 36.5 C 76 19 118/66 98 Nasal Cannula 3 PG Care Time/CCT Total # of Minutes Spent Total Time Spent with Patient: Total time spent is greater than 50% in coordination of care (as documented) at patient's floor/unit and/or counseling patient: Coding Level of Care Code 01385 SUB INP/OBS CARE 3/50MIN Diagnoses Postobstructive pneumonia J18.9 Bronchial compression J98.09 Acute hypoxemic respiratory failure J96.01 Loculated pleural effusion J90 Ectopic atrial beats I49.1 Obstructive sleep apnea G47.33 Primary cancer of supraglottis C32.1 Adenocarcinoma of right lung, stage 1 C34.91 Chronic obstructive pulmonary disease J44.9 GERD (gastroesophageal reflux disease) K21.9 Hypothyroidism E03.9 Gout M10.9
[2024-01-31] MEDS: MAGNESIUM SULFATE / D5W 1 GM/100 ML BAG IV ONE (15:13)
[2024-01-31] MEDS: POTASSIUM CHLORIDE CRTAB 20 MEQ TABCR PO STA (15:13)
--- NOTE | 2024-01-31 15:23 | Pulmonology Progress Note ---
Date of Service January 31, 2024 Assessment & Plan (1) Pneumonia: (2) Acute hypoxemic respiratory failure: (3) Squamous cell carcinoma of left lung: (4) Chronic obstructive pulmonary disease: (5) Adenocarcinoma of right lung, stage 1: (6) Loculated pleural effusion: (7) Pleuritic chest pain: Plan Impression: 76-year-old male with mild emphysema status post lobectomy for adenocarcinoma of the lung. 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 He presented now with pleural effusion which has been sampled as well as atelectasis of the right lower lobe with questionable endobronchial lesion and progressive adenopathy of unclear etiology. Recommendations: 1. Pleural effusion: Briefly discussed with pathology. Final path is pending but appears to be acute inflammation. No evidence of malignancy cultures pending. 2. Abnormal CT scan: CT demonstrates occlusion of the right lower lobe bronchus. Unclear if this is intrinsic or intrinsic. There is also some adenopathy. While this may be reactive to an infectious or inflammatory process, cannot exclude malignancy especially given the patient's prior history of lung cancer as well as advanced head neck cancer. Discussed options with the patient to include completing course of antibiotics versus proceeding with bronchoscopy. After consideration he and his would like to proceed with bronchoscopy with endobronchial ultrasound and transbronchial needle aspiration which will be scheduled tentatively for the a.m. N.p.o. after midnight. 3. Hypoxemic respiratory failure: Continue supplemental oxygen titrated to keep saturations at or above 90%. Additional recommendations will be based on results of bronchoscopy. The above recommendations and plan discussed extensively with the patient as well as with his at the bedside. Questions were answered to the best my ability. They expressed understanding and are in agreement with plan as outlined Admission and Anticipated Discharge Date Admission Date: January 27, 2024 Subjective Patient seen and examined. EMR reviewed. Discussed with outgoing cashier payments received and with patient and in room. The patient states his breathing is okay. He is not coughing or expectorating phlegm. No chest pain or palpitations. He has not had any hemoptysis. Review of Systems Review of Systems: All systems reviewed & are unremarkable except as noted in Subjective Physical Exam Constitutional: WD/WN, vitals as above Neck: trachea midline, no thyromegaly Respiratory: normal respiratory effort, lungs clear to auscultation Cardiovascular: RRR, no murmur, no edema Gastrointestinal (Abdomen): normal bowel sounds, soft, nontender, no hepatosplenomegaly Musculoskeletal: Extremities: extremities normal to inspection Skin: no rashes, warm and dry Neurologic: Nonfocal exam Lymphatic: no cervical lymphadenopathy Results & Data Results & Data Vital Signs (Past 12 Hours) Vital Signs Temp Pulse Resp BP Pulse Ox O2 Del Method O2 Flow Rate 01/31/24 15:04 36.5 C 76 18 100/63 95 Nasal Cannula 3 01/31/24 11:15 36.8 C 87 113/67 94 Nasal Cannula 5 01/31/24 10:27 83 14 94 Nasal Cannula 5 01/31/24 10:21 121/62 90 Nasal Cannula 5 01/31/24 07:13 36.5 C 79 18 117/70 99 Nasal Cannula 5 01/31/24 07:08 81 18 96 Nasal Cannula 4 Critical Care Results & Data Vital Signs (Past 12 Hours) Vital Signs Temp Pulse Resp BP Pulse Ox O2 Del Method O2 Flow Rate 01/31/24 15:04 36.5 C 76 18 100/63 95 Nasal Cannula 3 01/31/24 11:15 36.8 C 87 113/67 94 Nasal Cannula 5 01/31/24 10:27 83 14 94 Nasal Cannula 5 01/31/24 10:21 121/62 90 Nasal Cannula 5 01/31/24 07:13 36.5 C 79 18 117/70 99 Nasal Cannula 5 01/31/24 07:08 81 18 96 Nasal Cannula 4 Lab & Micro Results (Past 24 Hours) No Data to Display No Data to Display No Data to Display Microbiology 01/28/24 13:30 Gram Stain - Final Pleural Fluid Aerobic and Anaerobic Culture - Preliminary No growth to date. 01/28/24 Unknown Gram Stain - Final Sputum, Expectorated Sputum Culture - Final Heavy normal stephan. I & O Totals 24 Hours 01/30/24 01/31/24 02/01/24 06:59 06:59 06:59 Intake Total 1240 / 1240 1080 / 1080 100 / 100 Output Total 1180 / 1180 403 / 403 Balance 60 / 60 677 / 677 100 / 100 Cumulative 01/27/24 17:32 thru 01/31/24 09:15 Intake Total 6725 Output Total 3058 Balance 3667 RT Ventilator Mngmt (Last Documented) Ventilator Ordered Settings Respiratory Rate 18 01/31/24 15:04 Ventilator - PT Measurements Respiratory Rate 18 PG Care Time/CCT Total # of Minutes Spent Total Time Spent with Patient: Total time spent is greater than 50% in coordination of care (as documented) at patient's floor/unit and/or counseling patient: Coding Level of Care Code 44430 SUB INP/OBS CARE 3/50MIN Diagnoses Pneumonia J18.9 Acute hypoxemic respiratory failure J96.01 Squamous cell carcinoma of left lung C34.92 Chronic obstructive pulmonary disease J44.9 Adenocarcinoma of right lung, stage 1 C34.91 Loculated pleural effusion J90 Pleuritic chest pain R07.81
[2024-01-31] MEDS ORDERED: NON-FORMULARY MEDICATION (Fluticasone-Umeclidin-Vilanter [Trelegy Ellipta] 100-62.5-25 mcg INH SCH (17:30)
[2024-01-31] MEDS: ENOXAPARIN INJ 40 MG/0.4 ML SYR SQ STA (17:58)
[2024-01-31] MEDS: UMECLIDINIUM/VILANTEROL 62.5/25MCG 7 PUFFS/INHALER INH SCH (17:59)
[2024-01-31] MEDS: FLUTICASONE FUROATE 100MCG 14 PUFFS/INHALER INH SCH (17:59)
[2024-01-31] MEDS: ASPIRIN 81 MG ECTAB PO SCH (18:00)
[2024-01-31] MEDS: allopurinoL 100 MG TAB PO SCH (18:34)
[2024-01-31] MEDS: PRAVASTATIN SOD 20 MG TAB PO SCH (20:00)
[2024-01-31] MEDS: guaiFENesin 600 MG TABCR PO SCH (20:00)
[2024-01-31] MEDS: PANTOprazole 40 MG TAB PO SCH (20:00)
[2024-01-31] MEDS: METOPROLOL SUCC 25MG EXT REL TAB PO SCH (20:39)
[2024-02-01 07:12] LABS: Basophils # (auto) 0.02 K/uL (0.00-0.20); Basophils % (auto) 0.2 %; Eosinophils # (auto) 0.07 K/uL (0.00-0.50); Eosinophils % (auto) 0.6 %; Hematocrit (blood only) 31.1 % (42.0-52.0); Hemoglobin 10.2 g/dl (14.0-18.0); Immature Granulocytes # (auto) 0.27 K/uL (0.01-0.20); Immature Granulocytes % (auto) 2.4 %; Lymphocytes % (auto) 4.5 %; Mean Corpuscular Hemoglobin 32.6 pg (25.0-34.0); Mean Corpuscular Hgb Conc 32.8 g/dL (32.0-36.0); Mean Corpuscular Volume 99.4 fL (80.0-100.0); Mean Platelet Volume 9.4 fL (9.4-12.4); Monocytes # (auto) 0.66 K/uL (0.11-0.59); Monocytes % (auto) 5.9 %; Neutrophils # (auto) 9.68 K/uL (1.40-6.50); Neutrophils % (auto) 86.4 %; Platelet Count 257 K/uL (130-400); RDW Coefficient of Variation 15.6 % (11.5-14.5); RDW Standard Deviation 56.5 fL (36.4-46.3); Red Blood Count 3.13 M/uL (4.70-6.10)
[2024-02-01 07:30] LABS: Albumin Globulin Ratio 0.8 (0.9-2); Albumin Level 2.4 gm/dl (3.4-5.0); BUN Creatinine Ratio 15.5 (10-20); Bilirubin,Total 0.6 mg/dl (0.2-1.0); Calcium 8.2 mg/dl (8.6-10.3); Creatinine Clr Calc Pharmacy 121.2 ml/min; Est GFR (Non-African American) 98.3 ml/min; Globulin 3.1 gm/dl (2.5-4.0); Magnesium 1.7 mg/dl (1.7-2.4); Potassium 3.7 mmol/L (3.5-5.1); Total Protein 5.5 gm/dl (6.0-8.3)
[2024-02-01 07:44] LABS: Thyroid Stimulating Hormone 5.011 uIu/ml (0.300-4.500)
--- NOTE | 2024-02-01 08:07 | History & Physical Bridge Note ---
Date of Service February 01, 2024 History & Physical Bridge Note I have examined the patient, reviewed the History & Physical and in the interval since the performance of the History & Physical I have noted the following changes of clinical significance: no changes noted
--- NOTE | 2024-02-01 08:08 | Pre Anesthesia Assessment ---
Date of Service February 01, 2024 Pre Sedation Assessment Vital Signs Temp Pulse Pulse Resp BP BP Pulse Ox 02/01/24 07:40 105/55 L 02/01/24 07:25 92 H 18 103/59 L 95 02/01/24 02:54 36.8 C 89 18 128/73 94 01/31/24 23:00 01/31/24 22:45 36.6 C 92 H 18 131/67 91 01/31/24 20:05 01/31/24 19:37 86 16 91 01/31/24 19:08 36.5 C 88 17 106/61 93 01/31/24 16:00 82 01/31/24 15:24 74 18 94 01/31/24 15:04 36.5 C 76 18 100/63 95 01/31/24 11:15 36.8 C 87 113/67 94 01/31/24 10:27 83 14 94 01/31/24 10:21 121/62 90 01/31/24 09:15 Pulse Ox O2 Del Method O2 Del Method O2 Flow Rate O2 Flow Rate 02/01/24 07:40 Oxymask 02/01/24 07:25 Nasal Cannula 02/01/24 02:54 Oxymask 3 01/31/24 23:00 91 Oxymask 3 01/31/24 22:45 Nasal Cannula 3 01/31/24 20:05 Nasal Cannula 3 01/31/24 19:37 Nasal Cannula 3 01/31/24 19:08 Nasal Cannula 3 01/31/24 16:00 01/31/24 15:24 Nasal Cannula 3 01/31/24 15:04 Nasal Cannula 3 01/31/24 11:15 Nasal Cannula 5 01/31/24 10:27 Nasal Cannula 5 01/31/24 10:21 Nasal Cannula 5 01/31/24 09:15 Nasal Cannula 4 Pre-Sedation Airway Assessment Smoking Status: Former smoker Short, Thick Neck: No Thyromental Distance: < 3.5 Finger Breadths Oral Cavity: + WNL Mallampati Class: II ASA: ASA3 NPO Status Date of Last Intake of Fluids: 01/31/24 Time of Last Intake of Fluids: 11:30 Date of Last Intake of Solid Food: 01/31/24 Time of Last Intake of Solid Foods: 11:30 Notes The planned sedation has been discussed with the patient. Informed Consent was obtained. I have identified the patient, determined the appropriateness of sedation and have assessed the patient immediately prior to the procedure. All medicine(s) and interventions are by my order.
[2024-02-01 08:19] LABS: T4 Free Thyroxine 0.85 ng/dl (0.61-1.60)
--- NOTE | 2024-02-01 08:44 | Post Anesthesia Assessment ---
Date of Service February 01, 2024 Post Sedation Assessment Vital Signs Temp Pulse Pulse Resp BP BP BP 02/01/24 08:35 106 H 18 137/86 02/01/24 08:30 106 H 18 132/75 02/01/24 08:25 94 H 18 110/63 02/01/24 08:20 89 18 118/58 L 02/01/24 08:15 99 H 18 123/74 02/01/24 08:10 82 18 121/64 02/01/24 08:05 87 18 112/59 L 02/01/24 07:40 105/55 L 02/01/24 07:25 92 H 18 103/59 L 02/01/24 02:54 36.8 C 89 18 128/73 01/31/24 23:00 01/31/24 22:45 36.6 C 92 H 18 131/67 01/31/24 20:05 01/31/24 19:37 86 16 01/31/24 19:08 36.5 C 88 17 106/61 01/31/24 16:00 82 01/31/24 15:24 74 18 01/31/24 15:04 36.5 C 76 18 100/63 01/31/24 11:15 36.8 C 87 113/67 01/31/24 10:27 83 14 01/31/24 10:21 121/62 01/31/24 09:15 Pulse Ox Pulse Ox O2 Del Method O2 Del Method O2 Flow Rate O2 Flow Rate 02/01/24 08:35 80 L 15 02/01/24 08:30 87 L 15 02/01/24 08:25 91 15 02/01/24 08:20 87 L 15 02/01/24 08:15 92 15 02/01/24 08:10 97 02/01/24 08:05 96 Oxymask 8 02/01/24 07:40 Oxymask 02/01/24 07:25 95 Nasal Cannula 02/01/24 02:54 94 Oxymask 3 01/31/24 23:00 91 Oxymask 3 01/31/24 22:45 91 Nasal Cannula 3 01/31/24 20:05 Nasal Cannula 3 01/31/24 19:37 91 Nasal Cannula 3 01/31/24 19:08 93 Nasal Cannula 3 01/31/24 16:00 01/31/24 15:24 94 Nasal Cannula 3 01/31/24 15:04 95 Nasal Cannula 3 01/31/24 11:15 94 Nasal Cannula 5 01/31/24 10:27 94 Nasal Cannula 5 01/31/24 10:21 90 Nasal Cannula 5 01/31/24 09:15 Nasal Cannula 4 Recovery Score Activity: Moves 4 extremities Respiration: Deep Breath/Cough Circulation: +/-20% PreAnes Value Consciousness: Fully Awake Oxygen Saturation: > 92% On Room Air Post Anesthesia Score: 10 Discharge Sedation Level of Care: Fast Track Phase II Post Sedation Plan On clinical assessment, the patient appears to have tolerated the sedation without complications. Patient is recovering as anticipated. Patient will continue to be monitored by nursing and may be discharged when sedation discharge criteria are met per below protocol. Upon Completions of procedure up to 15 minutes continue every 5 minute vital signs and the P.A.R. score; then discharge to a Phase I or Fast Track to Phase II per the following guidelines: * Discharge Patient to appropriate Phase II area if PAR is 8 or greater or return to pre- procedure baseline. The post - procedure orders will be as directed. * If PAR score is less than 8 or not return to pre-procedure baseline then patient will follow Phase I monitoring till PAR is reached for Phase II. The Phase I may be done in procedure room or may call to secure a Phase I area. * If naloxone or flumazenil are used for reversal, hold in Phase I for contin ued monitoring from when last reversal dose was given for a minimum of 60 minutes or longer pending the nurse and/or physician discretion of patient condition before discharge to Phase II. Please call the Sedation Physician to re-evaluate and complete post-note for discharge to Phase II area. Do NOT discharge from procedure sedation or Phase 1 until post- sedation evaluation note is complete by procedure /sedation MD Sedation Discharge Instructions to be given to the patient at discharge to home.
--- NOTE | 2024-02-01 08:57 | Procedure Note ---
Procedure Note: Bronchoscopy Procedure Procedure: Fiberoptic bronchoscopy Endobronchial ultrasound evaluation during bronchoscopy Endobronchial ultrasound with transbronchial needle aspiration of lymph nodes, single station Endobronchial brushing Endobronchial biopsy Conscious sedation Provider: Caden Clay MD Consent: Signed by patient and timeout verified prior to procedure. Sedation start: 805 Sedation end: 834 Conscious sedation: 7 mg Versed, 175 mcg fentanyl, topical lidocaine per RT protocol Estimated blood loss: 10 mL Indication: Abnormal CT scan Procedure: Patient was brought to the bronchoscopy suite. Consent was verified. Appropriate radiographic studies had been reviewed prior to the procedure. Standard monitoring was applied. Oxygen was administered. After topical anesthesia of the airways per respiratory therapy protocol, the fiberoptic scope was advanced through the oropharynx via the bite-block. Oropharynx was unremarkable. Vocal cords were visualized and were normal in function and appearance. There were thick mucoid secretions present in the posterior oropharynx and above the vocal cords. Topical anesthesia of the cords was achieved with instillation of lidocaine through the scope. Scope was then passed through the vocal cords. The trachea was slightly tortuous and there were copious thick mucoid secretions present within the trachea. These were collected with saline lavage for microbiologic analysis. Main satinder was sharp. Anesthesia of the lower airways was achieved with instillation of lidocaine through the scope. A sequential and systematic examination of the lower airways was conducted. The right mainstem bronchus was patent as was the right upper lobe. The bronchus intermedius appeared patent however the takeoff to the right lower lobe just distal to the right middle lobe takeoff was occluded by polypoid mass and extrinsically compressed. We were unable to pass the scope distal to this. The mucosa was very friable and bled easily with any manipulation. See photos. Left-sided airways were sequentially examined with thick mucoid secretions again noted which were aspirated free. Airways were patent and the mucosa appeared normal. After the inspection bronchoscopy was completed, the fiberoptic scope was removed and the endobronchial ultrasound advanced into the trachea via the bite- block through the glottis. The scope was directed to the level 7 lymph node which was identified on the CT scan. It was easily identified. 4 passes using a 21-gauge needle under direct ultrasound visualization were conducted with rapid onsite cytologic evaluation confirming lymphocytic material. Endobronchial ultrasound was then removed as the patient was having transient desats into the low 80% range despite 15 L oxygen. This improved oxygen saturations. The fiberoptic scope was then readvanced through the bite-block into the airway and directed to the right lower lobe takeoff. Brushings x 3 were taken. 3 endobronchial biopsies with forceps were also taken. Cold saline was used to facilitate hemostasis. Minimal bleeding was encountered. Once hemostasis was confirmed, scope was withdrawn to the trachea and again hemostasis confirmed. Given the patient's oxygen desaturations, additional biopsies at this point in time were deferred The bronchoscope was then removed from the airways. The patient tolerated the procedure well without obvious complication. Patient was returned to the recovery room. Impression: 1. Mucoid secretions present throughout the tracheobronchial tree with probable postobstructive pneumonia in the right lower lobe. Cultures taken 2. Extrinsic compression of the right lower lobe bronchus. See attached georgina tos. Status post biopsies and brushings. 3. Pathologic adenopathy in the subcarinal lymph node station status post EBUS TBNA. Await pathology [facility] Procedure Codes (Charges) Pulmonary/Thoracic Procedure 1: Pulmonary and Thoracic: 47365 Bronchoscopy, w/EBUS 1 or 2 mediastinal Procedure 2: Pulmonary and Thoracic: 80818 Bronchoscopy w bronchial or endobronchial bx Procedure 3: Pulmonary and Thoracic: 41713 Dx bronchoscopy/brush Sedation/Anesthesia Procedure 4: Sedation/Anesthesia: 67921 Mod Sedation by the same physician;Init15 Min Child Age 5 & Up Procedure 5: Sedation/Anesthesia: 47435 Mod Sedation by the same physician; Ea [id number] Minutes
[2024-02-01] MEDS: fentaNYL citrate PF 100 MCG/2 ML VIAL ONE ×2 (09:15→09:16)
[2024-02-01] MEDS: MIDAZOLAM HCL 5 MG/ML 1 ML VIAL ONE (09:16)
[2024-02-01] MEDS: MIDAZOLAM HCL 1 MG/ML 2ML VIAL ONE (09:17)
[2024-02-01] MEDS: LEVOTHYROXINE SODIUM 75 MCG TABLET PO SCH (12:57)
[2024-02-01] MEDS: MAGNESIUM SULFATE / D5W 1 GM/100 ML BAG IV ONE (13:11)
[2024-02-01] MEDS: CHOLECALCIFEROL 25 MCG (1000 UNITS) TAB PO SCH (14:06)
[2024-02-01] MEDS: POTASSIUM CHLORIDE CRTAB 20 MEQ TABCR PO STA (14:28)
--- NOTE | 2024-02-01 14:46 | Hospitalist Progress Note ---
Date of Service February 01, 2024 Assessment & Plan (1) Postobstructive pneumonia: Plan: Day 5 antibiotics. Zosyn switched to Augmentin by pulmonology (14 days recommended). Continue doxycycline for 7 days. WBC is trending down and clinically improving (2) Bronchial compression: Plan: s/p bronchoscopy 01/31 - follow up pathology and microbiology (3) Acute hypoxemic respiratory failure: Plan: Presumably secondary to pneumonia, obstructed bronchus and subsequent lobe collapse as above PT/OT, incentive spirometer, flutter valve, guaifenesin Aim O2 sats > 90%, on room air at baseline 2 step tomorrow in preparation for possible discharge (4) Loculated pleural effusion: Plan: Pathology pending Exudate - cultures with no growth to date (5) Ectopic atrial beats: Plan: Metoprolol recently (01/24) increased from 50mg BID -> 50 QAM + 100 QPM however suspect this was the start of his pneumonia (appropriate compensation) - increase back to 50mg PO BID tomorrow Monitor on telemetry for recurrence of his historic atrial flutter Aim Mg > 2, K > 4 (replacement ordered today), repeat levels in AM (6) Obstructive sleep apnea: Plan: CPAP HS (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 Left cervical lymph node aspiration. Malignant. Metastatic squamous cell carcinoma. 10/06/2022. PET/CT. Hypermetabolic mass in the left Larynx, consistent with primary site of disease. Hypermetabolic left level 2 and bilateral level 3 lymphadenopathy, consistent with biopsy-proven floyd metastasis. 10/07/2022. Multidisciplinary head and neck tumor board. [id number] (stage IV) squamous cell carcinoma 10/09/2022. Await tracheostomy, direct laryngoscopy with biopsy (Dr. Chowdary). Path report of biopsies from the left supraglottic mass showed invasive squamous cell carcinoma, moderately differentiated. s/p chemoradiation 08/2023 palpable cervical lymph nodes concernin for recurrent/progressive disease - subseqnet FNA in Sep - Squamous cell carcinoma New mildly spiculated Left upper lung nodule favored to represent pulmonar mets 10/25/2023. Percutaneous biopsy of left upper lobe mass - squamous cell carcinoma 11/09/2023. Right modified radical neck dissection (Dr. Chowdary) - positive lymph nodes for metstatic squamous cell carcinoma 11/17/2023. Head and neck tumor board at [facility]. 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 Status post completion of radiation therapy to the left upper lung nodule. 12/27/2023. Initiation of pembrolizumab/carboplatin and 5-FU Missed cycle 2 due to tachycardia with irregular rhythm pending cardiology involvement - with hindsight suspect this was the start of his pneumonia rather than an inherent cardiac issue (8) Adenocarcinoma of right lung, stage 1: Plan: 03/2017. Status post right lower lobectomy due to non-small lung cancer (9) Chronic obstructive pulmonary disease: Plan: Continue routine meds (10) GERD (gastroesophageal reflux disease): Plan: Continue pantoprazole (11) Hypothyroidism: Plan: TSH stable Continue levothyroxine (12) Gout: Plan: No acute flare Continue allopurinol Plan VTE Prophylaxis - Lovenox Diet - regular Disposition - admit to PCU Admission and Anticipated Discharge Date Admission Date: January 27, 2024 Subjective Doing well s/p bronchoscopy. No significant improvement or deterioration following this. No chest pain. Feels he is strong enough to go home but not yet had both PT and OT assessments. Review of Systems Review of Systems: All systems reviewed & are unremarkable except as noted in HPI & below Physical Exam Constitutional: WD/WN, vitals as above Respiratory: normal respiratory effort Auscultation: + breath sounds absent (right base), + diminished lung sounds (right posterior) and + crackles (right posterior superoirly); no rales and no wheezes Cardiovascular: RRR, no murmur, no edema Gastrointestinal (Abdomen): normal bowel sounds, soft, nontender, no hepatosplenomegaly Neurologic: moves all extremities and awake; not confused Psychiatric: A+Ox3, euthymic affect Results & Data Results & Data Vital Signs (Past 12 Hours) Vital Signs Temp Pulse Pulse Resp BP BP BP 02/01/24 14:02 104 H 102/64 02/01/24 12:30 114 H 16 110/70 02/01/24 12:00 36.6 C 102 H 16 126/76 02/01/24 11:30 36.7 C 89 16 101/64 02/01/24 10:45 93 H 14 99/61 L 02/01/24 10:30 36.5 C 100 H 15 111/64 02/01/24 10:25 102 H 18 02/01/24 10:15 36.7 C 110 H 15 102/62 02/01/24 10:00 36.6 C 119 H 15 109/69 02/01/24 09:50 36.6 C 110 H 16 110/60 02/01/24 09:24 108 H 16 117/93 02/01/24 09:18 108 H 16 110/64 02/01/24 09:13 108 H 16 108/69 02/01/24 09:05 108 H 16 113/66 02/01/24 09:00 105 H 16 106/67 02/01/24 08:55 105 H 16 122/52 L 02/01/24 08:50 105 H 16 110/66 02/01/24 08:45 105 H 16 124/66 02/01/24 08:40 105 H 16 135/65 02/01/24 08:35 106 H 18 137/86 02/01/24 08:30 106 H 18 132/75 02/01/24 08:25 94 H 18 110/63 02/01/24 08:20 89 18 118/58 L 02/01/24 08:15 99 H 18 123/74 02/01/24 08:10 82 18 121/64 02/01/24 08:05 87 18 112/59 L 02/01/24 08:00 02/01/24 07:40 105/55 L 02/01/24 07:25 92 H 18 103/59 L 02/01/24 07:00 80 02/01/24 07:00 02/01/24 02:54 36.8 C 89 18 128/73 Pulse Ox O2 Del Method O2 Flow Rate 02/01/24 14:02 02/01/24 12:30 Oxymask 3 02/01/24 12:00 90 Oxymask 3 02/01/24 11:30 90 Oxymask 3 02/01/24 10:45 90 Oxymask 3 02/01/24 10:30 90 Nasal Cannula 3 02/01/24 10:25 91 Nasal Cannula 3 02/01/24 10:15 90 Nasal Cannula 3 02/01/24 10:00 91 Nasal Cannula 3 02/01/24 09:50 91 Nasal Cannula 3 02/01/24 09:24 90 Nasal Cannula 3 02/01/24 09:18 91 Nasal Cannula 3 02/01/24 09:13 93 5 02/01/24 09:05 93 5 02/01/24 09:00 95 10 02/01/24 08:55 95 10 02/01/24 08:50 94 10 02/01/24 08:45 90 15 02/01/24 08:40 90 15 02/01/24 08:35 80 L 15 02/01/24 08:30 87 L 15 02/01/24 08:25 91 15 02/01/24 08:20 87 L 15 02/01/24 08:15 92 15 02/01/24 08:10 97 02/01/24 08:05 96 Oxymask 8 02/01/24 08:00 Oxymask 02/01/24 07:40 Oxymask 02/01/24 07:25 95 Nasal Cannula 02/01/24 07:00 02/01/24 07:00 Nasal Cannula 3 02/01/24 02:54 94 Oxymask 3 PG Care Time/CCT Total # of Minutes Spent Total Time Spent with Patient: Total time spent is greater than 50% in coordination of care (as documented) at patient's floor/unit and/or counseling patient: Coding Level of Care Code 34671 SUB INP/OBS CARE 2/35MIN Diagnoses Postobstructive pneumonia J18.9 Bronchial compression J98.09 Acute hypoxemic respiratory failure J96.01 Loculated pleural effusion J90 Ectopic atrial beats I49.1 Obstructive sleep apnea G47.33 Primary cancer of supraglottis C32.1 Adenocarcinoma of right lung, stage 1 C34.91 Chronic obstructive pulmonary disease J44.9 GERD (gastroesophageal reflux disease) K21.9 Hypothyroidism E03.9 Gout M10.9
--- NOTE | 2024-02-01 14:59 | Pulmonology Progress Note ---
Date of Service February 01, 2024 Assessment & Plan (1) Pneumonia: (2) Acute hypoxemic respiratory failure: (3) Squamous cell carcinoma of left lung: (4) Chronic obstructive pulmonary disease: (5) Adenocarcinoma of right lung, stage 1: (6) Loculated pleural effusion: (7) Pleuritic chest pain: Plan Impression: 76-year-old male with mild emphysema status post lobectomy for adenocarcinoma of the lung. 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 Pleural effusion cytology was negative. He status post bronchoscopy demonstrating extrinsic compression of the right lower lobe and biopsy of mediastinal lymph node. Recommendations: 1. Pleural effusion: Negative for malignancy with abundant acute inflammatory cells, cultures negative. Likely will reaccumulate as the right lower lobe is atelectatic and unable to be aerated due to bronchial obstruction. Would continue to follow clinically at this point time but no indication for repeat pleural intervention 2. Abnormal CT scan: CT demonstrates occlusion of the right lower lobe bronchus. Bronchoscopy results noted. Highly suspicious for malignancy, await biopsies including biopsy of the subcarinal lymph node. May require additional input from radiation oncology depending on results as well as outpatient medical oncology. 3. Hypoxemic respiratory failure: Continue supplemental oxygen titrated to keep saturations at or above 90%. Needs to be assessed for supplemental oxygen prior to discharge. 4. Postobstructive pneumonia: Await bronchoscopy cultures. Currently on Zosyn. Okay to de-escalate to Augmentin. Would continue for an additional 2 weeks of therapy. Patient may be appropriate to dismiss from the hospital in next 24 hours depending on clinical course. Admission and Anticipated Discharge Date Admission Date: January 27, 2024 Subjective Patient seen and examined this afternoon. He is status post bronchoscopy with biopsies of this morning. He is doing well clinically. He is down to 3 L oxygen. No chest pain or palpitations. He actually feels like he is doing well clinically. Review of Systems Review of Systems: All systems reviewed & are unremarkable except as noted in Subjective Physical Exam Constitutional: WD/WN, vitals as above ENMT: Mallampati Class: II Neck: trachea midline, no thyromegaly Respiratory: normal respiratory effort, lungs clear to auscultation Cardiovascular: RRR, no murmur, no edema Gastrointestinal (Abdomen): normal bowel sounds, soft, nontender, no hepatosplenomegaly Musculoskeletal: Extremities: extremities normal to inspection Skin: no rashes, warm and dry Lymphatic: no cervical lymphadenopathy Results & Data Results & Data Vital Signs (Past 12 Hours) Vital Signs Temp Pulse Pulse Resp BP BP BP 02/01/24 14:02 104 H 102/64 02/01/24 12:30 114 H 16 110/70 02/01/24 12:00 36.6 C 102 H 16 126/76 02/01/24 11:30 36.7 C 89 16 101/64 02/01/24 10:45 93 H 14 99/61 L 02/01/24 10:30 36.5 C 100 H 15 111/64 02/01/24 10:25 102 H 18 02/01/24 10:15 36.7 C 110 H 15 102/62 02/01/24 10:00 36.6 C 119 H 15 109/69 02/01/24 09:50 36.6 C 110 H 16 110/60 02/01/24 09:24 108 H 16 117/93 02/01/24 09:18 108 H 16 110/64 02/01/24 09:13 108 H 16 108/69 02/01/24 09:05 108 H 16 113/66 02/01/24 09:00 105 H 16 106/67 02/01/24 08:55 105 H 16 122/52 L 02/01/24 08:50 105 H 16 110/66 02/01/24 08:45 105 H 16 124/66 02/01/24 08:40 105 H 16 135/65 02/01/24 08:35 106 H 18 137/86 02/01/24 08:30 106 H 18 132/75 02/01/24 08:25 94 H 18 110/63 02/01/24 08:20 89 18 118/58 L 02/01/24 08:15 99 H 18 123/74 02/01/24 08:10 82 18 121/64 02/01/24 08:05 87 18 112/59 L 02/01/24 08:00 02/01/24 07:40 105/55 L 02/01/24 07:25 92 H 18 103/59 L 02/01/24 07:00 80 02/01/24 07:00 02/01/24 02:54 36.8 C 89 18 128/73 Pulse Ox O2 Del Method O2 Flow Rate 02/01/24 14:02 02/01/24 12:30 Oxymask 3 02/01/24 12:00 90 Oxymask 3 02/01/24 11:30 90 Oxymask 3 02/01/24 10:45 90 Oxymask 3 02/01/24 10:30 90 Nasal Cannula 3 02/01/24 10:25 91 Nasal Cannula 3 02/01/24 10:15 90 Nasal Cannula 3 02/01/24 10:00 91 Nasal Cannula 3 02/01/24 09:50 91 Nasal Cannula 3 02/01/24 09:24 90 Nasal Cannula 3 02/01/24 09:18 91 Nasal Cannula 3 02/01/24 09:13 93 5 02/01/24 09:05 93 5 02/01/24 09:00 95 10 02/01/24 08:55 95 10 02/01/24 08:50 94 10 02/01/24 08:45 90 15 02/01/24 08:40 90 15 02/01/24 08:35 80 L 15 02/01/24 08:30 87 L 15 02/01/24 08:25 91 15 02/01/24 08:20 87 L 15 02/01/24 08:15 92 15 02/01/24 08:10 97 02/01/24 08:05 96 Oxymask 8 02/01/24 08:00 Oxymask 02/01/24 07:40 Oxymask 02/01/24 07:25 95 Nasal Cannula 02/01/24 07:00 02/01/24 07:00 Nasal Cannula 3 02/01/24 02:54 94 Oxymask 3 Diagnostic Findings Bronchoscopy results demonstrated an occluded right lower lobe bronchus status post biopsies as well as subcarinal lymph node status post TBNA PG Care Time/CCT Total # of Minutes Spent Total Time Spent with Patient: Total time spent is greater than 50% in coordination of care (as documented) at patient's floor/unit and/or counseling patient: Coding Level of Care Code 17824 SUB INP/OBS CARE 3/50MIN Diagnoses Pneumonia J18.9 Acute hypoxemic respiratory failure J96.01 Squamous cell carcinoma of left lung C34.92 Chronic obstructive pulmonary disease J44.9 Adenocarcinoma of right lung, stage 1 C34.91 Loculated pleural effusion J90 Pleuritic chest pain R07.81
[2024-02-01] MEDS: AMOXICILLIN/CLAVULANATE 875 MG TAB PO SCH (17:03)
[2024-02-02 07:32] LABS: Calcium 8.4 mg/dl (8.6-10.3); Creatinine Clr Calc Pharmacy 131.9 ml/min; Est GFR (African American) 118.3 ml/min; Est GFR (Non-African American) 102.1 ml/min; Magnesium 1.7 mg/dl (1.7-2.4); Potassium 3.9 mmol/L (3.5-5.1)
[2024-02-02] MEDS: ENOXAPARIN INJ 40 MG/0.4 ML SYR SQ SCH (07:46)
[2024-02-02] MEDS: ASPIRIN 81 MG ECTAB PO SCH (07:46)
[2024-02-02] MEDS: METOPROLOL SUCC 50MG EXT REL TAB PO SCH (07:47)
--- NOTE | 2024-02-02 10:09 | Pulmonology Progress Note ---
Date of Service February 02, 2024 Assessment & Plan (1) Pneumonia: (2) Acute hypoxemic respiratory failure: (3) Squamous cell carcinoma of left lung: (4) Chronic obstructive pulmonary disease: (5) Adenocarcinoma of right lung, stage 1: (6) Loculated pleural effusion: (7) Pleuritic chest pain: Plan Impression: 76-year-old male with mild emphysema status post lobectomy for adenocarcinoma of the lung. 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 Pleural effusion cytology was negative. Status post bronchoscopy with EBUS TBNA. Preliminary read from pathology shows no obvious malignancy Recommendations: 1. Pleural effusion: Negative for malignancy with abundant acute inflammatory cells, cultures negative. Likely will reaccumulate as the right lower lobe is atelectatic and unable to be aerated due to bronchial obstruction. Would continue to follow clinically at this point time but no indication for repeat pleural intervention 2. Abnormal CT scan: CT demonstrates occlusion of the right lower lobe bronchus. Bronchoscopy results noted. May be a inflammatory process secondary to underlying infection. No obvious malignancy on bronchoscopy at this point. Recommend completing 14 days of Augmentin and will plan on short interval follow-up CT scan in the outpatient setting. 3. Hypoxemic respiratory failure: Continue supplemental oxygen titrated to keep saturations at or above 90%. Needs to be assessed for supplemental oxygen prior to discharge. 4. Postobstructive pneumonia: A cultures no growth to date. Currently on Augmentin. Would continue for an additional 2 weeks of therapy. Patient may be eligible to dismiss from the hospital from a pulmonary standpoint. He should follow-up with me in clinic next 2 to 3 weeks and we will plan on a short interval follow-up CT scan in 4 weeks time. The above recommendations and plan were discussed with the patient. Questions were answered to the best my ability. He expressed understanding and is in agreement with plan as outlined. Feel free to contact us with questions Admission and Anticipated Discharge Date Admission Date: January 27, 2024 Subjective Patient seen and examined. EMR reviewed. Patient is doing well clinically. He is ambulating. Continues to require oxygen but this is weaning down. He is not expectorating any significant phlegm. He has not had any hemoptysis. He overall feels improved Review of Systems Review of Systems: All systems reviewed & are unremarkable except as noted in Subjective Physical Exam Constitutional: WD/WN, vitals as above ENMT: Mallampati Class: II Neck: trachea midline, no thyromegaly Respiratory: normal respiratory effort, lungs clear to auscultation Cardiovascular: RRR, no murmur, no edema Gastrointestinal (Abdomen): normal bowel sounds, soft, nontender, no hepatosplenomegaly Musculoskeletal: Extremities: extremities normal to inspection Skin: no rashes, warm and dry Lymphatic: no cervical lymphadenopathy Results & Data Results & Data Vital Signs (Past 12 Hours) Vital Signs Temp Pulse Resp BP Pulse Ox Pulse Ox O2 Del Method 02/02/24 07:44 36.9 C 80 19 122/67 91 Nasal Cannula 02/02/24 07:21 82 17 93 Nasal Cannula 02/02/24 03:03 36.6 C 94 H 18 112/58 L 91 Nasal Cannula 02/01/24 23:07 36.4 C L 86 16 112/72 94 Nasal Cannula 02/01/24 23:00 91 O2 Del Method O2 Flow Rate O2 Flow Rate 02/02/24 07:44 3 02/02/24 07:21 3 02/02/24 03:03 2 02/01/24 23:07 2 02/01/24 23:00 Nasal Cannula 3 Diagnostic Findings Pathology results from bronchoscopy preliminarily reviewed. Acute inflammation with ulcerated mucosa but no evidence of overt malignancy on preliminary read PG Care Time/CCT Total # of Minutes Spent Total Time Spent with Patient: Total time spent is greater than 50% in coordination of care (as documented) at patient's floor/unit and/or counseling patient: Coding Level of Care Code 05671 SUB INP/OBS CARE 2/35MIN Diagnoses Pneumonia J18.9 Acute hypoxemic respiratory failure J96.01 Squamous cell carcinoma of left lung C34.92 Chronic obstructive pulmonary disease J44.9 Adenocarcinoma of right lung, stage 1 C34.91 Loculated pleural effusion J90 Pleuritic chest pain R07.81
--- NOTE | 2024-02-02 14:07 | Discharge Summary ---
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 He has undergone tracheostomy 10/09/2022, which later fell out 11/23/2022, weekly cisplatin with radiation treatment times -12/23/2022, right radical neck dissection 11/09/2023, and completed radiation therapy to the left lung nodule on 12/22/2023. He currently undergoing chemotherapy with GIN Heaton at [facility], and Eduardo Ovalle MD from [facility] radiation oncology. He presents to the emergency department with symptoms as noted above. Most of history is obtained from family present, and chart review Principal Diagnosis PNA Discharge Exam The patient is awake, alert and oriented 3, well developed and well nourished, normocephalic and atraumatic, lying in bed and in no acute distress. HEENT--PERRL, EOMI, mucous membranes and oropharynx mildly dry Neck--supple. No JVD. No bruits. Thyroid normal, trachea midline, no adenopathy. Heart--normal S1 and S2. No murmurs, rubs or gallops. Lungs--Reduced and on auscultation Abdomen--normal bowel sounds and soft. Extremities--no cyanosis or clubbing. No edema. Dermatologic--normal skin turgor, normal color, no abnormal lymph nodes, no rash. Neurologic--cranial nerves II through XII grossly intact. Rheumatologic--normal range of motion. Psychiatric--normal affect. Discharge Data Allergies Allergy/AdvReac Type Severity Reaction Status Date / Time lisinopril AdvReac Intermediate COUGH Verified 01/28/24 09:23 simvastatin AdvReac Unknown MUSCLE Verified 01/28/24 09:23 ACHES Consultations 01/27/24 19:48 ED Decision to Admit Stat 01/27/24 20:55 Consult Radiation Oncology Routine 01/27/24 23:12 Consult Pulmonology Routine Procedures Performed Operation Date: 02/01/24 07:00 Actual Procedures p Endobronchial Ultrasound (EBUS) - Caden Clay MD Ordered Studies 01/27/24 17:53 CT for pulmonary embolism PE [CT angio chest PE protocol] Stat CT head/brain wo con Stat 01/27/24 20:42 US venous doppler LE BI Stat 01/28/24 08:15 US point of care ultrasound Urgent Hospital Course (1) Postobstructive pneumonia: Initially was on Zosyn, switched to Augmentin pulmonology. Will complete 14-day course (2) Bronchial compression: s/p bronchoscopy 01/31 - follow up pathology and microbiology (3) Acute hypoxemic respiratory failure: Presumably secondary to pneumonia, obstructed bronchus and subsequent lobe collapse as above PT/OT, incentive spirometer, flutter valve, guaifenesin Aim O2 sats > 90%, on room air at baseline Two-step determined he required some oxygen upon discharge (4) Loculated pleural effusion: Pathology pending Exudate - cultures with no growth to date (5) Ectopic atrial beats: Metoprolol recently (01/24) increased from 50mg BID -> 50 QAM + 100 QPM however suspect this was the start of his pneumonia (appropriate compensation) - Monitor on telemetry for recurrence of his historic atrial flutter Aim Mg > 2, K > 4 (replacement ordered today), repeat levels in AM (6) Obstructive sleep apnea: CPAP HS (7) Primary cancer of supraglottis: 09/23/2022. Left cervical lymph node aspiration. Malignant. Metastatic squamous cell carcinoma. 10/06/2022. PET/CT. Hypermetabolic mass in the left Larynx, consistent with primary site of disease. Hypermetabolic left level 2 and bilateral level 3 lymphadenopathy, consistent with biopsy-proven floyd metastasis. 10/07/2022. Multidisciplinary head and neck tumor board. [id number] (stage IV) squamous cell carcinoma 10/09/2022. Await tracheostomy, direct laryngoscopy with biopsy (Dr. Chowdary). Path report of biopsies from the left supraglottic mass showed invasive squamous cell carcinoma, moderately differentiated. s/p chemoradiation 08/2023 palpable cervical lymph nodes concernin for recurrent/progressive disease - subseqnet FNA in Sep - Squamous cell carcinoma New mildly spiculated Left upper lung nodule favored to represent pulmonar mets 10/25/2023. Percutaneous biopsy of left upper lobe mass - squamous cell carcinoma 11/09/2023. Right modified radical neck dissection (Dr. Chowdary) - positive lymph nodes for metstatic squamous cell carcinoma 11/17/2023. Head and neck tumor board at [facility]. Patient is diagnosed with recurrent [id number] supraglottic laryngeal cell carcinoma 12/22/2023. Status post completion of radiation therapy to the left upper lung nodule. 12/27/2023. 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 Status post right lower lobectomy due to non-small lung cancer (9) Chronic obstructive pulmonary disease: Continue routine meds (10) GERD (gastroesophageal reflux disease): Continue pantoprazole (11) Hypothyroidism: TSH stable Continue levothyroxine (12) Gout: No acute flare Continue allopurinol Plan VTE Prophylaxis - Lovenox Diet - regular Disposition - admit to PCU Total Time Total Time Spent Total Time Spent (In Minutes): 35 Discharge Plan Discharge Items Patient Disposition: Home - Self-Care Reason For Visit: POST OBSTRUCTIVE PNEUMONIA, METASTATIC CANCER Discharge Diagnosis: PNA Activity: Resume your previous activity Non-emergency contact: Primary Care Provider and L D Rn Call non-emergency contact if: you have any medication questions Follow-up/Referrals: Genoveva Alcocer DO [Primary Care Provider] - 02/24/24 10:00 am (with CRNP. Reginaldo) Diet: Regular Addtl Attending Provider Instructions: please follow up with pulmonology in 2 weeks Pending Studies at Discharge: No Stand-Alone Forms: My Ver[employer], Smoking Cessation Medications and DC Order Prescriptions: New amoxicillin-pot clavulanate 875-125 mg Tablet 1 tab PO BIDM 14 Days Qty: 28 0RF Continued omeprazole 20 mg capsule,delayed release(/EC) 20 mg PO BID Qty: 180 3RF allopurinol 100 mg tablet 100 mg PO QAM Qty: 90 1RF pravastatin 20 mg tablet 20 mg PO HS Qty: 90 1RF levothyroxine 75 mcg tablet 75 mcg PO DAILY Qty: 90 2RF metronidazole 0.75 % cream 1 applic topical BID PRN (Reason: Skin Irritation) Trelegy Ellipta 100-62.5-25 mcg blister with device 1 inh inhalation DAILY 90 Days Qty: 90 3RF ipratropium-albuterol 0.5 mg-3 mg(2.5 mg base)/3 mL solution for nebulization 3 ml inhalation Q6H PRN (Reason: shortness of breath or wheezing) Qty: 180 3RF Centrum Silver 400-250 mcg tablet,chewable 1 tab PO QAM aspirin 81 mg Tablet,Delayed Release (Dr/Ec) 81 mg PO QAM cholecalciferol (vitamin D3) 25 mcg (1,000 unit) capsule 1,000 unit PO QAM metoprolol succinate 50 mg tablet extended release 24 hr See Rx Instructions .ROUTE .COMPLEX Rx Instructions: Take 50mg by mouth in the morning and 100mg by mouth in the evening Discharge Orders: Discharge Order (Routine); Ordered 02/02/24 Ordered By: Jes Brito Admission Data Admit Date/Time: 01/27/24 20:55 Attending Provider: Jes Brito Admit Provider: Omari Montoya Primary Care Provider: Genoveva Alcocer Other Providers: Michael Ovalle; Omari Montoya; Nestor Marshall Coding Level of Care Code 06852 INP/OBS DISCH >30 MIN Diagnoses Postobstructive pneumonia J18.9 Bronchial compression J98.09 Acute hypoxemic respiratory failure J96.01 Loculated pleural effusion J90 Ectopic atrial beats I49.1 Obstructive sleep apnea G47.33 Primary cancer of supraglottis C32.1 Adenocarcinoma of right lung, stage 1 C34.91 Chronic obstructive pulmonary disease J44.9 GERD (gastroesophageal reflux disease) K21.9 Hypothyroidism E03.9 Gout M10.9 Time Spent (min) 35
== END 2024-02-02 16:27 | disposition home or self-care (01) | DRG 166 ==
LOC: ED 17:32 → SUATTDRO 20:55 → EDINP 20:55 → 2S 22:13